=== PATIENT | female | born 1960 | race Caucasian/White ===

== ENCOUNTER → 2018-03-29 | Outpatient (CLI) | payer OTHER ==
[2018-03-29 11:06] LABS: Blood Urea Nitrogen 15 mg/dL (7-17)
--- NOTE | 2018-03-29 12:38 | MR ---
EXAMINATION TYPE: MR brain/cspine wo/w DATE OF EXAM: 03/29/2018 COMPARISON: Outside brain MRI February 08, 2017. HISTORY: MS TECHNIQUE: Multiplanar, multisequence images of the cervical spine, brain, and brainstem are all performed witho ut and with IV contrast, utilizing 5 mL intravenous Gadavist gadolinium contrast is administered intr avenously. Demyelinating disease protocol with additional Sagittal Flair sequence performed of the b rain and brainstem and PD sagittal sequence of cervical spine all acquired.. FINDINGS: BRAIN: T2 Lesions Present : Yes Approximate Number of Lesions: Approximately 20-25 Locations Identified : Scattered deep and periventricular supratentorial lesions Size of Reference Lesion(s): 1. Confluent left parietal periventricular lesion measuring 20 x 16 x 17 mm axial image 22 and sagitt al image 13 fairly stable Enhancing Lesion(s) Present: No T1 Hypointense Lesion(s) Present: Yes Change from Prior: Better visualization or suspected new small lesions on current exam Diffusion weighted images demonstrate no evidence of a recent infarct or other diffusion abnormality. There is no worrisome extra-axial fluid collection. The ventricular system and cisternal spaces ar e normal in size and appearance. The brain volume is age appropriate. Midline structures redemonstrated low lying cerebellar tonsils. Post contrast images demonstrate no a bnormal enhancement. The dural venous sinuses appear patent. The visualized sinuses are clear and th e globes are intact. IMPRESSION: 1. Fairly moderate nonspecific white matter changes most likely on basis of patient's known demyelina ting disease. I do favor better visualization accounting for improved technique on current study vers us outside study, cannot exclude some small new lesions. No enhancing lesions are noted. 2. Stable low-lying cerebellar tonsils, borderline Chiari type I malformation. C-SPINE: FINDINGS: Sagittal images of the cervical spine show stable slightly low lying cerebellar tonsils. T he cervical and upper thoracic spinal cord is normal in course, caliber, and signal. Vertebral align ment is anatomic. The vertebral body and intravertebral disk heights are normal. Small posterior dis c herniation C6-C7 level is seen effacing anterior thecal sac on sagittal images. The bone marrow sig nal intensity is within normal limits. No suspicious postcontrast enhancement is noted. Axial images show the C2-C3, C3-C4, C4-C5, and C5-C6 levels all to appear within normal limits. Axial images at C6-C7 level shows central disc protrusion effacing anterior thecal sac on axial image 14, bilateral neural foramina are patent. Axial images at C7-T1 level are felt within normal limits.. IMPRESSION: No evidence of demyelinating disease involvement in the cervical spinal cord. Focal disc herniation C6-C7 level is noted.
[2018-03-29 13:21] LABS: Basophils # (A) 0.1 k/uL (0-0.2); Basophils % (A) 1 %; Eosinophils # (A) 0.1 k/uL (0-0.7); Eosinophils % (A) 2 %; HGB 12.6 gm/dL (11.4-16.0); Lymphocytes # (A) 2.6 k/uL (1.0-4.8); Lymphocytes % (A) 41 %; MCH 31.9 pg (25.0-35.0); MCHC 33.2 g/dL (31.0-37.0); MCV 96.2 fL (80.0-100.0); Mean Platelet Volume 9.4; Monocytes # (A) 0.3 k/uL (0-1.0); Monocytes % (A) 5 %; Neutrophils # (A) 3.2 k/uL (1.3-7.7); Neutrophils % (A) 50 %; Platelet Count 253 k/uL (150-450); RBC 3.95 m/uL (3.80-5.40); RDW 14.2 % (11.5-15.5); WBC 6.4 k/uL (3.8-10.6)
[2018-03-29 13:26] LABS: ALT 36 U/L (9-52); AST 43 U/L (14-36); Albumin 4.3 g/dL (3.5-5.0); Alkaline Phosphatase 101 U/L (38-126); Anion Gap 10 mmol/L; Calcium 9.5 mg/dL (8.4-10.2); Carbon Dioxide 25 mmol/L (22-30); Chloride 105 mmol/L (98-107); Glucose 85 mg/dL (74-99); Potassium 4.4 mmol/L (3.5-5.1); Sodium 140 mmol/L (137-145); Total Bilirubin 0.3 mg/dL (0.2-1.3); Total Protein 7.5 g/dL (6.3-8.2)
[2018-03-29 19:06] LABS: Vitamin D 25 Hydroxy 65.4 ng/mL (30.0-100.0)
== END | disposition home or self-care (01) ==
LOC: RADMRIMAIN 10:33
PROVIDERS: ATTEND Nurse Practitioner Acute Care
DX: M50.223 Other cervical disc displacement at C6-C7 level (principal); G93.5 Compression of brain; E55.9 Vitamin D deficiency, unspecified; R53.83 Other fatigue; G35 Multiple sclerosis; Z88.0 Allergy status to penicillin
CPT/HCPCS: 84207; 80053; 82607; 85025; 82306; 70553; 72156; 36415; A9581

== ENCOUNTER 2023-05-10 12:18 | Emergency (ER) | payer OTHER ==
[2023-05-10 12:56] LABS: Basophils % (A) 0 %; Eosinophils # (A) 0.2 k/uL (0-0.7); Eosinophils % (A) 2 %; HCT 33.2 % (34.0-46.0); HGB 11.3 gm/dL (11.4-16.0); Lymphocytes # (A) 1.2 k/uL (1.0-4.8); Lymphocytes % (A) 13 %; MCH 31.5 pg (25.0-35.0); MCV 92.6 fL (80.0-100.0); Mean Platelet Volume 7.8; Monocytes # (A) 0.6 k/uL (0-1.0); Monocytes % (A) 7 %; Neutrophils # (A) 6.5 k/uL (1.3-7.7); Neutrophils % (A) 76 %; Platelet Count 405 k/uL (150-450); RBC 3.58 m/uL (3.80-5.40); RDW 13.5 % (11.5-15.5); WBC 8.6 k/uL (3.8-10.6)
[2023-05-10 13:08] LABS: ALT 22 U/L (4-34); AST 23 U/L (14-36); African American GFR (CKD) >90 (>60 ml/min/1.73 sqM); Albumin 4.2 g/dL (3.5-5.0); Alkaline Phosphatase 156 U/L (38-126); Anion Gap 14 mmol/L; Blood Urea Nitrogen 12 mg/dL (7-17); Carbon Dioxide 21 mmol/L (22-30); Chloride 104 mmol/L (98-107); Glucose 99 mg/dL (74-99); Magnesium 1.9 mg/dL (1.6-2.3); Non-African American GFR(CKD) >90 (>60 ml/min/1.73 sqM); Potassium 3.4 mmol/L (3.5-5.1); Sodium 139 mmol/L (137-145); Total Bilirubin 0.4 mg/dL (0.2-1.3)
--- NOTE | 2023-05-10 13:26 | XR ---
EXAMINATION TYPE: XR chest 2V DATE OF EXAM: 05/10/2023 1:18 PM CLINICAL INDICATION:Female, 62 years old with history of Chest Pain; [facility] COMPARISON: Chest radiographs from TECHNIQUE: XR chest 2V Frontal and lateral views of the chest. FINDINGS: Lungs/Pleura: Nodular-like opacity in the left lung apex measuring 23 mm. There is no evidence of rig ht pleural effusion, focal consolidation, or pneumothorax. Pulmonary vascularity: Unremarkable. Heart/mediastinum: Cardiomediastinal silhouette is unremarkable. Musculoskeletal: No acute osseous pathology. Midline sternotomy wires are noted. IMPRESSION: 1. Left apical nodule further evaluation with CT chest recommended. 2. Left pleural effusion with associated atelectasis.
--- NOTE | 2023-05-10 13:43 | ED ---
General Adult HPI - General Source: patient, RN notes reviewed, old records reviewed Mode of arrival: wheelchair Limitations: no limitations <Rick Skaggs - Last Filed: 05/10/23 14:44> <Zhao San - Last Filed: 05/10/23 16:31> - General Chief complaint: Chest Pain Stated complaint: Chest Pain, SOB, Cough Time Seen by Provider: 05/10/23 12:42 - History of Present Illness Initial comments: 62-year-old female presenting for evaluation of cough, chest pain. Patient has had symptoms for the past several months. She does have a history of coronary artery disease status post bypass. She was scheduled to receive a outpatient CT on the of this month, sounds as if this is 46 cancer screening. She re quests that this CAT scan be done in the emergency department. She denies fever. Reports mild dyspnea. (Rick Skaggs) - Related Data Previous Rx's Medication Instructions Recorded Ketorolac [Toradol] 10 mg PO Q6HR PRN #15 tab 05/10/23 Allergies Allergy/AdvReac Type Severity Reaction Status Date / Time Penicillins Allergy Rash/Hives Verified 05/10/23 12:26 Review of Systems ROS Other: All systems not noted in ROS Statement are negative. <Rick Skaggs - Last Filed: 05/10/23 14:44> ROS Other: All systems not noted in ROS Statement are negative. <Zhao San - Last Filed: 05/10/23 16:31> ROS Statement: Those systems with pertinent positive or pertinent negative responses have been documented in the HPI. Past Medical History Past Medical History: Coronary Artery Disease (CAD), Chest Pain / Angina, Hypertension, Myocardial Infarction ([place]) Additional Past Medical History / Comment(s): MS Past Surgical History: Coronary Bypass/CABG Past Psychological History: Depression <Rick Skaggs - Last Filed: 05/10/23 14:44> General Exam Limitations: no limitations General appearance: alert, in no apparent distress Head exam: Present: atraumatic, normocephalic Eye exam: Present: normal appearance, PERRL ENT exam: Present: normal exam Neck exam: Present: normal inspection. Absent: tenderness, meningismus Respiratory exam: Present: normal lung sounds bilaterally. Absent: respiratory distress, wheezes Cardiovascular Exam: Present: regular rate, normal rhythm GI/Abdominal exam: Present: soft. Absent: distended, tenderness, guarding Extremities exam: Present: normal inspection, normal capillary refill. Absent: pedal edema, calf tenderness Neurological exam: Present: alert, oriented X3, CN II-XII intact. Absent: motor sensory deficit Psychiatric exam: Present: normal affect, normal mood Skin exam: Present: warm, dry, intact. Absent: cyanosis, diaphoretic <Rick Skaggs - Last Filed: 05/10/23 14:44> Course Vital Signs 05/10/23 05/10/23 05/10/23 12:22 14:12 15:20 Temperature 98.4 F 98.7 F Pulse Rate 83 84 86 Respiratory 16 20 18 Rate Blood Pressure 170/97 181/99 173/97 O2 Sat by Pulse 98 96 96 Oximetry Medical Decision Making - Lab Data Result diagrams: 05/10/23 12:43 05/10/23 12:43 <Rick Skaggs - Last Filed: 05/10/23 14:44> - Lab Data Result diagrams: 05/10/23 12:43 05/10/23 12:43 <Zhao San - Last Filed: 05/10/23 16:31> - Medical Decision Making Was pt. sent in by a medical professional or institution ([facility], RAIL ASSEMBLER, urgent care, hospital, or longterm...) When possible be specific @ -No Did you speak to anyone other than the patient for history (EMS, parent, family, police, friend...)? What history was obtained from this source @ -No Did you review nursing and triage notes (agree or disagree)? Why? @ -I reviewed and agree with nursing and triage notes Were old charts reviewed (outside hosp., previous admission, EMS record, old EKG, old radiological studies, urgent care reports/EKG's, longterm records)? Report findings @ -No old charts were reviewed Differential Diagnosis (chest pain, altered mental status, abdominal pain women, abdominal pain men, vaginal bleeding, weakness, fever, dyspnea, syncope, headache, dizziness, GI bleed, back pain, seizure, CVA, palpatations, mental health, musculoskeletal)? @ -not applicable EKG interpreted by me (3pts min.). @ -Sinus rhythm rate of 76, KS interval 139, QRS duration 80, QTC [address] segment elevation. X-rays interpreted by me (1pt min.). @Chest x-ray showing left pleural effusion with left upper lobe pulmonary nodule. CT interpreted by me (1pt min.). @CT angiogram pending ordered secondary to d-dimer U/S interpreted by me (1pt. min.). @ -None done What testing was considered but not performed or refused? (CT, X-rays, U/S, labs)? Why? @ -None What meds were considered but not given or refused? Why? @ -None Did you discuss the management of the patient with other professionals (professionals i.e. Dr., PA, RAIL ASSEMBLER, lab, RT, psych nurse, social and political studies professor, bariatric surgeon, teacher, ambulance officer, transplant case manager)? Give summary @ -No Was smoking cessation discussed for >3mins.? @ -No Was critical care preformed (if so, how long)? @ -No Were there social determinants of health that impacted care today? How? (Homele ssness, low income, unemployed, alcoholism, drug addiction, transportation, low edu. Level, literacy, decrease access to med. care, senior living, rehab)? @ -No Was there de-escalation of care discussed even if they declined (Discuss DNR or withdrawal of care, Hospice)? DNR status @ -No What co-morbidities impacted this encounter? (DM, HTN, Smoking, COPD, CAD, Cancer, CVA, ARF, Chemo, Hep., AIDS, mental health diagnosis, sleep apnea, morbid obesity)? @ -[Coronary artery disease Was patient admitted / discharged? Hospital course, mention meds given and route, prescriptions, significant lab abnormalities, going to OR and other pertinent info. @ -Patient's care is signed out to Dr. Sna at shift change awaiting CT imaging and reevaluation. (Rick Skaggs) Chest x-ray shows left upper lobe nodule and left lower lobe effusion, interpret ed by myself Computed tomography scan of the chest interpreted by myself does have concern for left. Tracheal mass with concern for bony metastasis. Nodule. Left effusions Case was discussed in detail with Dr. Cassidy including presentation and CT results. He is comfortable patient discharge and will follow-up with the patient in the office next week. Patient reevaluated by myself, Dr. San. Patient resting comfortably in bed, near symptom-free. Patient is comfortable with discharge home and advised of results and need for close follow-up. Patient does demonstrate understanding. Diagnosis: Left lung mass Acute There is potential for damage to lung and life with lung mass. (Zhao San) - Lab Data Lab Results 05/10/23 05/10/23 05/10/23 Range/Units 12:43 12:43 12:43 WBC 8.6 (3.8-10.6) k/uL RBC 3.58 L (3.80-5.40) m/uL Hgb 11.3 L (11.4-16.0) gm/dL Hct 33.2 L (34.0-46.0) % MCV 92.6 (80.0-100.0) fL MCH 31.5 (25.0-35.0) pg MCHC 34.0 (31.0-37.0) g/dL RDW 13.5 (11.5-15.5) % Plt Count 405 (150-450) k/uL MPV 7.8 Neutrophils % 76 % Lymphocytes % 13 % Monocytes % 7 % Eosinophils % 2 % Basophils % 0 % Neutrophils # 6.5 (1.3-7.7) k/uL Lymphocytes # 1.2 (1.0-4.8) k/uL Monocytes # 0.6 (0-1.0) k/uL Eosinophils # 0.2 (0-0.7) k/uL Basophils # 0.0 (0-0.2) k/uL PT 10.4 (10.0-12.5) sec INR 0.9 (<1.2) APTT 25.4 (22.0-30.0) sec D-Dimer 0.87 H (<0.60) mg/L FEU Sodium 139 (137-145) mmol/L Potassium 3.4 L (3.5-5.1) mmol/L Chloride 104 (98-107) mmol/L Carbon Dioxide 21 L (22-30) mmol/L Anion Gap 14 mmol/L BUN 12 (7-17) mg/dL Creatinine 0.52 (0.52-1.04) mg/dL Est GFR (CKD-EPI)AfAm >90 (>60 ml/min/1.73 sqM) Est GFR (CKD-EPI)NonAf >90 (>60 ml/min/1.73 sqM) Glucose 99 (74-99) mg/dL Calcium 10.0 (8.4-10.2) mg/dL Magnesium 1.9 (1.6-2.3) mg/dL Total Bilirubin 0.4 (0.2-1.3) mg/dL AST 23 (14-36) U/L ALT 22 (4-34) U/L Alkaline Phosphatase 156 H (38-126) U/L Troponin I (0.000-0.034) ng/mL Total Protein 7.0 (6.3-8.2) g/dL Albumin 4.2 (3.5-5.0) g/dL 05/10/23 Range/Units 12:43 WBC (3.8-10.6) k/uL RBC (3.80-5.40) m/uL Hgb (11.4-16.0) gm/dL Hct (34.0-46.0) % MCV (80.0-100.0) fL MCH (25.0-35.0) pg MCHC (31.0-37.0) g/dL RDW (11.5-15.5) % Plt Count (150-450) k/uL MPV Neutrophils % % Lymphocytes % % Monocytes % % Eosinophils % % Basophils % % Neutrophils # (1.3-7.7) k/uL Lymphocytes # (1.0-4.8) k/uL Monocytes # (0-1.0) k/uL Eosinophils # (0-0.7) k/uL Basophils # (0-0.2) k/uL PT (10.0-12.5) sec INR (<1.2) APTT (22.0-30.0) sec D-Dimer (<0.60) mg/L FEU Sodium (137-145) mmol/L Potassium (3.5-5.1) mmol/L Chloride (98-107) mmol/L Carbon Dioxide (22-30) mmol/L Anion Gap mmol/L BUN (7-17) mg/dL Creatinine (0.52-1.04) mg/dL Est GFR (CKD-EPI)AfAm (>60 ml/min/1.73 sqM) Est GFR (CKD-EPI)NonAf (>60 ml/min/1.73 sqM) Glucose (74-99) mg/dL Calcium (8.4-10.2) mg/dL Magnesium (1.6-2.3) mg/dL Total Bilirubin (0.2-1.3) mg/dL AST (14-36) U/L ALT (4-34) U/L Alkaline Phosphatase (38-126) U/L Troponin I <0.012 (0.000-0.034) ng/mL Total Protein (6.3-8.2) g/dL Albumin (3.5-5.0) g/dL Disposition <Rick Skaggs - Last Filed: 05/10/23 14:44> Is patient prescribed a controlled substance at d/c from ED?: No Time of Disposition: 16:29 <Zhao San - Last Filed: 05/10/23 16:31> Clinical Impression: Mass of left lung Disposition: HOME SELF-CARE Condition: Stable Instructions (If sedation given, give patient instructions): Pulmonary Nodules (ED), Chest Pain (ED) Additional Instructions: Please do follow-up to primary care physician in the next one to 2 days for recheck. Please do follow-up with Dr. Navarro in the beginning of the week, number provided. Return for fever, difficulty breathing, increased pain, worsening or changing symptoms or any other concerns. Prescription has been sent to pharmacy. Prescriptions: Ketorolac [Toradol] 10 mg PO Q6HR PRN #15 tab PRN Reason: Pain Referrals: Ni German MD [Primary Care Provider] - 1-2 days Rick Navarro DO [Doctor of Osteopathic Medicine] - 1-2 days
[2023-05-10 14:18] LABS: INR 0.9 (<1.2); Partial Thromboplastin Time 25.4 sec (22.0-30.0); Prothrombin Time 10.4 sec (10.0-12.5)
[2023-05-10] MEDS ORDERED: KETOROLAC 15 MG/ML 1 ML VIAL IVP STA (15:21)
--- NOTE | 2023-05-10 15:38 | CT ---
EXAMINATION TYPE: CT angio chest DATE OF EXAM: 05/10/2023 COMPARISON: Radiograph same day HISTORY: 62-year-old female chest pain, sob and elevated d-dimer. TECHNIQUE: Contiguous axial scanning of the chest performed with IV Contrast, patient injected with 6 1ml mL of Isovue 370. Coronal/sagittal MIP reconstructions performed. CT DLP: 224.1 mGycm Automated exposure control for dose reduction was used. FINDINGS: Median sternotomy wires are present. Post-CABG clips. Heart upper limits of normal in size without pericardial effusion. Aorta normal caliber with conventional arch vessel branching anatomy. There is left AP window claudia mass contiguous with lower left paratracheal adenopathy measuring up to 4.2 x 3.9 cm. There is partial encasement of left hilar structures. Nodular thickening superior aspect of the left major fissure measuring up to 1.1 cm. Additional suspi cious 1.9 cm nodule posterior left upper lobe. There is a small left pleural effusion. However, suspicious pleural based soft tissue posterolateral left base measuring 1.9 cm and a smaller area just adjacent posteriorly eroding into the posterior le ft eighth rib. Lytic soft tissue lesion involving the left lateral sixth rib. Background minimal emphysematous change. Satisfactory opacification of the pulmonary arterial system. No pulmonary embolus is seen. Prominent opacification throughout the basilar left lower lobe with volume loss suggesting extensive atelectasis rather than consolidation. Visualized her abdomen shows no gross abnormality. Bones: There are lytic lesions involving the fifth, sixth, seventh, 10th, and 12th vertebral body. IMPRESSION: 1. NO EVIDENCE FOR PULMONARY EMBOLUS. 2. LEFT AP WINDOW CLAUDIA MASS CONTIGUOUS WITH THE LOWER LEFT PARATRACHEAL REGION MEASURING UP TO 4.2 X 3.9 CM. THIS PARTIALLY ENCASES LEFT HILAR STRUCTURES. 3. SCATTERED PLEURAL THICKENING AND PLEURAL DEPOSITS LEFT MID AND LOWER LUNG. THESE DEPOSITS MEASURE UP TO 1.9 CM. ONE OF THESE NODES INTO THE POSTERIOR LEFT EIGHTH RIB. SMALL LEFT PLEURAL EFFUSION. 4. SUSPICIOUS POSTERIOR LEFT UPPER LOBE NODULE MEASURING 1.9 CM. 5. ADDITIONAL LYTIC OSSEOUS METASTATIC DISEASE INVOLVING A NUMBER OF THE THORACIC VERTEBRA WELL THE LEFT LATERAL SIXTH RIB. 6. PROMINENT OPACIFICATION AT THE BASILAR LEFT LOWER LOBE. GIVEN THE VOLUME LOSS HERE, ATELECTASIS IS FAVORED OVER PNEUMONIA. CORRELATE WITH SYMPTOMS.
[2023-05-10] MEDS ORDERED: ACET/COD 300 MG/30 MG STARTER PACK 6 TAB BTL PO STA (16:30)
[2023-05-10 16:45] VITALS: BP 173/90; PULSE 85; RESP 19; TEMP 98.9
== END 2023-05-10 17:00 | disposition home or self-care (01) ==
LOC: EC 12:18
DX: R91.8 Other nonspecific abnormal finding of lung field (principal); I25.10 Atherosclerotic heart disease of native coronary artery without angina pectoris; I10 Essential (primary) hypertension; Z88.0 Allergy status to penicillin; Z86.59 Personal history of other mental and behavioral disorders
CPT/HCPCS: 36415; 93005; 85379; 80053; 83735; 84484; 85025; 85610; 85730; 71046; 71275; 99285; 96374; J1885; Q9967

== ENCOUNTER 2023-05-24 03:10 | Inpatient (IN) | payer OTHER ==
--- NOTE | 2023-05-24 03:22 | ED ---
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 Patient is brought to the ER today via EMS in acute respiratory distress. Family reports that the patient has been in her usual state of health she saw her chief media officer to establish care and has a plan for a PET scan on June 09. Daughter states that most evenings the patient does seem to have what she thinks is an anxiety attack where she starts hyperventilating having a bit of trouble breathing but this is usually relieved with breathing exercises. Patient was in her usual state of health throughout the day today this evening she suddenly could not breathe she was vides diaphoretic and appeared quite unwell which prompted them to call EMS. EMS attempted to place BiPAP but the patient wasn't tolerating as she was pulling on it and fighting so she was treated with oxygen mask. - Related Data Previous Rx's Medication Instructions Recorded Ketorolac [Toradol] 10 mg PO Q6HR PRN #15 tab 05/10/23 Allergies Allergy/AdvReac Type Severity Reaction Status Date / Time Penicillins Allergy Rash/Hives Verified 05/11/23 18:49 Review of Systems ROS Statement: Those systems with pertinent positive or pertinent negative responses have been documented in the HPI. ROS Other: All systems not noted in ROS Statement are negative. Past Medical History Past Medical History: Coronary Artery Disease (CAD), Chest Pain / Angina, Hypertension, Myocardial Infarction (CT) Additional Past Medical History / Comment(s): MS History of Any Multi-Drug Resistant Organisms: None Reported Past Surgical History: Coronary Bypass/CABG Past Psychological History: Depression Smoking Status: Former smoker Past Alcohol Use History: None Reported Past Drug Use History: None Reported General Exam Limitations: no limitations General appearance: anxious Eye exam: Present: other (Pupils are dilated left pupil is consistently 2 mm larger than the right) ENT exam: Present: mucous membranes moist Respiratory exam: Present: respiratory distress, wheezes, rhonchi, accessory muscle use Cardiovascular Exam: Present: tachycardia GI/Abdominal exam: Present: soft. Absent: distended, tenderness, guarding, rebound, rigid External exam: Present: normal external exam Neurological exam: Present: alert, altered Skin exam: Present: diaphoretic Course Vital Signs 05/24/23 05/24/23 05/24/23 03:11 03:19 03:35 Temperature 94.6 F L 97.6 F Pulse Rate 102 H Respiratory 32 H 40 H Rate Blood Pressure 163/119 O2 Sat by Pulse 97 Oximetry Fraction of Inspired Oxygen (FIO2) 05/24/23 05/24/23 05/24/23 03:39 03:40 03:45 Temperature Pulse Rate 98 98 98 Respiratory 37 H 40 H Rate Blood Pressure 157/105 150/106 O2 Sat by Pulse 95 93 L Oximetry Fraction of Inspired Oxygen (FIO2) 05/24/23 05/24/23 05/24/23 04:00 04:02 04:13 Temperature Pulse Rate 84 Respiratory 22 Rate Blood Pressure 116/79 O2 Sat by Pulse 99 Oximetry Fraction of 100 100 Inspired Oxygen (FIO2) 05/24/23 05/24/23 05/24/23 04:15 04:31 05:20 Temperature Pulse Rate 79 Respiratory 22 Rate Blood Pressure 131/102 O2 Sat by Pulse 99 Oximetry Fraction of 70 60 Inspired Oxygen (FIO2) 05/24/23 05/24/23 05/24/23 05:27 05:36 05:42 Temperature 96.6 F L 96.6 F L Pulse Rate 74 72 72 Respiratory 16 17 14 Rate Blood Pressure 121/65 100/71 100/71 O2 Sat by Pulse 100 99 100 Oximetry Fraction of Inspired Oxygen (FIO2) 05/24/23 06:59 Temperature 96.6 F L Pulse Rate 70 Respiratory 17 Rate Blood Pressure 113/64 O2 Sat by Pulse 100 Oximetry Fraction of Inspired Oxygen (FIO2) Medical Decision Making - Medical Decision Making Was pt. sent in by a medical professional or institution (, PA, [employer], urgent care, hospital, or custodial...) When possible be specific @ -No Did you speak to anyone other than the patient for history (EMS, parent, family, police, friend...)? What history was obtained from this source @ -EMS, family Did you review nursing and triage notes (agree or disagree)? Why? @ -I reviewed and agree with nursing and triage notes Were old charts reviewed (outside hosp., previous admission, EMS record, old EKG, old radiological studies, urgent care reports/EKG's, custodial records)? Report findings @ -Previous charts were reviewed, previous radiology reports reviewed Differential Diagnosis (chest pain, altered mental status, abdominal pain women, abdominal pain men, vaginal bleeding, weakness, fever, dyspnea, syncope, headache, dizziness, GI bleed, back pain, seizure, CVA, palpatations, mental health, musculoskeletal)? @ -Differential Dyspnea: Coronary syndrome, arrhythmia, tamponade, asthma, COPD, pulmonary embolism, pneumonia, pneumothorax, pulmonary effusion, anaphylaxis, diabetic ketoacidosis, flailed chest, pulmonary contusion, diaphragmatic rupture, anemia, neuromuscular, this is not meant to be an all-inclusive list. EKG interpreted by me (3pts min.). @ -As above X-rays interpreted by me (1pt min.). @ -Chest x-ray was evaluated at bedside, ET tube is deep and there appears to be CHF CT interpreted by me (1pt min.). @ -CT of the brain was reviewed by me there is no acute intracranial pathology CT of the chest abdomen pelvis were reviewed there is bony metastases throughout the body U/S interpreted by me (1pt. min.). @ -None done What testing was considered but not performed or refused? (CT, X-rays, U/S, labs)? Why? @ -None What meds were considered but not given or refused? Why? @ -None Did you discuss the management of the patient with other professionals (professionals i.e. , PA, [employer], lab, RT, psych nurse, social services, supervisor roving department, teacher, patrol officer, high risk case manager)? Give summary @ -Discussed with admitting physician Dr. Bronson, Chris nurse practitioner for the ICU and Dr. Napier surgeon regarding her gallbladder Was smoking cessation discussed for >3mins.? @ -No Was critical care preformed (if so, how long)? @ -Yes, 60 minutes Were there social determinants of health that impacted care today? How? (Homelessness, low income, unemployed, alcoholism, drug addiction, transportation, low edu. Level, literacy, decrease access to med. care, halfway, rehab)? @ -No Was there de-escalation of care discussed even if they declined (Discuss DNR or withdrawal of care, Hospice)? DNR status @ -DNR What co-morbidities impacted this encounter? (DM, HTN, Smoking, COPD, CAD, Cancer, CVA, ARF, Chemo, Hep., AIDS, mental health diagnosis, sleep apnea, morbid obesity)? @ -Cancer Was patient admitted / discharged? Hospital course, mention meds given and route, prescriptions, significant lab abnormalities, going to OR and other pertinent info. @ -Admit Undiagnosed new problem with uncertain prognosis? @ -( Drug Therapy requiring intensive monitoring for toxicity (Heparin, Nitro, Insulin, Cardizem)? @ -Yes, sedation Were any procedures done? @ -No Diagnosis/symptom? @ -Respiratory failure Acute, or Chronic, or Acute on Chronic? @ -Acute Uncomplicated (without systemic symptoms) or Complicated (systemic symptoms)? @ -Complicated Side effects of treatment? @ -No Exacerbation, Progression, or Severe Exacerbation? @ -No Poses a threat to life or bodily function? How? (Chest pain, USA, CT, pneumonia, PE, COPD, DKA, ARF, appy, cholecystitis, CVA, Diverticulitis, Homicidal, Suicidal, threat to staff... and all critical care pts) @ -Yes Diagnosis/symptom? @ -Acute heart failure Acute, or Chronic, or Acute on Chronic? @ -Acute Uncomplicated (without systemic symptoms) or Complicated (systemic symptoms)? @ -Complicated Side effects of treatment? @ -none Exacerbation, Progression, or Severe Exacerbation] @ -no Poses a threat to life or bodily function? @ -Yes Diagnosis/symptom? @ -High anion gap metabolic acidosis Acute, or Chronic, or Acute on Chronic? @ -Acute Uncomplicated (without systemic symptoms) or Complicated (systemic symptoms)? @ -Complicated Side effects of treatment? @ -none Exacerbation, Progression, or Severe Exacerbation] @ -no Poses a threat to life or bodily function? @ -Yes - Lab Data Result diagrams: 05/24/23 03:25 05/24/23 03:25 Lab Results 05/24/23 05/24/23 05/24/23 Range/Units 03:24 03:25 03:25 WBC 12.8 H (3.8-10.6) k/uL RBC 3.69 L (3.80-5.40) m/uL Hgb 11.4 (11.4-16.0) gm/dL Hct 36.4 (34.0-46.0) % MCV 98.7 D (80.0-100.0) fL MCH 30.8 (25.0-35.0) pg MCHC 31.2 (31.0-37.0) g/dL RDW 13.5 (11.5-15.5) % Plt Count 780 H (150-450) k/uL MPV 7.8 Neutrophils % 69 % Lymphocytes % 20 % Monocytes % 5 % Eosinophils % 2 % Basophils % 1 % Neutrophils # 8.9 H (1.3-7.7) k/uL Lymphocytes # 2.6 (1.0-4.8) k/uL Monocytes # 0.7 (0-1.0) k/uL Eosinophils # 0.2 (0-0.7) k/uL Basophils # 0.1 (0-0.2) k/uL Hypochromasia Marked PT 11.4 (10.0-12.5) sec INR 1.0 (<1.2) APTT 24.5 (22.0-30.0) sec Sample Site R radial ABG pH 7.16 L* (7.35-7.45) ABG pCO2 44 (35-45) mmHg ABG pO2 94 (83-108) mmHg ABG HCO3 15 L (21-25) mmol/L ABG Total CO2 17 L (19-24) mmol/L ABG O2 Saturation 93.4 L (94-97) % ABG Base Excess -13.4 mmol/L Cortez Test Yes FiO2 100 % Sodium (137-145) mmol/L Potassium (3.5-5.1) mmol/L Chloride (98-107) mmol/L Carbon Dioxide (22-30) mmol/L Anion Gap mmol/L BUN (7-17) mg/dL Creatinine (0.52-1.04) mg/dL Est GFR (CKD-EPI)AfAm (>60 ml/min/1.73 sqM) Est GFR (CKD-EPI)NonAf (>60 ml/min/1.73 sqM) Glucose (74-99) mg/dL POC Glucose (mg/dL) (70-110) mg/dL POC Glu Bilingual Administrative Assistant ID Lactic Ac Sepsis Rflx Plasma Lactic Acid Faisal (0.7-2.0) mmol/L Calcium (8.4-10.2) mg/dL Total Bilirubin (0.2-1.3) mg/dL AST (14-36) U/L ALT (4-34) U/L Alkaline Phosphatase (38-126) U/L Troponin I (0.000-0.034) ng/mL Total Protein (6.3-8.2) g/dL Albumin (3.5-5.0) g/dL Salicylates mg/dL Urine Opiates Screen (NotDetected) Ur Oxycodone Screen (NotDetected) Urine Methadone Screen (NotDetected) Ur Propoxyphene Screen (NotDetected) Acetaminophen ug/mL Ur Barbiturates Screen (NotDetected) U Tricyclic Antidepress (NotDetected) Ur Phencyclidine Scrn (NotDetected) Ur Amphetamines Screen (NotDetected) U Methamphetamines Scrn (NotDetected) U Benzodiazepines Scrn (NotDetected) Urine Cocaine Screen (NotDetected) U Marijuana (THC) Screen (NotDetected) Serum Alcohol mg/dL Influenza Type A (PCR) (Not Detectd) Influenza Type B (PCR) (Not Detectd) RSV (PCR) (Not Detectd) SARS-CoV-2 (PCR) (Not Detectd) 05/24/23 05/24/23 05/24/23 Range/Units 03:25 03:25 03:25 WBC (3.8-10.6) k/uL RBC (3.80-5.40) m/uL Hgb (11.4-16.0) gm/dL Hct (34.0-46.0) % MCV (80.0-100.0) fL MCH (25.0-35.0) pg MCHC (31.0-37.0) g/dL RDW (11.5-15.5) % Plt Count (150-450) k/uL MPV Neutrophils % % Lymphocytes % % Monocytes % % Eosinophils % % Basophils % % Neutrophils # (1.3-7.7) k/uL Lymphocytes # (1.0-4.8) k/uL Monocytes # (0-1.0) k/uL Eosinophils # (0-0.7) k/uL Basophils # (0-0.2) k/uL Hypochromasia PT (10.0-12.5) sec INR (<1.2) APTT (22.0-30.0) sec Sample Site ABG pH (7.35-7.45) ABG pCO2 (35-45) mmHg ABG pO2 (83-108) mmHg ABG HCO3 (21-25) mmol/L ABG Total CO2 (19-24) mmol/L ABG O2 Saturation (94-97) % ABG Base Excess mmol/L Cortez Test FiO2 % Sodium 139 (137-145) mmol/L Potassium 5.4 H (3.5-5.1) mmol/L Chloride 100 (98-107) mmol/L Carbon Dioxide 15 L (22-30) mmol/L Anion Gap 24 mmol/L BUN 11 (7-17) mg/dL Creatinine 0.78 (0.52-1.04) mg/dL Est GFR (CKD-EPI)AfAm >90 (>60 ml/min/1.73 sqM) Est GFR (CKD-EPI)NonAf 83 (>60 ml/min/1.73 sqM) Glucose 196 H (74-99) mg/dL POC Glucose (mg/dL) (70-110) mg/dL POC Glu Bilingual Administrative Assistant ID Lactic Ac Sepsis Rflx Plasma Lactic Acid Faisal 11.1 H* (0.7-2.0) mmol/L Calcium 10.5 H (8.4-10.2) mg/dL Total Bilirubin 0.3 (0.2-1.3) mg/dL AST 43 H (14-36) U/L ALT 33 (4-34) U/L Alkaline Phosphatase 192 H (38-126) U/L Troponin I 0.056 H* (0.000-0.034) ng/mL Total Protein 6.8 (6.3-8.2) g/dL Albumin 3.9 (3.5-5.0) g/dL Salicylates <1.0 mg/dL Urine Opiates Screen (NotDetected) Ur Oxycodone Screen (NotDetected) Urine Methadone Screen (NotDetected) Ur Propoxyphene Screen (NotDetected) Acetaminophen <10.0 ug/mL Ur Barbiturates Screen (NotDetected) U Tricyclic Antidepress (NotDetected) Ur Phencyclidine Scrn (NotDetected) Ur Amphetamines Screen (NotDetected) U Methamphetamines Scrn (NotDetected) U Benzodiazepines Scrn (NotDetected) Urine Cocaine Screen (NotDetected) U Marijuana (THC) Screen (NotDetected) Serum Alcohol <10 mg/dL Influenza Type A (PCR) (Not Detectd) Influenza Type B (PCR) (Not Detectd) RSV (PCR) (Not Detectd) SARS-CoV-2 (PCR) (Not Detectd) 05/24/23 05/24/23 05/24/23 Range/Units 03:25 03:48 03:50 WBC (3.8-10.6) k/uL RBC (3.80-5.40) m/uL Hgb (11.4-16.0) gm/dL Hct (34.0-46.0) % MCV (80.0-100.0) fL MCH (25.0-35.0) pg MCHC (31.0-37.0) g/dL RDW (11.5-15.5) % Plt Count (150-450) k/uL MPV Neutrophils % % Lymphocytes % % Monocytes % % Eosinophils % % Basophils % % Neutrophils # (1.3-7.7) k/uL Lymphocytes # (1.0-4.8) k/uL Monocytes # (0-1.0) k/uL Eosinophils # (0-0.7) k/uL Basophils # (0-0.2) k/uL Hypochromasia PT (10.0-12.5) sec INR (<1.2) APTT (22.0-30.0) sec Sample Site ABG pH (7.35-7.45) ABG pCO2 (35-45) mmHg ABG pO2 (83-108) mmHg ABG HCO3 (21-25) mmol/L ABG Total CO2 (19-24) mmol/L ABG O2 Saturation (94-97) % ABG Base Excess mmol/L Cortez Test FiO2 % Sodium (137-145) mmol/L Potassium (3.5-5.1) mmol/L Chloride (98-107) mmol/L Carbon Dioxide (22-30) mmol/L Anion Gap mmol/L BUN (7-17) mg/dL Creatinine (0.52-1.04) mg/dL Est GFR (CKD-EPI)AfAm (>60 ml/min/1.73 sqM) Est GFR (CKD-EPI)NonAf (>60 ml/min/1.73 sqM) Glucose (74-99) mg/dL POC Glucose (mg/dL) 174 H (70-110) mg/dL POC Glu Bilingual Administrative Assistant ID Ewelina Fisher Lactic Ac Sepsis Rflx Y Plasma Lactic Acid Faisal (0.7-2.0) mmol/L Calcium (8.4-10.2) mg/dL Total Bilirubin (0.2-1.3) mg/dL AST (14-36) U/L ALT (4-34) U/L Alkaline Phosphatase (38-126) U/L Troponin I (0.000-0.034) ng/mL Total Protein (6.3-8.2) g/dL Albumin (3.5-5.0) g/dL Salicylates mg/dL Urine Opiates Screen (NotDetected) Ur Oxycodone Screen (NotDetected) Urine Methadone Screen (NotDetected) Ur Propoxyphene Screen (NotDetected) Acetaminophen ug/mL Ur Barbiturates Screen (NotDetected) U Tricyclic Antidepress (NotDetected) Ur Phencyclidine Scrn (NotDetected) Ur Amphetamines Screen (NotDetected) U Methamphetamines Scrn (NotDetected) U Benzodiazepines Scrn (NotDetected) Urine Cocaine Screen (NotDetected) U Marijuana (THC) Screen (NotDetected) Serum Alcohol mg/dL Influenza Type A (PCR) Not Detected (Not Detectd) Influenza Type B (PCR) Not Detected (Not Detectd) RSV (PCR) Not Detected (Not Detectd) SARS-CoV-2 (PCR) Not Detected (Not Detectd) 05/24/23 05/24/23 05/24/23 Range/Units 04:23 04:52 05:00 WBC (3.8-10.6) k/uL RBC (3.80-5.40) m/uL Hgb (11.4-16.0) gm/dL Hct (34.0-46.0) % MCV (80.0-100.0) fL MCH (25.0-35.0) pg MCHC (31.0-37.0) g/dL RDW (11.5-15.5) % Plt Count (150-450) k/uL MPV Neutrophils % % Lymphocytes % % Monocytes % % Eosinophils % % Basophils % % Neutrophils # (1.3-7.7) k/uL Lymphocytes # (1.0-4.8) k/uL Monocytes # (0-1.0) k/uL Eosinophils # (0-0.7) k/uL Basophils # (0-0.2) k/uL Hypochromasia PT (10.0-12.5) sec INR (<1.2) APTT (22.0-30.0) sec Sample Site L radial ABG pH 7.34 L (7.35-7.45) ABG pCO2 35 (35-45) mmHg ABG pO2 175 H (83-108) mmHg ABG HCO3 19 L (21-25) mmol/L ABG Total CO2 20 (19-24) mmol/L ABG O2 Saturation 99.1 H (94-97) % ABG Base Excess -7.0 mmol/L Cortez Test Yes FiO2 100 % Sodium (137-145) mmol/L Potassium (3.5-5.1) mmol/L Chloride (98-107) mmol/L Carbon Dioxide (22-30) mmol/L Anion Gap mmol/L BUN (7-17) mg/dL Creatinine (0.52-1.04) mg/dL Est GFR (CKD-EPI)AfAm (>60 ml/min/1.73 sqM) Est GFR (CKD-EPI)NonAf (>60 ml/min/1.73 sqM) Glucose (74-99) mg/dL POC Glucose (mg/dL) (70-110) mg/dL POC Glu Bilingual Administrative Assistant ID Lactic Ac Sepsis Rflx Plasma Lactic Acid Faisal 7.1 H* (0.7-2.0) mmol/L Calcium (8.4-10.2) mg/dL Total Bilirubin (0.2-1.3) mg/dL AST (14-36) U/L ALT (4-34) U/L Alkaline Phosphatase (38-126) U/L Troponin I (0.000-0.034) ng/mL Total Protein (6.3-8.2) g/dL Albumin (3.5-5.0) g/dL Salicylates mg/dL Urine Opiates Screen Not Detected (NotDetected) Ur Oxycodone Screen Detected H (NotDetected) Urine Methadone Screen Not Detected (NotDetected) Ur Propoxyphene Screen Not Detected (NotDetected) Acetaminophen ug/mL Ur Barbiturates Screen Detected H (NotDetected) U Tricyclic Antidepress Not Detected (NotDetected) Ur Phencyclidine Scrn Not Detected (NotDetected) Ur Amphetamines Screen Not Detected (NotDetected) U Methamphetamines Scrn Not Detected (NotDetected) U Benzodiazepines Scrn Not Detected (NotDetected) Urine Cocaine Screen Not Detected (NotDetected) U Marijuana (THC) Screen Detected H (NotDetected) Serum Alcohol mg/dL Influenza Type A (PCR) (Not Detectd) Influenza Type B (PCR) (Not Detectd) RSV (PCR) (Not Detectd) SARS-CoV-2 (PCR) (Not Detectd) 05/24/23 Range/Units 05:11 WBC (3.8-10.6) k/uL RBC (3.80-5.40) m/uL Hgb (11.4-16.0) gm/dL Hct (34.0-46.0) % MCV (80.0-100.0) fL MCH (25.0-35.0) pg MCHC (31.0-37.0) g/dL RDW (11.5-15.5) % Plt Count (150-450) k/uL MPV Neutrophils % % Lymphocytes % % Monocytes % % Eosinophils % % Basophils % % Neutrophils # (1.3-7.7) k/uL Lymphocytes # (1.0-4.8) k/uL Monocytes # (0-1.0) k/uL Eosinophils # (0-0.7) k/uL Basophils # (0-0.2) k/uL Hypochromasia PT (10.0-12.5) sec INR (<1.2) APTT (22.0-30.0) sec Sample Site ABG pH (7.35-7.45) ABG pCO2 (35-45) mmHg ABG pO2 (83-108) mmHg ABG HCO3 (21-25) mmol/L ABG Total CO2 (19-24) mmol/L ABG O2 Saturation (94-97) % ABG Base Excess mmol/L Cortez Test FiO2 % Sodium (137-145) mmol/L Potassium (3.5-5.1) mmol/L Chloride (98-107) mmol/L Carbon Dioxide (22-30) mmol/L Anion Gap mmol/L BUN (7-17) mg/dL Creatinine (0.52-1.04) mg/dL Est GFR (CKD-EPI)AfAm (>60 ml/min/1.73 sqM) Est GFR (CKD-EPI)NonAf (>60 ml/min/1.73 sqM) Glucose (74-99) mg/dL POC Glucose (mg/dL) (70-110) mg/dL POC Glu Bilingual Administrative Assistant ID Lactic Ac Sepsis Rflx Y Plasma Lactic Acid Faisal (0.7-2.0) mmol/L Calcium (8.4-10.2) mg/dL Total Bilirubin (0.2-1.3) mg/dL AST (14-36) U/L ALT (4-34) U/L Alkaline Phosphatase (38-126) U/L Troponin I (0.000-0.034) ng/mL Total Protein (6.3-8.2) g/dL Albumin (3.5-5.0) g/dL Salicylates mg/dL Urine Opiates Screen (NotDetected) Ur Oxycodone Screen (NotDetected) Urine Methadone Screen (NotDetected) Ur Propoxyphene Screen (NotDetected) Acetaminophen ug/mL Ur Barbiturates Screen (NotDetected) U Tricyclic Antidepress (NotDetected) Ur Phencyclidine Scrn (NotDetected) Ur Amphetamines Screen (NotDetected) U Methamphetamines Scrn (NotDetected) U Benzodiazepines Scrn (NotDetected) Urine Cocaine Screen (NotDetected) U Marijuana (THC) Screen (NotDetected) Serum Alcohol mg/dL Influenza Type A (PCR) (Not Detectd) Influenza Type B (PCR) (Not Detectd) RSV (PCR) (Not Detectd) SARS-CoV-2 (PCR) (Not Detectd) - EKG Data -: EKG Interpreted by Me EKG Comments: EKG obtained due to respiratory distress, EKG obtained at 3:10 AM, rate is 100 rhythm is narrow complex appears to be regular with no obvious ST elevations or depressions no obvious evidence of acute ischemia or infarction. Interpretation is limited by respiratory artifact. PE EKG interpreted by me, repeat EKG obtained due to respiratory distress of unknown origin, repeat EKG obtained at 4 AM Rate is 84 rhythm is sinus normal axis, normal intervals [place] 138 QRS 79 QTc [address] elevations or depressions no evidence of acute ischemia or infarction Critical Care Time Critical Care Time: Yes Total Critical Care Time: 60 Disposition Clinical Impression: Mass of left lung, Metabolic acidosis, Respiratory failure, Metastatic disease, Lactic acidosis Disposition: ADMITTED IP TO THIS HOSP Condition: Critical
[2023-05-24 03:25] LABS: ABG Base Excess -13.4 mmol/L; ABG HCO3 15 mmol/L (21-25); ABG Oxygen Saturation 93.4 % (94-97); ABG PCO2 44 mmHg (35-45); ABG PO2 94 mmHg (83-108); ABG TCO2 17 mmol/L (19-24); Allen Test Performed? Yes
[2023-05-24 03:28] LABS: ABG PH 7.16 (7.35-7.45)
[2023-05-24] MEDS ORDERED: LORazepam 2 MG/ML INJ IV STA (03:34)
[2023-05-24] MEDS ORDERED: IPRATROPIUM-ALBUTEROL 3 ML NEB INHALATION STA (03:35)
[2023-05-24 03:38] LABS: Basophils # (A) 0.1 k/uL (0-0.2); Basophils % (A) 1 %; Eosinophils # (A) 0.2 k/uL (0-0.7); Eosinophils % (A) 2 %; HCT 36.4 % (34.0-46.0); HGB 11.4 gm/dL (11.4-16.0); Hypochromasia Marked; Lymphocytes # (A) 2.6 k/uL (1.0-4.8); Lymphocytes % (A) 20 %; MCH 30.8 pg (25.0-35.0); MCHC 31.2 g/dL (31.0-37.0); Mean Platelet Volume 7.8; Monocytes # (A) 0.7 k/uL (0-1.0); Monocytes % (A) 5 %; Neutrophils # (A) 8.9 k/uL (1.3-7.7); Neutrophils % (A) 69 %; Platelet Count 780 k/uL (150-450); RBC 3.69 m/uL (3.80-5.40); RDW 13.5 % (11.5-15.5); WBC 12.8 k/uL (3.8-10.6)
[2023-05-24 03:48] LABS: ALT 33 U/L (4-34); AST 43 U/L (14-36); African American GFR (CKD) >90 (>60 ml/min/1.73 sqM); Albumin 3.9 g/dL (3.5-5.0); Alcohol <10 mg/dL; Alkaline Phosphatase 192 U/L (38-126); Anion Gap 24 mmol/L; Blood Urea Nitrogen 11 mg/dL (7-17); Calcium 10.5 mg/dL (8.4-10.2); Carbon Dioxide 15 mmol/L (22-30); Chloride 100 mmol/L (98-107); Glucose 196 mg/dL (74-99); Non-African American GFR(CKD) 83 (>60 ml/min/1.73 sqM); Potassium 5.4 mmol/L (3.5-5.1); Salicylate <1.0 mg/dL; Sodium 139 mmol/L (137-145); Total Bilirubin 0.3 mg/dL (0.2-1.3); Total Protein 6.8 g/dL (6.3-8.2)
[2023-05-24] MEDS ORDERED: SODIUM BICARB 8.4% 50 ML SYR (1 MEQ/ML) IV STA (03:48)
[2023-05-24 03:50] LABS: Glucose,Whole Blood 174 mg/dL (70-110)
[2023-05-24 03:50] LABS: Partial Thromboplastin Time 24.5 sec (22.0-30.0); Prothrombin Time 11.4 sec (10.0-12.5)
[2023-05-24] MEDS ORDERED: ETOMIDATE 2 MG/ML 10 ML VIAL IVP STA (03:50)
[2023-05-24] MEDS ORDERED: ROCURONIUM 10 MG/ML (5 ML VIAL) IV STA (03:51)
[2023-05-24 03:53] LABS: MCV 98.7 fL (80.0-100.0)
[2023-05-24 03:59] LABS: Acetaminophen <10.0 ug/mL
[2023-05-24] MEDS ORDERED: SODIUM CHLORIDE 0.9% 1,000 ML IV STA ×2 (04:08→04:10)
[2023-05-24 04:26] LABS: ABG HCO3 19 mmol/L (21-25); ABG Oxygen Saturation 99.1 % (94-97); ABG PCO2 35 mmHg (35-45); ABG PH 7.34 (7.35-7.45); ABG PO2 175 mmHg (83-108); ABG TCO2 20 mmol/L (19-24); Allen Test Performed? Yes
--- NOTE | 2023-05-24 05:18 | XR ---
EXAM: XR Chest, 1 View CLINICAL HISTORY: hypoxia TECHNIQUE: Frontal view of the chest. COMPARISON: No relevant prior studies available. FINDINGS: Lungs: Diffuse bilateral pulmonary infiltrates which may represent CHF/fluid overload. Pleural space: Unremarkable. No pneumothorax or pleural fluid. Heart: Cardiomegaly. Mediastinum: Unremarkable. Normal mediastinal contour. Bones/joints: No acute findings. Tubes, lines and devices: The endotracheal tube is 3 cm into the right main bronchus. A gastric tube is seen in the stomach. IMPRESSION: 1. Diffuse bilateral pulmonary infiltrates which may represent CHF/fluid overload. 2. The endotracheal tube is 3 cm into the right main bronchus. <MYCVCSECTION> Communications: 05/24/23 05:27 Call Doctor Regarding Above results, called Dr. Eldridge on 05/24 05:26 (-05:00)
[2023-05-24 05:25] LABS: Amphetamine Screen,Urine Not Detected (NotDetected); Barbiturate Screen,Urine Detected (NotDetected); Benzodiazepines Screen,Urine Not Detected (NotDetected); Cocaine Screen,Urine Not Detected (NotDetected); Methadone Screen, Urine Not Detected (NotDetected); Opiate Screen,Urine Not Detected (NotDetected); Oxycodone Screen, Urine Detected (NotDetected); Phencyclidine Screen,Urine Not Detected (NotDetected); Tricyclic Antidepressant,Urine Not Detected (NotDetected); Urn Cannabinoid Scrn Detected (NotDetected)
[2023-05-24] MEDS: SODIUM CHLORIDE 0.9% 1,000 ML IV SCH ×2 (05:37→18:02)
--- NOTE | 2023-05-24 06:11 | CT ---
EXAM: CT Head Without Intravenous Contrast CLINICAL HISTORY: altered, acidosis, metastatic disease TECHNIQUE: Axial computed tomography images of the head/brain without intravenous contrast. CTDI is 45.2 mGy and DLP is 1098 mGy-cm. This CT exam was performed using one or more of the following dose reduction techniques: automated exposure control, adjustment of the mA and/or kV according to patient size, and/or use of iterative reconstruction technique. COMPARISON: No relevant prior studies available. FINDINGS: Brain: Unremarkable. No acute intracranial hemorrhage, edema or abnormal mass-effect. Ventricles: Unremarkable. No ventriculomegaly. Bones/joints: Multiple destructive areas in the skull involving the right frontal, left frontal, right parietal and posterior right temporal bones. No acute fracture. Soft tissues: Unremarkable. Sinuses: Unremarkable as visualized. No acute sinusitis. Mastoid air cells: Unremarkable as visualized. No mastoid effusion. Dental: Large periodontal erosion around the root of the left maxillary molar. IMPRESSION: Multiple destructive skull lesions consistent with metastases. No acute intracranial findings. EXAM: CT Cervical Spine Without Intravenous Contrast CLINICAL HISTORY: altered, acidosis, metastatic disease TECHNIQUE: Axial computed tomography images of the cervical spine without intravenous contrast. CTDI is 11.8 mGy and DLP is 382.9 mGy-cm. This CT exam was performed using one or more of the following dose reduction techniques: automated exposure control, adjustment of the mA and/or kV according to patient size, and/or use of iterative reconstruction technique. COMPARISON: No relevant prior studies available. FINDINGS: Vertebrae: Destructive lesions affecting the intra-articular body on the left at C5 as well as the left aspect of C1. No fracture. No misalignment. Discs/spinal canal/neural foramina: No acute findings. No spinal canal stenosis. Soft tissues: Unremarkable. IMPRESSION: Destructive lesions in the left aspects of C1 and C5. No fracture.
--- NOTE | 2023-05-24 06:22 | CT ---
EXAM: CT Chest With Intravenous Contrast CLINICAL HISTORY: lactic acidosis, metastatic disease TECHNIQUE: Axial computed tomography images of the chest with intravenous contrast. CTDI is 8.5 mGy and DLP is 500.65 mGy-cm. This CT exam was performed using one or more of the following dose reduction techniques: automated exposure control, adjustment of the mA and/or kV according to patient size, and/or use of iterative reconstruction technique. COMPARISON: No relevant prior studies available. FINDINGS: Lungs: Mild diffuse edema-like infiltrates, worse on the right. Atelectasis of the majority of the left lower lobe. More mild atelectasis in the right lower lobe. No mass. Pleural space: Moderately large left pleural effusion with very small right pleural effusion. No pneumothorax. Heart: Unremarkable. No cardiomegaly. No significant pericardial effusion. No significant coronary artery calcifications. Mediastinum: Mild diffuse mediastinal and left hilar adenopathy. Bones/joints: Multiple destructive lesions within the vertebral bodies including T12, T10, T7 and T5. No acute fracture. No dislocation. Soft tissues: Unremarkable. Vasculature: Unremarkable. No thoracic aortic aneurysm. Lymph nodes: See above. Tubes, lines and devices: The tip of the endotracheal tube measures 1 cm above the paulette. IMPRESSION: Mild diffuse edema-like infiltrates, worse on the right. Atelectasis of the majority of the left lower lobe. Associated pleural effusions. Some of this may represent CHF. Multiple thoracic spinal destructive lesions consistent with metastases. EXAM: CT Abdomen and Pelvis With Intravenous Contrast CLINICAL HISTORY: lactic acidosis, metastatic disease TECHNIQUE: Axial computed tomography images of the abdomen and pelvis with intravenous contrast. CTDI is 8.4 mGy and DLP is 500.65 mGy-cm. This CT exam was performed using one or more of the following dose reduction techniques: automated exposure control, adjustment of the mA and/or kV according to patient size, and/or use of iterative reconstruction technique. COMPARISON: No relevant prior studies available. FINDINGS: Lung bases: Unremarkable. No mass. No consolidation. ABDOMEN: Liver: Unremarkable. No mass. Gallbladder and bile ducts: Marked gallbladder wall thickening. No calcified stones. No ductal dilation. Pancreas: Unremarkable. No mass. No ductal dilation. Spleen: Unremarkable. No splenomegaly. Adrenals: Unremarkable. No mass. Kidneys and ureters: Unremarkable. No solid mass. No hydronephrosis. Stomach and bowel: Unremarkable. No obstruction. No mucosal thickening. PELVIS: Appendix: No findings to suggest acute appendicitis. Bladder: Unremarkable. No mass. Reproductive: Unremarkable as visualized. ABDOMEN and PELVIS: Intraperitoneal space: Unremarkable. No free air. Small amount of free fluid. Bones/joints: Multiple destructive lesions in the iliac bones bilaterally. Lytic lesion in the posterior aspect of the L3 vertebral body. No acute fracture. No dislocation. Soft tissues: Unremarkable. Vasculature: Unremarkable. No abdominal aortic aneurysm. Lymph nodes: Unremarkable. No enlarged lymph nodes. IMPRESSION: Marked gallbladder wall edema. Correlate for possible cholecystitis. Multiple destructive lesions in the iliac bones and the lumbar spine. These are consistent with metastases.
[2023-05-24] MEDS ORDERED: NALOXONE 0.4 MG/ML 1 ML VIAL IV PRN (06:41)
[2023-05-24 07:26] LABS: C Reactive Protein 6.9 mg/dL (<1.0)
[2023-05-24] MEDS ORDERED: MIDAZOLAM 1 MG/ML 5 ML VIAL IV STA (07:31)
[2023-05-24] MEDS ORDERED: FUROSEMIDE 10 MG/ML 4 ML VIAL IV STA (07:41)
[2023-05-24 07:45] LABS: Amylase 75 U/L (30-110); Lipase 70 U/L (23-300)
[2023-05-24 07:58] LABS: Glucose,Whole Blood 139 mg/dL (70-110)
--- NOTE | 2023-05-24 08:12 | P.CNPUL ---
History of Present Illness Consult date: 05/24/23 Requesting physician: Georgie Parker Reason for consult: other (ICU management) Chief complaint: shortness of breath, altered mental status History of present illness: I am seeing this patient in consultation today 05/24/2023 in the emergency room after the patient developed acute respiratory failure and was intubated. Patient is an 62-year-old female with past medical history significant for hypertension, hyperlipidemia, coronary artery disease with previous CABG, multiple sclerosis, depression. Patient also was recently found to have a lung mass and possible metastatic disease to the mediastinum and bone. This was being worked up on an outpatient basis. Chest CTA from 2 weeks ago showed a 4.2 x 3.9 cm left AP window ralph mass contiguous with the left leg lower left paratracheal region partially encasing the left hilum. There were multiple other scattered pleural thickening and pleural deposits left mid and left lower lung measuring up to 1.9 cm, and an associated left pleural effusion. There is also suspicious posterior left upper lobe nodule measuring 1.9 cm. One of these nodules showed invasion into the posterior left eighth rib. There is additional lytic osseous m etastases disease involving a number of the thoracic vertebra as well as the left lateral sixth rib. She recently was seen in the pulmonary office, by Dr. Navarro, four days ago. She did have an FEV1 of 38% of predicted and FVC 38% predicted with FEV1/FVC ratio of 77%. suggestive of a severe COPD component. She was started on Ventolin when necessary and Trelegy inhalers. Apparently, earlier this morning the patient was found to be in some respiratory distress and sweaty. This alerted family to call EMS. The patient was hypoxic, and trialled on BiPAP. She did become unresponsive, and was intubated for airway protection by the ER physician. Initial chest x-ray showed diffuse bilateral pulmonary infiltrates which may represent CHF/fluid overload. The endotracheal tube was in the right mainstem bronchus, and was withdrawn 2-3 cm.ABG showed a component of severe metabolic acidosis with a pCO2 of 94, pCO2 44, pH of 7.16. Patient was given one amp of sodium bicarb. Repeat ABGs show improvement with pO2 of 175, pCO2 35, pH of 7.34. Currently ventilator settings are assist control, respiratory 22, tidal volume 400, FiO2 is now down to 60%, and PEEP of 5. She is currently sedated on propofol, she does awaken and follow commands. She is fairly synchronous with the ventilator. Patient is currently hypothermic, and has a warming blanket on. Blood pressure is normotensive. Not requiring any vasopressors. Patient did have a CAT scan of the chest, abdomen, pelvis which redemonstrated mild interstitial infiltrates worse on the right. There is bilateral pleural effusions greater on the left. It also showed marked gallbladder wall edema concerning for possible cholecystitis. Multiple destructive lesions in the iliac bone and lumbar spine concerning for metastasis. CT of the brain did not show any acute intracranial abnormalities. Additional destructive lesions in the left aspect of C1 and C5. No fracture.CBC on arrival, 0.4, hematocrit 36.4, platelets 98. BP shows sodium 139, potassium 5.4, chloride 100, serum bicarbonate 15, BUN 11, creatinine 0.8, glucose 196. Lactic acid level on arrival was 11.1 and is down to 7.1. LFTs mildly elevated. Troponin 0.056. EKG on arrival showed sinus tachycardia without any acute ischemic changes. Negative for influenza, RSV, COVID-19. Urine drug screen positive for oxycodone, barbiturates, and marijuana. Patient will be admitted to the intensive care unit once bed available. Review of Systems ROS unobtainable: due to endotracheal tube Past Medical History Past Medical History: Coronary Artery Disease (CAD), Chest Pain / Angina, Hypertension, Myocardial Infarction (DE) Additional Past Medical History / Comment(s): MS History of Any Multi-Drug Resistant Organisms: None Reported Past Surgical History: Coronary Bypass/CABG Past Psychological History: Depression Smoking Status: Former smoker Past Alcohol Use History: None Reported Past Drug Use History: None Reported Medications and Allergies Home Medications Medication Instructions Recorded Confirmed Type Ketorolac [Toradol] 10 mg PO Q6HR PRN #15 tab 05/10/23 Rx Allergies Allergy/AdvReac Type Severity Reaction Status Date / Time Penicillins Allergy Rash/Hives Verified 05/11/23 18:49 Physical Exam Vitals: Vital Signs Temp Pulse Resp BP Pulse Ox FiO2 05/24/23 06:59 96.6 F L 70 17 113/64 100 05/24/23 05:42 96.6 F L 72 14 100/71 100 05/24/23 05:36 72 17 100/71 99 05/24/23 05:27 96.6 F L 74 16 121/65 100 05/24/23 05:20 60 05/24/23 04:31 70 05/24/23 04:15 79 22 131/102 99 05/24/23 04:13 100 05/24/23 04:02 100 05/24/23 04:00 84 22 116/79 99 05/24/23 03:45 98 40 H 150/106 93 L 05/24/23 03:40 98 37 H 157/105 95 05/24/23 03:39 98 05/24/23 03:35 97.6 F 05/24/23 03:19 40 H 05/24/23 03:11 94.6 F L 102 H 32 H 163/119 97 Intake and Output 05/23/23 05/24/23 05/24/23 22:59 06:59 14:59 Intake Total 34.931 Balance 34.931 Intake: Intake, IV Titration 34.931 Amount propofoL 1,000 mg In 34.931 Empty Bag 1 bag @ 15 MCG/ KG/MIN 6.94 mls/hr IV . [id number] [facility] Rx#:[id number] Other: Weight 77.111 kg GENERAL EXAM: 62-year-old white female, sedated and synchronous with mechanical ventilator. HEAD: Normocephalic and atraumatic EYES: Normal reaction of pupils, equal size. NOSE: Clear with pink turbinates. THROAT: No erythema or exudates. NECK: No masses, no JVD. CHEST: No chest wall deformity. LUNGS: Equal air entry with diffuse rhonchi heard throughout. No wheezes or focal dullness. Intubated mechanical ventilator. ABDOMEN: No hepatosplenomegaly, active bowel sounds. there is facial grimacing with abdominal palpation. No periumbilical or flank bruising. SPINE: No scoliosis or deformity SKIN: No rashes CENTRAL NERVOUS SYSTEM: currently sedated on propofol. No focal deficits, tone is normal in all 4 extremities. EXTREMITIES: There is no peripheral edema, clubbing, or cyanosis. Peripheral pulses are intact. Results - Laboratory Findings CBC and BMP: 05/24/23 03:25 05/24/23 03:25 ABG ABG pH 7.34 (7.35-7.45) L 05/24/23 04:23 ABG pCO2 35 mmHg (35-45) 05/24/23 04:23 ABG pO2 175 mmHg (83-108) H 05/24/23 04:23 ABG O2 Saturation 99.1 % (94-97) H 05/24/23 04:23 PT/INR, D-dimer PT 11.4 sec (10.0-12.5) 05/24/23 03:25 INR 1.0 (<1.2) 05/24/23 03:25 Abnormal lab findings: Abnormal Labs 05/24/23 05/24/23 05/24/23 03:24 03:25 03:25 WBC 12.8 H RBC 3.69 L Plt Count 780 H Neutrophils # 8.9 H ABG pH 7.16 L* ABG pO2 ABG HCO3 15 L ABG Total CO2 17 L ABG O2 Saturation 93.4 L Potassium 5.4 H Carbon Dioxide 15 L Glucose 196 H POC Glucose (mg/dL) Plasma Lactic Acid Faisal Calcium 10.5 H AST 43 H Alkaline Phosphatase 192 H Troponin I Ur Oxycodone Screen Ur Barbiturates Screen U Marijuana (THC) Screen 05/24/23 05/24/23 05/24/23 03:25 03:25 03:48 WBC RBC Plt Count Neutrophils # ABG pH ABG pO2 ABG HCO3 ABG Total CO2 ABG O2 Saturation Potassium Carbon Dioxide Glucose POC Glucose (mg/dL) 174 H Plasma Lactic Acid Faisal 11.1 H* Calcium AST Alkaline Phosphatase Troponin I 0.056 H* Ur Oxycodone Screen Ur Barbiturates Screen U Marijuana (THC) Screen 05/24/23 05/24/23 05/24/23 04:23 04:52 05:00 WBC RBC Plt Count Neutrophils # ABG pH 7.34 L ABG pO2 175 H ABG HCO3 19 L ABG Total CO2 ABG O2 Saturation 99.1 H Potassium Carbon Dioxide Glucose POC Glucose (mg/dL) Plasma Lactic Acid Faisal 7.1 H* Calcium AST Alkaline Phosphatase Troponin I Ur Oxycodone Screen Detected H Ur Barbiturates Screen Detected H U Marijuana (THC) Screen Detected H - Diagnostic Findings Chest x-ray: image reviewed CT scan - chest: image reviewed Assessment and Plan Assessment: Acute hypoxemic respiratory failure, currently intubated on the mechanical ventilator, possibly secondary to a component of CHF exacerbation/fluid overload and abdominal sepsis. Chest CT demonstrated mild diffuse edema-like i nfiltrates, worse on the right. There were bilateral pleural effusions greater on the left. Suspected acute cholecystitis and abdominal sepsis. Leukocytosis, secondary to above Severe metabolic anion gap acidosis, secondary to lactic acidosis, improving Lung mass, recently measuring 4.2 x 3.9 cm with multiple lesions suspicious for mediastinal and diffuse osseous metastasis. This was been worked up outpatient. Chronic obstructive pulmonary disease, with FEV1 38% predicted, recently placed on PRN albuterol and Trelegy inhalers. Elevated troponin, likely related to supply/demand mismatch Hypertension Hyperlipidemia Coronary artery disease, with previous CABG History of multiple sclerosis History of anxiety/depression plan: On arrival, patient was reportedly in some respiratory distress, and was intubated by the ER physician. She will continue on current ventilator settings, and be admitted to the intensive care unit once bed available. ET was withdrawn 2 cm in the ER, and the tip of the ET tube is now above the paulette. Could be withdrawn an additional 1-2 cm. When FIO2 as tolerated. General surgery has been consulted for CT findings. Started on empiric antibiotics. She has been fluid resuscitated with a total of 2 L normal saline bolus and started on normal s sarah at 130 ML's per hour. Not requiring vasopressors. Urine output is adequate. Lactic acidosis improving. On chest CT, there was interstitial edema and bilateral pleural effusions concerning for possible CHF exacerbation. NT proBNP elevated at 14,300. IV maintenance fluids decreased. Patient was given one dose of Lasix 40 mg. Patient's overall prognosis is poor. Patient is a DO NOT RESUSCITATE. We will continue to follow, and patient will be monitored in the intensive care unit. Further recommendations are forthcoming. I have personally seen and examined the patient, performed the documentation and the assessment and plan as written. Number of minutes spent on the visit:20 Time with Patient: Greater than 30
[2023-05-24] MEDS ORDERED: SODIUM CHLORIDE 0.9% 1,000 ML IV ONE (08:43)
--- NOTE | 2023-05-24 09:42 | US ---
EXAMINATION TYPE: US abdomen complete DATE OF EXAM: 05/24/2023 Exam done portable in ICU COMPARISON: US 2022, CT same day. CLINICAL INDICATION: Female, 62 years old with history of suspect acute cholecystitis; TECHNIQUE: Multiple sonographic images of the abdomen are obtained. FINDINGS: EXAM MEASUREMENTS: Liver Length: 19.4 cm Gallbladder Wall: 0.6 cm CBD: 0.5 cm Spleen: 8.9 cm Right Kidney: 11.7 x 4.4 x 4.4 cm Left Kidney: 9.5 x 4.0 x 4.4 cm Pancreas: visualized portions wnl, limited by overlying midline bowel gas Liver: enlarged, 2 hyperechoic area measuring 1.4cm 1.6cm Gallbladder: hydropic, thickened irregular wall, pericholecystic fluid seen Evidence for sonographic Joshua's sign: n/a CBD: dilated Spleen: wnl Right Kidney: wnl Left Kidney: wnl Upper IVC: wnl Abd Aorta: wnl Bilateral pleural effusions seen IMPRESSION: 1. The gallbladder is distended with thickened gross. Findings could be due to systemic process vers us acute and/or chronic cholecystitis. Sonographic Joshua's sign was unable to be obtained. Consider nuclear medicine HIDA scan. 2. Bilateral pleural effusions. 3. 2 areas within the liver which could represent focal fatty infiltration. No correlate on CT same day. Consider MRI liver mass protocol if there remains concern. These favor benign etiology.
[2023-05-24 10:16] LABS: ABG Base Excess -4.9 mmol/L; ABG HCO3 20 mmol/L (21-25); ABG Oxygen Saturation 99.4 % (94-97); ABG PCO2 32 mmHg (35-45); ABG PO2 164 mmHg (83-108); ABG TCO2 21 mmol/L (19-24)
[2023-05-24] MEDS: IPRATROPIUM-ALBUTEROL 3 ML NEB INHALATION SCH ×3 (11:01→20:31)
--- NOTE | 2023-05-24 11:05 | P.HPIM ---
History of Present Illness H&P Date: 05/24/23 Patient is a 62-year-old female with history of recently diagnosed lung cancer with metastatic disease, CAD status post CABG, multiple sclerosis, COPD, hypertension, his lipidemia, essential tremor presenting with acute/subacute dyspnea. Patient is currently intubated and sedated. Family at bedside. While the daughter claims that her mother has been having left-sided back pain and chest pain for the last 3 months. She has had multiple x-rays without any disease process identified. More recently she's been having shortness of breath as well. She was sent to the ER couple of weeks ago to get a computed tomography scan showed left hilar mass, left upper nodule, lytic lesions involving thoracic vertebral as well as left lateral sixth rib. She was subsequently referred to oncologist, plan was to get a biopsy. However, over the last day or so she's been having worsening shortness of breath, and it worsened to the point where she was altered. EMS was called. Per family, patient is a former smoker, does not drink alcohol. In the ED, temperature was 94.6, pulse 102, respiratory rate 32, blood pressure 163/119, was saturating at 97% on nonrebreather at 15 L. Due to increased work of breathing, BiPAP was suggested. However her mental status was poor, and she was subsequently intubated. Patient then transferred to medical ICU. WBC was 12.8, platelet 780, potassium 5.4, bicarb 15, creatinine 0.78, lactate 11.1, pH 7.16, pCO2 44, troponin 0.056, total bilirubin 0.3, AST 43, ALT 33, ALP 192, proBNP 14,000, CRP 6.9, lipase 70, respiratory viral panel negative, urine positive for oxycodone, barbiturates, and marijuana. CT abdomen and pelvis, CT chest showed mild diffuse edema and infiltrates worse on the right, atelectasis the majority of left lower lobe, multiple thoracic spine with obstructive lesions consistent with metastatic disease, marked gallbladder wall edema, obstructive lesions in the iliac bone and lumbar spine. Head CT shows multiple distractive skull lesions. EKG independently interpreted, shows sinus tachycardia. Chest x-ray, interpreted shows Left basilar opacity. Patient admitted to the ICU for acute hypoxic respiratory failure. Pertinent positives and negatives as discussed in HPI, a complete review of systems was performed and all other systems are negative. Patient seen and examined at bedside. Vital signs reviewed General: intubated and sedated Derm: warm, dry Head: atraumatic, normocephalic, symmetric Eyes: anicteric sclera, pupils equal round reactive to light ENT: Nose and ears atraumatic Neck: No thyromegaly, supple Mouth: no lip lesion, mucus membranes moist Cardiovascular: S1S2 reg, no murmur, no edema Lungs: Bilateral rhonchi, intubated Abdominal: soft, nontender to palpation, no guarding, no appreciable organomegaly Ext: no gross muscle atrophy, muscle strength muscle strength 5 out of 5 in all 4 extremities, no contractures Neuro: Sedated Psych: Unable to assess Assessment/Plan: Patient is critically ill, prognosis guarded. Active: Acute hypoxic respiratory failure Possible CHF exacerbation Lactic acidosis High anion gap metabolic acidosis Hyperkalemia Lung mass with metastatic disease Severe sepsis Suspected cholecystitis Transaminitis Hypercalcemia NSTEMI, likely type II History of CAD status post CABG -Patient is currently intubated and sedated -ICU note reviewed, overall prognosis is poor, patient currently on propofol for sedation, normal saline at 50 mL an hour, was given a dose of IV Lasix 40 mg. -Lactic acid slowly improving, down trended to 7.1, pH now at 7.4 -Surgery has been consulted, cultures are pending -She was started on ceftriaxone 2 g IV every 24 hours, IV Flagyl 500 every 8 hours also added -Abdominal ultrasound shows gallbladder distended with thickened gross recommending HIDA scan -Continue to trend troponin -Continue aspirin and statin -Echo ordered Chronic: Hypertension Dyslipidemia COPD Depression -Holding majority of home medications The patient is admitted with an anticipated greater than 2 midnight stay as inpatient status for evaluation of hypoxic respiratory failure. Surrogate decision-maker: Daughter CODE STATUS: DO NOT RESUSCITATE DVT prophylaxis: Subcu heparin Anticipated discharge date: Pending clinical course Anticipated discharge place: Pending clinical course A total of 66 minutes was spent on the care of this complex patient more than 50% of the time was spent in counseling and care coordination. Past Medical History Past Medical History: Coronary Artery Disease (CAD), Chest Pain / Angina, Hypertension, Myocardial Infarction ([place]) Additional Past Medical History / Comment(s): MS History of Any Multi-Drug Resistant Organisms: None Reported Past Surgical History: Coronary Bypass/CABG Past Psychological History: Depression Smoking Status: Former smoker Past Alcohol Use History: None Reported Past Drug Use History: None Reported Medications and Allergies Home Medications Medication Instructions Recorded Confirmed Type Albuterol Sulfate [Ventolin HFA] 1 - 2 puff INHALATION RT-Q6H PRN 05/24/23 1 07/24/22 History Aspirin EC [Ecotrin Low Dose] 81 mg PO DAILY 05/24/23 05/24/23 History Ergocalciferol [Vitamin D2 (1250 1,250 mcg PO Q7D 05/24/23 05/24/23 History Mcg = 03542 Iu)] FLUoxetine HCL [PROzac] 40 mg PO DAILY 05/24/23 05/24/23 History Fluticasone/Umeclidin/Vilanter 1 puff INHALATION RT-DAILY 05/24/23 05/24/23 History [Trelegy Ellipta 200-62.5-25] Mirtazapine [Remeron] 15 mg PO HS 05/24/23 05/24/23 History Multivitamins, Thera [Multivitamin 1 tab PO DAILY 05/24/23 05/24/23 History (formulary)] Primidone [Mysoline] 100 mg PO TID 05/24/23 05/24/23 History Propranolol [Inderal] 40 mg PO BID 05/24/23 05/24/23 History Simvastatin [Zocor] 40 mg PO HS 05/24/23 05/24/23 History lisinopriL [Zestril] 2.5 mg PO DAILY 05/24/23 05/24/23 History oxyCODONE HCL [OxyIR] 5 mg PO Q6H PRN 05/24/23 05/24/23 History tiZANidine [Zanaflex] 4 mg PO TID PRN 05/24/23 05/24/23 History Allergies Allergy/AdvReac Type Severity Reaction Status Date / Time Penicillins Allergy Rash/Hives Verified 05/24/23 09:27 Physical Exam Vitals: Vital Signs Temp Pulse Resp BP Pulse Ox FiO2 05/24/23 11:01 74 05/24/23 10:57 40 05/24/23 10:20 40 05/24/23 07:27 60 05/24/23 06:59 96.6 F L 70 17 113/64 100 05/24/23 05:42 96.6 F L 72 14 100/71 100 05/24/23 05:36 72 17 100/71 99 05/24/23 05:27 96.6 F L 74 16 121/65 100 05/24/23 05:20 60 05/24/23 04:31 70 05/24/23 04:15 79 22 131/102 99 05/24/23 04:13 100 05/24/23 04:02 100 05/24/23 04:00 84 22 116/79 99 05/24/23 03:45 98 40 H 150/106 93 L 05/24/23 03:40 98 37 H 157/105 95 05/24/23 03:39 98 05/24/23 03:35 97.6 F 05/24/23 03:19 40 H 05/24/23 03:11 94.6 F L 102 H 32 H 163/119 97 Intake and Output 05/23/23 05/24/23 05/24/23 22:59 06:59 14:59 Intake Total 34.931 15.808 Balance 34.931 15.808 Intake: Intake, IV Titration 34.931 15.808 Amount propofoL 1,000 mg In 34.931 15.808 Empty Bag 1 bag @ 15 MCG/ KG/MIN 6.94 mls/hr IV . [id number] STA Rx#:[id number] Other: Weight 77.111 kg Results CBC & Chem 7: 05/24/23 03:25 05/24/23 03:25 Labs: Abnormal Lab Results - Last 24 Hours (Table) 05/24/23 05/24/23 05/24/23 Range/Units 03:24 03:25 03:25 WBC 12.8 H (3.8-10.6) k/uL RBC 3.69 L (3.80-5.40) m/uL Plt Count 780 H (150-450) k/uL Neutrophils # 8.9 H (1.3-7.7) k/uL ABG pH 7.16 L* (7.35-7.45) ABG pCO2 (35-45) mmHg ABG pO2 (83-108) mmHg ABG HCO3 15 L (21-25) mmol/L ABG Total CO2 17 L (19-24) mmol/L ABG O2 Saturation 93.4 L (94-97) % Potassium 5.4 H (3.5-5.1) mmol/L Carbon Dioxide 15 L (22-30) mmol/L Glucose 196 H (74-99) mg/dL POC Glucose (mg/dL) (70-110) mg/dL Plasma Lactic Acid Faisal (0.7-2.0) mmol/L Calcium 10.5 H (8.4-10.2) mg/dL AST 43 H (14-36) U/L Alkaline Phosphatase 192 H (38-126) U/L Troponin I (0.000-0.034) ng/mL C-Reactive Protein (<1.0) mg/dL Ur Oxycodone Screen (NotDetected) Ur Barbiturates Screen (NotDetected) U Marijuana (THC) Screen (NotDetected) 05/24/23 05/24/23 05/24/23 Range/Units 03:25 03:25 03:48 WBC (3.8-10.6) k/uL RBC (3.80-5.40) m/uL Plt Count (150-450) k/uL Neutrophils # (1.3-7.7) k/uL ABG pH (7.35-7.45) ABG pCO2 (35-45) mmHg ABG pO2 (83-108) mmHg ABG HCO3 (21-25) mmol/L ABG Total CO2 (19-24) mmol/L ABG O2 Saturation (94-97) % Potassium (3.5-5.1) mmol/L Carbon Dioxide (22-30) mmol/L Glucose (74-99) mg/dL POC Glucose (mg/dL) 174 H (70-110) mg/dL Plasma Lactic Acid Faisal 11.1 H* (0.7-2.0) mmol/L Calcium (8.4-10.2) mg/dL AST (14-36) U/L Alkaline Phosphatase (38-126) U/L Troponin I 0.056 H* (0.000-0.034) ng/mL C-Reactive Protein (<1.0) mg/dL Ur Oxycodone Screen (NotDetected) Ur Barbiturates Screen (NotDetected) U Marijuana (THC) Screen (NotDetected) 05/24/23 05/24/23 05/24/23 Range/Units 04:23 04:52 05:00 WBC (3.8-10.6) k/uL RBC (3.80-5.40) m/uL Plt Count (150-450) k/uL Neutrophils # (1.3-7.7) k/uL ABG pH 7.34 L (7.35-7.45) ABG pCO2 (35-45) mmHg ABG pO2 175 H (83-108) mmHg ABG HCO3 19 L (21-25) mmol/L ABG Total CO2 (19-24) mmol/L ABG O2 Saturation 99.1 H (94-97) % Potassium (3.5-5.1) mmol/L Carbon Dioxide (22-30) mmol/L Glucose (74-99) mg/dL POC Glucose (mg/dL) (70-110) mg/dL Plasma Lactic Acid Faisal 7.1 H* (0.7-2.0) mmol/L Calcium (8.4-10.2) mg/dL AST (14-36) U/L Alkaline Phosphatase (38-126) U/L Troponin I (0.000-0.034) ng/mL C-Reactive Protein (<1.0) mg/dL Ur Oxycodone Screen Detected H (NotDetected) Ur Barbiturates Screen Detected H (NotDetected) U Marijuana (THC) Screen Detected H (NotDetected) 05/24/23 05/24/23 05/24/23 Range/Units 06:45 06:46 07:55 WBC (3.8-10.6) k/uL RBC (3.80-5.40) m/uL Plt Count (150-450) k/uL Neutrophils # (1.3-7.7) k/uL ABG pH (7.35-7.45) ABG pCO2 (35-45) mmHg ABG pO2 (83-108) mmHg ABG HCO3 (21-25) mmol/L ABG Total CO2 (19-24) mmol/L ABG O2 Saturation (94-97) % Potassium (3.5-5.1) mmol/L Carbon Dioxide (22-30) mmol/L Glucose (74-99) mg/dL POC Glucose (mg/dL) 139 H (70-110) mg/dL Plasma Lactic Acid Faisal (0.7-2.0) mmol/L Calcium (8.4-10.2) mg/dL AST (14-36) U/L Alkaline Phosphatase (38-126) U/L Troponin I 0.394 H* (0.000-0.034) ng/mL C-Reactive Protein 6.9 H (<1.0) mg/dL Ur Oxycodone Screen (NotDetected) Ur Barbiturates Screen (NotDetected) U Marijuana (THC) Screen (NotDetected) 05/24/23 Range/Units 10:11 WBC (3.8-10.6) k/uL RBC (3.80-5.40) m/uL Plt Count (150-450) k/uL Neutrophils # (1.3-7.7) k/uL ABG pH (7.35-7.45) ABG pCO2 32 L (35-45) mmHg ABG pO2 164 H (83-108) mmHg ABG HCO3 20 L (21-25) mmol/L ABG Total CO2 (19-24) mmol/L ABG O2 Saturation 99.4 H (94-97) % Potassium (3.5-5.1) mmol/L Carbon Dioxide (22-30) mmol/L Glucose (74-99) mg/dL POC Glucose (mg/dL) (70-110) mg/dL Plasma Lactic Acid Faisal (0.7-2.0) mmol/L Calcium (8.4-10.2) mg/dL AST (14-36) U/L Alkaline Phosphatase (38-126) U/L Troponin I (0.000-0.034) ng/mL C-Reactive Protein (<1.0) mg/dL Ur Oxycodone Screen (NotDetected) Ur Barbiturates Screen (NotDetected) U Marijuana (THC) Screen (NotDetected)
--- NOTE | 2023-05-24 11:10 | XR ---
EXAMINATION TYPE: XR chest 1V DATE OF EXAM: 05/24/2023 10:24 AM CLINICAL INDICATION:Female, 62 years old with history of Pneumonia; COMPARISON: Chest radiographs from 05/24/2023 TECHNIQUE: XR chest 1V Frontal view of the chest. FINDINGS: Lungs/Pleura: There is no evidence of pleural effusion, focal consolidation, or pneumothorax. Pulmonary vascularity: Unremarkable. Heart/mediastinum: Cardiomediastinal silhouette is unremarkable. Musculoskeletal: No acute osseous pathology. Midline sternotomy wires are noted. Other findings: None Lines/Tubes: Endotracheal tube with distal tip 2.7 cm above the paulette. Nasogastric tube with its distal tip and side-port projecting under the diaphragm. IMPRESSION: 1. Left basilar atelectasis with small pleural effusion. 2. Support tubes in appropriate position.
[2023-05-24 11:19] LABS: Glucose,Whole Blood 78 mg/dL (70-110)
[2023-05-24] MEDS: CHLORHEXIDINE GLUCONATE 15 ML CUP MUCOUS MEM SCH ×2 (11:30→21:26)
[2023-05-24] MEDS: PANTOPRAZOLE 40 MG/10 ML VIAL IVP SCH (11:30)
[2023-05-24] MEDS: HEPARIN SODIUM,PORCINE 5,000 UNIT/ML 1 ML VIAL SQ SCH ×2 (11:31→21:25)
[2023-05-24 11:34] LABS: Appearance,Urine Clear (Clear); Bilirubin,Urine Negative (Negative); Blood,Urine Trace (Negative); Color,Urine Colorless; Glucose,Urine (UA) Negative (Negative); Ketones,Urine 2+ (Negative); Leukocyte Esterase,Urine Negative (Negative); Mucus,Urine Rare /hpf; Nitrite,Urine Negative (Negative); Protein,Urine Negative (Negative); RBC,Urine 1 /hpf (0-5); Specific Gravity,Urine 1.028 (1.001-1.035); Urobilinogen,Urine <2.0 mg/dL (<2.0); WBC,Urine 1 /hpf (0-5)
--- NOTE | 2023-05-24 13:40 | P.GSCN ---
History of Present Illness Consult date: 05/24/23 History of present illness: CHIEF COMPLAINT: Shortness of breath Reason for consult acute cholecystitis on computed tomography scan HISTORY OF PRESENT ILLNESS: This is a 62-year-old female with recent diagnosis of lung mass with metastatic disease to the spine and ribs about 2 weeks ago. Patient presented to the ER with worsening shortness of breath. Apparently she had been having chest pains and back pain with shortness of breath. She required to be admitted to the ICU. She is currently intubated and on mechanical ventilation. Patient is partially sedated. Patient had no complaints of abdominal pain. No nausea or vomiting reported. Computed tomography scan had shown an edematous and thickened gallbladder wall. Patient is been afebrile. Patient's history was obtained from nursing staff and chart. PAST MEDICAL HISTORY: Coronary Artery Disease (CAD), Chest Pain / Angina, Hypertension, Myocardial Infarction ([place]), MS PAST SURGICAL HISTORY: Coronary Bypass/CABG MEDICATIONS: See below ALLERGIES: See below SOCIAL HISTORY: No illicit drug use. REVIEW OF SYSTEMS: CONSTITUTIONAL: Denies fever or chills. HEENT: Denies blurred vision, vision changes, or eye pain. Denies hemoptysis CARDIOVASCULAR: Denies chest pain or pressure. RESPIRATORY: No shortness of breath. GASTROINTESTINAL: See HPI for pertinent findings HEMATOLOGIC: Denies bleeding disorders. GENITOURINARY: Denies any blood in urine or increased urinary frequency. SKIN: Denies pruitis. Denies rash. PHYSICAL EXAM: VITAL SIGNS: Reviewed GENERAL: no acute distress. Patient is intubated and partially sedated ABDOMEN: Soft. Nondistended. Tenderness with palpation to the right upper quadrant and epigastric area. Patient grimacing during abdominal exam when right upper quadrant and epigastric area palpated NEUROLOGIC: Alert and oriented. Cranial nerves II through XII grossly intact. LABORATORY DATA: WBC 12.8 Hgb 11.4 platelets 780 Sodium 139 potassium 5.4 creatinine 0.78 Lactic acid 11.1 down to 0.8 Total bilirubin 0.3 AST 43 ALT 33 alk phos 192 Troponin 0.394 BNP 14,300 Lipase 70 Drug screen positive for oxycodone, barbiturates and marijuana Alcohol level less than 10 Influenza, RSV and COVID-19 not detected IMAGING: Computed tomography scan chest abdomen pelvis mild diffuse edema-like infiltrates worse on the right. Atelectasis associated pleural effusions. Multiple thoracic spinal destructive lesions consistent with metastasis. Marked gallbladder wall edema. Correlate for possible cholecystitis. Multiple destructive lesions in the iliac bone and lumbar spine. These are consistent with metastasis. Computed tomography scan of the brain multiple destructive skull lesions consistent with metastasis. No acute intracranial findings. Gallbladder ultrasound reports gallbladder is distended with thickened wall. Findings could be due to systemic process versus acute on chronic cholecystitis. Consider nuclear medicine HIDA scan. Bilateral pleural effusions. 2 areas within the liver which could represent focal fatty infiltration. ASSESSMENT: 1. Acute on chronic cholecystitis 2. Gallbladder distended with thickened gross noted on ultrasound 3. Lung mass with metastasis PLAN: -Recommend medical treatment of acute cholecystitis -Continue antibiotic -Continue ICU management -Continue supportive care Physician [employer] note has been reviewed by physician. Signing provider agrees with the documented findings, assessment, and plan of care. Past Medical History Past Medical History: Coronary Artery Disease (CAD), Chest Pain / Angina, Hypertension, Myocardial Infarction ([place]) Additional Past Medical History / Comment(s): MS History of Any Multi-Drug Resistant Organisms: None Reported Past Surgical History: Coronary Bypass/CABG Past Psychological History: Depression Smoking Status: Former smoker Past Alcohol Use History: None Reported Past Drug Use History: None Reported Medications and Allergies Home Medications Medication Instructions Recorded Confirmed Type Albuterol Sulfate [Ventolin HFA] 1 - 2 puff INHALATION RT-Q6H PRN 05/24/23 05/24/23 History Aspirin EC [Ecotrin Low Dose] 81 mg PO DAILY 05/24/23 05/24/23 History Ergocalciferol [Vitamin D2 (1250 1,250 mcg PO Q7D 05/24/23 05/24/23 History Mcg = 83001 Iu)] FLUoxetine HCL [PROzac] 40 mg PO DAILY 05/24/23 05/24/23 History Fluticasone/Umeclidin/Vilanter 1 puff INHALATION RT-DAILY 05/24/23 05/24/23 History [Trelegy Ellipta 200-62.5-25] Mirtazapine [Remeron] 15 mg PO HS 05/24/23 05/24/23 History Multivitamins, Thera [Multivitamin 1 tab PO DAILY 05/24/23 05/24/23 History (formulary)] Primidone [Mysoline] 100 mg PO TID 05/24/23 05/24/23 History Propranolol [Inderal] 40 mg PO BID 05/24/23 05/24/23 History Simvastatin [Zocor] 40 mg PO HS 05/24/23 05/24/23 History lisinopriL [Zestril] 2.5 mg PO DAILY 05/24/23 05/24/23 History oxyCODONE HCL [OxyIR] 5 mg PO Q6H PRN 05/24/23 05/24/23 History tiZANidine [Zanaflex] 4 mg PO TID PRN 05/24/23 05/24/23 History Allergies Allergy/AdvReac Type Severity Reaction Status Date / Time Penicillins Allergy Rash/Hives Verified 05/24/23 09:27 Surgical - Exam Vital Signs Temp Pulse Resp BP Pulse Ox 94.6 F L 102 H 32 H 163/119 97 05/24/23 03:11 05/24/23 03:11 05/24/23 03:11 05/24/23 03:11 05/24/23 03:11 Results - Labs 05/24/23 03:25 05/24/23 03:25 Abnormal Lab Results - Last 24 Hours (Table) 05/24/23 05/24/23 05/24/23 Range/Units 03:24 03:25 03:25 WBC 12.8 H (3.8-10.6) k/uL RBC 3.69 L (3.80-5.40) m/uL Plt Count 780 H (150-450) k/uL Neutrophils # 8.9 H (1.3-7.7) k/uL ABG pH 7.16 L* (7.35-7.45) ABG pCO2 (35-45) mmHg ABG pO2 (83-108) mmHg ABG HCO3 15 L (21-25) mmol/L ABG Total CO2 17 L (19-24) mmol/L ABG O2 Saturation 93.4 L (94-97) % Potassium 5.4 H (3.5-5.1) mmol/L Carbon Dioxide 15 L (22-30) mmol/L Glucose 196 H (74-99) mg/dL POC Glucose (mg/dL) (70-110) mg/dL Plasma Lactic Acid Faisal (0.7-2.0) mmol/L Calcium 10.5 H (8.4-10.2) mg/dL AST 43 H (14-36) U/L Alkaline Phosphatase 192 H (38-126) U/L Troponin I (0.000-0.034) ng/mL C-Reactive Protein (<1.0) mg/dL Ur Oxycodone Screen (NotDetected) Ur Barbiturates Screen (NotDetected) U Marijuana (THC) Screen (NotDetected) 05/24/23 05/24/23 05/24/23 Range/Units 03:25 03:25 03:48 WBC (3.8-10.6) k/uL RBC (3.80-5.40) m/uL Plt Count (150-450) k/uL Neutrophils # (1.3-7.7) k/uL ABG pH (7.35-7.45) ABG pCO2 (35-45) mmHg ABG pO2 (83-108) mmHg ABG HCO3 (21-25) mmol/L ABG Total CO2 (19-24) mmol/L ABG O2 Saturation (94-97) % Potassium (3.5-5.1) mmol/L Carbon Dioxide (22-30) mmol/L Glucose (74-99) mg/dL POC Glucose (mg/dL) 174 H (70-110) mg/dL Plasma Lactic Acid Faisal 11.1 H* (0.7-2.0) mmol/L Calcium (8.4-10.2) mg/dL AST (14-36) U/L Alkaline Phosphatase (38-126) U/L Troponin I 0.056 H* (0.000-0.034) ng/mL C-Reactive Protein (<1.0) mg/dL Ur Oxycodone Screen (NotDetected) Ur Barbiturates Screen (NotDetected) U Marijuana (THC) Screen (NotDetected) 05/24/23 05/24/23 05/24/23 Range/Units 04:23 04:52 05:00 WBC (3.8-10.6) k/uL RBC (3.80-5.40) m/uL Plt Count (150-450) k/uL Neutrophils # (1.3-7.7) k/uL ABG pH 7.34 L (7.35-7.45) ABG pCO2 (35-45) mmHg ABG pO2 175 H (83-108) mmHg ABG HCO3 19 L (21-25) mmol/L ABG Total CO2 (19-24) mmol/L ABG O2 Saturation 99.1 H (94-97) % Potassium (3.5-5.1) mmol/L Carbon Dioxide (22-30) mmol/L Glucose (74-99) mg/dL POC Glucose (mg/dL) (70-110) mg/dL Plasma Lactic Acid Faisal 7.1 H* (0.7-2.0) mmol/L Calcium (8.4-10.2) mg/dL AST (14-36) U/L Alkaline Phosphatase (38-126) U/L Troponin I (0.000-0.034) ng/mL C-Reactive Protein (<1.0) mg/dL Ur Oxycodone Screen Detected H (NotDetected) Ur Barbiturates Screen Detected H (NotDetected) U Marijuana (THC) Screen Detected H (NotDetected) 05/24/23 05/24/23 05/24/23 Range/Units 06:45 06:46 07:55 WBC (3.8-10.6) k/uL RBC (3.80-5.40) m/uL Plt Count (150-450) k/uL Neutrophils # (1.3-7.7) k/uL ABG pH (7.35-7.45) ABG pCO2 (35-45) mmHg ABG pO2 (83-108) mmHg ABG HCO3 (21-25) mmol/L ABG Total CO2 (19-24) mmol/L ABG O2 Saturation (94-97) % Potassium (3.5-5.1) mmol/L Carbon Dioxide (22-30) mmol/L Glucose (74-99) mg/dL POC Glucose (mg/dL) 139 H (70-110) mg/dL Plasma Lactic Acid Faisal (0.7-2.0) mmol/L Calcium (8.4-10.2) mg/dL AST (14-36) U/L Alkaline Phosphatase (38-126) U/L Troponin I 0.394 H* (0.000-0.034) ng/mL C-Reactive Protein 6.9 H (<1.0) mg/dL Ur Oxycodone Screen (NotDetected) Ur Barbiturates Screen (NotDetected) U Marijuana (THC) Screen (NotDetected) 05/24/23 Range/Units 10:11 WBC (3.8-10.6) k/uL RBC (3.80-5.40) m/uL Plt Count (150-450) k/uL Neutrophils # (1.3-7.7) k/uL ABG pH (7.35-7.45) ABG pCO2 32 L (35-45) mmHg ABG pO2 164 H (83-108) mmHg ABG HCO3 20 L (21-25) mmol/L ABG Total CO2 (19-24) mmol/L ABG O2 Saturation 99.4 H (94-97) % Potassium (3.5-5.1) mmol/L Carbon Dioxide (22-30) mmol/L Glucose (74-99) mg/dL POC Glucose (mg/dL) (70-110) mg/dL Plasma Lactic Acid Faisal (0.7-2.0) mmol/L Calcium (8.4-10.2) mg/dL AST (14-36) U/L Alkaline Phosphatase (38-126) U/L Troponin I (0.000-0.034) ng/mL C-Reactive Protein (<1.0) mg/dL Ur Oxycodone Screen (NotDetected) Ur Barbiturates Screen (NotDetected) U Marijuana (THC) Screen (NotDetected) Diabetes panel 05/24/23 Range/Units 03:25 Sodium 139 (137-145) mmol/L Potassium 5.4 H (3.5-5.1) mmol/L Chloride 100 (98-107) mmol/L Carbon Dioxide 15 L (22-30) mmol/L BUN 11 (7-17) mg/dL Creatinine 0.78 (0.52-1.04) mg/dL Glucose 196 H (74-99) mg/dL Calcium 10.5 H (8.4-10.2) mg/dL AST 43 H (14-36) U/L ALT 33 (4-34) U/L Alkaline Phosphatase 192 H (38-126) U/L Total Protein 6.8 (6.3-8.2) g/dL Albumin 3.9 (3.5-5.0) g/dL Calcium panel 05/24/23 Range/Units 03:25 Calcium 10.5 H (8.4-10.2) mg/dL Albumin 3.9 (3.5-5.0) g/dL Pituitary panel 05/24/23 Range/Units 03:25 Sodium 139 (137-145) mmol/L Potassium 5.4 H (3.5-5.1) mmol/L Chloride 100 (98-107) mmol/L Carbon Dioxide 15 L (22-30) mmol/L BUN 11 (7-17) mg/dL Creatinine 0.78 (0.52-1.04) mg/dL Glucose 196 H (74-99) mg/dL Calcium 10.5 H (8.4-10.2) mg/dL Adrenal panel 05/24/23 Range/Units 03:25 Sodium 139 (137-145) mmol/L Potassium 5.4 H (3.5-5.1) mmol/L Chloride 100 (98-107) mmol/L Carbon Dioxide 15 L (22-30) mmol/L BUN 11 (7-17) mg/dL Creatinine 0.78 (0.52-1.04) mg/dL Glucose 196 H (74-99) mg/dL Calcium 10.5 H (8.4-10.2) mg/dL Total Bilirubin 0.3 (0.2-1.3) mg/dL AST 43 H (14-36) U/L ALT 33 (4-34) U/L Alkaline Phosphatase 192 H (38-126) U/L Total Protein 6.8 (6.3-8.2) g/dL Albumin 3.9 (3.5-5.0) g/dL
--- NOTE | 2023-05-24 15:19 | OP ---
OPERATIVE REPORT DATE OF SERVICE : PROCEDURE PERFORMED: Placement of a right femoral triple-lumen catheter. PREOPERATIVE DIAGNOSES: 1. Acute hypoxic respiratory failure. 2. Sepsis. 3. Possible cholecystitis. POSTOPERATIVE DIAGNOSES: 1. Acute hypoxic respiratory failure. 2. Sepsis. 3. Possible cholecystitis. ANESTHESIA USED: 2 mL of 1% lidocaine. DESCRIPTION OF PROCEDURE: The patient was placed in the supine position. The right groin was prepared in a sterile fashion, and drapes were applied. The area of the right groin was locally anesthetized with lidocaine. Then, the right femoral vein was easily cannulated, and a guidewire was placed. The area around the guidewire was dilated. Then, a triple-lumen catheter was inserted over the guidewire, and the guidewire was removed. Good blood flow was noted in the 3 different ports of the triple-lumen catheter. Line was secured using 3-0 silk sutures. No complications. MMODL / IJN: [id number] /
[2023-05-24] MEDS: metroNIDAZOLE-NS PMX 500 MG in SALINE 1 100ML.BAG IVPB SCH ×2 (15:21)
--- NOTE | 2023-05-24 15:49 | OP ---
OPERATIVE REPORT DATE OF SERVICE : PROCEDURE PERFORMED: Placement of a right radial arterial line. PREOPERATIVE DIAGNOSES: Acute sepsis and hypoxic respiratory failure. POSTOPERATIVE DIAGNOSES: Acute sepsis and hypoxic respiratory failure. ANESTHESIA USED: None deployed. DESCRIPTION OF PROCEDURE: The right wrist was prepared in a sterile fashion, and drapes were applied. The area of the right radial artery was palpated, easily cannulated, and a guidewire was placed. A Cook catheter was inserted over the guidewire, and the guidewire was removed. Good blood flow, good waveform, no complications line was secured using 3-0 silk sutures. MMODL / IJN: [id number] /
[2023-05-24] MEDS: SODIUM CHLORIDE 0.9% 80 ML with fentaNYL (PF) 1,000 MCG IV SCH ×2 (15:54)
[2023-05-24 16:31] LABS: Glucose,Whole Blood 71 mg/dL (70-110)
--- NOTE | 2023-05-24 17:24 | CA ---
Transthoracic Echo Report Name: Elise Lehman Age: 62 Gender: F : 1960 Exam Date: 05/24/2023 11:43 Exam Location: [facility] Ht (in): 65 Wt (lb): 170 Ordering Physician: Simon Kingston MD Attending/Referring Phys: Marketing Production Manager Kimberly Garcia RDCS Procedure CPT: Indications: nstemi Cardiac Hx: Technical Quality: Good Contrast 1: Total Dose (mL): Contrast 2: Total Dose (mL): MEASUREMENTS (Male / Female) Normal Values 2D ECHO LV Diastolic Diameter PLAX 4.2 cm 4.2 - 5.9 / 3.9 - 5.3 cm LV Systolic Diameter PLAX 3.1 cm IVS Diastolic Thickness 1.1 cm 0.6 - 1.0 / 0.6 - 0.9 cm LVPW Diastolic Thickness 1.0 cm 0.6 - 1.0 / 0.6 - 0.9 cm LV Relative Wall Thickness 0.5 RV Internal Dim ED PLAX 3.1 cm LA Systolic Diameter LX 3.3 cm 3.0 - 4.0 / 2.7 - 3.8 cm LV Diastolic Volume MOD 4C 92.4 cm??? LV Systolic Volume MOD 4C 55.1 cm??? LV Ejection Fraction MOD 4C 40.4 % LV Cardiac Index MOD 4C 1569.2 cm???/min???m??? LV Diastolic Length 4C 8.1 cm LV Systolic Length 4C 6.8 cm LV Diastolic Volume MOD 2C 98.3 cm??? LV Systolic Volume MOD 2C 51.4 cm??? LV Ejection Fraction MOD 2C 47.7 % LV Cardiac Index MOD 2C 1974.6 cm???/min???m??? LV Diastolic Length 2C 7.2 cm LV Systolic Length 2C 6.3 cm LA Volume 38.6 cm??? 18 - 58 / 22 - 52 cm??? LA Volume Index 20.3 cm???/m??? 16 - 28 cm???/m??? M-MODE Aortic Root Diameter MM 3.2 cm MV E Point Septal Separation 0.3 cm AV Cusp Separation MM 2.3 cm DOPPLER AV Peak Velocity 112.7 cm/s AV Peak Gradient 5.1 mmHg MV Area PHT 3.8 cm??? Mitral E Point Velocity 124.6 cm/s Mitral A Point Velocity 58.3 cm/s Mitral E to A Ratio 2.1 MV Deceleration Time 197.7 ms MV E' Velocity 8.4 cm/s Mitral E to MV E' Ratio 14.8 TR Peak Velocity 294.2 cm/s TR Peak Gradient 34.6 mmHg Right Ventricular Systolic Press 49.6 mmHg FINDINGS Left Ventricle Left ventricular ejection fraction is estimated at 45-50 %. Left ventricular cavity size normal. Mildly increased septal wall thickness. Mildly increased posterior wall thickness. Basel and mid septum hypokinesis Right Ventricle Normal right ventricular size. Moderate pulmonary hypertension.right ventricular systolic pressure estimated at 50 mm hg. Right Atrium Normal right atrial size. Left Atrium Normal left atrial size. Mitral Valve Mitral valve thickened. Mild mitral regurgitation. Aortic Valve Aortic valve sclerosis. Trileaflet aortic valve. Tricuspid Valve Structurally normal tricuspid valve. Mild tricuspid regurgitation. Pulmonic Valve Structurally normal pulmonic valve. Mild pulmonic regurgitation. Pericardium No pericardial effusion. Aorta Normal size aortic root and proximal ascending aorta. CONCLUSIONS Mild LV systolic dysfunction secondary to prior inferior wall myocardial infarction Moderate pulmonary hypertension Mild mitral and tricuspid regurgitation Previewed by: Dr. Dale Ness MD (Electronically Signed) Final Date: 24 May 2023 17:24
[2023-05-24 17:54] LABS: Glucose,Whole Blood 68 mg/dL (70-110)
[2023-05-24] MEDS ORDERED: DEXTROSE 50% SYRINGE 50 ML IVP ONE (17:56)
[2023-05-24 18:21] LABS: Glucose,Whole Blood 144 mg/dL (70-110)
[2023-05-24] MEDS ORDERED: PROPRANOLOL 40 MG TAB PO SCH (21:00)
[2023-05-24] MEDS: ATORVASTATIN 20 MG TAB PO SCH (21:26)
[2023-05-25] MEDS: IPRATROPIUM-ALBUTEROL 3 ML NEB INHALATION SCH ×7 (00:12→19:45)
[2023-05-25 00:51] LABS: Glucose,Whole Blood 105 mg/dL (70-110)
[2023-05-25] MEDS: metroNIDAZOLE-NS PMX 500 MG in SALINE 1 100ML.BAG IVPB SCH ×3 (00:57→15:28)
[2023-05-25] MEDS: SODIUM CHLORIDE 0.9% 80 ML with fentaNYL (PF) 1,000 MCG IV SCH ×2 (02:00)
[2023-05-25 05:19] LABS: Glucose,Whole Blood 94 mg/dL (70-110)
[2023-05-25 05:51] LABS: ABG HCO3 23 mmol/L (21-25); ABG Oxygen Saturation 98.6 % (94-97); ABG PCO2 32 mmHg (35-45); ABG PH 7.46 (7.35-7.45); ABG PO2 119 mmHg (83-108); ABG TCO2 24 mmol/L (19-24); Allen Test Performed? Yes
[2023-05-25 06:09] LABS: African American GFR (CKD) >90 (>60 ml/min/1.73 sqM); Anion Gap 10 mmol/L; Blood Urea Nitrogen 5 mg/dL (7-17); Calcium 8.7 mg/dL (8.4-10.2); Carbon Dioxide 22 mmol/L (22-30); Chloride 106 mmol/L (98-107); Glucose 84 mg/dL (74-99); Non-African American GFR(CKD) >90 (>60 ml/min/1.73 sqM); Potassium 3.1 mmol/L (3.5-5.1); Sodium 138 mmol/L (137-145)
[2023-05-25 06:19] LABS: Basophils % (A) 0 %; Eosinophils # (A) 0.1 k/uL (0-0.7); Eosinophils % (A) 1 %; HCT 27.2 % (34.0-46.0); Hypochromasia Slight; Lymphocytes % (A) 13 %; MCH 30.8 pg (25.0-35.0); MCHC 32.7 g/dL (31.0-37.0); Mean Platelet Volume 7.9; Monocytes # (A) 0.6 k/uL (0-1.0); Monocytes % (A) 8 %; Neutrophils # (A) 5.7 k/uL (1.3-7.7); Neutrophils % (A) 75 %; Platelet Count 468 k/uL (150-450); RBC 2.89 m/uL (3.80-5.40); RDW 14.6 % (11.5-15.5); WBC 7.6 k/uL (3.8-10.6)
[2023-05-25 06:24] LABS: Glucose,Whole Blood 100 mg/dL (70-110)
[2023-05-25 06:25] LABS: HGB 8.9 gm/dL (11.4-16.0)
[2023-05-25] MEDS: CHLORHEXIDINE GLUCONATE 15 ML CUP MUCOUS MEM SCH ×2 (07:59→21:49)
[2023-05-25] MEDS: HEPARIN SODIUM,PORCINE 5,000 UNIT/ML 1 ML VIAL SQ SCH ×2 (07:59→21:47)
[2023-05-25] MEDS: ASPIRIN 81 MG PO SCH (07:59)
[2023-05-25] MEDS: PANTOPRAZOLE 40 MG/10 ML VIAL IVP SCH (07:59)
[2023-05-25] MEDS: FLUoxetine HCL 20 MG CAP PO SCH (07:59)
[2023-05-25] MEDS: POTASSIUM CHLORIDE 20 MEQ in WATER FOR INJECTION 1 100ML.BAG IVPB SCH ×2 (07:59→09:59)
--- NOTE | 2023-05-25 08:00 | XR ---
"EXAMINATION TYPE: XR chest 1V portable DATE OF EXAM: 05/25/2023 Comparison: 05/24/2023 Clinical History: 62-year-old female Tube placement Findings: ET tube tip 5 mm similar paulette. Pull back 2.5 cm in recess of follow-up. Patient is rotated toward t he left. Median sternotomy wires and post-CABG clips. NG tube satisfactory. Interstitial densities pe rsist. Bibasilar opacities persist, improving on the right. Impression: 1. ET tube tip 5 mm from the paulette. Pull back 2.5 cm and reassess on follow-up. 2. Rotated exam. Ongoing pulmonary vascular congestion. 3. Prominent retrocardiac and left basilar airspace disease similar to slightly improved. Also, impro ving aeration at the right lower lung. A [place] level critical message alert has been initiated for Edwina Bronson MD via the [employer] i n regards to the ET tube. | Critical Results System on 05/25/2023 7:57 AM. This message alert has be en sent to Edwina Bronson MD via the preferences provided by the clinician for the receipt of Radiology Critical Findings. Message ID [id number]."
[2023-05-25] MEDS ORDERED: CISATRACURIUM 2 MG/ML 5 ML VIAL IV ONE (09:04)
[2023-05-25] MEDS ORDERED: fentaNYL (PF) 50 MCG/ML 2 ML AMP IVP STA (09:13)
--- NOTE | 2023-05-25 11:59 | P.PN ---
Subjective Progress Note Date: 05/25/23 CHIEF COMPLAINT: Shortness of breath HISTORY OF PRESENT ILLNESS: Patient currently the ICU intubated and on mechanical ventilation. She had bronchoscopy this morning. And she is scheduled to be extubated possibly later this morning. Patient's sedation has been weaned off. Currently no abdominal pain. She has had low-grade temps. T- max 100.6. WBC is down from 12.8-7.6 Hgb 11.4-8.9 platelets 468 sodium is 1:30 potassium is 3.1 creatinine 0.38 PHYSICAL EXAM: VITAL SIGNS: Reviewed. GENERAL: Well-developed in no acute distress. Currently intubated and off sedation ABDOMEN: Soft. Nondistended. Nontender. NEUROLOGIC: Awake and alert ASSESSMENT: 1. Acute on chronic cholecystitis 2. Gallbladder distended with thickened gross noted on ultrasound 3. Lung mass with metastasis PLAN: -Continue medical management of acute on chronic cholecystitis -Continue antibiotics -Continue supportive care -Continue ICU management Physician Seals Engraver note has been reviewed by physician. Signing provider agrees with the documented findings, assessment, and plan of care. Objective - Vital Signs Vital signs: Vital Signs Temp 100.4 F H 05/25/23 08:00 Pulse 96 05/25/23 09:00 Resp 22 05/25/23 09:00 BP 137/73 05/25/23 08:00 Pulse Ox 97 05/25/23 09:00 FiO2 40 05/25/23 08:00 Intake & Output 05/24/23 05/25/23 05/25/23 18:59 06:59 18:59 Intake Total 1804.199 953.094 539.126 Output Total 985 595 315 Balance 819.199 358.094 224.126 Weight 77.111 kg Intake: IV 1515.4 707.7 290 Sodium Chloride 0.9% 1, 500 600 100 000 ml @ 50 mls/hr IV . Q20H [facility] Rx#:[id number] Sodium Chloride 0.9% 1, 1000 000 ml @ 999 mls/hr IV . Q1H1M ONE Rx#:[id number] Sodium Chloride 0.9% 80 15.4 7.7 90 ml @ 1 MCG/KG/HR 7.711 mls/hr IV .[id number] [facility] with fentaNYL (PF) 1,000 mcg Rx#:[id number] metroNIDAZOLE-NS PMX 500 100 100 mg In Saline 1 100ml.bag @ 100 mls/hr IVPB Q8HR [facility] Rx#:[id number] Intake, IV Titration 248.799 235.394 249.126 Amount Potassium Chloride 20 meq 100 In Water For Injection 1 100ml.bag @ 50 mls/hr IVPB Q2H [facility] Rx#: [id number] cefTRIAXone 2 gm In 50 Sodium Chloride 0.9% 50 ml @ 100 mls/hr IVPB Q24HR [facility] Rx#:[id number] propofoL 1,000 mg In 15.808 Empty Bag 1 bag @ 15 MCG/ KG/MIN 6.94 mls/hr IV . [id number] [facility] Rx#:[id number] propofoL 1,000 mg In 232.991 235.394 99.126 Empty Bag 1 bag @ 50 MCG/ KG/MIN 23.133 mls/hr IV . Q4H20M [facility] Rx#:[id number] Tube Feeding 40 10 Output: Urine 985 595 315 Other: Voiding Method Indwelling Catheter Indwelling Catheter Indwelling Catheter ABP, PAP, CO, CI - Last Documented Arterial Blood Pressure 149/66 - Labs CBC & Chem 7: 05/25/23 05:20 05/25/23 05:20 Labs: Abnormal Lab Results - Last 24 Hours (Table) 05/24/23 05/24/23 05/24/23 Range/Units 06:46 10:11 11:28 RBC (3.80-5.40) m/uL Hgb (11.4-16.0) gm/dL Hct (34.0-46.0) % Plt Count (150-450) k/uL ABG pH (7.35-7.45) ABG pCO2 32 L (35-45) mmHg ABG pO2 164 H (83-108) mmHg ABG HCO3 20 L (21-25) mmol/L ABG O2 Saturation 99.4 H (94-97) % Potassium (3.5-5.1) mmol/L BUN (7-17) mg/dL Creatinine (0.52-1.04) mg/dL POC Glucose (mg/dL) (70-110) mg/dL Procalcitonin 0.23 H (0.02-0.09) ng/mL Urine Ketones 2+ H (Negative) Urine Blood Trace H (Negative) Urine Mucus Rare H (None) /hpf 05/24/23 05/24/23 05/25/23 Range/Units 17:52 18:20 05:20 RBC 2.89 L (3.80-5.40) m/uL Hgb 8.9 L D (11.4-16.0) gm/dL Hct 27.2 L (34.0-46.0) % Plt Count 468 H (150-450) k/uL ABG pH (7.35-7.45) ABG pCO2 (35-45) mmHg ABG pO2 (83-108) mmHg ABG HCO3 (21-25) mmol/L ABG O2 Saturation (94-97) % Potassium (3.5-5.1) mmol/L BUN (7-17) mg/dL Creatinine (0.52-1.04) mg/dL POC Glucose (mg/dL) 68 L 144 H (70-110) mg/dL Procalcitonin (0.02-0.09) ng/mL Urine Ketones (Negative) Urine Blood (Negative) Urine Mucus (None) /hpf 05/25/23 05/25/23 Range/Units 05:20 05:35 RBC (3.80-5.40) m/uL Hgb (11.4-16.0) gm/dL Hct (34.0-46.0) % Plt Count (150-450) k/uL ABG pH 7.46 H (7.35-7.45) ABG pCO2 32 L (35-45) mmHg ABG pO2 119 H (83-108) mmHg ABG HCO3 (21-25) mmol/L ABG O2 Saturation 98.6 H (94-97) % Potassium 3.1 L (3.5-5.1) mmol/L BUN 5 L (7-17) mg/dL Creatinine 0.38 L (0.52-1.04) mg/dL POC Glucose (mg/dL) (70-110) mg/dL Procalcitonin (0.02-0.09) ng/mL Urine Ketones (Negative) Urine Blood (Negative) Urine Mucus (None) /hpf Microbiology - Last 24 Hours (Table) 05/24/23 11:14 Gram Stain - Preliminary Sputum
--- NOTE | 2023-05-25 12:41 | P.PN ---
Subjective Progress Note Date: 05/25/23 Principal diagnosis: Acute hypoxic respiratory failure, possible sepsis/abdominal sepsis, and possible left lower lobe pneumonia Patient was seen and examined on consultation today 05/24/2023, I saw the patient in the ICU, patient presented with acute hypoxic respiratory failure requiring intubation and mechanical ventilation while in the ER. Patient has a classic presentation of sepsis, the exact source of her sepsis is not clear at this point, most likely related to her gallbladder. She is now intubated and mechanically ventilated with assist control rate of 22 tidal volume 400 FiO2 60% and PEEP of 5 and ABG showed a pO2 of 175 pCO2 35 pH of 7.34. FiO2 was cut down to 40%. Patient is empirically on ceftriaxone. She received multiple fluid boluses, at this point in time she is not requiring norepinephrine, seems to be responding to fluid boluses. Apparently the patient was recently evaluated for potential lung cancer and metastasis, however no specific tissue diagnosis was made, she was supposed to have a PET scan and workup was still pending. Patient used to be a heavy smoker, she quit about 2 years ago, and I had a chance to discuss her condition with her daughter at bedside, recommended arterial line placement and central line placement, I also discussed the CODE STATUS, patient is DO NOT RESUSCITATE CODE STATUS, apparently the daughter is very well aware of the potential poor prognosis considering her underlying clinical condition. In the meantime the patient will remain in the ICU, will treat empirically with antibiotics, we'll consult general surgery for her abnormal findings on the gallbladder questionable cholecystitis, patient also has severe COPD, may consider bronchoscopic the patient while on mechanical ventilation to evaluate f or possible endobronchial pathology since the left hilar abnormality seems to be compressing on the left mainstem bronchus. This will be addressed once the patient stabilizes more while in the ICU. Prognosis is extremely poor and guarded. Critical care time is over 55 minutes not including the time spent on procedures Patient was reevaluated today on 05/25/23, remains in the ICU intubated and mechanically ventilated. Chest x-ray is showing improvement in her overall chest x-ray appearance but she seems to have significant left lower lobe consolidation. She is on assist control rate of 22 tidal volume 400 FiO2 14 PEEP of 8 ABG showed a pO2 of 119 pCO2 32 pH of 7.46. Patient is on propofol at 25 mcg/kg/m fentanyl 20 mcg/kg/h she is also receiving enteral feeding via orogastric tube. Considering the abnormality in the left lower lobe, and considering the patient had a previous CT of the chest showing left hilar and mediastinal adenopathy, bronchoscopy was done today, and lavage of the left lower lobe was done, but there was no evidence of endobronchial tumor. Patient was seen by surgery, and recommended mostly medical management for her presumptive acute cholecystitis. Patient remains on Rocephin and Flagyl. Patient is arousable, awake in spite of being on fairly good dose of fentanyl and propofol, WBC count is 7.6 hemoglobin 8.9, basic metabolic profile is normal, hence I plan to give the patient today a trial of weaning at least a pressure support and CPAP trial, and if tolerated may even extubate the patient today this afternoon. In the meantime the patient remains empirically on antibiotics sputum Gram stain is showing moderate gram-positive cocci. Objective - Vital Signs Vital signs: Vital Signs Temp 100.4 F H 05/25/23 08:00 Pulse 114 H 05/25/23 11:30 Resp 25 H 05/25/23 11:30 BP 150/86 05/25/23 11:30 Pulse Ox 96 05/25/23 11:30 FiO2 40 05/25/23 11:37 Intake & Output 05/24/23 05/25/23 05/25/23 18:59 06:59 18:59 Intake Total 1804.199 953.094 772.495 Output Total 985 595 665 Balance 819.199 358.094 107.495 Weight 77.111 kg Intake: IV 1515.4 707.7 440 Sodium Chloride 0.9% 1, 500 600 250 000 ml @ 50 mls/hr IV . Q20H [facility] Rx#:[id number] Sodium Chloride 0.9% 1, 1000 000 ml @ 999 mls/hr IV . Q1H1M [facility] Rx#:[id number] Sodium Chloride 0.9% 80 15.4 7.7 90 ml @ 1 MCG/KG/HR 7.711 mls/hr IV .[id number] [facility] with fentaNYL (PF) 1,000 mcg Rx#:[id number] metroNIDAZOLE-NS PMX 500 100 100 mg In Saline 1 100ml.bag @ 100 mls/hr IVPB Q8HR [facility] Rx#:[id number] Intake, IV Titration 248.799 235.394 332.495 Amount Potassium Chloride 20 meq 100 In Water For Injection 1 100ml.bag @ 50 mls/hr IVPB Q2H [facility] Rx#: [id number] Sodium Chloride 0.9% 80 71.841 ml @ 1 MCG/KG/HR 7.711 mls/hr IV .[id number] [facility] with fentaNYL (PF) 1,000 mcg Rx#:[id number] cefTRIAXone 2 gm In 50 Sodium Chloride 0.9% 50 ml @ 100 mls/hr IVPB Q24HR [facility] Rx#:[id number] propofoL 1,000 mg In 15.808 Empty Bag 1 bag @ 15 MCG/ KG/MIN 6.94 mls/hr IV . [id number] [facility] Rx#:[id number] propofoL 1,000 mg In 232.991 235.394 110.654 Empty Bag 1 bag @ 50 MCG/ KG/MIN 23.133 mls/hr IV . Q4H20M [facility] Rx#:[id number] Tube Feeding 40 10 Output: Urine 985 595 665 Other: Voiding Method Indwelling Catheter Indwelling Catheter Indwelling Catheter ABP, PAP, CO, CI - Last Documented Arterial Blood Pressure 166/74 - Exam Physical Exam: Revealed 62-year-old female in no distress, intubated and mechanically ventilated Head: Atraumatic normocephalic endotracheal tube and orogastric tube are intact. HEENT:[Neck is supple.] [No neck masses.] [No thyromegaly.] [No JVD.] Chest: [Minimal rhonchi at the left base, no wheezing., Symmetrical chest expansion. Cardiac Exam: [Normal S1 and S2, no S3 gallop, no murmur.] Abdomen: [Soft, nontender, no megaly, no rebound, no guarding, normal bowel sounds.] Extremities: [No clubbing, no edema, no cyanosis.] Neurological Exam: [No focal neurologic deficit.] Patient is arousable, follows simple instructions. Psychiatric: Normal mood affect and normal mental status examination. Skin: No rashes. - Labs CBC & Chem 7: 05/25/23 05:20 05/25/23 05:20 Labs: Abnormal Lab Results - Last 24 Hours (Table) 05/24/23 05/24/23 05/24/23 Range/Units 06:46 11:28 17:52 RBC (3.80-5.40) m/uL Hgb (11.4-16.0) gm/dL Hct (34.0-46.0) % Plt Count (150-450) k/uL ABG pH (7.35-7.45) ABG pCO2 (35-45) mmHg ABG pO2 (83-108) mmHg ABG O2 Saturation (94-97) % Potassium (3.5-5.1) mmol/L BUN (7-17) mg/dL Creatinine (0.52-1.04) mg/dL POC Glucose (mg/dL) 68 L (70-110) mg/dL Procalcitonin 0.23 H (0.02-0.09) ng/mL Urine Ketones 2+ H (Negative) Urine Blood Trace H (Negative) Urine Mucus Rare H (None) /hpf 05/24/23 05/25/23 05/25/23 Range/Units 18:20 05:20 05:20 RBC 2.89 L (3.80-5.40) m/uL Hgb 8.9 L D (11.4-16.0) gm/dL Hct 27.2 L (34.0-46.0) % Plt Count 468 H (150-450) k/uL ABG pH (7.35-7.45) ABG pCO2 (35-45) mmHg ABG pO2 (83-108) mmHg ABG O2 Saturation (94-97) % Potassium 3.1 L (3.5-5.1) mmol/L BUN 5 L (7-17) mg/dL Creatinine 0.38 L (0.52-1.04) mg/dL POC Glucose (mg/dL) 144 H (70-110) mg/dL Procalcitonin (0.02-0.09) ng/mL Urine Ketones (Negative) Urine Blood (Negative) Urine Mucus (None) /hpf 05/25/23 Range/Units 05:35 RBC (3.80-5.40) m/uL Hgb (11.4-16.0) gm/dL Hct (34.0-46.0) % Plt Count (150-450) k/uL ABG pH 7.46 H (7.35-7.45) ABG pCO2 32 L (35-45) mmHg ABG pO2 119 H (83-108) mmHg ABG O2 Saturation 98.6 H (94-97) % Potassium (3.5-5.1) mmol/L BUN (7-17) mg/dL Creatinine (0.52-1.04) mg/dL POC Glucose (mg/dL) (70-110) mg/dL Procalcitonin (0.02-0.09) ng/mL Urine Ketones (Negative) Urine Blood (Negative) Urine Mucus (None) /hpf Microbiology - Last 24 Hours (Table) 05/24/23 11:14 Gram Stain - Preliminary Sputum Assessment and Plan Assessment: Impression: Acute hypoxemic respiratory failure, secondary to sepsis and possible left lower lobe pneumonia, community-acquired. Or could even be aspiration pneumonia Suspected acute cholecystitis and abdominal sepsis. Leukocytosis, secondary to above Severe metabolic anion gap acidosis, resolved Lung mass, recently measuring 4.2 x 3.9 cm with multiple lesions suspicious for mediastinal and diffuse osseous metastasis. This was been worked up outpatient. Chronic obstructive pulmonary disease, with FEV1 38% predicted, recently placed on PRN albuterol and Trelegy inhalers. Elevated troponin, likely related to supply/demand mismatch Hypertension Hyperlipidemia Coronary artery disease, with previous CABG History of multiple sclerosis History of anxiety/depression Recommendation: Patient underwent bronchoscopy and BAL of the left lower lobe and lingula no evidence of endobronchial tumors noted. Patient will remain on antibiotics empirically cultures are pending. Including sputum cultures and blood cultures. Patient will be given a trial of weaning hopefully this afternoon on a pressure support of 10 and CPAP, and if tolerated may even extubating the patient today. Continue nutritional support. Continue DVT and GI prophylaxis Continue antibiotics Hemodynamic support if necessary at this point the patient is not requiring any pressors Patient remains critically ill. Critical care time is over 30 minutes not including the time for procedures Time with Patient: Greater than 30
[2023-05-25 13:14] LABS: ABG Base Excess -1.7 mmol/L; ABG HCO3 22 mmol/L (21-25); ABG Oxygen Saturation 98.5 % (94-97); ABG PCO2 32 mmHg (35-45); ABG PH 7.45 (7.35-7.45); ABG PO2 119 mmHg (83-108); ABG TCO2 23 mmol/L (19-24)
[2023-05-25 13:23] LABS: Allen Test Performed? no
[2023-05-25] MEDS ORDERED: HYDROmorphone 1 MG/ML 1 ML SYRINGE IVP STA (13:53)
--- NOTE | 2023-05-25 15:13 | P.PN ---
Subjective Progress Note Date: 05/25/23 Hospital Course: 62-year-old female with history of recently diagnosed lung cancer with metastatic disease, CAD status post CABG, multiple sclerosis, COPD, hypertension, his lipidemia, essential tremor presenting with acute/subacute dyspnea. In the ED, temperature was 94.6, pulse 102, respiratory rate 32, blood pressure 163/119, was saturating at 97% on nonrebreather at 15 L. Due to increased work of breathing, BiPAP was suggested. However her mental status was poor, and she was subsequently intubated. Patient then transferred to medical ICU. WBC was 12.8, platelet 780, potassium 5.4, bicarb 15, creatinine 0.78, lactate 11.1, pH 7.16, pCO2 44, troponin 0.056, total bilirubin 0.3, AST 43, ALT 33, ALP 192, proBNP 14,000, CRP 6.9, lipase 70, respiratory viral panel negative, urine positive for oxycodone, barbiturates, and marijuana. CT abdomen and pelvis, CT chest showed mild diffuse edema and infiltrates worse on the right, atelectasis the majority of left lower lobe, multiple thoracic spine with obstructive lesions consistent with metastatic disease, marked gallbladder wall edema, obstructive lesions in the iliac bone and lumbar spine. Head CT shows multiple distractive skull lesions. EKG independently interpreted, shows sinus tachycardia. Chest x-ray, interpreted shows Left basilar opacity. Patient admitted to the ICU for acute hypoxic respiratory failure. Had a bronch today. Surgery following for acute on chronic cholecystitis. Oncology also consulted. Subjective: Patient seen and examined at bedside. No acute events overnight. Pertinent positives and negatives as discussed above, a complete review of systems was performed and all other systems are negative. Vitals Signs Reviewed. General: intubated and sedated Derm: warm, dry Head: atraumatic, normocephalic, symmetric Eyes: anicteric sclera, pupils equal round reactive to light ENT: Nose and ears atraumatic Neck: No thyromegaly, supple Mouth: no lip lesion, mucus membranes moist Cardiovascular: S1S2 reg, no murmur, no edema Lungs: Bilateral rhonchi, intubated Abdominal: soft, nontender to palpation, no guarding, no appreciable organomegaly Ext: no gross muscle atrophy, muscle strength muscle strength 5 out of 5 in all 4 extremities, no contractures Neuro: Sedated Psych: Unable to assess Data Reviewed Today: Pertinent Labs: WBC 7.6, hemoglobin 8.9, platelets 468, pH 7.45, pCO2 32, potassium 3.1, bicarbonate 22, creatinine 0.38, glucose 84-144 Imaging: Chest x-ray shows persistent left-sided opacity, slightly improved Assessment and Plan: Active: Acute hypoxic respiratory failure Possible CHF exacerbation Lactic acidosis, resolved High anion gap metabolic acidosis, resolved Hyperkalemia, resolved Hypokalemia Lung mass with metastatic disease Severe sepsis Acute on chronic cholecystitis Transaminitis Hypercalcemia, resolved NSTEMI, likely type II History of CAD status post CABG -Patient is currently intubated and sedated -ICU note reviewed, underwent bronchoscopy today likely extubate later today -Surgery note reviewed, continue medical management - on ceftriaxone 2 g IV every 24 hours, IV Flagyl 500 every 8 hours -Echocardiogram shows mild LV systolic dysfunction secondary to prior inferior wall OH, moderate pulmonary hypertension -Continue aspirin and statin Chronic: Hypertension Dyslipidemia COPD Depression DVT ppx: Subcu heparin Code status: DO NOT RESUSCITATE Anticipated discharge place: Pending clinical course Anticipated discharge time: Pending clinical course Objective - Vital Signs Vital signs: Vital Signs Temp 101.1 F H 05/25/23 12:00 Pulse 141 H 05/25/23 15:00 Resp 19 05/25/23 15:00 BP 155/105 05/25/23 15:00 Pulse Ox 95 05/25/23 15:00 FiO2 40 05/25/23 12:42 Intake & Output 05/24/23 05/25/23 05/25/23 18:59 06:59 18:59 Intake Total 1804.199 953.094 872.495 Output Total 205 647 1940 Balance 819.199 358.094 -167.505 Weight 77.111 kg Intake: IV 1515.4 707.7 540 Sodium Chloride 0.9% 1, 500 600 350 000 ml @ 50 mls/hr IV . Q20H [facility] Rx#:[id number] Sodium Chloride 0.9% 1, 1000 000 ml @ 999 mls/hr IV . Q1H1M [facility] Rx#:[id number] Sodium Chloride 0.9% 80 15.4 7.7 90 ml @ 1 MCG/KG/HR 7.711 mls/hr IV .[id number] [facility] with fentaNYL (PF) 1,000 mcg Rx#:[id number] metroNIDAZOLE-NS PMX 500 100 100 mg In Saline 1 100ml.bag @ 100 mls/hr IVPB Q8HR [facility] Rx#:[id number] Intake, IV Titration 248.799 235.394 332.495 Amount Potassium Chloride 20 meq 100 In Water For Injection 1 100ml.bag @ 50 mls/hr IVPB Q2H [facility] Rx#: [id number] Sodium Chloride 0.9% 80 71.841 ml @ 1 MCG/KG/HR 7.711 mls/hr IV .[id number] [facility] with fentaNYL (PF) 1,000 mcg Rx#:[id number] cefTRIAXone 2 gm In 50 Sodium Chloride 0.9% 50 ml @ 100 mls/hr IVPB Q24HR [facility] Rx#:[id number] propofoL 1,000 mg In 15.808 Empty Bag 1 bag @ 15 MCG/ KG/MIN 6.94 mls/hr IV . [id number] [facility] Rx#:[id number] propofoL 1,000 mg In 232.991 235.394 110.654 Empty Bag 1 bag @ 50 MCG/ KG/MIN 23.133 mls/hr IV . Q4H20M [facility] Rx#:[id number] Tube Feeding 40 10 Output: Urine 395 314 7781 Other: Voiding Method Indwelling Catheter Indwelling Catheter Indwelling Catheter ABP, PAP, CO, CI - Last Documented Arterial Blood Pressure 156/85 - Labs CBC & Chem 7: 05/25/23 05:20 05/25/23 05:20 Labs: Abnormal Lab Results - Last 24 Hours (Table) 05/24/23 05/24/23 05/24/23 Range/Units 06:46 17:52 18:20 RBC (3.80-5.40) m/uL Hgb (11.4-16.0) gm/dL Hct (34.0-46.0) % Plt Count (150-450) k/uL ABG pH (7.35-7.45) ABG pCO2 (35-45) mmHg ABG pO2 (83-108) mmHg ABG O2 Saturation (94-97) % Potassium (3.5-5.1) mmol/L BUN (7-17) mg/dL Creatinine (0.52-1.04) mg/dL POC Glucose (mg/dL) 68 L 144 H (70-110) mg/dL Procalcitonin 0.23 H (0.02-0.09) ng/mL 05/25/23 05/25/23 05/25/23 Range/Units 05:20 05:20 05:35 RBC 2.89 L (3.80-5.40) m/uL Hgb 8.9 L D (11.4-16.0) gm/dL Hct 27.2 L (34.0-46.0) % Plt Count 468 H (150-450) k/uL ABG pH 7.46 H (7.35-7.45) ABG pCO2 32 L (35-45) mmHg ABG pO2 119 H (83-108) mmHg ABG O2 Saturation 98.6 H (94-97) % Potassium 3.1 L (3.5-5.1) mmol/L BUN 5 L (7-17) mg/dL Creatinine 0.38 L (0.52-1.04) mg/dL POC Glucose (mg/dL) (70-110) mg/dL Procalcitonin (0.02-0.09) ng/mL 05/25/23 Range/Units 13:12 RBC (3.80-5.40) m/uL Hgb (11.4-16.0) gm/dL Hct (34.0-46.0) % Plt Count (150-450) k/uL ABG pH (7.35-7.45) ABG pCO2 32 L (35-45) mmHg ABG pO2 119 H (83-108) mmHg ABG O2 Saturation 98.5 H (94-97) % Potassium (3.5-5.1) mmol/L BUN (7-17) mg/dL Creatinine (0.52-1.04) mg/dL POC Glucose (mg/dL) (70-110) mg/dL Procalcitonin (0.02-0.09) ng/mL Microbiology - Last 24 Hours (Table) 05/24/23 03:30 Blood Culture - Preliminary Blood 05/24/23 03:15 Blood Culture - Preliminary Blood 05/24/23 11:14 Gram Stain - Preliminary Sputum
[2023-05-25] MEDS: ONDANSETRON 4 MG/2 ML VIAL IVP PRN (15:28)
[2023-05-25] MEDS: SODIUM CHLORIDE 0.9% 1,000 ML IV SCH (15:28)
--- NOTE | 2023-05-25 15:54 | P.CONS ---
History of Present Illness - Reason for Consult Consult date: 05/25/23 Left lung mass, metastatic lesions - History of Present Illness The patient is a 8-year-old white female, with multiple medical problems. She was seen in the ER on 05/14/23, presenting with shortness of breath over the p ast few days, as well as left-sided back and chest wall pain that had been present over the past 3 months with gradual progression. She had a CT angiogram done, showing a left-sided Lower paratracheal mass, 4.2 cm, evidence of prostatic-appearing lesions in the thoracic spine and left rib cage, left upper lobe nodule, as well as also radiation versus atelectasis in the left lower lobe. The patient was discharged from the ER with a plan for outpatient workup including biopsy. However she came back with progressive shortness of breath. She was initially on BiPAP, and was then intubated because of decline in consciousness, to protect her airway. CT chest abdomen and pelvis showed additional findings of metastatic lesions in the lumbar spine and iliac bones. She was also noted to have increased opacification on the left with a left-sided pleural effusion. There were infiltrative changes noted on the right. Consult was therefore placed for further evaluation and recommendations. At the time of evaluation, the patient was still on the ventilator but awake, with a plan for starting weaning. She had improved with aggressive supportive care, antibiotics, steroids and bronchodilators. History could not be obtained from the patient as he was intubated. This was obtained from the EMR, and nursing. The patient had a bronchoscopy this admission that did not show any endobronchial lesions or obstruction. Echocardiogram done this admission showed LVEF at 45%, with some inferior hypokinesis suggestive of prior ischemic event The patient is a former smoker, but further details are not available at this time. No history of any excessive alcohol use. Review of Systems Constitutional: Reports chronic pain, Reports poor appetite, Reports weakness, Reports weight loss Eyes: denies blurred vision, denies pain Ears, nose, mouth and throat: Denies headache, Denies sore throat Cardiovascular: Reports shortness of breath Respiratory: Reports dyspnea Gastrointestinal: Denies abdominal pain, Denies diarrhea, Denies nausea, Denies vomiting Genitourinary: Denies dysuria, Denies hematuria Menstruation: Reports postmenopausal Musculoskeletal: Reports muscle weakness Integumentary: Denies pruritus, Denies rash Neurological: Reports as per HPI (History of multiple sclerosis), Reports t remors, Reports weakness Psychiatric: Denies anxiety, Denies depression Endocrine: Reports fatigue, Reports weight change Hematologic/Lymphatic: Reports as per HPI Past Medical History Past Medical History: Coronary Artery Disease (CAD), Chest Pain / Angina, Hypertension, Myocardial Infarction ([place]) Additional Past Medical History / Comment(s): MS, Chiari malformation, lung mass with mets, anxiety, Depression Last Myocardial Infarction Date:: 2010 History of Any Multi-Drug Resistant Organisms: None Reported Past Surgical History: Coronary Bypass/CABG Past Anesthesia/Blood Transfusion Reactions: No Reported Reaction Past Psychological History: Anxiety, Depression Smoking Status: Former smoker Past Alcohol Use History: None Reported Past Drug Use History: None Reported Medications and Allergies Home Medications Medication Instructions Recorded Confirmed Type Albuterol Sulfate [Ventolin HFA] 1 - 2 puff INHALATION RT-Q6H PRN 05/24/23 05/24/23 History Aspirin EC [Ecotrin Low Dose] 81 mg PO DAILY 05/24/23 05/24/23 History Ergocalciferol [Vitamin D2 (1250 1,250 mcg PO Q7D 05/24/23 05/24/23 History Mcg = 25295 Iu)] FLUoxetine HCL [PROzac] 40 mg PO DAILY 05/24/23 05/24/23 History Fluticasone/Umeclidin/Vilanter 1 puff INHALATION RT-DAILY 05/24/23 05/24/23 History [Trelegy Ellipta 200-62.5-25] Mirtazapine [Remeron] 15 mg PO HS 05/24/23 05/24/23 History Multivitamins, Thera [Multivitamin 1 tab PO DAILY 05/24/23 05/24/23 History (formulary)] Primidone [Mysoline] 100 mg PO TID 05/24/23 05/24/23 History Propranolol [Inderal] 40 mg PO BID 05/24/23 05/24/23 History Simvastatin [Zocor] 40 mg PO HS 05/24/23 05/24/23 History lisinopriL [Zestril] 2.5 mg PO DAILY 05/24/23 05/24/23 History oxyCODONE HCL [OxyIR] 5 mg PO Q6H PRN 11/21/23 11/21/23 History tiZANidine [Zanaflex] 4 mg PO TID PRN 05/24/23 05/24/23 History Allergies Allergy/AdvReac Type Severity Reaction Status Date / Time Penicillins Allergy Rash/Hives Verified 05/24/23 09:27 Physical Exam Vitals: Vital Signs Temp Pulse Resp BP Pulse Ox FiO2 05/25/23 15:00 141 H 19 155/105 95 05/25/23 14:00 149 H 25 H 165/94 94 L 05/25/23 13:00 103 H 24 165/87 97 05/25/23 12:42 40 05/25/23 12:30 99 25 H 96 05/25/23 12:00 101.1 F H 104 H 22 150/86 96 40 05/25/23 11:37 40 05/25/23 11:30 114 H 25 H 150/86 96 05/25/23 11:00 100 22 97 05/25/23 10:38 40 05/25/23 10:30 99 29 H 135/76 97 05/25/23 10:00 97 24 96 05/25/23 09:30 101 H 22 135/70 95 05/25/23 09:00 96 22 97 05/25/23 08:30 85 22 98 05/25/23 08:01 90 05/25/23 08:00 100.4 F H 97 22 137/73 97 40 05/25/23 07:44 89 05/25/23 07:30 85 22 137/73 98 05/25/23 07:24 40 05/25/23 07:00 80 22 142/85 98 05/25/23 06:30 85 22 142/85 97 05/25/23 06:00 84 23 98 05/25/23 05:30 81 27 H 135/66 98 05/25/23 05:00 82 22 132/75 98 05/25/23 04:30 101 H 36 H 132/75 98 05/25/23 04:19 84 05/25/23 04:01 40 05/25/23 04:00 100.0 F H 86 22 128/74 98 05/25/23 03:59 81 05/25/23 03:47 40 05/25/23 03:45 40 05/25/23 03:30 84 29 H 128/74 98 05/25/23 03:00 85 22 110/59 98 05/25/23 02:30 85 24 110/59 98 05/25/23 02:00 75 22 101/53 98 05/25/23 01:30 72 22 101/53 98 05/25/23 01:00 76 22 106/58 98 05/25/23 00:30 76 15 106/58 98 05/25/23 00:25 73 05/25/23 00:23 72 24 106/58 98 05/25/23 00:12 73 40 05/25/23 00:00 99.5 F 71 17 92/56 98 40 05/24/23 23:30 74 21 92/56 98 05/24/23 23:00 73 15 98/52 98 05/24/23 22:30 75 22 98/52 98 05/24/23 22:00 74 22 98 05/24/23 21:30 79 22 114/68 98 05/24/23 21:00 87 25 H 96/57 98 05/24/23 20:44 98 05/24/23 20:31 72 05/24/23 20:30 72 22 96/57 98 05/24/23 20:25 40 05/24/23 20:00 99.9 F H 73 22 90/54 98 40 05/24/23 19:30 72 22 90/54 98 05/24/23 19:00 73 22 100/72 98 05/24/23 18:30 75 22 98 05/24/23 18:00 79 22 115/65 97 05/24/23 17:30 74 22 98 05/24/23 17:00 77 22 147/86 98 05/24/23 16:30 80 22 98 05/24/23 16:00 100.6 F H 86 23 98 40 Intake and Output 05/25/23 05/25/23 05/25/23 06:59 14:59 22:59 Intake Total 700 872.495 50 Output Total 385 1040 350 Balance 315 -167.505 -300 Intake: IV 500 540 50 Sodium Chloride 0.9% 1, 400 350 50 000 ml @ 50 mls/hr IV . Q20H [facility] Rx#:[id number] Sodium Chloride 0.9% 80 90 ml @ 1 MCG/KG/HR 7.711 mls/hr IV .[id number] [facility] with fentaNYL (PF) 1,000 mcg Rx#:[id number] metroNIDAZOLE-NS PMX 500 100 100 mg In Saline 1 100ml.bag @ 100 mls/hr IVPB Q8HR [facility] Rx#:[id number] Intake, IV Titration 200 332.495 Amount Potassium Chloride 20 meq 100 In Water For Injection 1 100ml.bag @ 50 mls/hr IVPB Q2H [facility] Rx#: [id number] Sodium Chloride 0.9% 80 71.841 ml @ 1 MCG/KG/HR 7.711 mls/hr IV .[id number] [facility] with fentaNYL (PF) 1,000 mcg Rx#:[id number] cefTRIAXone 2 gm In 50 Sodium Chloride 0.9% 50 ml @ 100 mls/hr IVPB Q24HR [facility] Rx#:[id number] propofoL 1,000 mg In 200 110.654 Empty Bag 1 bag @ 50 MCG/ KG/MIN 23.133 mls/hr IV . Q4H20M [facility] Rx#:[id number] Output: Urine 385 1040 350 Other: Voiding Method Indwelling Catheter Indwelling Catheter ABP, PAP, CO, CI - Last 8 Hours Arterial Blood Pressure 156/85 Arterial Blood Pressure 175/84 Arterial Blood Pressure 158/72 Arterial Blood Pressure 164/77 Arterial Blood Pressure 166/74 Arterial Blood Pressure 167/68 Arterial Blood Pressure 136/63 Arterial Blood Pressure 155/55 Arterial Blood Pressure 97/39 Arterial Blood Pressure 149/66 Arterial Blood Pressure 148/65 Arterial Blood Pressure 158/71 - Constitutional Awake, on the ventilator, no major distress - EENT Eyes: EOMI, PERRLA ENT: hearing grossly normal - Neck Thyroid: bilateral: normal size - Respiratory Respiratory: left: diminished - Cardiovascular Rhythm: regular Heart sounds: normal: S1, S2 - Gastrointestinal General gastrointestinal: normal bowel sounds, soft - Integumentary Integumentary: normal - Neurologic Neurologic: CNII-XII intact - Musculoskeletal Musculoskeletal: generalized weakness, strength equal bilaterally - Psychiatric Patient nonmobile, on vent. However awake, able to respond with nodes and head shaking appropriately Results CBC & Chem 7: 05/25/23 05:20 05/25/23 05:20 Labs: Abnormal Lab Results - Last 24 Hours (Table) 05/24/23 05/24/23 05/25/23 Range/Units 17:52 18:20 05:20 RBC 2.89 L (3.80-5.40) m/uL Hgb 8.9 L D (11.4-16.0) gm/dL Hct 27.2 L (34.0-46.0) % Plt Count 468 H (150-450) k/uL ABG pH (7.35-7.45) ABG pCO2 (35-45) mmHg ABG pO2 (83-108) mmHg ABG O2 Saturation (94-97) % Potassium (3.5-5.1) mmol/L BUN (7-17) mg/dL Creatinine (0.52-1.04) mg/dL POC Glucose (mg/dL) 68 L 144 H (70-110) mg/dL 05/25/23 05/25/23 05/25/23 Range/Units 05:20 05:35 13:12 RBC (3.80-5.40) m/uL Hgb (11.4-16.0) gm/dL Hct (34.0-46.0) % Plt Count (150-450) k/uL ABG pH 7.46 H (7.35-7.45) ABG pCO2 32 L 32 L (35-45) mmHg ABG pO2 119 H 119 H (83-108) mmHg ABG O2 Saturation 98.6 H 98.5 H (94-97) % Potassium 3.1 L (3.5-5.1) mmol/L BUN 5 L (7-17) mg/dL Creatinine 0.38 L (0.52-1.04) mg/dL POC Glucose (mg/dL) (70-110) mg/dL Microbiology - Last 24 Hours (Table) 05/24/23 03:30 Blood Culture - Preliminary Blood 05/24/23 03:15 Blood Culture - Preliminary Blood 05/24/23 11:14 Gram Stain - Preliminary Sputum Comments: Echocardiogram report reviewed Chest x-ray: report reviewed CT scan - abdomen: report reviewed CT scan - chest: report reviewed CT scan - pelvis: report reviewed Assessment and Plan (1) Mass of left lung Narrative/Plan: The patient has a recent diagnosis of mass of the left lung, with multiple Metastatic-appearing lesions in the osseous structures. The clinical picture is most consistent with a lung primary with bony metastasis. - The patient will need a tissue diagnosis. Bronchoscopy was negative. Upon initial target could be the left-sided pleural effusion, if there is sufficient fluid to drain. Otherwise we'll discuss with bony metastases in the possibility of CT-guided biopsy of the lung masses. - The patient will need additional staging been more stable, including bone scan and imaging of the brain. - The patient had presented with acute respiratory failure, and mental status changes, requiring intubation. She is currently improving. Given that her current presentation does not appear to be directly related to the malignancy, and she has improved with aggressive supportive care within a fairly short period of time, it would be reasonable to continue aggressive medical management to try to optimize her where she can proceed with additional workup and treatment for the underlying malignancy. This was discussed with nursing. Current Visit: Yes Status: Acute Code(s): R91.8 - OTHER NONSPECIFIC ABNORMAL FINDING OF LUNG FIELD SNOMED Code(s): 396349029 (2) Sepsis Narrative/Plan: Sepsis, likely due to pneumonia appears to be the major differential for her acute presentation since admission. As noted the patient is improving with aggressive medical care. There is no evidence of endobronchial obstruction. C ontinue management per pulmonary medicine and the admitting service Current Visit: Yes Status: Acute Code(s): A41.9 - SEPSIS, UNSPECIFIED ORGANISM SNOMED Code(s): 54088346
[2023-05-25] MEDS: PRIMIDONE 50 MG TAB PO SCH ×2 (17:08→21:48)
[2023-05-25] MEDS: IBUPROFEN 600 MG TAB PO PRN (17:08)
[2023-05-25 17:49] LABS: Glucose,Whole Blood 105 mg/dL (70-110)
[2023-05-25 18:03] LABS: Appearance,BF Slightly Cloudy (Clear)
--- NOTE | 2023-05-25 18:28 | OP ---
OPERATIVE REPORT DATE OF SERVICE : PROCEDURES PERFORMED: Bronchoscopy and bronchoalveolar lavage of the left lower lobe. PREOPERATIVE DIAGNOSES: Left lower lobe pneumonia/consolidation and abnormal CT of the chest showing left hilar mass. POSTOPERATIVE DIAGNOSIS: Left lower lobe pneumonia. ANESTHESIA USED: The patient was given fentanyl 100 mcg IV push and 10 mg of Nimbex. She was already intubated and mechanically ventilated. DESCRIPTION OF PROCEDURE: The patient was placed in a supine position. She was already on mechanical ventilation. An adapter was applied to the endotracheal tube. Then, after adequate sedation and paralysis, the bronchoscope was inserted through the adapter down to the distal end of the endotracheal tube. There was a good location of the tip of the endotracheal tube just about 2.5 cm above the paulette. Then, examination was done of the paulette, right upper lobe, right middle lobe, right lower lobe, left upper lobe, lingula, and left lower lobe. There was no evidence of any endobronchial tumors or any masses impinging or compressing the airways. There were minimal secretions noted in the left lower lobe and lingula. A bronchoalveolar lavage of the left lower lobe and lingula was performed. Again, no endobronchial tumors noted. Procedure was well tolerated. No complications. Fluid was sent for different diagnostic studies including cytology. MMODL / IJN: [id number] /
[2023-05-25] MEDS: ATORVASTATIN 20 MG TAB PO SCH (21:48)
[2023-05-25] MEDS: MIRTAZAPINE 15 MG TAB PO SCH (21:49)
[2023-05-25 23:53] LABS: Glucose,Whole Blood 107 mg/dL (70-110)
[2023-05-26] MEDS: metroNIDAZOLE-NS PMX 500 MG in SALINE 1 100ML.BAG IVPB SCH ×3 (00:50→14:40)
[2023-05-26] MEDS: IPRATROPIUM-ALBUTEROL 3 ML NEB INHALATION PRN (02:30)
[2023-05-26 04:28] LABS: Basophils % (A) 0 %; Eosinophils # (A) 0.1 k/uL (0-0.7); Eosinophils % (A) 1 %; HCT 28.9 % (34.0-46.0); HGB 9.4 gm/dL (11.4-16.0); Hypochromasia Slight; Lymphocytes # (A) 0.7 k/uL (1.0-4.8); Lymphocytes % (A) 8 %; MCH 30.3 pg (25.0-35.0); MCHC 32.5 g/dL (31.0-37.0); MCV 93.2 fL (80.0-100.0); Mean Platelet Volume 7.4; Monocytes # (A) 0.5 k/uL (0-1.0); Monocytes % (A) 6 %; Neutrophils % (A) 81 %; Platelet Count 469 k/uL (150-450); RDW 14.2 % (11.5-15.5); WBC 8.6 k/uL (3.8-10.6)
[2023-05-26 04:43] LABS: African American GFR (CKD) >90 (>60 ml/min/1.73 sqM); Anion Gap 12 mmol/L; Blood Urea Nitrogen <2 mg/dL (7-17); Calcium 9.3 mg/dL (8.4-10.2); Carbon Dioxide 25 mmol/L (22-30); Chloride 100 mmol/L (98-107); Glucose 90 mg/dL (74-99); Non-African American GFR(CKD) >90 (>60 ml/min/1.73 sqM); Potassium 3.3 mmol/L (3.5-5.1); Sodium 137 mmol/L (137-145)
[2023-05-26] MEDS ORDERED: Potassium Replacement Protocol 1 EACH MISC MISCELLANE PRN (05:20)
[2023-05-26 06:03] LABS: Glucose,Whole Blood 105 mg/dL (70-110)
[2023-05-26] MEDS: POTASSIUM CHLORIDE ER 20 MEQ TAB.ER PO SCH ×2 (06:09→07:09)
--- NOTE | 2023-05-26 07:32 | XR ---
EXAMINATION TYPE: XR chest 1V portable DATE OF EXAM: 05/26/2023 HISTORY: Shortness of breath. COMPARISON: 05/25/2023 TECHNIQUE: Single view of the chest is submitted. FINDINGS: Indwelling tubes and catheters have been removed. There is increasing left basilar effusion probable underlying atelectasis or infiltrate. Pulmonary venous congestion with interstitial edema noted. Smal l right-sided pleural effusion seen. No evidence for pneumothorax. The heart is stable. Hilar and mediastinal structures are within normal limits. Degenerative changes are seen of the dorsal spine. IMPRESSION: 1. Indwelling tubes and catheters have been removed. There is increasing left basilar effusion proba ble underlying atelectasis or infiltrate. Pulmonary venous congestion with interstitial edema noted. Small right-sided pleural effusion seen.
[2023-05-26] MEDS: HEPARIN SODIUM,PORCINE 5,000 UNIT/ML 1 ML VIAL SQ SCH ×2 (07:58→21:46)
[2023-05-26] MEDS: PANTOPRAZOLE 40 MG/10 ML VIAL IVP SCH (07:58)
[2023-05-26] MEDS: FLUoxetine HCL 20 MG CAP PO SCH (07:58)
[2023-05-26] MEDS: ASPIRIN 81 MG PO SCH (07:59)
[2023-05-26] MEDS: SODIUM CHLORIDE 0.9% 1,000 ML IV SCH (07:59)
[2023-05-26] MEDS: SYMBICORT 160-4.5 MCG INHALER INHALATION SCH ×2 (07:59→20:38)
[2023-05-26] MEDS: IPRATROPIUM-ALBUTEROL 3 ML NEB INHALATION SCH ×4 (07:59→20:38)
[2023-05-26] MEDS: CHLORHEXIDINE GLUCONATE 15 ML CUP MUCOUS MEM SCH (07:59)
[2023-05-26] MEDS: PRIMIDONE 50 MG TAB PO SCH ×3 (08:05→21:47)
--- NOTE | 2023-05-26 09:43 | P.PN ---
Progress Note - Text Progress Note Date: 05/26/23 The patient has been extubated. Her chest x-ray shows a large left pleural effusion with consolidation. On exam his abdomen is soft. There is some mild right upper quadrant tenderness on deep palpation. Patient has presumed cholecystitis. She'll be medically managed at this point. She'll continue receive supportive care.
--- NOTE | 2023-05-26 11:07 | P.PN ---
Subjective Progress Note Date: 05/26/23 Principal diagnosis: Acute hypoxic respiratory failure, possible sepsis/abdominal sepsis, and possible left lower lobe pneumonia Patient was seen and examined on consultation today 05/24/2023, I saw the patient in the ICU, patient presented with acute hypoxic respiratory failure requiring intubation and mechanical ventilation while in the ER. Patient has a classic presentation of sepsis, the exact source of her sepsis is not clear at this point, most likely related to her gallbladder. She is now intubated and mechanically ventilated with assist control rate of 22 tidal volume 400 FiO2 60% and PEEP of 5 and ABG showed a pO2 of 175 pCO2 35 pH of 7.34. FiO2 was cut down to 40%. Patient is empirically on ceftriaxone. She received multiple fluid boluses, at this point in time she is not requiring norepinephrine, seems to be responding to fluid boluses. Apparently the patient was recently evaluated for potential lung cancer and metastasis, however no specific tissue diagnosis was made, she was supposed to have a PET scan and workup was still pending. Patient used to be a heavy smoker, she quit about 2 years ago, and I had a chance to discuss her condition with her daughter at bedside, recommended arterial line placement and central line placement, I also discussed the CODE STATUS, patient is DO NOT RESUSCITATE CODE STATUS, apparently the daughter is very well aware of the potential poor prognosis considering her underlying clinical condition. In the meantime the patient will remain in the ICU, will treat empirically with antibiotics, we'll consult general surgery for her abnormal findings on the gallbladder questionable cholecystitis, patient also has severe COPD, may consider bronchoscopic the patient while on mechanical ventilation to evaluate f or possible endobronchial pathology since the left hilar abnormality seems to be compressing on the left mainstem bronchus. This will be addressed once the patient stabilizes more while in the ICU. Prognosis is extremely poor and guarded. Critical care time is over 55 minutes not including the time spent on procedures Patient was reevaluated today on 05/25/23, remains in the ICU intubated and mechanically ventilated. Chest x-ray is showing improvement in her overall chest x-ray appearance but she seems to have significant left lower lobe consolidation. She is on assist control rate of 22 tidal volume 400 FiO2 14 PEEP of 8 ABG showed a pO2 of 119 pCO2 32 pH of 7.46. Patient is on propofol at 25 mcg/kg/m fentanyl 20 mcg/kg/h she is also receiving enteral feeding via orogastric tube. Considering the abnormality in the left lower lobe, and considering the patient had a previous CT of the chest showing left hilar and mediastinal adenopathy, bronchoscopy was done today, and lavage of the left lower lobe was done, but there was no evidence of endobronchial tumor. Patient was seen by surgery, and recommended mostly medical management for her presumptive acute cholecystitis. Patient remains on Rocephin and Flagyl. Patient is arousable, awake in spite of being on fairly good dose of fentanyl and propofol, WBC count is 7.6 hemoglobin 8.9, basic metabolic profile is normal, hence I plan to give the patient today a trial of weaning at least a pressure support and CPAP trial, and if tolerated may even extubate the patient today this afternoon. In the meantime the patient remains empirically on antibiotics sputum Gram stain is showing moderate gram-positive cocci. Patient was reevaluated today on 05/26/23, patient was extubated yesterday on 05/25 few hours after her bronchoscopy. She seems to have tolerated the extubation well, she is now on 4 L nasal cannula, remains on antibiotics in the form of Flagyl and ceftriaxone. Her bronchoscopy showed no evidence of endobr onchial tumor however lavage of the left lung was performed, and cultures are pending. WBC count is 8.6 hemoglobin is 9.4. Platelets are 469, basic metabolic profile is normal renal profile is normal bicarb is normal Objective - Vital Signs Vital signs: Vital Signs Temp 37.5 F L 05/26/23 08:00 Pulse 97 05/26/23 08:13 Resp 24 05/26/23 08:00 BP 130/83 05/26/23 02:00 Pulse Ox 95 05/26/23 08:00 FiO2 40 05/25/23 12:42 Intake & Output 05/25/23 05/26/23 05/26/23 18:59 06:59 18:59 Intake Total 1172.495 700 350 Output Total 1740 1670 530 Balance -567.505 -970 -180 Weight 61.9 kg Intake: IV 840 700 250 Sodium Chloride 0.9% 1, 550 600 150 000 ml @ 50 mls/hr IV . Q20H [facility] Rx#:[id number] Sodium Chloride 0.9% 80 90 ml @ 1 MCG/KG/HR 7.711 mls/hr IV .[id number] [facility] with fentaNYL (PF) 1,000 mcg Rx#:[id number] metroNIDAZOLE-NS PMX 500 200 100 100 mg In Saline 1 100ml.bag @ 100 mls/hr IVPB Q8HR [facility] Rx#:[id number] Intake, IV Titration 332.495 100 Amount Potassium Chloride 20 meq 100 In Water For Injection 1 100ml.bag @ 50 mls/hr IVPB Q2H [facility] Rx#: [id number] Sodium Chloride 0.9% 80 71.841 ml @ 1 MCG/KG/HR 7.711 mls/hr IV .[id number] [facility] with fentaNYL (PF) 1,000 mcg Rx#:[id number] cefTRIAXone 2 gm In 50 Sodium Chloride 0.9% 50 ml @ 100 mls/hr IVPB Q24HR [facility] Rx#:[id number] metroNIDAZOLE-NS PMX 500 100 mg In Saline 1 100ml.bag @ 100 mls/hr IVPB Q8HR [facility] [place] Rx#:[id number] propofoL 1,000 mg In 110.654 Empty Bag 1 bag @ 50 MCG/ KG/MIN 23.133 mls/hr IV . Q4H20M [facility] [place] Rx#:[id number] Output: Urine 1740 1670 530 Other: Voiding Method Indwelling Catheter Indwelling Catheter Indwelling Catheter ABP, PAP, CO, CI - Last Documented Arterial Blood Pressure 152/72 - Exam Physical Exam: Revealed 62-year-old female in no distress, on 4 L nasal cannula Head: Atraumatic normocephalic HEENT:[Neck is supple.] [No neck masses.] [No thyromegaly.] [No JVD.] Chest: Crackles and rhonchi noted at the left base., Right side is relatively clear Cardiac Exam: [Normal S1 and S2, no S3 gallop, no murmur.] Abdomen: [Soft, nontender, no megaly, no rebound, no guarding, normal bowel sounds.] Extremities: [No clubbing, no edema, no cyanosis.] Neurological Exam: Alert and oriented 3, no Focal deficit Psychiatric: Normal mood affect and normal mental status examination. Skin: No rashes. - Labs CBC & Chem 7: 05/26/23 03:46 05/26/23 03:46 Labs: Abnormal Lab Results - Last 24 Hours (Table) 05/25/23 05/25/23 05/26/23 Range/Units 09:20 13:12 03:46 RBC 3.10 L (3.80-5.40) m/uL Hgb 9.4 L (11.4-16.0) gm/dL Hct 28.9 L (34.0-46.0) % Plt Count 469 H (150-450) k/uL Lymphocytes # 0.7 L (1.0-4.8) k/uL ABG pCO2 32 L (35-45) mmHg ABG pO2 119 H (83-108) mmHg ABG O2 Saturation 98.5 H (94-97) % Potassium (3.5-5.1) mmol/L BUN (7-17) mg/dL Creatinine (0.52-1.04) mg/dL Fluid Appearance Slightly Cloudy A (Clear) 05/26/23 Range/Units 03:46 RBC (3.80-5.40) m/uL Hgb (11.4-16.0) gm/dL Hct (34.0-46.0) % Plt Count (150-450) k/uL Lymphocytes # (1.0-4.8) k/uL ABG pCO2 (35-45) mmHg ABG pO2 (83-108) mmHg ABG O2 Saturation (94-97) % Potassium 3.3 L (3.5-5.1) mmol/L BUN <2 L (7-17) mg/dL Creatinine 0.29 L (0.52-1.04) mg/dL Fluid Appearance (Clear) Microbiology - Last 24 Hours (Table) 05/24/23 11:14 Gram Stain - Final Sputum Sputum Culture - Final 05/25/23 09:20 Gram Stain - Preliminary Bronchoalviolar Lavage - Left 05/24/23 03:30 Blood Culture - Preliminary Blood 05/24/23 03:15 Blood Culture - Preliminary Blood Assessment and Plan Assessment: Impression: Acute hypoxemic respiratory failure, secondary to sepsis and possible left lower lobe pneumonia, community-acquired. Or could even be aspiration pneumonia Suspected acute cholecystitis and abdominal sepsis. Seen by surgery and the recommendation was to continue antibiotics Leukocytosis, secondary to above Severe metabolic anion gap acidosis, resolved Lung mass, recently measuring 4.2 x 3.9 cm with multiple lesions suspicious for mediastinal and diffuse osseous metastasis. This was been worked up outpatient. Bronchoscopy on this admission showed no evidence of endobronchial tumor nonetheless the patient needs further workup and possibly tissue biopsy to confirm the diagnosis of pulmonary malignancy. Chronic obstructive pulmonary disease, with FEV1 38% predicted, recently placed on PRN albuterol and Trelegy inhalers. Elevated troponin, likely related to supply/demand mismatch Hypertension Hyperlipidemia Coronary artery disease, with previous CABG History of multiple sclerosis History of anxiety/depression Recommendation: Continue present supportive care measures, patient was extubated yesterday Check the final cultures from the BAL Continue DVT and GI prophylaxis Continue antibiotics Continue to monitor in the ICU for the next 24 hours, and if she continues to improve possibly transferred to regular medical floor within the next 24 hours. We will continue to follow Time with Patient: Less than 30
[2023-05-26 11:15] LABS: Glucose,Whole Blood 100 mg/dL (70-110)
[2023-05-26] MEDS ORDERED: POTASSIUM CHLORIDE 20 MEQ in WATER FOR INJECTION 1 100ML.BAG IVPB STA (12:03)
[2023-05-26] MEDS: HYDROmorphone 1 MG/ML 1 ML SYRINGE IVP PRN (12:45)
--- NOTE | 2023-05-26 13:20 | P.PN ---
Subjective Progress Note Date: 05/26/23 Hospital Course: 62-year-old female with history of recently diagnosed lung cancer with metasta tic disease, CAD status post CABG, multiple sclerosis, COPD, hypertension, his lipidemia, essential tremor presenting with acute/subacute dyspnea. In the ED, temperature was 94.6, pulse 102, respiratory rate 32, blood pressure 163/119, was saturating at 97% on nonrebreather at 15 L. Due to increased work of breathing, BiPAP was suggested. However her mental status was poor, and she was subsequently intubated. Patient then transferred to medical ICU. WBC was 12.8, platelet 780, potassium 5.4, bicarb 15, creatinine 0.78, lactate 11.1, pH 7.16, pCO2 44, troponin 0.056, total bilirubin 0.3, AST 43, ALT 33, ALP 192, proBNP 14,000, CRP 6.9, lipase 70, respiratory viral panel negative, urine positive for oxycodone, barbiturates, and marijuana. CT abdomen and pelvis, CT chest showed mild diffuse edema and infiltrates worse on the right, atelectasis the majority of left lower lobe, multiple thoracic spine with obstructive lesions consistent with metastatic disease, marked gallbladder wall edema, obstructive lesions in the iliac bone and lumbar spine. Head CT shows multiple distractive skull lesions. EKG independently interpreted, shows sinus tachycardia. Chest x-ray, interpreted shows Left basilar opacity. Patient admitted to the ICU for acute hypoxic respiratory failure. Had a bronch with BAL. Surgery following for acute on chronic cholecystitis. Oncology also following. Now status post extubation Subjective: Patient seen and examined at bedside. No acute events overnight. Doing well postextubation. Complaining of significant right-sided back pain. Pertinent positives and negatives as discussed above, a complete review of systems was performed and all other systems are negative. Vitals Signs Reviewed. General: Not in acute distress, chronically ill-appearing Derm: warm, dry Head: atraumatic, normocephalic, symmetric Eyes: EOMI, anicteric sclera, pupils equal round reactive to light ENT: Nose and ears atraumatic Neck: No thyromegaly, supple Mouth: no lip lesion, mucus membranes moist Cardiovascular: S1S2 reg, no murmur, no edema Lungs: Bilateral rhonchi, supplemental oxygen Abdominal: soft, nontender to palpation, no guarding, no appreciable or ganomegaly Ext: no gross muscle atrophy, muscle strength muscle strength 5 out of 5 in all 4 extremities, no contractures Neuro: CN II-12 grossly normal Psych: Alert and cooperative Data Reviewed Today: Pertinent Labs: CBC 8.6, hemoglobin 9.4, platelets 469, potassium 3.8, creatinine 0.29, glucose 90-105 Imaging: Chest x-ray shows persistent left-sided opacity, still persistent and increasing Assessment and Plan: Patient is critically ill, prognosis guarded Active: Acute hypoxic respiratory failure Possible CHF exacerbation Lactic acidosis, resolved High anion gap metabolic acidosis, resolved Hyperkalemia, resolved Hypokalemia, resolved Lung mass with metastatic disease Severe sepsis, resolved Acute on chronic cholecystitis Transaminitis Hypercalcemia, resolved NSTEMI, likely type II History of CAD status post CABG -ICU note reviewed, continue supportive care, likely transfer to the ICU tomorrow -Surgery note reviewed, continue medical management for cholecystitis - on ceftriaxone 2 g IV every 24 hours, IV Flagyl 500 every 8 hours -Continue aspirin and statin -Oncology following, likely need tissue biopsy -For pain, patient started on scheduled oxycodone 5 mg every 6 hours as well as on IV Dilaudid 1 mg every 4 hours as needed for severe breakthrough pain. Chronic: Hypertension Dyslipidemia COPD Depression DVT ppx: Subcu heparin Code status: DO NOT RESUSCITATE Anticipated discharge place: Pending clinical course Anticipated discharge time: Pending clinical course Objective - Vital Signs Vital signs: Vital Signs Temp 99.3 F 05/26/23 12:00 Pulse 100 05/26/23 12:00 Resp 23 05/26/23 12:00 BP 143/82 05/26/23 12:00 Pulse Ox 96 05/26/23 12:00 FiO2 40 05/25/23 12:42 Intake & Output 05/25/23 05/26/23 05/26/23 18:59 06:59 18:59 Intake Total 1172.495 700 500 Output Total 1740 5050 605 Balance -567.505 -970 -105 Weight 61.9 kg Intake: IV 840 700 400 Sodium Chloride 0.9% 1, 550 600 300 000 ml @ 50 mls/hr IV . Q20H [facility] Rx#:[id number] Sodium Chloride 0.9% 80 90 ml @ 1 MCG/KG/HR 7.711 mls/hr IV .[id number] [facility] with fentaNYL (PF) 1,000 mcg Rx#:[id number] metroNIDAZOLE-NS PMX 500 200 100 100 mg In Saline 1 100ml.bag @ 100 mls/hr IVPB Q8HR [facility] Rx#:[id number] Intake, IV Titration 332.495 100 Amount Potassium Chloride 20 meq 100 In Water For Injection 1 100ml.bag @ 50 mls/hr IVPB Q2H [facility] Rx#: [id number] Sodium Chloride 0.9% 80 71.841 ml @ 1 MCG/KG/HR 7.711 mls/hr IV .[id number] [facility] with fentaNYL (PF) 1,000 mcg Rx#:[id number] cefTRIAXone 2 gm In 50 Sodium Chloride 0.9% 50 ml @ 100 mls/hr IVPB Q24HR [facility] Rx#:[id number] metroNIDAZOLE-NS PMX 500 100 mg In Saline 1 100ml.bag @ 100 mls/hr IVPB Q8HR [facility] Rx#:[id number] propofoL 1,000 mg In 110.654 Empty Bag 1 bag @ 50 MCG/ KG/MIN 23.133 mls/hr IV . Q4H20M [facility] Rx#:[id number] Output: Urine 1740 1670 605 Other: Voiding Method Indwelling Catheter Indwelling Catheter Indwelling Catheter ABP, PAP, CO, CI - Last Documented Arterial Blood Pressure 152/72 - Labs CBC & Chem 7: 05/26/23 03:46 05/26/23 11:10 Labs: Abnormal Lab Results - Last 24 Hours (Table) 05/25/23 05/25/23 05/26/23 Range/Units 09:20 13:12 03:46 RBC 3.10 L (3.80-5.40) m/uL Hgb 9.4 L (11.4-16.0) gm/dL Hct 28.9 L (34.0-46.0) % Plt Count 469 H (150-450) k/uL Lymphocytes # 0.7 L (1.0-4.8) k/uL ABG pCO2 32 L (35-45) mmHg ABG pO2 119 H (83-108) mmHg ABG O2 Saturation 98.5 H (94-97) % Potassium (3.5-5.1) mmol/L BUN (7-17) mg/dL Creatinine (0.52-1.04) mg/dL Fluid Appearance Slightly Cloudy A (Clear) 05/26/23 Range/Units 03:46 RBC (3.80-5.40) m/uL Hgb (11.4-16.0) gm/dL Hct (34.0-46.0) % Plt Count (150-450) k/uL Lymphocytes # (1.0-4.8) k/uL ABG pCO2 (35-45) mmHg ABG pO2 (83-108) mmHg ABG O2 Saturation (94-97) % Potassium 3.3 L (3.5-5.1) mmol/L BUN <2 L (7-17) mg/dL Creatinine 0.29 L (0.52-1.04) mg/dL Fluid Appearance (Clear) Microbiology - Last 24 Hours (Table) 05/24/23 03:30 Blood Culture - Preliminary Blood 05/24/23 03:15 Blood Culture - Preliminary Blood 05/24/23 11:14 Gram Stain - Final Sputum Sputum Culture - Final 05/25/23 09:20 Gram Stain - Preliminary Bronchoalviolar Lavage - Left
[2023-05-26] MEDS: IBUPROFEN 600 MG TAB PO PRN (16:33)
[2023-05-26] MEDS: MELATONIN 3 MG TABLET PO SCH (21:46)
[2023-05-26] MEDS: MIRTAZAPINE 15 MG TAB PO SCH (21:47)
[2023-05-26] MEDS: ATORVASTATIN 20 MG TAB PO SCH (21:47)
[2023-05-27] MEDS: metroNIDAZOLE-NS PMX 500 MG in SALINE 1 100ML.BAG IVPB SCH ×4 (00:42→23:34)
[2023-05-27] MEDS: SODIUM CHLORIDE 0.9% 1,000 ML IV SCH (06:12)
[2023-05-27 06:28] LABS: Basophils % (A) 0 %; Eosinophils # (A) 0.2 k/uL (0-0.7); Eosinophils % (A) 2 %; HCT 30.6 % (34.0-46.0); HGB 9.9 gm/dL (11.4-16.0); Lymphocytes # (A) 0.8 k/uL (1.0-4.8); Lymphocytes % (A) 10 %; MCH 29.8 pg (25.0-35.0); MCHC 32.3 g/dL (31.0-37.0); MCV 92.3 fL (80.0-100.0); Mean Platelet Volume 7.6; Monocytes # (A) 0.5 k/uL (0-1.0); Monocytes % (A) 6 %; Neutrophils # (A) 6.5 k/uL (1.3-7.7); Neutrophils % (A) 80 %; Platelet Count 504 k/uL (150-450); RBC 3.32 m/uL (3.80-5.40); RDW 14.4 % (11.5-15.5); WBC 8.1 k/uL (3.8-10.6)
[2023-05-27 06:37] LABS: African American GFR (CKD) >90 (>60 ml/min/1.73 sqM); Anion Gap 13 mmol/L; Blood Urea Nitrogen 3 mg/dL (7-17); Calcium 9.3 mg/dL (8.4-10.2); Carbon Dioxide 25 mmol/L (22-30); Chloride 96 mmol/L (98-107); Glucose 88 mg/dL (74-99); Non-African American GFR(CKD) >90 (>60 ml/min/1.73 sqM); Potassium 3.9 mmol/L (3.5-5.1); Sodium 134 mmol/L (137-145)
[2023-05-27] MEDS ORDERED: POTASSIUM CHLORIDE ER 20 MEQ TAB.ER PO SCH (08:00)
[2023-05-27] MEDS: HYDROmorphone 1 MG/ML 1 ML SYRINGE IVP PRN ×4 (08:19→20:04)
[2023-05-27] MEDS: PANTOPRAZOLE 40 MG/10 ML VIAL IVP SCH (08:20)
[2023-05-27] MEDS: FLUoxetine HCL 20 MG CAP PO SCH (08:20)
[2023-05-27] MEDS: HEPARIN SODIUM,PORCINE 5,000 UNIT/ML 1 ML VIAL SQ SCH ×2 (08:20→21:32)
[2023-05-27] MEDS: ASPIRIN 81 MG PO SCH (08:21)
[2023-05-27] MEDS: SYMBICORT 160-4.5 MCG INHALER INHALATION SCH ×2 (08:22→21:12)
[2023-05-27] MEDS: IPRATROPIUM-ALBUTEROL 3 ML NEB INHALATION SCH ×4 (08:22→21:12)
[2023-05-27] MEDS: PRIMIDONE 50 MG TAB PO SCH ×3 (08:56→21:33)
--- NOTE | 2023-05-27 09:43 | P.PN ---
Progress Note - Text Progress Note Date: 05/27/23 Patient is up in the chair. She is eating breakfast. She has no significant complaints of abdominal pain. On exam vital signs are stable. Abdomen is soft. Acute and chronic cholecystitis treated conservatively. Patient to receive supportive care. No surgical intervention is planned at this point.
[2023-05-27] MEDS: ONDANSETRON 4 MG/2 ML VIAL IVP PRN (10:00)
--- NOTE | 2023-05-27 11:02 | P.PN ---
Subjective Progress Note Date: 05/27/23 Hospital Course: 62-year-old female with history of recently diagnosed lung cancer with metasta tic disease, CAD status post CABG, multiple sclerosis, COPD, hypertension, his lipidemia, essential tremor presenting with acute/subacute dyspnea. In the ED, temperature was 94.6, pulse 102, respiratory rate 32, blood pressure 163/119, was saturating at 97% on nonrebreather at 15 L. Due to increased work of breathing, BiPAP was suggested. However her mental status was poor, and she was subsequently intubated. Patient then transferred to medical ICU. WBC was 12.8, platelet 780, potassium 5.4, bicarb 15, creatinine 0.78, lactate 11.1, pH 7.16, pCO2 44, troponin 0.056, total bilirubin 0.3, AST 43, ALT 33, ALP 192, proBNP 14,000, CRP 6.9, lipase 70, respiratory viral panel negative, urine positive for oxycodone, barbiturates, and marijuana. CT abdomen and pelvis, CT chest showed mild diffuse edema and infiltrates worse on the right, atelectasis the majority of left lower lobe, multiple thoracic spine with obstructive lesions consistent with metastatic disease, marked gallbladder wall edema, obstructive lesions in the iliac bone and lumbar spine. Head CT shows multiple distractive skull lesions. EKG independently interpreted, shows sinus tachycardia. Chest x-ray, interpreted shows Left basilar opacity. Patient admitted to the ICU for acute hypoxic respiratory failure. Had a bronch with BAL. Surgery following for acute on chronic cholecystitis, treating conservatively with medical management. Oncology also following, will likely need tissue biopsy, possibly CT-guided bi opsy of lung mass. Patient will also likely need additional staging including bone scan and imaging of brain.. Patient is doing better postextubation. Echocardiogram showed mild LV systolic dysfunction secondary to prior inferior wall myocardial infarction, moderate pulmonary hypertension. Subjective: Patient seen and examined at bedside. No acute events overnight. He claims that back pain has improved with scheduled oxycodone. Pertinent positives and negatives as discussed above, a complete review of systems was performed and all other systems are negative. Vitals Signs Reviewed. General: Not in acute distress, chronically ill-appearing Derm: warm, dry Head: atraumatic, normocephalic, symmetric Eyes: EOMI, anicteric sclera, pupils equal round reactive to light ENT: Nose and ears atraumatic Neck: No thyromegaly, supple Mouth: no lip lesion, mucus membranes moist Cardiovascular: S1S2 reg, no murmur, no edema Lungs: Bilateral rhonchi, supplemental oxygen Abdominal: soft, nontender to palpation, no guarding, no appreciable organomegaly Ext: no gross muscle atrophy, muscle strength muscle strength 5 out of 5 in all 4 extremities, no contractures Neuro: CN II-12 grossly normal Psych: Alert and cooperative Data Reviewed Today: Pertinent Labs: WBC 8.1, hemoglobin 9.9, platelet 574, potassium 3.9, creatinine 0.7, blood sugars range between 88-105 Imaging: No new imaging Assessment and Plan: Patient is critically ill, prognosis guarded Patient is currently being monitored in medical ICU. Active: Acute hypoxic respiratory failure, resolving Lung mass with metastatic disease Severe sepsis, resolved Acute on chronic cholecystitis Transaminitis NSTEMI, likely type II History of CAD status post CABG -ICU following, continue supportive care -Wean oxygen -Sputum cultures showed normal respiratory alexey -BAL shows rare gram-positive cocci, AFB smear negative -Surgery note reviewed, continue medical management for cholecystitis - Remains on on ceftriaxone 2 g IV every 24 hours, IV Flagyl 500 every 8 hours -Continue aspirin and statin -Oncology following, likely need tissue biopsy -For pain, patient on scheduled oxycodone 5 mg every 6 hours as well as on IV Dilaudid 1 mg every 4 hours as needed for severe breakthrough pain. Resolved: Lactic acidosis High anion gap metabolic acidosis Hyperkalemia Hypokalemia Hypercalcemia Chronic: Hypertension Dyslipidemia COPD Depression DVT ppx: Subcu heparin Code status: DO NOT RESUSCITATE Anticipated discharge place: Pending clinical course Anticipated discharge time: Pending clinical course Objective - Vital Signs Vital signs: Vital Signs Temp 98.6 F 05/27/23 07:52 Pulse 125 H 05/27/23 10:00 Resp 23 05/27/23 10:00 BP 144/93 05/27/23 11:01 Pulse Ox 97 05/27/23 10:00 FiO2 40 05/25/23 12:42 Intake & Output 05/26/23 05/27/23 05/27/23 18:59 06:59 18:59 Intake Total 149 633 2049 Output Total 1165 1075 660 Balance -315 -425 360 Weight 64.2 kg 64.2 kg Intake: IV 750 650 420 Invasive Line 1 10 Invasive Line 3 10 Sodium Chloride 0.9% 1, 650 550 250 000 ml @ 50 mls/hr IV . Q20H [facility] Rx#:[id number] cefTRIAXone 2 gm In 50 Sodium Chloride 0.9% 50 ml @ 100 mls/hr IVPB Q24HR [facility] Rx#:[id number] metroNIDAZOLE-NS PMX 500 100 100 100 mg In Saline 1 100ml.bag @ 100 mls/hr IVPB Q8HR [facility] Rx#:[id number] Intake, IV Titration 100 Amount metroNIDAZOLE-NS PMX 500 100 mg In Saline 1 100ml.bag @ 100 mls/hr IVPB Q8HR [facility] Rx#:[id number] Oral 600 Output: Urine 1165 1075 660 Other: Voiding Method Indwelling Catheter Indwelling Catheter ABP, PAP, CO, CI - Last Documented Arterial Blood Pressure 152/72 - Labs CBC & Chem 7: 05/27/23 05:48 05/27/23 05:48 Labs: Abnormal Lab Results - Last 24 Hours (Table) 05/27/23 05/27/23 Range/Units 05:48 05:48 RBC 3.32 L (3.80-5.40) m/uL Hgb 9.9 L (11.4-16.0) gm/dL Hct 30.6 L (34.0-46.0) % Plt Count 504 H (150-450) k/uL Lymphocytes # 0.8 L (1.0-4.8) k/uL Sodium 134 L (137-145) mmol/L Chloride 96 L (98-107) mmol/L BUN 3 L (7-17) mg/dL Creatinine 0.27 L (0.52-1.04) mg/dL Microbiology - Last 24 Hours (Table) 05/25/23 09:20 Acid Fast Bacilli Smear - Preliminary Bronchoalviolar Lavage - Left 05/24/23 03:30 Blood Culture - Preliminary Blood 05/24/23 03:15 Blood Culture - Preliminary Blood 05/24/23 11:14 Gram Stain - Final Sputum Sputum Culture - Final 05/25/23 09:20 Gram Stain - Preliminary Bronchoalviolar Lavage - Left
[2023-05-27] MEDS: METOPROLOL TARTRATE 25 MG TAB PO SCH ×2 (11:39→21:31)
--- NOTE | 2023-05-27 13:37 | P.PN ---
Subjective Progress Note Date: 05/27/23 Principal diagnosis: Acute hypoxic respiratory failure, possible sepsis/abdominal sepsis, and possible left lower lobe pneumonia Patient was seen and examined on consultation today 05/24/2023, I saw the patient in the ICU, patient presented with acute hypoxic respiratory failure requiring intubation and mechanical ventilation while in the ER. Patient has a classic presentation of sepsis, the exact source of her sepsis is not clear at this point, most likely related to her gallbladder. She is now intubated and mechanically ventilated with assist control rate of 22 tidal volume 400 FiO2 60% and PEEP of 5 and ABG showed a pO2 of 175 pCO2 35 pH of 7.34. FiO2 was cut down to 40%. Patient is empirically on ceftriaxone. She received multiple fluid boluses, at this point in time she is not requiring norepinephrine, seems to be responding to fluid boluses. Apparently the patient was recently evaluated for potential lung cancer and metastasis, however no specific tissue diagnosis was made, she was supposed to have a PET scan and workup was still pending. Patient used to be a heavy smoker, she quit about 2 years ago, and I had a chance to discuss her condition with her daughter at bedside, recommended arterial line placement and central line placement, I also discussed the CODE STATUS, patient is DO NOT RESUSCITATE CODE STATUS, apparently the daughter is very well aware of the potential poor prognosis considering her underlying clinical condition. In the meantime the patient will remain in the ICU, will treat empirically with antibiotics, we'll consult general surgery for her abnormal findings on the gallbladder questionable cholecystitis, patient also has severe COPD, may consider bronchoscopic the patient while on mechanical ventilation to evaluate f or possible endobronchial pathology since the left hilar abnormality seems to be compressing on the left mainstem bronchus. This will be addressed once the patient stabilizes more while in the ICU. Prognosis is extremely poor and guarded. Critical care time is over 55 minutes not including the time spent on procedures Patient was reevaluated today on 05/25/23, remains in the ICU intubated and mechanically ventilated. Chest x-ray is showing improvement in her overall chest x-ray appearance but she seems to have significant left lower lobe consolidation. She is on assist control rate of 22 tidal volume 400 FiO2 14 PEEP of 8 ABG showed a pO2 of 119 pCO2 32 pH of 7.46. Patient is on propofol at 25 mcg/kg/m fentanyl 20 mcg/kg/h she is also receiving enteral feeding via orogastric tube. Considering the abnormality in the left lower lobe, and considering the patient had a previous CT of the chest showing left hilar and mediastinal adenopathy, bronchoscopy was done today, and lavage of the left lower lobe was done, but there was no evidence of endobronchial tumor. Patient was seen by surgery, and recommended mostly medical management for her presumptive acute cholecystitis. Patient remains on Rocephin and Flagyl. Patient is arousable, awake in spite of being on fairly good dose of fentanyl and propofol, WBC count is 7.6 hemoglobin 8.9, basic metabolic profile is normal, hence I plan to give the patient today a trial of weaning at least a pressure support and CPAP trial, and if tolerated may even extubate the patient today this afternoon. In the meantime the patient remains empirically on antibiotics sputum Gram stain is showing moderate gram-positive cocci. Patient was reevaluated today on 05/26/23, patient was extubated yesterday on 05/25 few hours after her bronchoscopy. She seems to have tolerated the extubation well, she is now on 4 L nasal cannula, remains on antibiotics in the form of Flagyl and ceftriaxone. Her bronchoscopy showed no evidence of endobr onchial tumor however lavage of the left lung was performed, and cultures are pending. WBC count is 8.6 hemoglobin is 9.4. Platelets are 469, basic metabolic profile is normal renal profile is normal bicarb is normal Patient was reevaluated today on 05/27/23 patient remains in the ICU, she remain s on 4 L nasal cannula sitting up in the chair, IV fluid is 0.9 normal saline at 50 mL/h, patient is not in any distress. Denies any shortness of breath, denies any pain, her cultures have remained negative all along. BAL cultures are nondiagnostic, had mostly normal Alejandra, blood cultures have been negative all along. Patient is hemodynamically stable, and I plan to transfer the patient out of the ICU to a medical surgical floor today. WBC count is 8.1 hemoglobin is 9.9 basic metabolic profile is normal and renal profile is normal Objective - Vital Signs Vital signs: Vital Signs Temp 98.6 F 05/27/23 07:52 Pulse 112 H 05/27/23 12:03 Resp 23 05/27/23 10:00 BP 144/93 05/27/23 11:01 Pulse Ox 97 05/27/23 10:00 FiO2 40 05/25/23 12:42 Intake & Output 05/26/23 05/27/23 05/27/23 18:59 06:59 18:59 Intake Total 403 058 6748 Output Total 1165 1075 660 Balance -315 -425 350 Weight 64.2 kg 64.2 kg Intake: IV 750 650 410 Invasive Line 3 10 Sodium Chloride 0.9% 1, 650 550 250 000 ml @ 50 mls/hr IV . Q20H [facility] Rx#:[id number] cefTRIAXone 2 gm In 50 Sodium Chloride 0.9% 50 ml @ 100 mls/hr IVPB Q24HR [facility] Rx#:[id number] metroNIDAZOLE-NS PMX 500 100 100 100 mg In Saline 1 100ml.bag @ 100 mls/hr IVPB Q8HR [facility] Rx#:[id number] Intake, IV Titration 100 Amount metroNIDAZOLE-NS PMX 500 100 mg In Saline 1 100ml.bag @ 100 mls/hr IVPB Q8HR [facility] Rx#:[id number] Oral 600 Output: Urine 1165 1075 660 Other: Voiding Method Indwelling Catheter Indwelling Catheter ABP, PAP, CO, CI - Last Documented Arterial Blood Pressure 152/72 - Exam Physical Exam: Revealed 62-year-old female in no distress, on 4 L nasal cannula, O2 saturation is 97% Head: Atraumatic normocephalic HEENT:[Neck is supple.] [No neck masses.] [No thyromegaly.] [No JVD.] Chest: Crackles and rhonchi noted at the left base., Right side is relatively clear Cardiac Exam: [Normal S1 and S2, no S3 gallop, no murmur.] Abdomen: [Soft, nontender, no megaly, no rebound, no guarding, normal bowel sounds.] Extremities: [No clubbing, no edema, no cyanosis.] Neurological Exam: Alert and oriented 3, no Focal deficit Psychiatric: Normal mood affect and normal mental status examination. Skin: No rashes. - Labs CBC & Chem 7: 05/27/23 05:48 05/27/23 05:48 Labs: Abnormal Lab Results - Last 24 Hours (Table) 05/27/23 05/27/23 Range/Units 05:48 05:48 RBC 3.32 L (3.80-5.40) m/uL Hgb 9.9 L (11.4-16.0) gm/dL Hct 30.6 L (34.0-46.0) % Plt Count 504 H (150-450) k/uL Lymphocytes # 0.8 L (1.0-4.8) k/uL Sodium 134 L (137-145) mmol/L Chloride 96 L (98-107) mmol/L BUN 3 L (7-17) mg/dL Creatinine 0.27 L (0.52-1.04) mg/dL Microbiology - Last 24 Hours (Table) 05/24/23 03:30 Blood Culture - Preliminary Blood 05/24/23 03:15 Blood Culture - Preliminary Blood 05/25/23 09:20 Gram Stain - Final Bronchoalviolar Lavage - Left Bronchial Washings Culture - Final 05/25/23 09:20 Acid Fast Bacilli Smear - Preliminary Bronchoalviolar Lavage - Left 05/24/23 11:14 Gram Stain - Final Sputum Sputum Culture - Final Assessment and Plan Assessment: Impression: Acute hypoxemic respiratory failure, secondary to sepsis and possible left lower lobe pneumonia, community-acquired. Or could even be aspiration pneumonia Suspected acute cholecystitis and abdominal sepsis. Seen by surgery and the recommendation was to continue antibiotics, recommended no surgery. Leukocytosis, secondary to above Severe metabolic anion gap acidosis, resolved Lung mass, recently measuring 4.2 x 3.9 cm with multiple lesions suspicious for mediastinal and diffuse osseous metastasis. This was been worked up outpatient. Bronchoscopy on this admission showed no evidence of endobronchial tumor nonetheless the patient needs further workup and possibly tissue biopsy to confirm the diagnosis of pulmonary malignancy. Chronic obstructive pulmonary disease, with FEV1 38% predicted, recently placed on PRN albuterol and Trelegy inhalers. Elevated troponin, likely related to supply/demand mismatch Hypertension Hyperlipidemia Coronary artery disease, with previous CABG History of multiple sclerosis History of anxiety/depression Recommendation: Continue present supportive care measures, patient was extubated over 48 hours ago. And continues to tolerate the extubation. Cultures from BAL were nondiagnostic, normal alejandra Continue DVT and GI prophylaxis Continue antibiotics Rodriguez out of the ICU to a regular medical floor. Patient will definitely need outpatient workup for her left hilar mass and possible skeletal metastasis. We will continue to follow Time with Patient: Less than 30
[2023-05-27] MEDS: ALPRAZolam 0.5 MG TAB PO PRN (16:10)
[2023-05-27] MEDS: ACETAMINOPHEN TAB 500 MG TAB PO SCH (17:24)
[2023-05-27] MEDS: KETOROLAC 15 MG/ML 1 ML VIAL IVP PRN (17:24)
[2023-05-27] MEDS ORDERED: polyethylene glycoL 3350 17 GM POWD.PACK PO SCH (17:30)
[2023-05-27] MEDS: polyethylene glycoL 3350 17 GM POWD.PACK PO SCH (21:30)
[2023-05-27] MEDS: MIRTAZAPINE 15 MG TAB PO SCH (21:31)
[2023-05-27] MEDS: ATORVASTATIN 20 MG TAB PO SCH (21:31)
[2023-05-27] MEDS: SENNOSIDES 8.6 MG TAB PO SCH (21:31)
[2023-05-27] MEDS: MELATONIN 3 MG TABLET PO SCH (21:31)
[2023-05-28] MEDS: HYDROmorphone 1 MG/ML 1 ML SYRINGE IVP PRN ×4 (00:10→21:47)
[2023-05-28] MEDS: KETOROLAC 15 MG/ML 1 ML VIAL IVP PRN ×3 (01:09→17:06)
[2023-05-28] MEDS: ACETAMINOPHEN TAB 500 MG TAB PO SCH ×3 (02:39→18:30)
[2023-05-28] MEDS: SODIUM CHLORIDE 0.9% 1,000 ML IV SCH ×2 (02:40→22:36)
[2023-05-28 06:16] LABS: Basophils % (A) 0 %; Eosinophils # (A) 0.3 k/uL (0-0.7); Eosinophils % (A) 3 %; HCT 30.7 % (34.0-46.0); Hypochromasia Slight; Lymphocytes # (A) 1.3 k/uL (1.0-4.8); Lymphocytes % (A) 16 %; MCH 30.5 pg (25.0-35.0); MCHC 32.5 g/dL (31.0-37.0); MCV 93.9 fL (80.0-100.0); Mean Platelet Volume 8.1; Monocytes # (A) 0.7 k/uL (0-1.0); Monocytes % (A) 8 %; Neutrophils # (A) 5.5 k/uL (1.3-7.7); Neutrophils % (A) 69 %; Platelet Count 500 k/uL (150-450); RBC 3.27 m/uL (3.80-5.40); RDW 14.6 % (11.5-15.5); WBC 8.1 k/uL (3.8-10.6)
[2023-05-28 06:30] LABS: African American GFR (CKD) >90 (>60 ml/min/1.73 sqM); Anion Gap 10 mmol/L; Blood Urea Nitrogen 11 mg/dL (7-17); Calcium 9.4 mg/dL (8.4-10.2); Carbon Dioxide 28 mmol/L (22-30); Chloride 96 mmol/L (98-107); Glucose 112 mg/dL (74-99); Non-African American GFR(CKD) >90 (>60 ml/min/1.73 sqM); Potassium 4.1 mmol/L (3.5-5.1); Sodium 134 mmol/L (137-145)
[2023-05-28] MEDS: SYMBICORT 160-4.5 MCG INHALER INHALATION SCH ×2 (07:34→20:53)
[2023-05-28] MEDS: IPRATROPIUM-ALBUTEROL 3 ML NEB INHALATION SCH ×4 (07:34→20:53)
--- NOTE | 2023-05-28 07:47 | P.PN ---
Progress Note - Text Progress Note Date: 05/28/23 Patient is clinically unchanged. She is resting In bed. She denies any significant abdominal pain. On exam vital signs are still. Abdomen soft. Acute/chronic cholecystitis. Patient is being treated medically. No surgical intervention is planned at this point.
[2023-05-28] MEDS: metroNIDAZOLE-NS PMX 500 MG in SALINE 1 100ML.BAG IVPB SCH ×2 (08:05→17:06)
[2023-05-28] MEDS: ASPIRIN 81 MG PO SCH (09:10)
[2023-05-28] MEDS: SENNOSIDES 8.6 MG TAB PO SCH ×2 (09:10→21:47)
[2023-05-28] MEDS: FLUoxetine HCL 20 MG CAP PO SCH (09:10)
[2023-05-28] MEDS: HEPARIN SODIUM,PORCINE 5,000 UNIT/ML 1 ML VIAL SQ SCH ×2 (09:11→21:47)
[2023-05-28] MEDS: PANTOPRAZOLE 40 MG/10 ML VIAL IVP SCH (09:11)
[2023-05-28] MEDS: PRIMIDONE 50 MG TAB PO SCH ×3 (09:11→21:46)
[2023-05-28] MEDS: METOPROLOL TARTRATE 25 MG TAB PO SCH ×2 (09:11→21:46)
--- NOTE | 2023-05-28 12:50 | P.PN ---
Subjective Progress Note Date: 05/28/23 Patient was seen and examined on consultation today 05/24/2023, I saw the patient in the ICU, patient presented with acute hypoxic respiratory failure requiring intubation and mechanical ventilation while in the ER. Patient has a classic presentation of sepsis, the exact source of her sepsis is not clear at this point, most likely related to her gallbladder. She is now intubated and mechanically ventilated with assist control rate of 22 tidal volume 400 FiO2 60% and PEEP of 5 and ABG showed a pO2 of 175 pCO2 35 pH of 7.34. FiO2 was cut down to 40%. Patient is empirically on ceftriaxone. She received multiple fluid boluses, at this point in time she is not requiring norepinephrine, seems to be responding to fluid boluses. Apparently the patient was recently evaluated for potential lung cancer and metastasis, however no specific tissue diagnosis was made, she was supposed to have a PET scan and workup was still pending. Patient used to be a heavy smoker, she quit about 2 years ago, and I had a chance to discuss her condition with her daughter at bedside, recommended arterial line placement and central line placement, I also discussed the CODE STATUS, patient is DO NOT RESUSCITATE CODE STATUS, apparently the daughter is very well aware of the potential poor prognosis considering her underlying clinical condition. In the meantime the patient will remain in the ICU, will treat empirically with antibiotics, we'll consult general surgery for her abnormal findings on the gallbladder questionable cholecystitis, patient also has severe COPD, may consider bronchoscopic the patient while on mechanical ventilation to evaluate for possible endobronchial pathology since the left hilar abnormality seems to be compressing on the left mainstem bronchus. This will be addressed once the patient stabilizes more while in the ICU. Prognosis is extremely poor and guarded. Critical care time is over 55 minutes not including the time spent on procedures Patient was reevaluated today on 05/25/23, remains in the ICU intubated and mechanically ventilated. Chest x-ray is showing improvement in her overall chest x-ray appearance but she seems to have significant left lower lobe consoli dation. She is on assist control rate of 22 tidal volume 400 FiO2 14 PEEP of 8 ABG showed a pO2 of 119 pCO2 32 pH of 7.46. Patient is on propofol at 25 mcg/kg/m fentanyl 20 mcg/kg/h she is also receiving enteral feeding via orogastric tube. Considering the abnormality in the left lower lobe, and considering the patient had a previous CT of the chest showing left hilar and mediastinal adenopathy, bronchoscopy was done today, and lavage of the left lower lobe was done, but there was no evidence of endobronchial tumor. Patient was seen by surgery, and recommended mostly medical management for her presumptive acute cholecystitis. Patient remains on Rocephin and Flagyl. Patient is arousable, awake in spite of being on fairly good dose of fentanyl and propofol, WBC count is 7.6 hemoglobin 8.9, basic metabolic profile is normal, hence I plan to give the patient today a trial of weaning at least a pressure support and CPAP trial, and if tolerated may even extubate the patient today this afternoon. In the meantime the patient remains empirically on antibiotics sputum Gram stain is showing moderate gram-positive cocci. Patient was reevaluated today on 05/26/23, patient was extubated yesterday on 05/25 few hours after her bronchoscopy. She seems to have tolerated the extubation well, she is now on 4 L nasal cannula, remains on antibiotics in the form of Flagyl and ceftriaxone. Her bronchoscopy showed no evidence of endobronchial tumor however lavage of the left lung was performed, and cultures are pending. WBC count is 8.6 hemoglobin is 9.4. Platelets are 469, basic metabolic profile is normal renal profile is normal bicarb is normal Patient was reevaluated today on 05/27/23 patient remains in the ICU, she remains on 4 L nasal cannula sitting up in the chair, IV fluid is 0.9 normal saline at 50 mL/h, patient is not in any distress. Denies any shortness of breath, denies any pain, her cultures have remained negative all along. BAL cultures are nondiagnostic, had mostly normal Alejandra, blood cultures have been negative all along. Patient is hemodynamically stable, and I plan to transfer the patient out of the ICU to a medical surgical floor today. WBC count is 8.1 hemoglobin is 9.9 basic metabolic profile is normal and renal profile is normal The patient is seen today 05/28/2023 in follow-up on the regular medical floor. She is currently sitting up in a chair at the bedside. Awake and alert in no acute distress. Maintaining O2 saturation in the 90s on 4 L/m per nasal cannula. Bronchial alveolar lavage revealed no growth. Blood cultures revealed no growth. White count 8.1. Hemoglobin 10.0. Platelets 500. Sodium 134. Potassium 4.1. Bicarb 20. BUN 11. Creatinine 0.38. Glucose 112. She is continued on DuoNeb inhalations, Symbicort, Flagyl and ceftriaxone. Heparin for DVT prophylaxis. Normal saline at 50 MLS per hour. Objective - Vital Signs Vital signs: Vital Signs Temp 97.8 F 05/28/23 07:35 Pulse 89 05/28/23 10:53 Resp 21 05/28/23 08:00 BP 148/87 05/28/23 07:35 Pulse Ox 96 05/28/23 07:45 FiO2 95 05/27/23 16:46 Intake & Output 05/27/23 05/28/23 05/28/23 18:59 06:59 18:59 Intake Total 1480 50 Output Total 760 175 Balance 720 -125 Weight 64.2 kg 61 kg Intake: IV 880 50 Invasive Line 3 30 Sodium Chloride 0.9% 1, 600 50 000 ml @ 50 mls/hr IV . Q20H [facility] Rx#:[id number] cefTRIAXone 2 gm In 50 Sodium Chloride 0.9% 50 ml @ 100 mls/hr IVPB Q24HR [facility] Rx#:[id number] metroNIDAZOLE-NS PMX 500 200 mg In Saline 1 100ml.bag @ 100 mls/hr IVPB Q8HR [facility] Rx#:[id number] Oral 600 Output: Urine 760 175 Other: Voiding Method Indwelling Catheter Bedside Commode Bedside Commode Diaper Diaper # Voids 1 # Bowel Movements 0 ABP, PAP, CO, CI - Last Documented Arterial Blood Pressure 152/72 - Exam GENERAL EXAM: Alert, pleasant 62-year-old female, up in a chair, on 4 L nasal cannula, fairly comfortable in no apparent distress. HEAD: Normocephalic. EYES: Normal reaction of pupils, equal size. NOSE: Clear with pink turbinates. THROAT: No erythema or exudates. NECK: No masses, no JVD. CHEST: No chest wall deformity. LUNGS: Equal air entry with few crackles in the left base. CVS: S1 and S2 normal with no audible murmur, regular rhythm. ABDOMEN: No hepatosplenomegaly, normal bowel sounds, no guarding or rigidity. SPINE: No scoliosis or deformity SKIN: No rashes CENTRAL NERVOUS SYSTEM: No focal deficits, tone is normal in all 4 extremities. EXTREMITIES: There is no peripheral edema. No clubbing, no cyanosis. Peripheral pulses are intact. - Labs CBC & Chem 7: 05/28/23 05:31 05/28/23 05:31 Labs: Abnormal Lab Results - Last 24 Hours (Table) 05/28/23 05/28/23 Range/Units 05:31 05:31 RBC 3.27 L (3.80-5.40) m/uL Hgb 10.0 L (11.4-16.0) gm/dL Hct 30.7 L (34.0-46.0) % Plt Count 500 H (150-450) k/uL Sodium 134 L (137-145) mmol/L Chloride 96 L (98-107) mmol/L Creatinine 0.38 L (0.52-1.04) mg/dL Glucose 112 H (74-99) mg/dL Microbiology - Last 24 Hours (Table) 05/24/23 03:30 Blood Culture - Preliminary Blood 05/24/23 03:15 Blood Culture - Preliminary Blood 05/25/23 09:20 Gram Stain - Final Bronchoalviolar Lavage - Left Bronchial Washings Culture - Final Assessment and Plan Assessment: Acute hypoxemic respiratory failure, secondary to sepsis and possible left lower lobe pneumonia, community-acquired. Or could even be aspiration pneumonia Suspected acute cholecystitis and abdominal sepsis. Seen by surgery and the recommendation was to continue antibiotics, recommended no surgery. Leukocytosis, secondary to above, resolved Severe metabolic anion gap acidosis, resolved Lung mass, recently measuring 4.2 x 3.9 cm with multiple lesions suspicious for mediastinal and diffuse osseous metastasis. This was been worked up outpatient. Bronchoscopy on this admission showed no evidence of endobronchial tumor nonetheless the patient needs further workup and possibly tissue biopsy to confirm the diagnosis of pulmonary malignancy. Chronic obstructive pulmonary disease, with FEV1 38% predicted, recently placed on PRN albuterol and Trelegy inhalers. Elevated troponin, likely related to supply/demand mismatch Hypertension Hyperlipidemia Coronary artery disease, with previous CABG History of multiple sclerosis History of anxiety/depression Plan: The patient was seen and evaluated Labs and medications reviewed Currently on 4 L nasal cannula Titrate down the FiO2 as tolerated Continue bronchodilators, antibiotics Increase her activity as tolerated We will continue to follow I have personally seen and examined the patient, performed the documentation and the assessment and plan as written. Number of minutes spent on the visit: 10.
--- NOTE | 2023-05-28 14:48 | P.PN ---
Subjective Progress Note Date: 05/28/23 Hospital Course: 62-year-old female with history of recently diagnosed lung cancer with metastatic disease, CAD status post CABG, multiple sclerosis, COPD, hypertension, his lipidemia, essential tremor presenting with acute/subacute dyspnea. In the ED, temperature was 94.6, pulse 102, respiratory rate 32, blood pressure 163/119, was saturating at 97% on nonrebreather at 15 L. Due to increased work of breathing, BiPAP was suggested. However her mental status was poor, and she was subsequently intubated. Patient then transferred to medical ICU. WBC was 12.8, platelet 780, potassium 5.4, bicarb 15, creatinine 0.78, lactate 11.1, pH 7.16, pCO2 44, troponin 0.056, total bilirubin 0.3, AST 43, ALT 33, ALP 192, proBNP 14,000, CRP 6.9, lipase 70, respiratory viral panel negative, urine positive for oxycodone, barbiturates, and marijuana. CT abdomen and pelvis, CT chest showed mild diffuse edema and infiltrates worse on the right, atelectasis the majority of left lower lobe, multiple thoracic spine with obstructive lesions consistent with metastatic disease, marked gallbladder wall edema, obstructive lesions in the iliac bone and lumbar spine. Head CT shows multiple distractive skull lesions. EKG independently interpreted, shows sinus tachycardia. Chest x-ray, interpreted shows Left basilar opacity. Patient admitted to the ICU for acute hypoxic respiratory failure. Had a bronch with BAL. Surgery following for acute on chronic cholecystitis, treating conservativ kavon with medical management. Oncology also following, will likely need tissue biopsy, possibly CT-guided biopsy of lung mass. Patient will also likely need additional staging including bone scan and imaging of brain.. Patient is doing better postextubation. Echocardiogram showed mild LV systolic dysfunction secondary to prior inferior wall myocardial infarction, moderate pulmonary hypertension. Now out of the ICU. Subjective: Patient seen and examined at bedside. No acute events overnight. She claims that she still has significant pain, more so on her left neck. Pertinent positives and negatives as discussed above, a complete review of systems was performed and all other systems are negative. Vitals Signs Reviewed. General: Not in acute distress, chronically ill-appearing Derm: warm, dry Head: atraumatic, normocephalic, symmetric Eyes: EOMI, anicteric sclera, pupils equal round reactive to light ENT: Nose and ears atraumatic Neck: No thyromegaly, supple Mouth: no lip lesion, mucus membranes moist Cardiovascular: S1S2 reg, no murmur, no edema Lungs: Bilateral rhonchi, supplemental oxygen Abdominal: soft, nontender to palpation, no guarding, no appreciable organomeg tom Ext: no gross muscle atrophy, muscle strength muscle strength 5 out of 5 in all 4 extremities, no contractures Neuro: CN II-12 grossly normal Psych: Alert and cooperative Data Reviewed Today: Pertinent Labs: WBC 8.1, hemoglobin 10, platelet 500, sodium 134, potassium 4.1, creatinine 0.38 Imaging: No new imaging Assessment and Plan: Patient is critically ill, prognosis guarded Active: Acute hypoxic respiratory failure, resolving Lung mass with metastatic disease Severe sepsis, resolved Acute on chronic cholecystitis Transaminitis NSTEMI, likely type II History of CAD status post CABG -ICU note reviewed, continue current regimen -Wean oxygen -Sputum cultures showed normal respiratory alexey -BAL shows rare gram-positive cocci, AFB smear negative -Surgery note reviewed, continue medical management for cholecystitis, no surgical intervention at the moment - Remains on on ceftriaxone 2 g IV every 24 hours, IV Flagyl 500 every 8 hours -Continue aspirin and statin -Oncology following, likely need tissue biopsy -For pain, patient on scheduled oxycodone increased to 7.5 mg every 6 hours as well as on IV Dilaudid 1 mg every 4 hours as needed for severe breakthrough pain., Also on scheduled Tylenol 1 g every 8 hours as well as Toradol IV every 6 hours as needed 50 mg. Monitor for respiratory depression Resolved: Lactic acidosis High anion gap metabolic acidosis Hyperkalemia Hypokalemia Hypercalcemia Chronic: Hypertension Dyslipidemia COPD Depression DVT ppx: Subcu heparin Code status: DO NOT RESUSCITATE Anticipated discharge place: PT/OT assessment Anticipated discharge time: Pending clinical course Objective - Vital Signs Vital signs: Vital Signs Temp 97.6 F 05/28/23 11:15 Pulse 94 05/28/23 14:46 Resp 18 05/28/23 11:15 BP 149/70 05/28/23 11:15 Pulse Ox 95 05/28/23 11:15 FiO2 95 05/27/23 16:46 Intake & Output 05/27/23 05/28/23 05/28/23 18:59 06:59 18:59 Intake Total 1480 50 Output Total 760 175 Balance 720 -125 Weight 64.2 kg 61 kg Intake: IV 880 50 Invasive Line 3 30 Sodium Chloride 0.9% 1, 600 50 000 ml @ 50 mls/hr IV . Q20H [facility] Rx#:[id number] cefTRIAXone 2 gm In 50 Sodium Chloride 0.9% 50 ml @ 100 mls/hr IVPB Q24HR [facility] Rx#:[id number] metroNIDAZOLE-NS PMX 500 200 mg In Saline 1 100ml.bag @ 100 mls/hr IVPB Q8HR [facility] Rx#:[id number] Oral 600 Output: Urine 760 175 Other: Voiding Method Indwelling Catheter Bedside Commode Bedside Commode Diaper Diaper # Voids 1 # Bowel Movements 0 ABP, PAP, CO, CI - Last Documented Arterial Blood Pressure 152/72 - Labs CBC & Chem 7: 05/28/23 05:31 05/28/23 05:31 Labs: Abnormal Lab Results - Last 24 Hours (Table) 05/28/23 05/28/23 Range/Units 05:31 05:31 RBC 3.27 L (3.80-5.40) m/uL Hgb 10.0 L (11.4-16.0) gm/dL Hct 30.7 L (34.0-46.0) % Plt Count 500 H (150-450) k/uL Sodium 134 L (137-145) mmol/L Chloride 96 L (98-107) mmol/L Creatinine 0.38 L (0.52-1.04) mg/dL Glucose 112 H (74-99) mg/dL Microbiology - Last 24 Hours (Table) 05/24/23 03:30 Blood Culture - Preliminary Blood 05/24/23 03:15 Blood Culture - Preliminary Blood 05/25/23 09:20 Gram Stain - Final Bronchoalviolar Lavage - Left Bronchial Washings Culture - Final
--- NOTE | 2023-05-28 15:01 | P.PN ---
Subjective Progress Note Date: 05/28/23 The patient has been transferred to the oncology floor, and continues to improve slowly. She is on 4 L of oxygen, and is able to get out of bed and sit in a chair as well as use a bedside commode. He still has significant generalized weakness and some orthopnea. Objective - Vital Signs Vital signs: Vital Signs Temp 97.6 F 05/28/23 11:15 Pulse 94 05/28/23 14:55 Resp 18 05/28/23 11:15 BP 149/70 05/28/23 11:15 Pulse Ox 95 05/28/23 11:15 FiO2 95 05/27/23 16:46 Intake & Output 05/27/23 05/28/23 05/28/23 18:59 06:59 18:59 Intake Total 1480 50 Output Total 760 175 Balance 720 -125 Weight 64.2 kg 61 kg Intake: IV 880 50 Invasive Line 3 30 Sodium Chloride 0.9% 1, 600 50 000 ml @ 50 mls/hr IV . Q20H MANUEL Rx#:[id number] cefTRIAXone 2 gm In 50 Sodium Chloride 0.9% 50 ml @ 100 mls/hr IVPB Q24HR [facility] Rx#:[id number] metroNIDAZOLE-NS PMX 500 200 mg In Saline 1 100ml.bag @ 100 mls/hr IVPB Q8HR MANUEL Rx#:[id number] Oral 600 Output: Urine 760 175 Other: Voiding Method Indwelling Catheter Bedside Commode Bedside Commode Diaper Diaper # Voids 1 # Bowel Movements 0 ABP, PAP, CO, CI - Last Documented Arterial Blood Pressure 152/72 - Constitutional General appearance: Present: no acute distress - EENT Eyes: Present: EOMI ENT: Present: hearing grossly normal, normal oropharynx - Respiratory Respiratory: left: diminished - Cardiovascular Rhythm: regular Heart sounds: normal: S1, S2 - Gastrointestinal General gastrointestinal: Present: normal bowel sounds, soft - Integumentary Integumentary: Present: normal - Neurologic Neurologic: Present: CNII-XII intact - Musculoskeletal Musculoskeletal: Present: generalized weakness, strength equal bilaterally - Psychiatric Psychiatric: Present: A&O x's 3, appropriate affect - Labs CBC & Chem 7: 05/28/23 05:31 05/28/23 05:31 Labs: Abnormal Lab Results - Last 24 Hours (Table) 05/28/23 05/28/23 Range/Units 05:31 05:31 RBC 3.27 L (3.80-5.40) m/uL Hgb 10.0 L (11.4-16.0) gm/dL Hct 30.7 L (34.0-46.0) % Plt Count 500 H (150-450) k/uL Sodium 134 L (137-145) mmol/L Chloride 96 L (98-107) mmol/L Creatinine 0.38 L (0.52-1.04) mg/dL Glucose 112 H (74-99) mg/dL Microbiology - Last 24 Hours (Table) 05/24/23 03:30 Blood Culture - Preliminary Blood 05/24/23 03:15 Blood Culture - Preliminary Blood 05/25/23 09:20 Gram Stain - Final Bronchoalviolar Lavage - Left Bronchial Washings Culture - Final Assessment and Plan (1) Mass of left lung Narrative/Plan: This is strongly suspected to be lung malignancy with metastasis. However we do not yet have a pathologic diagnosis. Bronchoscopy was negative for any endobronchial lesions that could be targeted. - Discuss with pulmonary if there is a possibility of thoracentesis on the left side, versus IR guided biopsy of the primary lung mass. It was discussed with the patient that any diagnostic procedure will be attempted only if she is felt to be stable enough for the same from the pulmonary standpoint. -We will also schedule additional staging studies, when the patient is felt to be stable enough to tolerate the same. Assuming continued improvement, this will hopefully be sometime next week Current Visit: Yes Status: Acute Code(s): R91.8 - OTHER NONSPECIFIC ABNORMAL FINDING OF LUNG FIELD SNOMED Code(s): 632919807 (2) Sepsis Narrative/Plan: The patient is continuing to improve. Defer to the admitting service and [facility] for continued management Current Visit: Yes Status: Acute Code(s): A41.9 - SEPSIS, UNSPECIFIED ORGANISM SNOMED Code(s): 17060625
[2023-05-28] MEDS: MIRTAZAPINE 15 MG TAB PO SCH (21:46)
[2023-05-28] MEDS: ATORVASTATIN 20 MG TAB PO SCH (21:46)
[2023-05-28] MEDS: polyethylene glycoL 3350 17 GM POWD.PACK PO SCH (21:47)
[2023-05-28] MEDS: MELATONIN 3 MG TABLET PO SCH (21:47)
[2023-05-29] MEDS: metroNIDAZOLE-NS PMX 500 MG in SALINE 1 100ML.BAG IVPB SCH ×4 (01:07→23:57)
[2023-05-29] MEDS: ACETAMINOPHEN TAB 500 MG TAB PO SCH ×3 (01:51→18:04)
[2023-05-29] MEDS: HYDROmorphone 1 MG/ML 1 ML SYRINGE IVP PRN ×2 (01:51→15:19)
[2023-05-29] MEDS: SODIUM CHLORIDE 0.9% 1,000 ML IV SCH (01:52)
[2023-05-29] MEDS: KETOROLAC 15 MG/ML 1 ML VIAL IVP PRN ×2 (06:37→20:30)
[2023-05-29 06:44] LABS: Basophils % (A) 0 %; Eosinophils # (A) 0.1 k/uL (0-0.7); Eosinophils % (A) 1 %; HCT 31.9 % (34.0-46.0); HGB 10.2 gm/dL (11.4-16.0); Hypochromasia Slight; Lymphocytes # (A) 0.9 k/uL (1.0-4.8); Lymphocytes % (A) 10 %; MCH 29.6 pg (25.0-35.0); MCHC 31.8 g/dL (31.0-37.0); Mean Platelet Volume 7.8; Monocytes # (A) 0.6 k/uL (0-1.0); Monocytes % (A) 7 %; Neutrophils # (A) 7.7 k/uL (1.3-7.7); Neutrophils % (A) 81 %; Platelet Count 504 k/uL (150-450); RBC 3.44 m/uL (3.80-5.40); RDW 14.6 % (11.5-15.5); WBC 9.5 k/uL (3.8-10.6)
[2023-05-29 06:58] LABS: African American GFR (CKD) >90 (>60 ml/min/1.73 sqM); Anion Gap 9 mmol/L; Blood Urea Nitrogen 5 mg/dL (7-17); Carbon Dioxide 29 mmol/L (22-30); Chloride 95 mmol/L (98-107); Glucose 95 mg/dL (74-99); Non-African American GFR(CKD) >90 (>60 ml/min/1.73 sqM); Potassium 3.8 mmol/L (3.5-5.1); Sodium 133 mmol/L (137-145)
[2023-05-29] MEDS: IPRATROPIUM-ALBUTEROL 3 ML NEB INHALATION SCH ×4 (07:38→18:14)
[2023-05-29] MEDS: SYMBICORT 160-4.5 MCG INHALER INHALATION SCH ×2 (07:38→18:14)
[2023-05-29] MEDS: PANTOPRAZOLE 40 MG/10 ML VIAL IVP SCH (08:41)
[2023-05-29] MEDS: METOPROLOL TARTRATE 25 MG TAB PO SCH ×2 (08:41→20:29)
[2023-05-29] MEDS: FLUoxetine HCL 20 MG CAP PO SCH (08:41)
[2023-05-29] MEDS: ASPIRIN 81 MG PO SCH (08:41)
[2023-05-29] MEDS: HEPARIN SODIUM,PORCINE 5,000 UNIT/ML 1 ML VIAL SQ SCH ×2 (08:41→20:31)
[2023-05-29] MEDS: SENNOSIDES 8.6 MG TAB PO SCH ×2 (08:42→20:29)
--- NOTE | 2023-05-29 08:55 | XR ---
EXAMINATION TYPE: XR chest 1V portable DATE OF EXAM: 05/29/2023 7:31 AM CLINICAL INDICATION:Female, 62 years old with history of Pneumonia; [facility] COMPARISON: Chest radiograph 05/26/2023. TECHNIQUE: XR chest 1V portable Frontal view of the chest. FINDINGS: Lungs/Pleura: Redemonstrated moderate left-sided pleural effusion, not significant change in interval . The right lung and trace subsegmental atelectasis in the lung base. Pulmonary vascularity: Mild pulmonary vascular congestion. Heart/mediastinum: Stable cardiac mediastinal silhouette. Musculoskeletal: No acute osseous pathology. Median sternotomy wires are identified. IMPRESSION: Stable moderate left-sided pleural effusion.
[2023-05-29] MEDS: PRIMIDONE 50 MG TAB PO SCH ×3 (09:02→20:30)
--- NOTE | 2023-05-29 10:12 | US ---
EXAMINATION TYPE: US chest DATE OF EXAM: 05/29/2023 COMPARISON: NONE CLINICAL INDICATION: Female, 62 years old with history of Markings for thoracentesis by pulmonary sta ff; known pleural effusion, SOB TECHNIQUE: Targeted ultrasound of the posterior lower Left EXAM MEASUREMENTS: Left Pleural Effusion pocket size: 9.8 cm Left skin surface to fluid distance: 3.0 cm Left side marked for possible thoracentesis outside the dept. Pulmonologists are able to review the images in the patient?s EMR. IMPRESSIONS: Imaging done for thoracentesis markings demonstrating pleural effusion as described, please see dedic ated notes in the patient's chart for additional discussion.
--- NOTE | 2023-05-29 13:26 | XR ---
EXAMINATION TYPE: XR chest 1V portable DATE OF EXAM: 05/29/2023 1:22 PM CLINICAL INDICATION:Female, 62 years old with history of Post left thoracentesis; [facility] COMPARISON: Chest radiograph same day, 05/26/2023. TECHNIQUE: XR chest 1V portable Frontal view of the chest. FINDINGS: Lungs/Pleura: There is mild improvement in aeration of the left lung. Left pleural effusion is somewh at smaller in appearance. Subsegmental atelectasis present in the right lung base. No evidence of pne umothorax. Pulmonary vascularity: Unremarkable. Heart/mediastinum: Cardiomediastinal silhouette is stable. Musculoskeletal: No acute osseous pathology. Median sternotomy wires are identified. IMPRESSION: Mild interval improvement in left lung aeration post thoracentesis. No identifiable pneumothorax.
--- NOTE | 2023-05-29 13:55 | P.PN ---
Subjective Progress Note Date: 05/29/23 Patient was seen and examined on consultation today 05/24/2023, I saw the patient in the ICU, patient presented with acute hypoxic respiratory failure requiring intubation and mechanical ventilation while in the ER. Patient has a classic presentation of sepsis, the exact source of her sepsis is not clear at this point, most likely related to her gallbladder. She is now intubated and mechanically ventilated with assist control rate of 22 tidal volume 400 FiO2 60% and PEEP of 5 and ABG showed a pO2 of 175 pCO2 35 pH of 7.34. FiO2 was cut down to 40%. Patient is empirically on ceftriaxone. She received multiple fluid boluses, at this point in time she is not requiring norepinephrine, seems to be responding to fluid boluses. Apparently the patient was recently evaluated for potential lung cancer and metastasis, however no specific tissue diagnosis was made, she was supposed to have a PET scan and workup was still pending. Patient used to be a heavy smoker, she quit about 2 years ago, and I had a chance to discuss her condition with her daughter at bedside, recommended arterial line placement and central line placement, I also discussed the CODE STATUS, patient is DO NOT RESUSCITATE CODE STATUS, apparently the daughter is very well aware of the potential poor prognosis considering her underlying clinical condition. In the meantime the patient will remain in the ICU, will treat empirically with antibiotics, we'll consult general surgery for her abnormal findings on the gallbladder questionable cholecystitis, patient also has severe COPD, may consider bronchoscopic the patient while on mechanical ventilation to evaluate for possible endobronchial pathology since the left hilar abnormality seems to be compressing on the left mainstem bronchus. This will be addressed once the patient stabilizes more while in the ICU. Prognosis is extremely poor and guarded. Critical care time is over 55 minutes not including the time spent on procedures Patient was reevaluated today on 05/25/23, remains in the ICU intubated and mechanically ventilated. Chest x-ray is showing improvement in her overall chest x-ray appearance but she seems to have significant left lower lobe consoli dation. She is on assist control rate of 22 tidal volume 400 FiO2 14 PEEP of 8 ABG showed a pO2 of 119 pCO2 32 pH of 7.46. Patient is on propofol at 25 mcg/kg/m fentanyl 20 mcg/kg/h she is also receiving enteral feeding via orogastric tube. Considering the abnormality in the left lower lobe, and considering the patient had a previous CT of the chest showing left hilar and mediastinal adenopathy, bronchoscopy was done today, and lavage of the left lower lobe was done, but there was no evidence of endobronchial tumor. Patient was seen by surgery, and recommended mostly medical management for her presumptive acute cholecystitis. Patient remains on Rocephin and Flagyl. Patient is arousable, awake in spite of being on fairly good dose of fentanyl and propofol, WBC count is 7.6 hemoglobin 8.9, basic metabolic profile is normal, hence I plan to give the patient today a trial of weaning at least a pressure support and CPAP trial, and if tolerated may even extubate the patient today this afternoon. In the meantime the patient remains empirically on antibiotics sputum Gram stain is showing moderate gram-positive cocci. Patient was reevaluated today on 05/26/23, patient was extubated yesterday on 05/25 few hours after her bronchoscopy. She seems to have tolerated the extubation well, she is now on 4 L nasal cannula, remains on antibiotics in the form of Flagyl and ceftriaxone. Her bronchoscopy showed no evidence of endobronchial tumor however lavage of the left lung was performed, and cultures are pending. WBC count is 8.6 hemoglobin is 9.4. Platelets are 469, basic metabolic profile is normal renal profile is normal bicarb is normal Patient was reevaluated today on 05/27/23 patient remains in the ICU, she remains on 4 L nasal cannula sitting up in the chair, IV fluid is 0.9 normal saline at 50 mL/h, patient is not in any distress. Denies any shortness of breath, denies any pain, her cultures have remained negative all along. BAL cultures are nondiagnostic, had mostly normal Alejandra, blood cultures have been negative all along. Patient is hemodynamically stable, and I plan to transfer the patient out of the ICU to a medical surgical floor today. WBC count is 8.1 hemoglobin is 9.9 basic metabolic profile is normal and renal profile is normal The patient is seen today 05/28/2023 in follow-up on the regular medical floor. She is currently sitting up in a chair at the bedside. Awake and alert in no acute distress. Maintaining O2 saturation in the 90s on 4 L/m per nasal cannula. Bronchial alveolar lavage revealed no growth. Blood cultures revealed no growth. White count 8.1. Hemoglobin 10.0. Platelets 500. Sodium 134. Potassium 4.1. Bicarb 20. BUN 11. Creatinine 0.38. Glucose 112. She is continued on DuoNeb inhalations, Symbicort, Flagyl and ceftriaxone. Heparin for DVT prophylaxis. Normal saline at 50 MLS per hour. The patient is seen today 05/29/2023 in follow-up on the regular medical floor. She is currently sitting up in a chair. Awake and alert in no acute distress. Maintaining O2 saturations in the 90s on 4 L/m per nasal cannula. Follow-up chest x-rays now revealing a stable moderate left-sided pleural effusion. U ltrasound of the chest reveals a 9.8 cm pocket on the left. She did undergo a left-sided thoracentesis today with 800 mL of straw-colored fluid removed. Sent for fluid analysis and cytology. Follow-up chest x-ray revealed interval improvement in the left lung aeration. No pneumothorax. Bronchial lavage cultures revealed no growth. Cytology pending. White count 9.5. Hemoglobin 10.2. Sodium 133. Potassium 3.8. Bicarb 29. BUN 5. Creatinine 0.30. Glucose 95. She is continued on ceftriaxone and Flagyl. Remains on bronchodilators. Heparin for DVT prophylaxis. Normal saline at 50 ML's per hour. Objective - Vital Signs Vital signs: Vital Signs Temp 98.1 F 05/29/23 12:18 Pulse 104 H 05/29/23 13:31 Resp 18 05/29/23 13:31 BP 145/96 05/29/23 13:31 Pulse Ox 96 05/29/23 13:31 FiO2 95 05/27/23 16:46 Intake & Output 05/28/23 05/29/23 05/29/23 18:59 06:59 18:59 Weight 60.9 kg Other: Voiding Method Bedside Commode Bedside Commode Bedside Commode Diaper Diaper Diaper # Voids 1 1 # Bowel Movements 1 ABP, PAP, CO, CI - Last Documented Arterial Blood Pressure 152/72 - Exam GENERAL EXAM: Alert, 62-year-old female, on 4 L nasal cannula, fairly comfortable in no apparent distress. HEAD: Normocephalic. EYES: Normal reaction of pupils, equal size. NOSE: Clear with pink turbinates. THROAT: No erythema or exudates. NECK: No masses, no JVD. CHEST: No chest wall deformity. LUNGS: Equal air entry with few crackles in the left base. CVS: S1 and S2 normal with no audible murmur, regular rhythm. ABDOMEN: No hepatosplenomegaly, normal bowel sounds, no guarding or rigidity. SPINE: No scoliosis or deformity SKIN: No rashes CENTRAL NERVOUS SYSTEM: No focal deficits, tone is normal in all 4 extremities. EXTREMITIES: There is no peripheral edema. No clubbing, no cyanosis. Peripheral pulses are intact. - Labs CBC & Chem 7: 05/29/23 06:05 05/29/23 06:05 Labs: Abnormal Lab Results - Last 24 Hours (Table) 05/29/23 05/29/23 Range/Units 06:05 06:05 RBC 3.44 L (3.80-5.40) m/uL Hgb 10.2 L (11.4-16.0) gm/dL Hct 31.9 L (34.0-46.0) % Plt Count 504 H (150-450) k/uL Lymphocytes # 0.9 L (1.0-4.8) k/uL Sodium 133 L (137-145) mmol/L Chloride 95 L (98-107) mmol/L BUN 5 L (7-17) mg/dL Creatinine 0.30 L (0.52-1.04) mg/dL Microbiology - Last 24 Hours (Table) 05/24/23 03:30 Blood Culture - Final Blood 05/24/23 03:15 Blood Culture - Final Blood Assessment and Plan Assessment: Acute hypoxemic respiratory failure, secondary to sepsis and possible left lower lobe pneumonia, community-acquired. Or could even be aspiration pneumonia. She developed a left-sided pleural effusion. Status post left-sided thoracentesis today 05/29/2023 with 800 mL of straw-colored fluid removed. Cytology and fluid analysis pending. Suspected acute cholecystitis and abdominal sepsis. Seen by surgery and the recommendation was to continue antibiotics, recommended no surgery. Leukocytosis, secondary to above, resolved Severe metabolic anion gap acidosis, resolved Lung mass, recently measuring 4.2 x 3.9 cm with multiple lesions suspicious for mediastinal and diffuse osseous metastasis. This was been worked up outpatient. Bronchoscopy on 05/25/2023 showed no evidence of endobronchial tumor nonetheless the patient needs further workup and possibly tissue biopsy to confirm the diagnosis of pulmonary malignancy. Chronic obstructive pulmonary disease, with FEV1 38% predicted, recently placed on PRN albuterol and Trelegy inhalers. Elevated troponin, likely related to supply/demand mismatch Hypertension Hyperlipidemia Coronary artery disease, with previous CABG History of multiple sclerosis History of anxiety/depression Plan: The patient was seen and evaluated X-ray, ultrasound of the left chest, labs and medications reviewed She did undergo a left-sided thoracentesis, 800 mL fluid removed Fluid analysis and cytology pending Currently on 4 L nasal cannula Titrate down the FiO2 as tolerated Continue bronchodilators, antibiotics Increase her activity as tolerated We will continue to follow I have personally seen and examined the patient, performed the documentation and the assessment and plan as written. Number of minutes spent on the visit: 10.
[2023-05-29 13:58] LABS: Total Protein 5.2 g/dL (6.3-8.2)
--- NOTE | 2023-05-29 14:02 | OP ---
OPERATIVE REPORT DATE OF SERVICE : PROCEDURE PERFORMED: Left-sided thoracentesis. PREOPERATIVE DIAGNOSIS: Large left pleural effusion. POSTOPERATIVE DIAGNOSIS: Large left pleural effusion. ANESTHESIA USED: 2 mL of 1% lidocaine. DESCRIPTION OF PROCEDURE: The patient was placed in a sitting upright position, the area of the fluid was earlier localized by ultrasound, and a marking was placed at the level of the 8th intercostal space and tip of the scapula. The area was prepared in a sterile fashion, drapes were applied, and the area was locally anesthetized with lidocaine. Then, a 26-gauge needle was inserted at the same site, advanced into the pleural space and the fluid was localized with the needle. Then, a small tiny incision was made, and a thoracentesis catheter and needle were used, advanced into the pleural space and as the fluid was obtained, the catheter was advanced over the needle and the needle was pulled out of the pleural space. There was a freely flowing fluid drained. Roughly 800 mL of straw- colored fluid was removed from the left pleural space. Fluid was sent for different diagnostic studies. Procedure was well tolerated, no immediate complications, chest x- ray was ordered postoperatively and it is pending. MMODL / IJN: [id number] /
--- NOTE | 2023-05-29 14:12 | P.PN ---
Subjective Progress Note Date: 05/29/23 Hospital Course: 62-year-old female with history of recently diagnosed lung cancer with metasta tic disease, CAD status post CABG, multiple sclerosis, COPD, hypertension, his lipidemia, essential tremor presenting with acute/subacute dyspnea. In the ED, temperature was 94.6, pulse 102, respiratory rate 32, blood pressure 163/119, was saturating at 97% on nonrebreather at 15 L. Due to increased work of breathing, BiPAP was suggested. However her mental status was poor, and she was subsequently intubated. Patient then transferred to medical ICU. WBC was 12.8, platelet 780, potassium 5.4, bicarb 15, creatinine 0.78, lactate 11.1, pH 7.16, pCO2 44, troponin 0.056, total bilirubin 0.3, AST 43, ALT 33, ALP 192, proBNP 14,000, CRP 6.9, lipase 70, respiratory viral panel negative, urine positive for oxycodone, barbiturates, and marijuana. CT abdomen and pelvis, CT chest showed mild diffuse edema and infiltrates worse on the right, atelectasis the majority of left lower lobe, multiple thoracic spine with obstructive lesions consistent with metastatic disease, marked gallbladder wall edema, obstructive lesions in the iliac bone and lumbar spine. Head CT shows multiple distractive skull lesions. EKG independently interpreted, shows sinus tachycardia. Chest x-ray, interpreted shows Left basilar opacity. Patient admitted to the ICU for acute hypoxic respiratory failure. Had a bronch with BAL. Surgery following for acute on chronic cholecystitis, treating conservatively with medical management. Oncology also following, will likely need tissue biopsy, possibly CT-guided bi opsy of lung mass. Patient will also likely need additional staging including bone scan and imaging of brain.. Patient is doing better postextubation. Echocardiogram showed mild LV systolic dysfunction secondary to prior inferior wall myocardial infarction, moderate pulmonary hypertension. Now out of the ICU. He underwent left-sided thoracentesis, 800 mL fluid removed. Subjective: Patient seen and examined at bedside. No acute events overnight. Respiratory function slightly better Pertinent positives and negatives as discussed above, a complete review of systems was performed and all other systems are negative. Vitals Signs Reviewed. General: Not in acute distress, chronically ill-appearing Derm: warm, dry Head: atraumatic, normocephalic, symmetric Eyes: EOMI, anicteric sclera, pupils equal round reactive to light ENT: Nose and ears atraumatic Neck: No thyromegaly, supple Mouth: no lip lesion, mucus membranes moist Cardiovascular: S1S2 reg, no murmur, no edema Lungs: Bilateral rhonchi, worse on the left side, supplemental oxygen Abdominal: soft, nontender to palpation, no guarding, no appreciable organomegaly Ext: no gross muscle atrophy, muscle strength muscle strength 5 out of 5 in all 4 extremities, no contractures Neuro: CN II-12 grossly normal Psych: Alert and cooperative Data Reviewed Today: Pertinent Labs: WBC 9.5, hemoglobin 10.2, platelet 504, sodium 133, creatinine 0.3 Imaging: Chest x-ray independently interpreted, shows left-sided pleural eff usion Assessment and Plan: Patient is critically ill, prognosis guarded Active: Acute hypoxic respiratory failure, resolving Lung mass with metastatic disease Severe sepsis, resolved Acute on chronic cholecystitis Transaminitis NSTEMI, likely type II History of CAD status post CABG -Pulmonology note reviewed, completed thoracentesis, cytology and fluid analysis pending -Wean oxygen -Surgery note reviewed, continue medical management for cholecystitis, no surgical intervention at the moment - Remains on on ceftriaxone 2 g IV every 24 hours, IV Flagyl 500 every 8 hours -Continue aspirin and statin -Oncology following, likely need tissue biopsy -For pain, patient on scheduled oxycodone increased to 7.5 mg every 6 hours as well as on IV Dilaudid 1 mg every 4 hours as needed for severe breakthrough pain., Also on scheduled Tylenol 1 g every 8 hours as well as Toradol IV every 6 hours as needed 50 mg. Monitor for respiratory depression Mild normocytic anemia, no active bleeding Thrombocytosis, likely reactive -Repeat CBC tomorrow Resolved: Lactic acidosis High anion gap metabolic acidosis Hyperkalemia Hypokalemia Hypercalcemia Chronic: Hypertension Dyslipidemia COPD Depression DVT ppx: Subcu heparin Code status: DO NOT RESUSCITATE Anticipated discharge place: PT/OT assessment Anticipated discharge time: Pending clinical course Objective - Vital Signs Vital signs: Vital Signs Temp 98.1 F 05/29/23 12:18 Pulse 104 H 05/29/23 13:31 Resp 18 05/29/23 13:31 BP 145/96 05/29/23 13:31 Pulse Ox 96 05/29/23 13:31 FiO2 95 05/27/23 16:46 Intake & Output 05/28/23 05/29/23 05/29/23 18:59 06:59 18:59 Weight 60.9 kg Other: Voiding Method Bedside Commode Bedside Commode Bedside Commode Diaper Diaper Diaper # Voids 1 1 # Bowel Movements 1 ABP, PAP, CO, CI - Last Documented Arterial Blood Pressure 152/72 - Labs CBC & Chem 7: 05/29/23 06:05 05/29/23 06:05 Labs: Abnormal Lab Results - Last 24 Hours (Table) 05/29/23 05/29/23 05/29/23 Range/Units 06:05 06:05 06:05 RBC 3.44 L (3.80-5.40) m/uL Hgb 10.2 L (11.4-16.0) gm/dL Hct 31.9 L (34.0-46.0) % Plt Count 504 H (150-450) k/uL Lymphocytes # 0.9 L (1.0-4.8) k/uL Sodium 133 L (137-145) mmol/L Chloride 95 L (98-107) mmol/L BUN 5 L (7-17) mg/dL Creatinine 0.30 L (0.52-1.04) mg/dL Lactate Dehydrogenase 711 H (120-246) U/L Total Protein 5.2 L (6.3-8.2) g/dL Microbiology - Last 24 Hours (Table) 05/24/23 03:30 Blood Culture - Final Blood 05/24/23 03:15 Blood Culture - Final Blood
[2023-05-29] MEDS: ATORVASTATIN 20 MG TAB PO SCH (20:29)
[2023-05-29] MEDS: polyethylene glycoL 3350 17 GM POWD.PACK PO SCH (20:29)
[2023-05-29] MEDS: ALPRAZolam 0.5 MG TAB PO PRN (20:29)
[2023-05-29] MEDS: MELATONIN 3 MG TABLET PO SCH (20:30)
[2023-05-29] MEDS: MIRTAZAPINE 15 MG TAB PO SCH (20:30)
[2023-05-29 23:08] LABS: Glucose, BF Source Thoracentesis F; Glucose, Body Fluid 98 mg/dL; LDH, Body Fluid Source Thoracentesis F; T. Protein, Body Fluid Source Thoracentesis F; Total Protein, Body Fluid 2850 mg/dL
[2023-05-30 01:19] LABS: Appearance,BF Cloudy (Clear)
[2023-05-30] MEDS: ACETAMINOPHEN TAB 500 MG TAB PO SCH ×3 (01:46→17:36)
[2023-05-30] MEDS: HYDROmorphone 1 MG/ML 1 ML SYRINGE IVP PRN ×3 (01:47→15:30)
[2023-05-30] MEDS: SYMBICORT 160-4.5 MCG INHALER INHALATION SCH ×2 (07:32→18:18)
[2023-05-30] MEDS: IPRATROPIUM-ALBUTEROL 3 ML NEB INHALATION SCH ×4 (07:32→18:18)
[2023-05-30] MEDS: HEPARIN SODIUM,PORCINE 5,000 UNIT/ML 1 ML VIAL SQ SCH ×2 (09:03→20:00)
[2023-05-30] MEDS: FLUoxetine HCL 20 MG CAP PO SCH (09:03)
[2023-05-30] MEDS: METOPROLOL TARTRATE 25 MG TAB PO SCH ×2 (09:03→20:01)
[2023-05-30] MEDS: SENNOSIDES 8.6 MG TAB PO SCH ×2 (09:03→20:00)
[2023-05-30] MEDS: PANTOPRAZOLE 40 MG/10 ML VIAL IVP SCH (09:03)
[2023-05-30] MEDS: PRIMIDONE 50 MG TAB PO SCH ×3 (09:04→20:01)
[2023-05-30] MEDS: ALPRAZolam 0.5 MG TAB PO PRN (09:08)
[2023-05-30] MEDS: metroNIDAZOLE-NS PMX 500 MG in SALINE 1 100ML.BAG IVPB SCH ×3 (10:08→23:51)
[2023-05-30 11:08] LABS: Basophils # (A) 0.03 X 10*3/uL (0.00-0.10); Basophils % (A) 0.3 %; Eosinophils # (A) 0.04 X 10*3/uL (0.04-0.35); Eosinophils % (A) 0.4 %; HCT 33.3 % (37.2-46.3); HGB 10.8 g/dL (12.0-15.0); Lymphocytes # (A) 1.21 X 10*3/uL (0.90-5.00); Lymphocytes % (A) 11.1 %; MCHC 32.4 g/dL (32.0-37.0); MCV 92.5 FL (80.0-97.0); Mean Platelet Volume 10.6 FL (9.5-12.2); Monocytes # (A) 1.07 X 10*3/uL (0.20-1.00); Monocytes % (A) 9.8 %; NRBC Per 100 WBC 0.03 X 10*3/uL (0.00-0.01); Neutrophils # (A) 8.45 X 10*3/uL (1.80-7.70); Neutrophils % (A) 77.3 %; Platelet Count 538 X 10*3/uL (140-440); RDW 14.9 % (11.5-14.5); WBC 10.92 X 10*3/uL (4.50-10.00)
[2023-05-30 12:14] LABS: BUN/Creat Ratio 13.25 Ratio (12.00-20.00); Blood Urea Nitrogen 5.3 mg/dL (9.0-27.0); Calcium 8.9 mg/dL (8.7-10.3); Carbon Dioxide 25.9 mmol/L (21.6-31.8); Chloride 94 mmol/L (96-109); Glucose 92 mg/dL (70-110); Potassium 3.6 mmol/L (3.5-5.5); Sodium 137 mmol/L (135-145)
--- NOTE | 2023-05-30 12:42 | P.PN ---
Subjective Progress Note Date: 05/30/23 CHIEF COMPLAINT: Shortness of breath HISTORY OF PRESENT ILLNESS: Patient is currently on a regular medical floor. She is sitting up at bedside chair. She does complain of right upper quadrant abdominal pain. But also reports chronic pain throughout her body. Appetite is decreased. Denies any nausea or vomiting. Last BM yesterday. Patient status post left thoracentesis with 800 mL removed per pulmonary service. Afebrile. WBC 10.2 Hgb 10.8 PHYSICAL EXAM: VITAL SIGNS: Reviewed. GENERAL: Well-developed in no acute distress ABDOMEN: Soft. Nondistended. Right upper quadrant tenderness NEUROLOGIC: Awake and alert ASSESSMENT: 1. Acute on chronic cholecystitis 2. Gallbladder distended with thickened gross noted on ultrasound 3. Lung mass with metastasis PLAN: -Continue to treat medically. No surgical intervention planned at this time. -Continue antibiotics Physician Human Service Worker note has been reviewed by physician. Signing provider agrees with the documented findings, assessment, and plan of care. Objective - Vital Signs Vital signs: Vital Signs Temp 97.3 F L 05/30/23 07:15 Pulse 112 H 05/30/23 07:47 Resp 18 05/30/23 07:15 BP 138/85 05/30/23 07:15 Pulse Ox 98 05/30/23 07:15 FiO2 95 05/27/23 16:46 Intake & Output 05/29/23 05/30/23 05/30/23 18:59 06:59 18:59 Weight 59 kg Other: Voiding Method Bedside Commode Diaper # Voids 3 4 # Bowel Movements 1 ABP, PAP, CO, CI - Last Documented Arterial Blood Pressure 152/72 - Labs CBC & Chem 7: 05/30/23 07:26 05/30/23 07:26 Labs: Abnormal Lab Results - Last 24 Hours (Table) 05/29/23 05/29/23 Range/Units 06:05 12:45 Lactate Dehydrogenase 711 H (120-246) U/L Total Protein 5.2 L (6.3-8.2) g/dL Fluid Appearance Cloudy A (Clear) Microbiology - Last 24 Hours (Table) 05/24/23 03:30 Blood Culture - Final Blood 05/24/23 03:15 Blood Culture - Final Blood
--- NOTE | 2023-05-30 12:47 | P.PN ---
Subjective Progress Note Date: 05/30/23 Patient was seen and examined on consultation today 05/24/2023, I saw the patient in the ICU, patient presented with acute hypoxic respiratory failure requiring intubation and mechanical ventilation while in the ER. Patient has a classic presentation of sepsis, the exact source of her sepsis is not clear at this point, most likely related to her gallbladder. She is now intubated and mechanically ventilated with assist control rate of 22 tidal volume 400 FiO2 60% and PEEP of 5 and ABG showed a pO2 of 175 pCO2 35 pH of 7.34. FiO2 was cut down to 40%. Patient is empirically on ceftriaxone. She received multiple fluid boluses, at this point in time she is not requiring norepinephrine, seems to be responding to fluid boluses. Apparently the patient was recently evaluated for potential lung cancer and metastasis, however no specific tissue diagnosis was made, she was supposed to have a PET scan and workup was still pending. Patient used to be a heavy smoker, she quit about 2 years ago, and I had a chance to discuss her condition with her daughter at bedside, recommended arterial line placement and central line placement, I also discussed the CODE STATUS, patient is DO NOT RESUSCITATE CODE STATUS, apparently the daughter is very well aware of the potential poor prognosis considering her underlying clinical condition. In the meantime the patient will remain in the ICU, will treat empirically with antibiotics, we'll consult general surgery for her abnormal findings on the gallbladder questionable cholecystitis, patient also has severe COPD, may consider bronchoscopic the patient while on mechanical ventilation to evaluate for possible endobronchial pathology since the left hilar abnormality seems to be compressing on the left mainstem bronchus. This will be addressed once the patient stabilizes more while in the ICU. Prognosis is extremely poor and guarded. Critical care time is over 55 minutes not including the time spent on procedures Patient was reevaluated today on 05/25/23, remains in the ICU intubated and mechanically ventilated. Chest x-ray is showing improvement in her overall chest x-ray appearance but she seems to have significant left lower lobe consoli dation. She is on assist control rate of 22 tidal volume 400 FiO2 14 PEEP of 8 ABG showed a pO2 of 119 pCO2 32 pH of 7.46. Patient is on propofol at 25 mcg/kg/m fentanyl 20 mcg/kg/h she is also receiving enteral feeding via orogastric tube. Considering the abnormality in the left lower lobe, and considering the patient had a previous CT of the chest showing left hilar and mediastinal adenopathy, bronchoscopy was done today, and lavage of the left lower lobe was done, but there was no evidence of endobronchial tumor. Patient was seen by surgery, and recommended mostly medical management for her presumptive acute cholecystitis. Patient remains on Rocephin and Flagyl. Patient is arousable, awake in spite of being on fairly good dose of fentanyl and propofol, WBC count is 7.6 hemoglobin 8.9, basic metabolic profile is normal, hence I plan to give the patient today a trial of weaning at least a pressure support and CPAP trial, and if tolerated may even extubate the patient today this afternoon. In the meantime the patient remains empirically on antibiotics sputum Gram stain is showing moderate gram-positive cocci. Patient was reevaluated today on 05/26/23, patient was extubated yesterday on 05/25 few hours after her bronchoscopy. She seems to have tolerated the extubation well, she is now on 4 L nasal cannula, remains on antibiotics in the form of Flagyl and ceftriaxone. Her bronchoscopy showed no evidence of endobronchial tumor however lavage of the left lung was performed, and cultures are pending. WBC count is 8.6 hemoglobin is 9.4. Platelets are 469, basic metabolic profile is normal renal profile is normal bicarb is normal Patient was reevaluated today on 05/27/23 patient remains in the ICU, she remains on 4 L nasal cannula sitting up in the chair, IV fluid is 0.9 normal saline at 50 mL/h, patient is not in any distress. Denies any shortness of breath, denies any pain, her cultures have remained negative all along. BAL cultures are nondiagnostic, had mostly normal Alejandra, blood cultures have been negative all along. Patient is hemodynamically stable, and I plan to transfer the patient out of the ICU to a medical surgical floor today. WBC count is 8.1 hemoglobin is 9.9 basic metabolic profile is normal and renal profile is normal The patient is seen today 05/28/2023 in follow-up on the regular medical floor. She is currently sitting up in a chair at the bedside. Awake and alert in no acute distress. Maintaining O2 saturation in the 90s on 4 L/m per nasal cannula. Bronchial alveolar lavage revealed no growth. Blood cultures revealed no growth. White count 8.1. Hemoglobin 10.0. Platelets 500. Sodium 134. Potassium 4.1. Bicarb 20. BUN 11. Creatinine 0.38. Glucose 112. She is continued on DuoNeb inhalations, Symbicort, Flagyl and ceftriaxone. Heparin for DVT prophylaxis. Normal saline at 50 MLS per hour. The patient is seen today 05/29/2023 in follow-up on the regular medical floor. She is currently sitting up in a chair. Awake and alert in no acute distress. Maintaining O2 saturations in the 90s on 4 L/m per nasal cannula. Follow-up chest x-rays now revealing a stable moderate left-sided pleural effusion. U ltrasound of the chest reveals a 9.8 cm pocket on the left. She did undergo a left-sided thoracentesis today with 800 mL of straw-colored fluid removed. Sent for fluid analysis and cytology. Follow-up chest x-ray revealed interval improvement in the left lung aeration. No pneumothorax. Bronchial lavage cultures revealed no growth. Cytology pending. White count 9.5. Hemoglobin 10.2. Sodium 133. Potassium 3.8. Bicarb 29. BUN 5. Creatinine 0.30. Glucose 95. She is continued on ceftriaxone and Flagyl. Remains on bronchodilators. Heparin for DVT prophylaxis. Normal saline at 50 ML's per hour. The patient is seen today 05/30/2023 in follow-up on the regular medical floor. She is awake and alert in no acute distress. Sitting up in a chair at the bedside. Denies any worsening shortness of breath, cough or congestion. Bronchial alveolar lavage is revealing no growth, blood cultures revealed no growth. White count 10.9. Hemoglobin 10.8. Platelets 538. Sodium 137. Pota ssium 3.6. Bicarb 26. BUN 5.3. Creatinine 0.4. Lipid analysis from yesterday's thoracentesis shows exudate with a protein of 2.8 and LDH of 516. Cytology pending. She is continued on DuoNeb inhalations, Symbicort, antibiotics in the form of ceftriaxone. Heparin for DVT prophylaxis. Normal sa line at 50 MLS per hour. Objective - Vital Signs Vital signs: Vital Signs Temp 97.3 F L 05/30/23 07:15 Pulse 112 H 05/30/23 11:54 Resp 18 05/30/23 07:15 BP 138/85 05/30/23 07:15 Pulse Ox 98 05/30/23 07:15 FiO2 95 05/27/23 16:46 Intake & Output 05/29/23 05/30/23 05/30/23 18:59 06:59 18:59 Weight 59 kg Other: Voiding Method Bedside Commode Bedside Commode Diaper Diaper # Voids 3 4 # Bowel Movements 1 ABP, PAP, CO, CI - Last Documented Arterial Blood Pressure 152/72 - Exam GENERAL EXAM: Alert, pleasant 62-year-old female, up in a chair at the bedside, on 4 L nasal cannula, comfortable in no apparent distress. HEAD: Normocephalic. EYES: Normal reaction of pupils, equal size. NOSE: Clear with pink turbinates. THROAT: No erythema or exudates. NECK: No masses, no JVD. CHEST: No chest wall deformity. LUNGS: Equal air entry with few crackles in the left base. CVS: S1 and S2 normal with no audible murmur, regular rhythm. ABDOMEN: No hepatosplenomegaly, normal bowel sounds, no guarding or rigidity. SPINE: No scoliosis or deformity SKIN: No rashes CENTRAL NERVOUS SYSTEM: No focal deficits, tone is normal in all 4 extremities. EXTREMITIES: There is no peripheral edema. No clubbing, no cyanosis. Peripheral pulses are intact. - Labs CBC & Chem 7: 05/30/23 07:26 05/30/23 07:26 Labs: Abnormal Lab Results - Last 24 Hours (Table) 05/29/23 05/29/23 05/30/23 Range/Units 06:05 12:45 07:26 WBC 10.92 H (4.50-10.00) X 10*3/uL RBC 3.60 L (4.10-5.20) X 10*6/uL Hgb 10.8 L (12.0-15.0) g/dL Hct 33.3 L (37.2-46.3) % RDW 14.9 H (11.5-14.5) % Plt Count 538 H (140-440) X 10*3/uL Neutrophils # 8.45 H (1.80-7.70) X 10*3/uL Monocytes # 1.07 H (0.20-1.00) X 10*3/uL NRBC/100 WBC Diff 0.03 H (0.00-0.01) X 10*3/uL Chloride (96-109) mmol/L Anion Gap (4.00-12.00) mmol/L BUN (9.0-27.0) mg/dL Creatinine (0.6-1.5) mg/dL Lactate Dehydrogenase 711 H (120-246) U/L Total Protein 5.2 L (6.3-8.2) g/dL Fluid Appearance Cloudy A (Clear) 05/30/23 Range/Units 07:26 WBC (4.50-10.00) X 10*3/uL RBC (4.10-5.20) X 10*6/uL Hgb (12.0-15.0) g/dL Hct (37.2-46.3) % RDW (11.5-14.5) % Plt Count (140-440) X 10*3/uL Neutrophils # (1.80-7.70) X 10*3/uL Monocytes # (0.20-1.00) X 10*3/uL NRBC/100 WBC Diff (0.00-0.01) X 10*3/uL Chloride 94 L (96-109) mmol/L Anion Gap 17.10 H (4.00-12.00) mmol/L BUN 5.3 L (9.0-27.0) mg/dL Creatinine 0.4 L (0.6-1.5) mg/dL Lactate Dehydrogenase (120-246) U/L Total Protein (6.3-8.2) g/dL Fluid Appearance (Clear) Microbiology - Last 24 Hours (Table) 05/24/23 03:30 Blood Culture - Final Blood 05/24/23 03:15 Blood Culture - Final Blood Assessment and Plan Assessment: Acute hypoxemic respiratory failure, secondary to sepsis and possible left lower lobe pneumonia, community-acquired. Or could even be aspiration pneumonia. She developed a left-sided pleural effusion. Status post left-sided thoracentesis 05/29/2023 with 800 mL of straw-colored fluid removed. Cytology pending. Fluid analysis shows exudate with a protein of 2.8 and LDH of 516. Suspected acute cholecystitis and abdominal sepsis. Seen by surgery and the recommendation was to continue antibiotics, recommended no surgery. Leukocytosis, secondary to above, resolved Severe metabolic anion gap acidosis, resolved Lung mass, recently measuring 4.2 x 3.9 cm with multiple lesions suspicious for mediastinal and diffuse osseous metastasis. This was been worked up outpatient. Bronchoscopy on 05/25/2023 showed no evidence of endobronchial tumor nonetheless the patient needs further workup and possibly tissue biopsy to confirm the diagnosis of pulmonary malignancy. Chronic obstructive pulmonary disease, with FEV1 38% predicted, recently placed on PRN albuterol and Trelegy inhalers. Elevated troponin, likely related to supply/demand mismatch Hypertension Hyperlipidemia Coronary artery disease, with previous CABG History of multiple sclerosis History of anxiety/depression Plan: The patient was seen and evaluated Fluid analysis, labs and medications reviewed We will plan for bronchoscopy with biopsies tomorrow The patient is agreeable to the plan Continue bronchodilators, antibiotics Increase her activity as tolerated Titrate the FiO2 as tolerated We will continue to follow This patient was seen independently by the nurse practitioner I have personally seen and examined the patient, performed the documentation and the assessment and plan as written. Number of minutes spent on the visit: 24.
--- NOTE | 2023-05-30 14:28 | P.PN ---
Subjective Progress Note Date: 05/30/23 Hospital Course: 62-year-old female with history of recently diagnosed lung cancer with metasta tic disease, CAD status post CABG, multiple sclerosis, COPD, hypertension, his lipidemia, essential tremor presenting with acute/subacute dyspnea. In the ED, temperature was 94.6, pulse 102, respiratory rate 32, blood pressure 163/119, was saturating at 97% on nonrebreather at 15 L. Due to increased work of breathing, BiPAP was suggested. However her mental status was poor, and she was subsequently intubated. Patient then transferred to medical ICU. WBC was 12.8, platelet 780, potassium 5.4, bicarb 15, creatinine 0.78, lactate 11.1, pH 7.16, pCO2 44, troponin 0.056, total bilirubin 0.3, AST 43, ALT 33, ALP 192, proBNP 14,000, CRP 6.9, lipase 70, respiratory viral panel negative, urine positive for oxycodone, barbiturates, and marijuana. CT abdomen and pelvis, CT chest showed mild diffuse edema and infiltrates worse on the right, atelectasis the majority of left lower lobe, multiple thoracic spine with obstructive lesions consistent with metastatic disease, marked gallbladder wall edema, obstructive lesions in the iliac bone and lumbar spine. Head CT shows multiple distractive skull lesions. EKG independently interpreted, shows sinus tachycardia. Chest x-ray, interpreted shows Left basilar opacity. Patient admitted to the ICU for acute hypoxic respiratory failure. Had a bronch with BAL. Surgery following for acute on chronic cholecystitis, treating conservatively with medical management. Oncology also following, will likely need tissue biopsy, possibly CT-guided bi opsy of lung mass. Patient will also likely need additional staging including bone scan and imaging of brain.. Patient is doing better postextubation. Echocardiogram showed mild LV systolic dysfunction secondary to prior inferior wall myocardial infarction, moderate pulmonary hypertension. Now out of the ICU. He underwent left-sided thoracentesis, 800 mL fluid removed. May need repeat bronchoscopy Subjective: Patient seen and examined at bedside. No acute events overnight. Respiratory function still about the same Pertinent positives and negatives as discussed above, a complete review of systems was performed and all other systems are negative. Vitals Signs Reviewed. General: Not in acute distress, chronically ill-appearing Derm: warm, dry Head: atraumatic, normocephalic, symmetric Eyes: EOMI, anicteric sclera, pupils equal round reactive to light ENT: Nose and ears atraumatic Neck: No thyromegaly, supple Mouth: no lip lesion, mucus membranes moist Cardiovascular: S1S2 reg, tachycardic, no murmur, no edema Lungs: Bilateral rhonchi, worse on the left side, supplemental oxygen Abdominal: soft, nontender to palpation, no guarding, no appreciable organomegaly Ext: no gross muscle atrophy, muscle strength muscle strength 5 out of 5 in all 4 extremities, no contractures Neuro: CN II-12 grossly normal Psych: Alert and cooperative Data Reviewed Today: Pertinent Labs: WBC 10.92, hemoglobin 10.8, platelets 538, sodium 137, potassium 3.6, creatinine 0.4 Imaging: No new imaging Assessment and Plan: Patient is critically ill, prognosis guarded Active: Acute hypoxic respiratory failure Lung mass with metastatic disease Left-sided pleural effusion Severe sepsis, resolved Acute on chronic cholecystitis Transaminitis NSTEMI, likely type II History of CAD status post CABG -Pulmonology note reviewed, exudative pleural effusion, cytology still pending, may need repeat bronchoscopy with biopsy -Wean oxygen -Surgery note reviewed, continue medical management for cholecystitis, no surgical intervention at the moment - Remains on on ceftriaxone 2 g IV every 24 hours, IV Flagyl 500 every 8 hours -Continue aspirin and statin -Oncology following, likely need tissue biopsy -For pain, patient on scheduled oxycodone increased to 7.5 mg every 6 hours as well as on IV Dilaudid 1 mg every 4 hours as needed for severe breakthrough pain., Also on scheduled Tylenol 1 g every 8 hours as well as Toradol IV every 6 hours as needed 50 mg. Monitor for respiratory depression Leukocytosis, likely reactive Mild normocytic anemia, no active bleeding Thrombocytosis, likely reactive -Repeat CBC tomorrow Resolved: Lactic acidosis High anion gap metabolic acidosis Hyperkalemia Hypokalemia Hypercalcemia Chronic: Hypertension Dyslipidemia COPD Depression DVT ppx: Subcu heparin Code status: DO NOT RESUSCITATE Anticipated discharge place: PT/OT assessment Anticipated discharge time: Pending clinical course Objective - Vital Signs Vital signs: Vital Signs Temp 97.9 F 05/30/23 12:25 Pulse 105 H 05/30/23 12:25 Resp 18 05/30/23 12:25 BP 103/69 05/30/23 12:25 Pulse Ox 99 05/30/23 12:25 FiO2 95 05/27/23 16:46 Intake & Output 05/29/23 05/30/23 05/30/23 18:59 06:59 18:59 Weight 59 kg Other: Voiding Method Bedside Commode Bedside Commode Diaper Diaper # Voids 3 4 1 # Bowel Movements 1 1 ABP, PAP, CO, CI - Last Documented Arterial Blood Pressure 152/72 - Labs CBC & Chem 7: 05/30/23 07:26 05/30/23 07:26 Labs: Abnormal Lab Results - Last 24 Hours (Table) 05/29/23 05/30/23 05/30/23 Range/Units 12:45 07:26 07:26 WBC 10.92 H (4.50-10.00) X 10*3/uL RBC 3.60 L (4.10-5.20) X 10*6/uL Hgb 10.8 L (12.0-15.0) g/dL Hct 33.3 L (37.2-46.3) % RDW 14.9 H (11.5-14.5) % Plt Count 538 H (140-440) X 10*3/uL Neutrophils # 8.45 H (1.80-7.70) X 10*3/uL Monocytes # 1.07 H (0.20-1.00) X 10*3/uL NRBC/100 WBC Diff 0.03 H (0.00-0.01) X 10*3/uL Chloride 94 L (96-109) mmol/L Anion Gap 17.10 H (4.00-12.00) mmol/L BUN 5.3 L (9.0-27.0) mg/dL Creatinine 0.4 L (0.6-1.5) mg/dL Fluid Appearance Cloudy A (Clear) Microbiology - Last 24 Hours (Table) 05/24/23 03:30 Blood Culture - Final Blood 05/24/23 03:15 Blood Culture - Final Blood
--- NOTE | 2023-05-30 15:19 | P.PN ---
Subjective Progress Note Date: 05/30/23 At today's visit patient is sitting in bedside chair. Is reporting improvement in symptoms. Persisting generalized weakness and orthopnea Objective - Vital Signs Vital signs: Vital Signs Temp 97.9 F 05/30/23 12:25 Pulse 105 H 05/30/23 12:25 Resp 18 05/30/23 12:25 BP 103/69 05/30/23 12:25 Pulse Ox 99 05/30/23 12:25 FiO2 95 05/27/23 16:46 Intake & Output 05/29/23 05/30/23 05/30/23 18:59 06:59 18:59 Weight 59 kg Other: Voiding Method Bedside Commode Bedside Commode Diaper Diaper # Voids 3 4 1 # Bowel Movements 1 1 ABP, PAP, CO, CI - Last Documented Arterial Blood Pressure 152/72 - Constitutional General appearance: Present: average body habitus, no acute distress - EENT Eyes: Present: anicteric sclerae, EOMI ENT: Present: hearing grossly normal - Respiratory Details: breathing even and unlabored - Cardiovascular Details: skin warm and dry - Integumentary Integumentary: Absent: cyanotic - Musculoskeletal Musculoskeletal: Present: generalized weakness - Psychiatric Psychiatric: Present: A&O x's 3 - Labs CBC & Chem 7: 05/30/23 07:26 05/30/23 07:26 Labs: Abnormal Lab Results - Last 24 Hours (Table) 05/29/23 05/30/23 05/30/23 Range/Units 12:45 07:26 07:26 WBC 10.92 H (4.50-10.00) X 10*3/uL RBC 3.60 L (4.10-5.20) X 10*6/uL Hgb 10.8 L (12.0-15.0) g/dL Hct 33.3 L (37.2-46.3) % RDW 14.9 H (11.5-14.5) % Plt Count 538 H (140-440) X 10*3/uL Neutrophils # 8.45 H (1.80-7.70) X 10*3/uL Monocytes # 1.07 H (0.20-1.00) X 10*3/uL NRBC/100 WBC Diff 0.03 H (0.00-0.01) X 10*3/uL Chloride 94 L (96-109) mmol/L Anion Gap 17.10 H (4.00-12.00) mmol/L BUN 5.3 L (9.0-27.0) mg/dL Creatinine 0.4 L (0.6-1.5) mg/dL Fluid Appearance Cloudy A (Clear) Microbiology - Last 24 Hours (Table) 05/24/23 03:30 Blood Culture - Final Blood 05/24/23 03:15 Blood Culture - Final Blood Assessment and Plan (1) Mass of left lung Current Visit: Yes Status: Acute Priority: High Code(s): R91.8 - OTHER NONSPECIFIC ABNORMAL FINDING OF LUNG FIELD SNOMED Code(s): 606502534 (2) Sepsis Current Visit: Yes Status: Acute Priority: High Code(s): A41.9 - SEPSIS, UNSPECIFIED ORGANISM SNOMED Code(s): 83894362 Plan: Left lung mass: This is strongly suspected to be lung malignancy with metastasis. However we do not yet have a pathologic diagnosis. Bronchoscopy was negative for any endobronchial lesions that could be targeted. Bronchial washing cytology negative for malignancy -S/p left sided thoracentesis, with 700cc removed, cytology pending. If negative patient will need IR guided biopsy of the primary lung mass. -Bone scan and brain mri ordered to complete staging studies Sepsis: The patient is continuing to improve. Afebrile, continues on IV abx. -Defer to the admitting service and [facility] for continued management
[2023-05-30] MEDS: SODIUM CHLORIDE 0.9% 1,000 ML IV SCH (15:31)
--- NOTE | 2023-05-30 18:05 | NM ---
EXAMINATION TYPE: NM bone scan whole body DATE OF EXAM: 05/30/2023 5:26 PM CLINICAL INDICATION:Female, 62 years old with history of lung mass, staging; COMPARISON: CT 05/24/2023 TECHNIQUE: Intravenous administration 20.8 mCi Tc 99m MDP followed by multiple scintigraphic images o f the appendicular and axial skeleton. Images acquired 3 hours post injection. FINDINGS: Abnormal uptake within the skull, left posterior lateral ribs, anterior right ribs as well as the fem ur. Scattered areas throughout the spine also correlating with areas on prior CT. There is increased uptake within the bilateral shoulder, sternoclavicular, and sacroiliac joints con sistent with degenerative changes. No other photopenic areas or areas of increased activity are ident ified. Physiologic radiotracer activity is demonstrated in the kidneys and bladder. IMPRESSION: 1. Abnormal uptake within the skull, right anterior rib and medial aspect of the right femur and sca ttered throughout the spine concerning for metastatic disease. 2. Left posterior rib fracture as seen on prior CT.
[2023-05-30] MEDS: KETOROLAC 15 MG/ML 1 ML VIAL IVP PRN (20:00)
[2023-05-30] MEDS: MELATONIN 3 MG TABLET PO SCH (20:01)
[2023-05-30] MEDS: polyethylene glycoL 3350 17 GM POWD.PACK PO SCH (20:01)
[2023-05-30] MEDS: MIRTAZAPINE 15 MG TAB PO SCH (20:01)
[2023-05-30] MEDS: ATORVASTATIN 20 MG TAB PO SCH (20:01)
[2023-05-31] MEDS: ACETAMINOPHEN TAB 500 MG TAB PO SCH ×3 (02:46→17:27)
[2023-05-31] MEDS: ONDANSETRON 4 MG/2 ML VIAL IVP PRN (04:48)
[2023-05-31] MEDS: HYDROmorphone 1 MG/ML 1 ML SYRINGE IVP PRN ×4 (04:48→20:51)
[2023-05-31 06:33] LABS: Basophils % (A) 0 %; Eosinophils # (A) 0.1 k/uL (0-0.7); Eosinophils % (A) 1 %; HCT 31.7 % (34.0-46.0); HGB 10.1 gm/dL (11.4-16.0); Hypochromasia Slight; Lymphocytes # (A) 0.9 k/uL (1.0-4.8); Lymphocytes % (A) 11 %; MCH 30.1 pg (25.0-35.0); MCHC 31.9 g/dL (31.0-37.0); MCV 94.3 fL (80.0-100.0); Mean Platelet Volume 8.1; Monocytes # (A) 0.6 k/uL (0-1.0); Monocytes % (A) 7 %; Neutrophils # (A) 6.8 k/uL (1.3-7.7); Neutrophils % (A) 78 %; Platelet Count 477 k/uL (150-450); RBC 3.36 m/uL (3.80-5.40); RDW 14.8 % (11.5-15.5); WBC 8.7 k/uL (3.8-10.6)
[2023-05-31 06:45] LABS: African American GFR (CKD) >90 (>60 ml/min/1.73 sqM); Anion Gap 7 mmol/L; Blood Urea Nitrogen 9 mg/dL (7-17); Calcium 8.9 mg/dL (8.4-10.2); Carbon Dioxide 34 mmol/L (22-30); Chloride 94 mmol/L (98-107); Glucose 94 mg/dL (74-99); Magnesium 1.9 mg/dL (1.6-2.3); Non-African American GFR(CKD) >90 (>60 ml/min/1.73 sqM); Potassium 3.2 mmol/L (3.5-5.1); Sodium 135 mmol/L (137-145)
[2023-05-31] MEDS: metroNIDAZOLE-NS PMX 500 MG in SALINE 1 100ML.BAG IVPB SCH ×2 (07:34→15:53)
[2023-05-31] MEDS: KETOROLAC 15 MG/ML 1 ML VIAL IVP PRN ×2 (07:38→16:00)
[2023-05-31] MEDS: HEPARIN SODIUM,PORCINE 5,000 UNIT/ML 1 ML VIAL SQ SCH ×2 (07:57→20:51)
[2023-05-31] MEDS ORDERED: POTASSIUM CHLORIDE ER 20 MEQ TAB.ER PO STA (08:23)
[2023-05-31] MEDS: SENNOSIDES 8.6 MG TAB PO SCH ×2 (08:34→20:52)
[2023-05-31] MEDS: PANTOPRAZOLE 40 MG/10 ML VIAL IVP SCH (08:34)
[2023-05-31] MEDS: METOPROLOL TARTRATE 25 MG TAB PO SCH ×2 (08:34→20:52)
[2023-05-31] MEDS: FLUoxetine HCL 20 MG CAP PO SCH (08:34)
[2023-05-31] MEDS: PRIMIDONE 50 MG TAB PO SCH ×3 (08:34→20:52)
[2023-05-31] MEDS: IPRATROPIUM-ALBUTEROL 3 ML NEB INHALATION SCH ×4 (08:37→18:34)
[2023-05-31] MEDS: SYMBICORT 160-4.5 MCG INHALER INHALATION SCH ×2 (08:37→18:34)
--- NOTE | 2023-05-31 11:12 | P.PN ---
Subjective Progress Note Date: 05/31/23 CHIEF COMPLAINT: Shortness of breath HISTORY OF PRESENT ILLNESS: Patient is sitting up at bedside chair. She complains of upper right-sided pain. She reports a decreased appetite. Denies any nausea vomiting. She had a bone scan completed that did show abnormal uptake within the skull, right anterior rib and medial aspect of the right femur and scattered throughout the spine concerning for metastatic disease. Left posterior rib fracture as seen on prior CT. Patient reports that her pain is controlled. Denies any vomiting. Afebrile. Tachycardic. WBC is down from 10.92-8.7 Hgb 10.1 platelets 477 sodium 135 potassium 3.2 creatinine 0.37 magnesium 1.9. Patient scheduled for bronchoscopy today with pulmonary service. PHYSICAL EXAM: VITAL SIGNS: Reviewed. GENERAL: Well-developed in no acute distress ABDOMEN: Soft. Nondistended. Right upper side/right ribs tenderness with palpation NEUROLOGIC: Awake and alert ASSESSMENT: 1. Acute on chronic cholecystitis 2. Gallbladder distended with thickened gross noted on ultrasound 3. Lung mass with metastasis PLAN: -Continue to treat medically. No surgical intervention planned at this time. -Continue antibiotics -Potassium is being replaced Physician Environmental Engineering Assistant note has been reviewed by physician. Signing provider agrees with the documented findings, assessment, and plan of care. Objective - Vital Signs Vital signs: Vital Signs Temp 97.8 F 05/31/23 07:12 Pulse 115 H 05/31/23 07:12 Resp 16 05/31/23 02:00 BP 128/75 05/31/23 07:12 Pulse Ox 96 05/31/23 07:12 FiO2 95 05/27/23 16:46 Intake & Output 05/30/23 05/31/23 05/31/23 18:59 06:59 18:59 Intake Total 120 Balance 120 Weight 59 kg 59.6 kg Intake: Oral 120 Other: Voiding Method Bedside Commode Bedside Commode Bedside Commode Diaper Diaper Diaper # Voids 1 2 # Bowel Movements 1 ABP, PAP, CO, CI - Last Documented Arterial Blood Pressure 152/72 - Labs CBC & Chem 7: 05/31/23 06:00 05/31/23 06:00 Labs: Abnormal Lab Results - Last 24 Hours (Table) 05/30/23 05/30/23 05/31/23 Range/Units 07:26 07:26 06:00 WBC 10.92 H (4.50-10.00) X 10*3/uL RBC 3.60 L 3.36 L (4.10-5.20) X 10*6/uL Hgb 10.8 L 10.1 L (12.0-15.0) g/dL Hct 33.3 L 31.7 L (37.2-46.3) % RDW 14.9 H (11.5-14.5) % Plt Count 538 H 477 H (140-440) X 10*3/uL Neutrophils # 8.45 H (1.80-7.70) X 10*3/uL Lymphocytes # 0.9 L (1.0-4.8) k/uL Monocytes # 1.07 H (0.20-1.00) X 10*3/uL NRBC/100 WBC Diff 0.03 H (0.00-0.01) X 10*3/uL Sodium (137-145) mmol/L Potassium (3.5-5.1) mmol/L Chloride 94 L (96-109) mmol/L Carbon Dioxide (22-30) mmol/L Anion Gap 17.10 H (4.00-12.00) mmol/L BUN 5.3 L (9.0-27.0) mg/dL Creatinine 0.4 L (0.6-1.5) mg/dL 05/31/23 Range/Units 06:00 WBC (4.50-10.00) X 10*3/uL RBC (4.10-5.20) X 10*6/uL Hgb (12.0-15.0) g/dL Hct (37.2-46.3) % RDW (11.5-14.5) % Plt Count (140-440) X 10*3/uL Neutrophils # (1.80-7.70) X 10*3/uL Lymphocytes # (1.0-4.8) k/uL Monocytes # (0.20-1.00) X 10*3/uL NRBC/100 WBC Diff (0.00-0.01) X 10*3/uL Sodium 135 L (137-145) mmol/L Potassium 3.2 L (3.5-5.1) mmol/L Chloride 94 L (96-109) mmol/L Carbon Dioxide 34 H (22-30) mmol/L Anion Gap (4.00-12.00) mmol/L BUN (9.0-27.0) mg/dL Creatinine 0.37 L (0.6-1.5) mg/dL Microbiology - Last 24 Hours (Table) 05/29/23 12:45 Gram Stain - Preliminary Pleural Fluid Body Fluid Culture - Preliminary 05/29/23 12:45 Acid Fast Bacilli Smear - Preliminary Pleural Fluid
[2023-05-31] MEDS: SODIUM CHLORIDE 0.9% 1,000 ML IV SCH ×2 (11:28→16:00)
--- NOTE | 2023-05-31 12:08 | P.PN ---
Subjective Progress Note Date: 05/31/23 Patient was seen and examined on consultation today 05/24/2023, I saw the patient in the ICU, patient presented with acute hypoxic respiratory failure requiring intubation and mechanical ventilation while in the ER. Patient has a classic presentation of sepsis, the exact source of her sepsis is not clear at this point, most likely related to her gallbladder. She is now intubated and mechanically ventilated with assist control rate of 22 tidal volume 400 FiO2 60% and PEEP of 5 and ABG showed a pO2 of 175 pCO2 35 pH of 7.34. FiO2 was cut down to 40%. Patient is empirically on ceftriaxone. She received multiple fluid boluses, at this point in time she is not requiring norepinephrine, seems to be responding to fluid boluses. Apparently the patient was recently evaluated for potential lung cancer and metastasis, however no specific tissue diagnosis was made, she was supposed to have a PET scan and workup was still pending. Patient used to be a heavy smoker, she quit about 2 years ago, and I had a chance to discuss her condition with her daughter at bedside, recommended arterial line placement and central line placement, I also discussed the CODE STATUS, patient is DO NOT RESUSCITATE CODE STATUS, apparently the daughter is very well aware of the potential poor prognosis considering her underlying clinical condition. In the meantime the patient will remain in the ICU, will treat empirically with antibiotics, we'll consult general surgery for her abnormal findings on the gallbladder questionable cholecystitis, patient also has severe COPD, may consider bronchoscopic the patient while on mechanical ventilation to evaluate for possible endobronchial pathology since the left hilar abnormality seems to be compressing on the left mainstem bronchus. This will be addressed once the patient stabilizes more while in the ICU. Prognosis is extremely poor and guarded. Critical care time is over 55 minutes not including the time spent on procedures Patient was reevaluated today on 05/25/23, remains in the ICU intubated and mechanically ventilated. Chest x-ray is showing improvement in her overall chest x-ray appearance but she seems to have significant left lower lobe consoli dation. She is on assist control rate of 22 tidal volume 400 FiO2 14 PEEP of 8 ABG showed a pO2 of 119 pCO2 32 pH of 7.46. Patient is on propofol at 25 mcg/kg/m fentanyl 20 mcg/kg/h she is also receiving enteral feeding via orogastric tube. Considering the abnormality in the left lower lobe, and considering the patient had a previous CT of the chest showing left hilar and mediastinal adenopathy, bronchoscopy was done today, and lavage of the left lower lobe was done, but there was no evidence of endobronchial tumor. Patient was seen by surgery, and recommended mostly medical management for her presumptive acute cholecystitis. Patient remains on Rocephin and Flagyl. Patient is arousable, awake in spite of being on fairly good dose of fentanyl and propofol, WBC count is 7.6 hemoglobin 8.9, basic metabolic profile is normal, hence I plan to give the patient today a trial of weaning at least a pressure support and CPAP trial, and if tolerated may even extubate the patient today this afternoon. In the meantime the patient remains empirically on antibiotics sputum Gram stain is showing moderate gram-positive cocci. Patient was reevaluated today on 05/26/23, patient was extubated yesterday on 05/25 few hours after her bronchoscopy. She seems to have tolerated the extubation well, she is now on 4 L nasal cannula, remains on antibiotics in the form of Flagyl and ceftriaxone. Her bronchoscopy showed no evidence of endobronchial tumor however lavage of the left lung was performed, and cultures are pending. WBC count is 8.6 hemoglobin is 9.4. Platelets are 469, basic metabolic profile is normal renal profile is normal bicarb is normal Patient was reevaluated today on 05/27/23 patient remains in the ICU, she remains on 4 L nasal cannula sitting up in the chair, IV fluid is 0.9 normal saline at 50 mL/h, patient is not in any distress. Denies any shortness of breath, denies any pain, her cultures have remained negative all along. BAL cultures are nondiagnostic, had mostly normal Alejandra, blood cultures have been negative all along. Patient is hemodynamically stable, and I plan to transfer the patient out of the ICU to a medical surgical floor today. WBC count is 8.1 hemoglobin is 9.9 basic metabolic profile is normal and renal profile is normal The patient is seen today 05/28/2023 in follow-up on the regular medical floor. She is currently sitting up in a chair at the bedside. Awake and alert in no acute distress. Maintaining O2 saturation in the 90s on 4 L/m per nasal cannula. Bronchial alveolar lavage revealed no growth. Blood cultures revealed no growth. White count 8.1. Hemoglobin 10.0. Platelets 500. Sodium 134. Potassium 4.1. Bicarb 20. BUN 11. Creatinine 0.38. Glucose 112. She is continued on DuoNeb inhalations, Symbicort, Flagyl and ceftriaxone. Heparin for DVT prophylaxis. Normal saline at 50 MLS per hour. The patient is seen today 05/29/2023 in follow-up on the regular medical floor. She is currently sitting up in a chair. Awake and alert in no acute distress. Maintaining O2 saturations in the 90s on 4 L/m per nasal cannula. Follow-up chest x-rays now revealing a stable moderate left-sided pleural effusion. U ltrasound of the chest reveals a 9.8 cm pocket on the left. She did undergo a left-sided thoracentesis today with 800 mL of straw-colored fluid removed. Sent for fluid analysis and cytology. Follow-up chest x-ray revealed interval improvement in the left lung aeration. No pneumothorax. Bronchial lavage cultures revealed no growth. Cytology pending. White count 9.5. Hemoglobin 10.2. Sodium 133. Potassium 3.8. Bicarb 29. BUN 5. Creatinine 0.30. Glucose 95. She is continued on ceftriaxone and Flagyl. Remains on bronchodilators. Heparin for DVT prophylaxis. Normal saline at 50 ML's per hour. The patient is seen today 05/30/2023 in follow-up on the regular medical floor. She is awake and alert in no acute distress. Sitting up in a chair at the bedside. Denies any worsening shortness of breath, cough or congestion. Bronchial alveolar lavage is revealing no growth, blood cultures revealed no growth. White count 10.9. Hemoglobin 10.8. Platelets 538. Sodium 137. Pota ssium 3.6. Bicarb 26. BUN 5.3. Creatinine 0.4. Lipid analysis from yesterday's thoracentesis shows exudate with a protein of 2.8 and LDH of 516. Cytology pending. She is continued on DuoNeb inhalations, Symbicort, antibiotics in the form of ceftriaxone. Heparin for DVT prophylaxis. Normal sa line at 50 MLS per hour. The patient is seen today 05/31/2023 in follow-up on the regular medical floor. She is sitting up in a chair. Awake and alert in no acute distress. Denies any worsening shortness of breath, cough or congestion. No hemoptysis. Bone scan did reveal abnormal uptake within the skull, right anterior rib and medial aspect of the right femur and scattered throughout the spine concerning for metastatic disease. Left posterior rib fracture as seen on prior CT. Bronchial wash cultures revealed no malignancy. Pleural fluid cytology pending. The plan is for bronchoscopy with biopsies today. White count 8.7. Hemoglobin 10.1. Platelets 477. Sodium 135. Potassium 3.2. Bicarb 34. BUN 9. Creatinine 0.37. Glucose 94. Objective - Vital Signs Vital signs: Vital Signs Temp 97.8 F 05/31/23 07:12 Pulse 115 H 05/31/23 07:12 Resp 16 05/31/23 02:00 BP 128/75 05/31/23 07:12 Pulse Ox 96 05/31/23 07:12 FiO2 95 05/27/23 16:46 Intake & Output 05/30/23 05/31/23 05/31/23 18:59 06:59 18:59 Intake Total 120 Balance 120 Weight 59 kg 59.6 kg Intake: Oral 120 Other: Voiding Method Bedside Commode Bedside Commode Bedside Commode Diaper Diaper Diaper # Voids 1 2 # Bowel Movements 1 ABP, PAP, CO, CI - Last Documented Arterial Blood Pressure 152/72 - Exam GENERAL EXAM: Alert, pleasant 62-year-old female, on 4 L nasal cannula, in no apparent distress. HEAD: Normocephalic. EYES: Normal reaction of pupils, equal size. NOSE: Clear with pink turbinates. THROAT: No erythema or exudates. NECK: No masses, no JVD. CHEST: No chest wall deformity. LUNGS: Equal air entry with few crackles in the left base. CVS: S1 and S2 normal with no audible murmur, regular rhythm. ABDOMEN: No hepatosplenomegaly, normal bowel sounds, no guarding or rigidity. SPINE: No scoliosis or deformity SKIN: No rashes CENTRAL NERVOUS SYSTEM: No focal deficits, tone is normal in all 4 extremities. EXTREMITIES: There is no peripheral edema. No clubbing, no cyanosis. Peripheral pulses are intact. - Labs CBC & Chem 7: 05/31/23 06:00 05/31/23 06:00 Labs: Abnormal Lab Results - Last 24 Hours (Table) 05/30/23 05/31/23 05/31/23 Range/Units 07:26 06:00 06:00 RBC 3.36 L (3.80-5.40) m/uL Hgb 10.1 L (11.4-16.0) gm/dL Hct 31.7 L (34.0-46.0) % Plt Count 477 H (150-450) k/uL Lymphocytes # 0.9 L (1.0-4.8) k/uL Sodium 135 L (137-145) mmol/L Potassium 3.2 L (3.5-5.1) mmol/L Chloride 94 L 94 L (96-109) mmol/L Carbon Dioxide 34 H (22-30) mmol/L Anion Gap 17.10 H (4.00-12.00) mmol/L BUN 5.3 L (9.0-27.0) mg/dL Creatinine 0.4 L 0.37 L (0.6-1.5) mg/dL Microbiology - Last 24 Hours (Table) 05/29/23 12:45 Gram Stain - Preliminary Pleural Fluid Body Fluid Culture - Preliminary 05/29/23 12:45 Acid Fast Bacilli Smear - Preliminary Pleural Fluid Assessment and Plan Assessment: Acute hypoxemic respiratory failure, secondary to sepsis and possible left lower lobe pneumonia, community-acquired. Or could even be aspiration pneumonia. She developed a left-sided pleural effusion. Status post left-sided thoracentesis 05/29/2023 with 800 mL of straw-colored fluid removed. Cytology pending. Fluid analysis shows exudate with a protein of 2.8 and LDH of 516. Suspected acute cholecystitis and abdominal sepsis. Seen by surgery and the recommendation was to continue antibiotics, recommended no surgery. Leukocytosis, secondary to above, resolved Severe metabolic anion gap acidosis, resolved Left lung mass, recently measuring 4.2 x 3.9 cm with multiple lesions suspicious for mediastinal and diffuse osseous metastasis. This was been worked up outpatient. Bronchoscopy on 05/25/2023 showed no evidence of endobronchial tumor nonetheless the patient needs further workup and possibly tissue biopsy to confirm the diagnosis of pulmonary malignancy. Bone scan is showing multiple areas of metastasis. Chronic obstructive pulmonary disease, with FEV1 38% predicted, recently placed on PRN albuterol and Trelegy inhalers. Elevated troponin, likely related to supply/demand mismatch Hypertension Hyperlipidemia Coronary artery disease, with previous CABG History of multiple sclerosis History of anxiety/depression Plan: The patient was seen and evaluated Bone scan, labs and medications reviewed We will plan for bronchoscopy with biopsies today The patient is agreeable to the plan We will reverse CODE STATUS for the procedure Continue bronchodilators Discontinue antibiotics Increase her activity as tolerated Titrate the FiO2 as tolerated We will continue to follow This patient was seen independently by the nurse practitioner I have personally seen and examined the patient, performed the documentation and the assessment and plan as written. Number of minutes spent on the visit: 23.
[2023-05-31] MEDS ORDERED: IV FLUID CONTINUATION 1,000 ML IV ONE (13:38)
[2023-05-31] MEDS ORDERED: MIDAZOLAM 2 MG/2 ML VIAL ONE (14:08)
[2023-05-31] MEDS ORDERED: SUCCINYLCHOLINE CHLORIDE 200 MG/10 ML VIAL IV ONE (14:08)
[2023-05-31] MEDS ORDERED: fentaNYL (PF) 50 MCG/ML 2 ML AMP ONE (14:08)
[2023-05-31] MEDS ORDERED: PROPOFOL 10 MG/ML 20 ML VIAL IV ONE (14:08)
[2023-05-31] MEDS ORDERED: LIDOCAINE 1% INJ 10MG/ML (20 ML MDV) ONE (14:08)
[2023-05-31] MEDS ORDERED: PHENYLEPHRINE-0.9% NACL SYG 1,000 MCG/10 ML SYRINGE ONE (14:08)
--- NOTE | 2023-05-31 15:52 | P.PN ---
Subjective Progress Note Date: 05/31/23 Hospital Course: 62-year-old female with history of recently diagnosed lung cancer with metastatic disease, CAD status post CABG, multiple sclerosis, COPD, hypertension, his lipidemia, essential tremor presenting with acute/subacute dyspnea. In the ED, temperature was 94.6, pulse 102, respiratory rate 32, blood pressure 163/119, was saturating at 97% on nonrebreather at 15 L. Due to increased work of breathing, BiPAP was suggested. However her mental status was poor, and she was subsequently intubated. Patient then transferred to medical ICU. WBC was 12.8, platelet 780, potassium 5.4, bicarb 15, creatinine 0.78, lactate 11.1, pH 7.16, pCO2 44, troponin 0.056, total bilirubin 0.3, AST 43, ALT 33, ALP 192, proBNP 14,000, CRP 6.9, lipase 70, respiratory viral panel negative, urine positive for oxycodone, barbiturates, and marijuana. CT abdomen and pelvis, CT chest showed mild diffuse edema and infiltrates worse on the right, atelectasis the majority of left lower lobe, multiple thoracic spine with obstructive lesions consistent with metastatic disease, marked gallbladder wall edema, obstructive lesions in the iliac bone and lumbar spine. Head CT shows multiple distractive skull lesions. EKG independently interpreted, shows sinus tachycardia. Chest x-ray, interpreted shows Left basilar opacity. Patient admitted to the ICU for acute hypoxic respiratory failure. Had a bronch with BAL. Surgery following for acute on chronic cholecystitis, treating conservativ kavon with medical management. Oncology also following, will likely need tissue biopsy, possibly CT-guided biopsy of lung mass. Patient will also likely need additional staging including bone scan and imaging of brain.. Patient is doing better postextubation. Echocardiogram showed mild LV systolic dysfunction secondary to prior inferior wall myocardial infarction, moderate pulmonary hypertension. Now out of the ICU. He underwent left-sided thoracentesis, 800 mL fluid removed. Repeat bronchoscopy today. Bone nuclear scan shows abnormal uptake within the skull, right anterior rib, medial aspect of right femur and scattered throughout the spine concerning for metastatic disease, left posterior rib fracture is seen on CT. Subjective: Patient seen and examined at bedside. No acute events overnight. Respiratory function improved. Still having some neck pain. Mostly on the left side. Pertinent positives and negatives as discussed above, a complete review of systems was performed and all other systems are negative. Vitals Signs Reviewed. General: Not in acute distress, chronically ill-appearing Derm: warm, dry Head: atraumatic, normocephalic, symmetric Eyes: EOMI, anicteric sclera, pupils equal round reactive to light ENT: Nose and ears atraumatic Neck: No thyromegaly, supple Mouth: no lip lesion, mucus membranes moist Cardiovascular: S1S2 reg, no murmur, no edema Lungs: Bilateral rhonchi, worse on the left side, supplemental oxygen Abdominal: soft, nontender to palpation, no guarding, no appreciable organomegaly Ext: no gross muscle atrophy, muscle strength muscle strength 5 out of 5 in all 4 extremities, no contractures Neuro: CN II-12 grossly normal Psych: Alert and cooperative Data Reviewed Today: Pertinent Labs: WBC 8.7, hemoglobin 10.1, platelets 477, sodium 135, potassium 3.2, creatinine 0.77, magnesium 1.9 Imaging: Bone nuclear scan shows abnormal uptake within the skull, right anterior rib, medial aspect of right femur and scattered throughout the spine concerning for metastatic disease, left posterior rib fracture is seen on CT Assessment and Plan: Patient is critically ill, prognosis guarded Active: Acute hypoxic respiratory failure Lung mass with metastatic disease Left-sided pleural effusion Severe sepsis, resolved Acute on chronic cholecystitis, status post antibiotics Transaminitis NSTEMI, likely type II History of CAD status post CABG -Pulmonology note reviewed, exudative pleural effusion, cytology still pending, bronchoscopy today, antibiotics discontinued -Wean oxygen -Surgery note reviewed, continue medical management for cholecystitis, no surgical intervention at the moment -Continue aspirin and statin -Oncology following, likely need tissue biopsy -For pain, patient on scheduled oxycodone increased to 7.5 mg every 6 hours as well as on IV Dilaudid 1 mg every 4 hours as needed for severe breakthrough pain., Also on scheduled Tylenol 1 g every 8 hours as well as Toradol IV every 6 hours as needed 50 mg. Monitor for respiratory depression Leukocytosis, likely reactive, resolved Mild normocytic anemia, no active bleeding Thrombocytosis, likely reactive -Repeat CBC tomorrow Hypokalemia -Potassium repleted -Repeat BMP and magnesium tomorrow Resolved: Lactic acidosis High anion gap metabolic acidosis Hyperkalemia Hypercalcemia Chronic: Hypertension Dyslipidemia COPD Depression DVT ppx: Subcu heparin Code status: DO NOT RESUSCITATE Anticipated discharge place: PT/OT assessment Anticipated discharge time: Pending clinical course Objective - Vital Signs Vital signs: Vital Signs Temp 98 F 05/31/23 14:48 Pulse 90 05/31/23 15:32 Resp 16 05/31/23 15:32 BP 96/57 05/31/23 15:32 Pulse Ox 96 05/31/23 15:32 FiO2 95 05/27/23 16:46 Intake & Output 05/30/23 05/31/23 05/31/23 18:59 06:59 18:59 Intake Total 120 525 Balance 120 525 Weight 59 kg 59.6 kg 59.6 kg Intake: IV 525 Oral 120 Other: Voiding Method Bedside Commode Bedside Commode Bedside Commode Diaper Diaper Diaper # Voids 1 2 1 # Bowel Movements 1 ABP, PAP, CO, CI - Last Documented Arterial Blood Pressure 152/72 - Labs CBC & Chem 7: 05/31/23 06:00 05/31/23 06:00 Labs: Abnormal Lab Results - Last 24 Hours (Table) 05/31/23 05/31/23 Range/Units 06:00 06:00 RBC 3.36 L (3.80-5.40) m/uL Hgb 10.1 L (11.4-16.0) gm/dL Hct 31.7 L (34.0-46.0) % Plt Count 477 H (150-450) k/uL Lymphocytes # 0.9 L (1.0-4.8) k/uL Sodium 135 L (137-145) mmol/L Potassium 3.2 L (3.5-5.1) mmol/L Chloride 94 L (98-107) mmol/L Carbon Dioxide 34 H (22-30) mmol/L Creatinine 0.37 L (0.52-1.04) mg/dL Microbiology - Last 24 Hours (Table) 05/29/23 12:45 Gram Stain - Preliminary Pleural Fluid Body Fluid Culture - Preliminary 05/29/23 12:45 Acid Fast Bacilli Smear - Preliminary Pleural Fluid
[2023-05-31] MEDS: METHYL SALICYLATE-MENTHOL OINT (3 OZ TUBE) TOPICAL PRN (17:27)
--- NOTE | 2023-05-31 19:24 | P.PN ---
Subjective Progress Note Date: 05/31/23 At today's visit patient is sitting in bedside chair. Patient is reporting some improvement in breathing but is c/o persisting left side neck pain. Denies dyspahgia. Objective - Vital Signs Vital signs: Vital Signs Temp 98 F 05/31/23 14:48 Pulse 96 05/31/23 18:47 Resp 16 05/31/23 15:32 BP 96/57 05/31/23 15:32 Pulse Ox 96 05/31/23 15:32 FiO2 95 05/27/23 16:46 Intake & Output 05/31/23 05/31/23 06/01/23 06:59 18:59 06:59 Intake Total 120 1125 Balance 120 1125 Weight 59.6 kg 59.6 kg Intake: IV 1125 Sodium Chloride 0.9% 1, 600 000 ml @ 50 mls/hr IV . Q20H [facility] Rx#:[id number] Oral 120 Other: Voiding Method Bedside Commode Bedside Commode Diaper Diaper # Voids 2 1 ABP, PAP, CO, CI - Last Documented Arterial Blood Pressure 152/72 - Constitutional General appearance: Present: no acute distress - EENT Eyes: Present: anicteric sclerae ENT: Present: hearing grossly normal - Neck Details: left sided posterior cervical tenderness, no c-spine tenderness noted Neck: Absent: lymphadenopathy - Respiratory Details: breathing is even and unlabored - Cardiovascular Details: skin warm and dry - Integumentary Integumentary: Absent: cyanotic - Neurologic Neurologic Comment(s): grossly intact - Musculoskeletal Musculoskeletal: Present: strength equal bilaterally - Psychiatric Psychiatric: Present: A&O x's 3 - Labs CBC & Chem 7: 05/31/23 06:00 05/31/23 06:00 Labs: Abnormal Lab Results - Last 24 Hours (Table) 05/31/23 05/31/23 Range/Units 06:00 06:00 RBC 3.36 L (3.80-5.40) m/uL Hgb 10.1 L (11.4-16.0) gm/dL Hct 31.7 L (34.0-46.0) % Plt Count 477 H (150-450) k/uL Lymphocytes # 0.9 L (1.0-4.8) k/uL Sodium 135 L (137-145) mmol/L Potassium 3.2 L (3.5-5.1) mmol/L Chloride 94 L (98-107) mmol/L Carbon Dioxide 34 H (22-30) mmol/L Creatinine 0.37 L (0.52-1.04) mg/dL Microbiology - Last 24 Hours (Table) 05/29/23 12:45 Gram Stain - Preliminary Pleural Fluid Body Fluid Culture - Preliminary 05/29/23 12:45 Acid Fast Bacilli Smear - Preliminary Pleural Fluid - Imaging and Cardiology CT brain/c spine and bone scan reviewed Assessment and Plan (1) Mass of left lung Current Visit: Yes Status: Acute Priority: High Code(s): R91.8 - OTHER NONSPECIFIC ABNORMAL FINDING OF LUNG FIELD SNOMED Code(s): 800286325 (2) Sepsis Current Visit: Yes Status: Acute Priority: High Code(s): A41.9 - SEPSIS, UNSPECIFIED ORGANISM SNOMED Code(s): 75677478 Plan: Left lung mass: This is strongly suspected to be lung malignancy with metastasis. However we do not yet have a pathologic diagnosis. Bronchoscopy was negative for any endobronchial lesions that could be targeted. Bronchial washing cytology negative for malignancy -S/p left sided thoracentesis, with 700cc removed, cytology pending. Plan is for repeat bronchoscopy today with biopsy. -Bone scan and brain mri ordered to complete staging. Bone scan revealed abnormal uptake within the skull, right anterior rib and medial aspect of the right femur and scattered throughout the spine. Scan results discussed with oscar palumbo and family today. Brain MRI pending Sepsis: The patient is continuing to improve. Afebrile, completed IV abx. -Defer to the admitting service and CCM for continued management
[2023-05-31] MEDS: polyethylene glycoL 3350 17 GM POWD.PACK PO SCH (20:52)
[2023-05-31] MEDS: MIRTAZAPINE 15 MG TAB PO SCH (20:52)
[2023-05-31] MEDS: ATORVASTATIN 20 MG TAB PO SCH (20:52)
[2023-05-31] MEDS: MELATONIN 3 MG TABLET PO SCH (20:52)
--- NOTE | 2023-05-31 20:55 | PCN ---
PROCEDURE NOTE This is a Pulmonary/Critical Care Procedure Note. PROCEDURES PERFORMED: Bronchoscopy, airway examination, therapeutic lavage, bronchoalveolar lavage of left upper lobe, brushes of left upper lobe, transbronchial and endobronchial biopsies of left upper lobe. PREOPERATIVE DIAGNOSIS: Lung mass, rule out lung cancer. POSTOPERATIVE DIAGNOSIS: Lung mass, rule out lung cancer. There were informed consent and universal time-out. FIRST REHAB THERAPIST: Dr. Cari Adams. The patient's procedure took place in room #1 [facility]. DESCRIPTION OF PROCEDURE: The patient did undergo general anesthesia provided by the Anesthesia Services. After the patient was under the effects of general anesthesia and being fully monitored, the bronchoscope was inserted through the bronchoscope adapter connected to the endotracheal tube. The bronchoscope was pushed through the endotracheal tube into the tracheal paulette. We did a quick evaluation of the right lung. The right upper lobe and its 3 segments, right middle lobe and its 2 segments, and the right lower lobe and its 5 segments were all found to be normal. On the left side, the left lower lobe and its 4 segments were found to be normal. The lingula itself also appeared to be normal. In the left upper lobe proper, there were some mucosal irregularity and heaping of the mucosa, potentially consistent with tumor, and that area was sampled. Initially, we did brushes under direct visualization. Next, we did multiple endobronchial and transbronchial biopsies to that area. Finally, we did washes to the left upper lobe. All the sampling came from the left upper lobe. The patient tolerated the procedure well. There was minimal bleeding. We ensured hemostasis before the bronchoscope was withdrawn. The bronchoscope was withdrawn, and the patient will be recovered. No immediate complication. Again, the patient tolerated the procedure well and will be taken back to her room. I will speak to the family after the procedure. MMODL / IJN: [id number] /
[2023-06-01] MEDS: ACETAMINOPHEN TAB 500 MG TAB PO SCH ×3 (02:04→17:52)
[2023-06-01] MEDS: SYMBICORT 160-4.5 MCG INHALER INHALATION SCH ×2 (08:08→21:05)
[2023-06-01] MEDS: IPRATROPIUM-ALBUTEROL 3 ML NEB INHALATION SCH ×4 (08:08→21:05)
[2023-06-01 08:36] LABS: Magnesium 1.9 mg/dL (1.5-2.4)
[2023-06-01 08:44] LABS: Blood Urea Nitrogen 9.6 mg/dL (9.0-27.0); Calcium 9.3 mg/dL (8.7-10.3); Carbon Dioxide 25.5 mmol/L (21.6-31.8); Chloride 98 mmol/L (96-109); Glucose 88 mg/dL (70-110); Potassium 3.5 mmol/L (3.5-5.5); Sodium 139 mmol/L (135-145)
[2023-06-01] MEDS: PRIMIDONE 50 MG TAB PO SCH ×3 (08:47→22:22)
[2023-06-01] MEDS: SENNOSIDES 8.6 MG TAB PO SCH ×2 (08:47→22:22)
[2023-06-01] MEDS: METOPROLOL TARTRATE 25 MG TAB PO SCH ×2 (08:47→22:21)
[2023-06-01] MEDS: FLUoxetine HCL 20 MG CAP PO SCH (08:47)
[2023-06-01] MEDS: HYDROmorphone 1 MG/ML 1 ML SYRINGE IVP PRN ×3 (08:56→22:23)
[2023-06-01] MEDS: PANTOPRAZOLE 40 MG/10 ML VIAL IVP SCH (08:56)
[2023-06-01] MEDS: HEPARIN SODIUM,PORCINE 5,000 UNIT/ML 1 ML VIAL SQ SCH ×2 (08:57→22:22)
--- NOTE | 2023-06-01 09:13 | MR ---
EXAMINATION TYPE: MR brain wo/w con DATE OF EXAM: 06/01/2023 8:42 AM CLINICAL INDICATION:Female, 62 years old with history of lung mass, staging; COMPARISON: 03/29/2018. TECHNIQUE: Multi planar, multi sequence imaging was performed through the brain including: T1, T2, In version recovery, susceptibility weighted imaging and gradient echo imaging and Diffusion weighted im aging. The patient was then given intravenous contrast and multi planar, T1 fat-saturation images wer e obtained. IV Contrast: None FINDINGS: The vides-white junctions, ventricular system, basal cisterns appear unremarkable. Diffusion-weighted imaging shows no evidence of restricted diffusion to suggest acute/subacute infarct. Intracranial ar terial flow voids are maintained. Midline structures show no abnormality. Scattered foci of high T2 s ignal intensity are seen within the periventricular white matter. The susceptibility weighted images do not reveal any evidence for micro-hemorrhage. Abnormal enhancement scattered throughout the calvarium. There is widening of the calvarium with some of these lesions. Including the right posterior lesion. The largest in the right posterior lateral a spect measures up to 3.3 x 1.1 cm. No intra-axial abnormal postcontrast enhancement visualized. Paranasal sinuses and mastoid air cells: No significant paranasal sinus disease. Visualized orbits: Orbital contents are intact. IMPRESSION: 1. Scattered osseous metastatic disease (at least 5 lesions). No intra-axial enhancing mass at this time. No evidence of acute/subacute infarct. Findings are new from 2018. 2. Nonspecific white matter changes, likely related to small vessel ischemic disease.
[2023-06-01 13:00] LABS: Appearance,BF Bloody (Clear); RBC, Body Fluid 237500 /UL (0-2000)
--- NOTE | 2023-06-01 13:25 | P.PN ---
Subjective Progress Note Date: 06/01/23 CHIEF COMPLAINT: Shortness of breath HISTORY OF PRESENT ILLNESS: Patient is sitting up at bedside chair. She reports her pain is controlled. She does report a decreased appetite but denies any nausea or vomiting. She status post bronchoscopy with biopsy yesterday. MRI of the brain reports scattered osseous metastatic disease. WBC normal at 8.7. K up from 3.2 to 3.5 Antibiotics discontinued by Critical care service yesterday PHYSICAL EXAM: VITAL SIGNS: Reviewed. GENERAL: Well-developed in no acute distress ABDOMEN: Soft. Nondistended. nontender. right lower rib tenderness with palpation NEUROLOGIC: Awake and alert ASSESSMENT: 1. Acute on chronic cholecystitis 2. Gallbladder distended with thickened gross noted on ultrasound 3. Lung mass with metastasis PLAN: -No surgical intervention planned at this time for the gallbladder. Recommending medical management -Currently off of antibiotics Physician [employer] note has been reviewed by physician. Signing provider agrees with the documented findings, assessment, and plan of care. Objective - Vital Signs Vital signs: Vital Signs Temp 98.1 F 06/01/23 06:45 Pulse 113 H 06/01/23 06:45 Resp 14 06/01/23 06:45 BP 138/88 06/01/23 06:45 Pulse Ox 99 06/01/23 06:45 FiO2 95 05/27/23 16:46 Intake & Output 05/31/23 06/01/23 06/01/23 18:59 06:59 18:59 Intake Total 1125 Balance 1125 Weight 59.6 kg 60.7 kg Intake: IV 1125 Sodium Chloride 0.9% 1, 600 000 ml @ 50 mls/hr IV . Q20H [facility] Rx#:[id number] Other: Voiding Method Bedside Commode Bedside Commode Diaper Diaper # Voids 1 2 ABP, PAP, CO, CI - Last Documented Arterial Blood Pressure 152/72 - Labs CBC & Chem 7: 05/31/23 06:00 06/01/23 06:05 Labs: Abnormal Lab Results - Last 24 Hours (Table) 06/01/23 Range/Units 06:05 Anion Gap 15.50 H (4.00-12.00) mmol/L Creatinine 0.4 L (0.6-1.5) mg/dL BUN/Creatinine Ratio 24.00 H (12.00-20.00) Ratio Microbiology - Last 24 Hours (Table) 05/29/23 12:45 Gram Stain - Preliminary Pleural Fluid Body Fluid Culture - Preliminary
--- NOTE | 2023-06-01 13:55 | P.PN ---
Subjective Progress Note Date: 06/01/23 Hospital Course: 62-year-old female with history of recently diagnosed lung cancer with metasta tic disease, CAD status post CABG, multiple sclerosis, COPD, hypertension, his lipidemia, essential tremor presenting with acute/subacute dyspnea. In the ED, temperature was 94.6, pulse 102, respiratory rate 32, blood pressure 163/119, was saturating at 97% on nonrebreather at 15 L. Due to increased work of breathing, BiPAP was suggested. However her mental status was poor, and she was subsequently intubated. Patient then transferred to medical ICU. WBC was 12.8, platelet 780, potassium 5.4, bicarb 15, creatinine 0.78, lactate 11.1, pH 7.16, pCO2 44, troponin 0.056, total bilirubin 0.3, AST 43, ALT 33, ALP 192, proBNP 14,000, CRP 6.9, lipase 70, respiratory viral panel negative, urine positive for oxycodone, barbiturates, and marijuana. CT abdomen and pelvis, CT chest showed mild diffuse edema and infiltrates worse on the right, atelectasis the majority of left lower lobe, multiple thoracic spine with obstructive lesions consistent with metastatic disease, marked gallbladder wall edema, obstructive lesions in the iliac bone and lumbar spine. Head CT shows multiple distractive skull lesions. EKG independently interpreted, shows sinus tachycardia. Chest x-ray, interpreted shows Left basilar opacity. Patient admitted to the ICU for acute hypoxic respiratory failure. Had a bronch with BAL. Surgery following for acute on chronic cholecystitis, treating conservatively with medical management. Oncology also following, will likely need tissue biopsy. Patient will also lik kavon need additional staging including bone scan and imaging of brain.. Patient is doing better postextubation. Echocardiogram showed mild LV systolic dysfunction secondary to prior inferior wall myocardial infarction, moderate pulmonary hypertension. Now out of the ICU. He underwent left-sided t horacentesis, 800 mL fluid removed. Repeat bronchoscopy today. Bone nuclear scan shows abnormal uptake within the skull, right anterior rib, medial aspect of right femur and scattered throughout the spine concerning for metastatic disease, left posterior rib fracture is seen on CT. repeat bronchoscopy yesterday with biopsies pending. Brain MRI shows scattered osseous metastatic disease, no intracranial metastasis. Subjective: Patient seen and examined at bedside. No acute events overnight. Respiratory function improved. Still having some neck pain. Mostly on the left side. Pertinent positives and negatives as discussed above, a complete review of systems was performed and all other systems are negative. Vitals Signs Reviewed. General: Not in acute distress, chronically ill-appearing Derm: warm, dry Head: atraumatic, normocephalic, symmetric Eyes: EOMI, anicteric sclera, pupils equal round reactive to light ENT: Nose and ears atraumatic Neck: No thyromegaly, supple Mouth: no lip lesion, mucus membranes moist Cardiovascular: S1S2 reg, no murmur, no edema Lungs: Bilateral rhonchi, worse on the left side, supplemental oxygen Abdominal: soft, nontender to palpation, no guarding, no appreciable organomegaly Ext: no gross muscle atrophy, muscle strength muscle strength 5 out of 5 in all 4 extremities, no contractures Neuro: CN II-12 grossly normal Psych: Alert and cooperative Data Reviewed Today: Pertinent Labs: Sodium 139, potassium 3.5, creatinine 0.4, magnesium 1.9 Imaging: Brain MRI shows scattered osseous metastatic disease, no intracranial metastasis. Assessment and Plan: Patient is critically ill, prognosis guarded Active: Acute hypoxic respiratory failure Lung mass with metastatic disease Left-sided pleural effusion Severe sepsis, resolved Acute on chronic cholecystitis, status post antibiotics Transaminitis NSTEMI, likely type II History of CAD status post CABG -Pulmonology following, exudative pleural effusion, cytology still pending, br onchoscopy completed, pathology pending -Wean oxygen -Surgery note reviewed, continue medical management for cholecystitis, no surgical intervention at the moment -Continue aspirin and statin -Oncology following -For pain, patient on scheduled oxycodone increased to 7.5 mg every 6 hours as well as on IV Dilaudid 1 mg every 4 hours as needed for severe breakthrough pain., Also on scheduled Tylenol 1 g every 8 hours as well as Toradol IV every 6 hours as needed 50 mg. Monitor for respiratory depression Mild normocytic anemia Thrombocytosis, likely reactive -No active bleeding Resolved: Lactic acidosis High anion gap metabolic acidosis Hyperkalemia Hypercalcemia Hypokalemia Leukocytosis Chronic: Hypertension Dyslipidemia COPD Depression DVT ppx: Subcu heparin Code status: DO NOT RESUSCITATE Anticipated discharge place: Subacute rehab Anticipated discharge time: Pending clinical course Objective - Vital Signs Vital signs: Vital Signs Temp 97.4 F L 06/01/23 11:33 Pulse 94 06/01/23 11:43 Resp 14 11/29/23 11:33 BP 122/74 06/01/23 11:33 Pulse Ox 92 L 06/01/23 11:35 FiO2 95 05/27/23 16:46 Intake & Output 05/31/23 06/01/23 06/01/23 18:59 06:59 18:59 Intake Total 1125 Balance 1125 Weight 59.6 kg 60.7 kg Intake: IV 1125 Sodium Chloride 0.9% 1, 600 000 ml @ 50 mls/hr IV . Q20H [facility] Rx#:[id number] Other: Voiding Method Bedside Commode Bedside Commode Bedside Commode Diaper Diaper Diaper # Voids 1 2 1 ABP, PAP, CO, CI - Last Documented Arterial Blood Pressure 152/72 - Labs CBC & Chem 7: 05/31/23 06:00 06/01/23 06:05 Labs: Abnormal Lab Results - Last 24 Hours (Table) 05/31/23 06/01/23 Range/Units 14:00 06:05 Anion Gap 15.50 H (4.00-12.00) mmol/L Creatinine 0.4 L (0.6-1.5) mg/dL BUN/Creatinine Ratio 24.00 H (12.00-20.00) Ratio Fluid Appearance Bloody A (Clear) Microbiology - Last 24 Hours (Table) 05/31/23 14:00 Gram Stain - Preliminary Bronchoalviolar Lavage - Left 05/29/23 12:45 Gram Stain - Preliminary Pleural Fluid Body Fluid Culture - Preliminary
--- NOTE | 2023-06-01 14:19 | P.PN ---
Subjective Progress Note Date: 06/01/23 Patient was seen and examined on consultation today 05/24/2023, I saw the patient in the ICU, patient presented with acute hypoxic respiratory failure requiring intubation and mechanical ventilation while in the ER. Patient has a classic presentation of sepsis, the exact source of her sepsis is not clear at this point, most likely related to her gallbladder. She is now intubated and mechanically ventilated with assist control rate of 22 tidal volume 400 FiO2 60% and PEEP of 5 and ABG showed a pO2 of 175 pCO2 35 pH of 7.34. FiO2 was cut down to 40%. Patient is empirically on ceftriaxone. She received multiple fluid boluses, at this point in time she is not requiring norepinephrine, seems to be responding to fluid boluses. Apparently the patient was recently evaluated for potential lung cancer and metastasis, however no specific tissue diagnosis was made, she was supposed to have a PET scan and workup was still pending. Patient used to be a heavy smoker, she quit about 2 years ago, and I had a chance to discuss her condition with her daughter at bedside, recommended arterial line placement and central line placement, I also discussed the CODE STATUS, patient is DO NOT RESUSCITATE CODE STATUS, apparently the daughter is very well aware of the potential poor prognosis considering her underlying clinical condition. In the meantime the patient will remain in the ICU, will treat empirically with antibiotics, we'll consult general surgery for her abnormal findings on the gallbladder questionable cholecystitis, patient also has severe COPD, may consider bronchoscopic the patient while on mechanical ventilation to evaluate for possible endobronchial pathology since the left hilar abnormality seems to be compressing on the left mainstem bronchus. This will be addressed once the patient stabilizes more while in the ICU. Prognosis is extremely poor and guarded. Critical care time is over 55 minutes not including the time spent on procedures Patient was reevaluated today on 05/25/23, remains in the ICU intubated and mechanically ventilated. Chest x-ray is showing improvement in her overall chest x-ray appearance but she seems to have significant left lower lobe consoli dation. She is on assist control rate of 22 tidal volume 400 FiO2 14 PEEP of 8 ABG showed a pO2 of 119 pCO2 32 pH of 7.46. Patient is on propofol at 25 mcg/kg/m fentanyl 20 mcg/kg/h she is also receiving enteral feeding via orogastric tube. Considering the abnormality in the left lower lobe, and considering the patient had a previous CT of the chest showing left hilar and mediastinal adenopathy, bronchoscopy was done today, and lavage of the left lower lobe was done, but there was no evidence of endobronchial tumor. Patient was seen by surgery, and recommended mostly medical management for her presumptive acute cholecystitis. Patient remains on Rocephin and Flagyl. Patient is arousable, awake in spite of being on fairly good dose of fentanyl and propofol, WBC count is 7.6 hemoglobin 8.9, basic metabolic profile is normal, hence I plan to give the patient today a trial of weaning at least a pressure support and CPAP trial, and if tolerated may even extubate the patient today this afternoon. In the meantime the patient remains empirically on antibiotics sputum Gram stain is showing moderate gram-positive cocci. Patient was reevaluated today on 05/26/23, patient was extubated yesterday on 05/25 few hours after her bronchoscopy. She seems to have tolerated the extubation well, she is now on 4 L nasal cannula, remains on antibiotics in the form of Flagyl and ceftriaxone. Her bronchoscopy showed no evidence of endobronchial tumor however lavage of the left lung was performed, and cultures are pending. WBC count is 8.6 hemoglobin is 9.4. Platelets are 469, basic metabolic profile is normal renal profile is normal bicarb is normal Patient was reevaluated today on 05/27/23 patient remains in the ICU, she remains on 4 L nasal cannula sitting up in the chair, IV fluid is 0.9 normal saline at 50 mL/h, patient is not in any distress. Denies any shortness of breath, denies any pain, her cultures have remained negative all along. BAL cultures are nondiagnostic, had mostly normal Alejandra, blood cultures have been negative all along. Patient is hemodynamically stable, and I plan to transfer the patient out of the ICU to a medical surgical floor today. WBC count is 8.1 hemoglobin is 9.9 basic metabolic profile is normal and renal profile is normal The patient is seen today 05/28/2023 in follow-up on the regular medical floor. She is currently sitting up in a chair at the bedside. Awake and alert in no acute distress. Maintaining O2 saturation in the 90s on 4 L/m per nasal cannula. Bronchial alveolar lavage revealed no growth. Blood cultures revealed no growth. White count 8.1. Hemoglobin 10.0. Platelets 500. Sodium 134. Potassium 4.1. Bicarb 20. BUN 11. Creatinine 0.38. Glucose 112. She is continued on DuoNeb inhalations, Symbicort, Flagyl and ceftriaxone. Heparin for DVT prophylaxis. Normal saline at 50 MLS per hour. The patient is seen today 05/29/2023 in follow-up on the regular medical floor. She is currently sitting up in a chair. Awake and alert in no acute distress. Maintaining O2 saturations in the 90s on 4 L/m per nasal cannula. Follow-up chest x-rays now revealing a stable moderate left-sided pleural effusion. U ltrasound of the chest reveals a 9.8 cm pocket on the left. She did undergo a left-sided thoracentesis today with 800 mL of straw-colored fluid removed. Sent for fluid analysis and cytology. Follow-up chest x-ray revealed interval improvement in the left lung aeration. No pneumothorax. Bronchial lavage cultures revealed no growth. Cytology pending. White count 9.5. Hemoglobin 10.2. Sodium 133. Potassium 3.8. Bicarb 29. BUN 5. Creatinine 0.30. Glucose 95. She is continued on ceftriaxone and Flagyl. Remains on bronchodilators. Heparin for DVT prophylaxis. Normal saline at 50 ML's per hour. The patient is seen today 05/30/2023 in follow-up on the regular medical floor. She is awake and alert in no acute distress. Sitting up in a chair at the bedside. Denies any worsening shortness of breath, cough or congestion. Bronchial alveolar lavage is revealing no growth, blood cultures revealed no growth. White count 10.9. Hemoglobin 10.8. Platelets 538. Sodium 137. Pota ssium 3.6. Bicarb 26. BUN 5.3. Creatinine 0.4. Lipid analysis from yesterday's thoracentesis shows exudate with a protein of 2.8 and LDH of 516. Cytology pending. She is continued on DuoNeb inhalations, Symbicort, antibiotics in the form of ceftriaxone. Heparin for DVT prophylaxis. Normal sa line at 50 MLS per hour. The patient is seen today 05/31/2023 in follow-up on the regular medical floor. She is sitting up in a chair. Awake and alert in no acute distress. Denies any worsening shortness of breath, cough or congestion. No hemoptysis. Bone scan did reveal abnormal uptake within the skull, right anterior rib and medial aspect of the right femur and scattered throughout the spine concerning for metastatic disease. Left posterior rib fracture as seen on prior CT. Bronchial wash cultures revealed no malignancy. Pleural fluid cytology pending. The plan is for bronchoscopy with biopsies today. White count 8.7. Hemoglobin 10.1. Platelets 477. Sodium 135. Potassium 3.2. Bicarb 34. BUN 9. Creatinine 0.37. Glucose 94. The patient is seen today 06/01/2023 in follow-up on the regular medical floor. She is awake and alert in no acute distress. Sitting up in a chair. Denies any worsening shortness of breath, cough or congestion. She is maintaining O2 saturations in the 90s on 4 L/m per nasal cannula. She's been afebrile. Hemodynamically stable. Bronchial wash cultures from 05/25/2023 revealed no evidence of malignancy. Pleural fluid cultures from 05/29/2023 are pending. Bronchial biopsies from bronchoscopy on 05/31/2023 still pending. MRI of the br ain revealed scattered osseous metastatic disease. No intra-axial enhancing mass or lesions at this time. No evidence of acute/subacute infarct. Sodium 139. Potassium 3.5. BUN 10. Creatinine 0.4. Glucose 88. If she is continued on DuoNeb inhalations, Pulmicort. Heparin for DVT prophylaxis. Normal saline at 50 ML's per hour. Objective - Vital Signs Vital signs: Vital Signs Temp 97.4 F L 06/01/23 11:33 Pulse 94 06/01/23 11:43 Resp 14 06/01/23 11:33 BP 122/74 06/01/23 11:33 Pulse Ox 92 L 06/01/23 11:35 FiO2 95 05/27/23 16:46 Intake & Output 05/31/23 06/01/23 06/01/23 18:59 06:59 18:59 Intake Total 1125 Balance 1125 Weight 59.6 kg 60.7 kg Intake: IV 1125 Sodium Chloride 0.9% 1, 600 000 ml @ 50 mls/hr IV . Q20H [facility] Rx#:[id number] Other: Voiding Method Bedside Commode Bedside Commode Bedside Commode Diaper Diaper Diaper # Voids 1 2 1 ABP, PAP, CO, CI - Last Documented Arterial Blood Pressure 152/72 - Exam GENERAL EXAM: Alert, weak 62-year-old female, up in a chair, on 4 L nasal cannula, in no apparent distress. HEAD: Normocephalic. EYES: Normal reaction of pupils, equal size. NOSE: Clear with pink turbinates. THROAT: No erythema or exudates. NECK: No masses, no JVD. CHEST: No chest wall deformity. LUNGS: Equal air entry with few crackles in the left base. CVS: S1 and S2 normal with no audible murmur, regular rhythm. ABDOMEN: No hepatosplenomegaly, normal bowel sounds, no guarding or rigidity. SPINE: No scoliosis or deformity SKIN: No rashes CENTRAL NERVOUS SYSTEM: No focal deficits, tone is normal in all 4 extremities. EXTREMITIES: There is no peripheral edema. No clubbing, no cyanosis. Peripheral pulses are intact. - Labs CBC & Chem 7: 05/31/23 06:00 06/01/23 06:05 Labs: Abnormal Lab Results - Last 24 Hours (Table) 05/31/23 06/01/23 Range/Units 14:00 06:05 Anion Gap 15.50 H (4.00-12.00) mmol/L Creatinine 0.4 L (0.6-1.5) mg/dL BUN/Creatinine Ratio 24.00 H (12.00-20.00) Ratio Fluid Appearance Bloody A (Clear) Microbiology - Last 24 Hours (Table) 05/31/23 14:00 Gram Stain - Preliminary Bronchoalviolar Lavage - Left 05/29/23 12:45 Gram Stain - Preliminary Pleural Fluid Body Fluid Culture - Preliminary Assessment and Plan Assessment: Acute hypoxemic respiratory failure, secondary to sepsis and possible left lower lobe pneumonia, community-acquired. Or could even be aspiration pneumonia. She developed a left-sided pleural effusion. Status post left-sided thoracentesis 05/29/2023 with 800 mL of straw-colored fluid removed. Cytology pending. Fluid analysis shows exudate with a protein of 2.8 and LDH of 516. Suspected acute cholecystitis and abdominal sepsis. Seen by surgery and the recommendation was to continue antibiotics, recommended no surgery. Leukocytosis, secondary to above, resolved Severe metabolic anion gap acidosis, resolved Left lung mass, recently measuring 4.2 x 3.9 cm with multiple lesions suspicious for mediastinal and diffuse osseous metastasis. This was been worked up outpatient. Bronchoscopy on 05/25/2023 showed no evidence of endobronchial tumor. Bronchiolar lavage revealed no evidence of malignancy. Bronchoscopy with biopsies performed on 05/31/2023. Pathology pending. Bone scan is showing multiple areas of metastasis. MRI of the brain reveals metastatic osseous lesions but no intracranial mass or lesions. Chronic obstructive pulmonary disease, with FEV1 38% predicted, recently placed on PRN albuterol and Trelegy inhalers. Elevated troponin, likely related to supply/demand mismatch Hypertension Hyperlipidemia Coronary artery disease, with previous CABG History of multiple sclerosis History of anxiety/depression Plan: The patient was seen and evaluated MRI of the brain, labs and medications reviewed Bronchoscopy with biopsies as today, pathology pending Continue bronchodilators Increase her activity as tolerated Titrate the FiO2 as tolerated We will continue to follow This patient was seen independently by the nurse practitioner I have personally seen and examined the patient, performed the documentation and the assessment and plan as written. Number of minutes spent on the visit: 22.
--- NOTE | 2023-06-01 19:06 | P.PN ---
Subjective Progress Note Date: 06/01/23 At today's visit patient is sitting in bedside chair. Patient is reporting mid- low back pain s/p MRI this morning. Some improvement in left sided neck pain. Objective - Vital Signs Vital signs: Vital Signs Temp 97.4 F L 06/01/23 11:33 Pulse 94 06/01/23 15:51 Resp 14 06/01/23 11:33 BP 122/74 06/01/23 11:33 Pulse Ox 92 L 06/01/23 11:35 FiO2 95 05/27/23 16:46 Intake & Output 05/31/23 06/01/23 06/01/23 18:59 06:59 18:59 Intake Total 1125 Balance 1125 Weight 59.6 kg 60.7 kg Intake: IV 1125 Sodium Chloride 0.9% 1, 600 000 ml @ 50 mls/hr IV . Q20H [facility] Rx#:[id number] Other: Voiding Method Bedside Commode Bedside Commode Bedside Commode Diaper Diaper Diaper # Voids 1 2 1 ABP, PAP, CO, CI - Last Documented Arterial Blood Pressure 152/72 - Constitutional General appearance: Present: average body habitus, no acute distress - EENT Eyes: Present: anicteric sclerae ENT: Present: hearing grossly normal - Respiratory Details: breathing is even and unlabored - Cardiovascular Details: skin is warm and dry - Integumentary Integumentary: Absent: cyanotic - Neurologic Neurologic Comment(s): grossly intact - Musculoskeletal Musculoskeletal: Present: strength equal bilaterally - Psychiatric Psychiatric: Present: A&O x's 3 - Labs CBC & Chem 7: 05/31/23 06:00 06/01/23 06:05 Labs: Abnormal Lab Results - Last 24 Hours (Table) 05/31/23 06/01/23 Range/Units 14:00 06:05 Anion Gap 15.50 H (4.00-12.00) mmol/L Creatinine 0.4 L (0.6-1.5) mg/dL BUN/Creatinine Ratio 24.00 H (12.00-20.00) Ratio Fluid Appearance Bloody A (Clear) Microbiology - Last 24 Hours (Table) 05/29/23 12:45 Gram Stain - Preliminary Pleural Fluid Body Fluid Culture - Preliminary 05/31/23 14:00 Gram Stain - Preliminary Bronchoalviolar Lavage - Left - Imaging and Cardiology MRI - head: report reviewed Assessment and Plan (1) Mass of left lung Current Visit: Yes Status: Acute Priority: High Code(s): R91.8 - OTHER NONSPECIFIC ABNORMAL FINDING OF LUNG FIELD SNOMED Code(s): 616971579 (2) Sepsis Current Visit: Yes Status: Acute Priority: High Code(s): A41.9 - SEPSIS, UNSPECIFIED ORGANISM SNOMED Code(s): 56770143 Plan: Left lung mass: This is strongly suspected to be lung malignancy with metastasis. However we do not yet have a pathologic diagnosis. Bronchoscopy was negative for any e ndobronchial lesions that could be targeted. Bronchial washing cytology negative for malignancy -S/p left sided thoracentesis, with 700cc removed. Pathology from left sided thoracentesis was not available at today's visit however did result after revealing rare metastatic non-small carcinoma cells. S/p repeat bronchoscopy, path pending -Bone scan and brain mri ordered to complete staging. Bone scan revealed abnormal uptake within the skull, right anterior rib and medial aspect of the right femur and scattered throughout the spine. Brain MRI revealed scattered osseous metastatic disease with at least 5 lesions noted. No intra-axial enhancing mass at this time. No evidence of acute/subacute infarct. Nonspecific white matter changes. Sepsis: The patient is continuing to improve. Afebrile, completed IV abx. -Defer to the admitting service and CCM for continued management
[2023-06-01] MEDS: ATORVASTATIN 20 MG TAB PO SCH (22:22)
[2023-06-01] MEDS: MIRTAZAPINE 15 MG TAB PO SCH (22:22)
[2023-06-01] MEDS: polyethylene glycoL 3350 17 GM POWD.PACK PO SCH (22:22)
[2023-06-01] MEDS: MELATONIN 3 MG TABLET PO SCH (22:22)
[2023-06-02] MEDS: ACETAMINOPHEN TAB 500 MG TAB PO SCH ×3 (01:15→18:13)
[2023-06-02] MEDS: SODIUM CHLORIDE 0.9% 1,000 ML IV SCH ×2 (01:15→19:44)
[2023-06-02] MEDS ORDERED: KETOROLAC 15 MG/ML 1 ML VIAL IVP STA (04:34)
[2023-06-02] MEDS: IPRATROPIUM-ALBUTEROL 3 ML NEB INHALATION SCH ×4 (07:57→20:12)
[2023-06-02] MEDS: SYMBICORT 160-4.5 MCG INHALER INHALATION SCH ×2 (07:57→20:12)
[2023-06-02] MEDS: PRIMIDONE 50 MG TAB PO SCH ×3 (09:10→20:59)
[2023-06-02] MEDS: ALPRAZolam 0.5 MG TAB PO PRN ×2 (09:10→20:57)
[2023-06-02] MEDS: SENNOSIDES 8.6 MG TAB PO SCH ×3 (09:11→20:56)
[2023-06-02] MEDS: PANTOPRAZOLE 40 MG/10 ML VIAL IVP SCH (09:11)
[2023-06-02] MEDS: METOPROLOL TARTRATE 25 MG TAB PO SCH ×2 (09:11→20:58)
[2023-06-02] MEDS: HEPARIN SODIUM,PORCINE 5,000 UNIT/ML 1 ML VIAL SQ SCH ×2 (09:11→20:56)
[2023-06-02] MEDS: FLUoxetine HCL 20 MG CAP PO SCH (09:12)
[2023-06-02] MEDS: HYDROmorphone 1 MG/ML 1 ML SYRINGE IVP PRN (09:24)
--- NOTE | 2023-06-02 11:53 | P.PN ---
Subjective Progress Note Date: 06/02/23 Patient was seen and examined on consultation today 05/24/2023, I saw the patient in the ICU, patient presented with acute hypoxic respiratory failure requiring intubation and mechanical ventilation while in the ER. Patient has a classic presentation of sepsis, the exact source of her sepsis is not clear at this point, most likely related to her gallbladder. She is now intubated and mechanically ventilated with assist control rate of 22 tidal volume 400 FiO2 60% and PEEP of 5 and ABG showed a pO2 of 175 pCO2 35 pH of 7.34. FiO2 was cut down to 40%. Patient is empirically on ceftriaxone. She received multiple fluid boluses, at this point in time she is not requiring norepinephrine, seems to be responding to fluid boluses. Apparently the patient was recently evaluated for potential lung cancer and metastasis, however no specific tissue diagnosis was made, she was supposed to have a PET scan and workup was still pending. Patient used to be a heavy smoker, she quit about 2 years ago, and I had a chance to discuss her condition with her daughter at bedside, recommended arterial line placement and central line placement, I also discussed the CODE STATUS, patient is DO NOT RESUSCITATE CODE STATUS, apparently the daughter is very well aware of the potential poor prognosis considering her underlying clinical condition. In the meantime the patient will remain in the ICU, will treat empirically with antibiotics, we'll consult general surgery for her abnormal findings on the gallbladder questionable cholecystitis, patient also has severe COPD, may consider bronchoscopic the patient while on mechanical ventilation to evaluate for possible endobronchial pathology since the left hilar abnormality seems to be compressing on the left mainstem bronchus. This will be addressed once the patient stabilizes more while in the ICU. Prognosis is extremely poor and guarded. Critical care time is over 55 minutes not including the time spent on procedures Patient was reevaluated today on 05/25/23, remains in the ICU intubated and mechanically ventilated. Chest x-ray is showing improvement in her overall chest x-ray appearance but she seems to have significant left lower lobe consoli dation. She is on assist control rate of 22 tidal volume 400 FiO2 14 PEEP of 8 ABG showed a pO2 of 119 pCO2 32 pH of 7.46. Patient is on propofol at 25 mcg/kg/m fentanyl 20 mcg/kg/h she is also receiving enteral feeding via orogastric tube. Considering the abnormality in the left lower lobe, and considering the patient had a previous CT of the chest showing left hilar and mediastinal adenopathy, bronchoscopy was done today, and lavage of the left lower lobe was done, but there was no evidence of endobronchial tumor. Patient was seen by surgery, and recommended mostly medical management for her presumptive acute cholecystitis. Patient remains on Rocephin and Flagyl. Patient is arousable, awake in spite of being on fairly good dose of fentanyl and propofol, WBC count is 7.6 hemoglobin 8.9, basic metabolic profile is normal, hence I plan to give the patient today a trial of weaning at least a pressure support and CPAP trial, and if tolerated may even extubate the patient today this afternoon. In the meantime the patient remains empirically on antibiotics sputum Gram stain is showing moderate gram-positive cocci. Patient was reevaluated today on 05/26/23, patient was extubated yesterday on 05/25 few hours after her bronchoscopy. She seems to have tolerated the extubation well, she is now on 4 L nasal cannula, remains on antibiotics in the form of Flagyl and ceftriaxone. Her bronchoscopy showed no evidence of endobronchial tumor however lavage of the left lung was performed, and cultures are pending. WBC count is 8.6 hemoglobin is 9.4. Platelets are 469, basic metabolic profile is normal renal profile is normal bicarb is normal Patient was reevaluated today on 05/27/23 patient remains in the ICU, she remains on 4 L nasal cannula sitting up in the chair, IV fluid is 0.9 normal saline at 50 mL/h, patient is not in any distress. Denies any shortness of breath, denies any pain, her cultures have remained negative all along. BAL cultures are nondiagnostic, had mostly normal Alejandra, blood cultures have been negative all along. Patient is hemodynamically stable, and I plan to transfer the patient out of the ICU to a medical surgical floor today. WBC count is 8.1 hemoglobin is 9.9 basic metabolic profile is normal and renal profile is normal The patient is seen today 05/28/2023 in follow-up on the regular medical floor. She is currently sitting up in a chair at the bedside. Awake and alert in no acute distress. Maintaining O2 saturation in the 90s on 4 L/m per nasal cannula. Bronchial alveolar lavage revealed no growth. Blood cultures revealed no growth. White count 8.1. Hemoglobin 10.0. Platelets 500. Sodium 134. Potassium 4.1. Bicarb 20. BUN 11. Creatinine 0.38. Glucose 112. She is continued on DuoNeb inhalations, Symbicort, Flagyl and ceftriaxone. Heparin for DVT prophylaxis. Normal saline at 50 MLS per hour. The patient is seen today 05/29/2023 in follow-up on the regular medical floor. She is currently sitting up in a chair. Awake and alert in no acute distress. Maintaining O2 saturations in the 90s on 4 L/m per nasal cannula. Follow-up chest x-rays now revealing a stable moderate left-sided pleural effusion. U ltrasound of the chest reveals a 9.8 cm pocket on the left. She did undergo a left-sided thoracentesis today with 800 mL of straw-colored fluid removed. Sent for fluid analysis and cytology. Follow-up chest x-ray revealed interval improvement in the left lung aeration. No pneumothorax. Bronchial lavage cultures revealed no growth. Cytology pending. White count 9.5. Hemoglobin 10.2. Sodium 133. Potassium 3.8. Bicarb 29. BUN 5. Creatinine 0.30. Glucose 95. She is continued on ceftriaxone and Flagyl. Remains on bronchodilators. Heparin for DVT prophylaxis. Normal saline at 50 ML's per hour. The patient is seen today 05/30/2023 in follow-up on the regular medical floor. She is awake and alert in no acute distress. Sitting up in a chair at the bedside. Denies any worsening shortness of breath, cough or congestion. Bronchial alveolar lavage is revealing no growth, blood cultures revealed no growth. White count 10.9. Hemoglobin 10.8. Platelets 538. Sodium 137. Pota ssium 3.6. Bicarb 26. BUN 5.3. Creatinine 0.4. Lipid analysis from yesterday's thoracentesis shows exudate with a protein of 2.8 and LDH of 516. Cytology pending. She is continued on DuoNeb inhalations, Symbicort, antibiotics in the form of ceftriaxone. Heparin for DVT prophylaxis. Normal sa line at 50 MLS per hour. The patient is seen today 05/31/2023 in follow-up on the regular medical floor. She is sitting up in a chair. Awake and alert in no acute distress. Denies any worsening shortness of breath, cough or congestion. No hemoptysis. Bone scan did reveal abnormal uptake within the skull, right anterior rib and medial aspect of the right femur and scattered throughout the spine concerning for metastatic disease. Left posterior rib fracture as seen on prior CT. Bronchial wash cultures revealed no malignancy. Pleural fluid cytology pending. The plan is for bronchoscopy with biopsies today. White count 8.7. Hemoglobin 10.1. Platelets 477. Sodium 135. Potassium 3.2. Bicarb 34. BUN 9. Creatinine 0.37. Glucose 94. The patient is seen today 06/01/2023 in follow-up on the regular medical floor. She is awake and alert in no acute distress. Sitting up in a chair. Denies any worsening shortness of breath, cough or congestion. She is maintaining O2 saturations in the 90s on 4 L/m per nasal cannula. She's been afebrile. Hemodynamically stable. Bronchial wash cultures from 05/25/2023 revealed no evidence of malignancy. Pleural fluid cultures from 05/29/2023 are pending. Bronchial biopsies from bronchoscopy on 05/31/2023 still pending. MRI of the br ain revealed scattered osseous metastatic disease. No intra-axial enhancing mass or lesions at this time. No evidence of acute/subacute infarct. Sodium 139. Potassium 3.5. BUN 10. Creatinine 0.4. Glucose 88. If she is continued on DuoNeb inhalations, Pulmicort. Heparin for DVT prophylaxis. Normal saline at 50 ML's per hour. The patient is seen today 06/02/2023 in follow-up on the regular medical floor. She is currently sitting up in a chair. Awake and alert in no acute distress. She remains quite weak. She is maintaining good O2 saturations in the 90s on 3 L/m per nasal cannula. She has normal saline at 50 ML's per hour. Her original pleural fluid cultures from 05/29/2023 are now showing positive for rare metastatic non-small cell carcinoma cells. Bronchoscopy biopsies from 05/31/2023 are pending. Ultrasound revealed no growth. She is continued on DuoNeb inhalations, Symbicort. Heparin for DVT prophylaxis. Objective - Vital Signs Vital signs: Vital Signs Temp 97.9 F 06/02/23 07:30 Pulse 97 06/02/23 08:07 Resp 15 06/02/23 07:30 BP 166/84 06/02/23 07:30 Pulse Ox 95 06/02/23 07:59 FiO2 95 05/27/23 16:46 Intake & Output 06/01/23 06/02/23 06/02/23 18:59 06:59 18:59 Weight 60.3 kg Other: Voiding Method Bedside Commode Bedside Commode Bedside Commode Diaper Diaper Diaper # Voids 1 1 1 ABP, PAP, CO, CI - Last Documented Arterial Blood Pressure 152/72 - Exam GENERAL EXAM: Alert, weak, pleasant 62-year-old female, up in a chair, on 3 L nasal cannula, in no apparent distress. HEAD: Normocephalic. EYES: Normal reaction of pupils, equal size. NOSE: Clear with pink turbinates. THROAT: No erythema or exudates. NECK: No masses, no JVD. CHEST: No chest wall deformity. LUNGS: Equal air entry with few crackles in the left base. CVS: S1 and S2 normal with no audible murmur, regular rhythm. ABDOMEN: No hepatosplenomegaly, normal bowel sounds, no guarding or rigidity. SPINE: No scoliosis or deformity SKIN: No rashes CENTRAL NERVOUS SYSTEM: No focal deficits, tone is normal in all 4 extremities. EXTREMITIES: There is no peripheral edema. No clubbing, no cyanosis. Peripheral pulses are intact. - Labs CBC & Chem 7: 05/31/23 06:00 06/01/23 06:05 Labs: Abnormal Lab Results - Last 24 Hours (Table) 05/31/23 Range/Units 14:00 Fluid Appearance Bloody A (Clear) Fluid RBC 470770 H (0-2000) /uL Microbiology - Last 24 Hours (Table) 05/31/23 14:00 Acid Fast Bacilli Smear - Preliminary Bronchoalviolar Lavage - Left 05/31/23 14:00 Gram Stain - Preliminary Bronchoalviolar Lavage - Left 05/29/23 12:45 Gram Stain - Preliminary Pleural Fluid Body Fluid Culture - Preliminary Assessment and Plan Assessment: Acute hypoxemic respiratory failure, secondary to sepsis and possible left lower lobe pneumonia, community-acquired. Or could even be aspiration pneumonia. She developed a left-sided pleural effusion. Status post left-sided thoracentesis 05/29/2023 with 800 mL of straw-colored fluid removed. 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 Suspected acute cholecystitis and abdominal sepsis. Seen by surgery and the recommendation was to continue antibiotics, recommended no surgery. Leukocytosis, secondary to above, resolved Severe metabolic anion gap acidosis, resolved Left lung mass, recently measuring 4.2 x 3.9 cm with multiple lesions suspicious for mediastinal and diffuse osseous metastasis. This was been worked up outpatient. Bronchoscopy on 05/25/2023 showed no evidence of endobronchial tumor. Bronchiolar lavage revealed no evidence of malignancy. Bronchoscopy with biopsies performed on 05/31/2023. Pathology pending. Bone scan is showing multiple areas of metastasis. MRI of the brain reveals metastatic osseous lesions but no intracranial mass or lesions. Chronic obstructive pulmonary disease, with FEV1 38% predicted, recently placed on PRN albuterol and Trelegy inhalers. Elevated troponin, likely related to supply/demand mismatch Hypertension Hyperlipidemia Coronary artery disease, with previous CABG History of multiple sclerosis History of anxiety/depression Plan: The patient was seen and evaluated Pathology, labs and medications reviewed Fluid pleural fluid from 05/29/2023 positive for non-small cell carcinoma Medical oncology is following Continue bronchodilators Increase her activity as tolerated Titrate the FiO2 as tolerated Plan will be for [facility] post discharge We will continue to follow This patient was seen independently by the nurse practitioner I have personally seen and examined the patient, performed the documentation and the assessment and plan as written. Number of minutes spent on the visit: 23.
[2023-06-02] MEDS ORDERED: KETOROLAC 15 MG/ML 1 ML VIAL IVP SCH (12:00)
[2023-06-02] MEDS ORDERED: KETOROLAC 15 MG/ML 1 ML VIAL IVP PRN (12:38)
--- NOTE | 2023-06-02 14:03 | P.DS ---
Providers Date of admission: 05/24/23 06:41 Expected date of discharge: 06/02/23 Attending physician: Edwina Bronson MD Consults: 05/24/23 06:43 Consult Physician Stat Consulting Provider: Hayder Bowman Consult Reason/Comments: acute caty on CT Do you want consulting provider notified?: Already Contacted Consult Physician Stat Consulting Provider: Kianna Cortez Consult Reason/Comments: ICU Do you want consulting provider notified?: Already Contacted 05/25/23 07:50 Consult Physician Urgent Consulting Provider: Kendrick Madrid Consult Reason/Comments: lung mass with mets Do you want consulting provider notified?: Yes Primary care physician: Ni German MD Hospital Course: 62-year-old female with history of recently diagnosed lung cancer with metastatic disease, CAD status post CABG, multiple sclerosis, COPD, hypertension, his lipidemia, essential tremor presenting with acute/subacute dyspnea. In the ED, temperature was 94.6, pulse 102, respiratory rate 32, blood pressure 163/119, was saturating at 97% on nonrebreather at 15 L. Due to increased work of breathing, BiPAP was suggested. However her mental status was poor, and she was subsequently intubated. Patient then transferred to medical ICU. WBC was 12.8, platelet 780, potassium 5.4, bicarb 15, creatinine 0.78, lactate 11.1, pH 7.16, pCO2 44, troponin 0.056, total bilirubin 0.3, AST 43, ALT 33, ALP 192, proBNP 14,000, CRP 6.9, lipase 70, respiratory viral panel negative, urine positive for oxycodone, barbiturates, and marijuana. CT abdomen and pelvis, CT chest showed mild diffuse edema and infiltrates worse on the right, atelectasis the majority of left lower lobe, multiple thoracic spine with obstructive lesions consistent with metastatic disease, marked gallbladder wall edema, obstructive lesions in the iliac bone and lumbar spine. Head CT shows multiple distractive skull lesions. EKG independently interpreted, shows sinus tachycardia. Chest x-ray, interpreted shows Left basilar opacity. Patient admitted to the ICU for acute hypoxic respiratory failure. Had a bronch with BAL. Surgery following for acute on chronic cholecystitis, treating conservatively with medical management. Oncology also following, will likely need tissue biopsy. Patient will also likely need additional staging including bone scan and imaging of brain.. Patient is doing better postextubation. Ech ocardiogram showed mild LV systolic dysfunction secondary to prior inferior wall myocardial infarction, moderate pulmonary hypertension. Now out of the ICU. He underwent left-sided thoracentesis, 800 mL fluid removed. Bone nuclear scan shows abnormal uptake within the skull, right anterior rib, medial aspect of right femur and scattered throughout the spine concerning for metastatic disease, left posterior rib fracture is seen on CT. Repeat bronchoscopy done 05/31 with biopsies pending. Brain MRI shows scattered osseous metastatic disease, no intracranial metastasis. Accepted to [facility] [place]. Patient seen and examined at bedside. No acute events overnight. Respiratory function improved. Still having some neck pain. Discussed with Cari GARZA, cleared by Pulmonology services for discharge. Plans to follow up with Pulmonology within 1 week of discharge. Plans to follow up with Dr. Madrid within 1 week of discharge for biopsy pathology results and further workup/management of her underlying malignancy. Pertinent studies: CXR, CT head, CT C-spine, CT chest/abdomen/pelvis, Abd US, Echo, bone scan, MRI brain Pertinent procedures: Bronchoscopy, intubation/extubation. General: Not in acute distress Derm: warm, dry Head: atraumatic, normocephalic, symmetric Eyes: EOMI, anicteric sclera ENT: Nose and ears atraumatic Neck: No thyromegaly, supple Cardiovascular: S1S2 reg, no murmur, no edema Lungs: Bilateral rhonchi, L>R, supplemental oxygen Abdominal: soft, nontender to palpation, no guarding, no appreciable organomegaly Ext: no gross muscle atrophy, muscle strength muscle strength 5 out of 5 in all 4 extremities, no contractures Psych: Alert and cooperative Discharge Diagnosis: Acute hypoxic respiratory failure Lung mass with metastatic disease Left-sided pleural effusion Severe sepsis, resolved Acute on chronic cholecystitis, status post antibiotics Transaminitis NSTEMI, likely type II History of CAD status post CABG Normocytic anemia Resolved: Lactic acidosis High anion gap metabolic acidosis Hyperkalemia Hypercalcemia Hypokalemia Leukocytosis Chronic: Hypertension Dyslipidemia COPD Depression This complex discharge took 35 minutes to complete. Patient Condition at Discharge: Stable Plan - Discharge Summary Discharge Rx Participant: Yes New Discharge Prescriptions: New oxyCODONE HCL [OxyIR] 15 mg PO Q6HR PRN #36 tab PRN Reason: Pain Sennosides [Senokot] 8.6 mg PO BID tab Ipratropium-Albuterol Nebulize [Duoneb 0.5 mg-3 mg/3 ml Soln] 3 ml INHALATION RT-Q2H PRN each PRN Reason: Shortness Of Breath Or Wheezing Metoprolol Tartrate [Lopressor] 25 mg PO BID tab Melatonin 3 mg PO HS tab polyethylene glycoL 3350 [Miralax] 17 gm PO HS PRN packet PRN Reason: Constipation ALPRAZolam [Xanax] 0.5 mg PO TID PRN #3 tab PRN Reason: Anxiety Continue Aspirin EC [Ecotrin Low Dose] 81 mg PO DAILY Ergocalciferol [Vitamin D2 (1250 Mcg = 17738 Iu)] 1,250 mcg PO Q7D FLUoxetine HCL [PROzac] 40 mg PO DAILY Fluticasone/Umeclidin/Vilanter [Trelegy Ellipta 200-62.5-25] 1 puff IN HALATION RT-DAILY lisinopriL [Zestril] 2.5 mg PO DAILY Multivitamins, Thera [Multivitamin (formulary)] 1 tab PO DAILY Mirtazapine [Remeron] 15 mg PO HS Primidone [Mysoline] 100 mg PO TID Simvastatin [Zocor] 40 mg PO HS Discontinued Albuterol Sulfate [Ventolin HFA] 1 - 2 puff INHALATION RT-Q6H PRN PRN Reason: Shortness Of Breath oxyCODONE HCL [OxyIR] 5 mg PO Q6H PRN PRN Reason: Severe Pain (Scale 7 To 10) Propranolol [Inderal] 40 mg PO BID tiZANidine [Zanaflex] 4 mg PO TID PRN PRN Reason: Muscle Spasm Discharge Medication List Aspirin EC [Ecotrin Low Dose] 81 mg PO DAILY 05/24/23 [History] Ergocalciferol [Vitamin D2 (1250 Mcg = 88166 Iu)] 1,250 mcg PO Q7D 05/24/23 [History] FLUoxetine HCL [PROzac] 40 mg PO DAILY 05/24/23 [History] Fluticasone/Umeclidin/Vilanter [Trelegy Ellipta 200-62.5-25] 1 puff INHALATION RT-DAILY 05/24/23 [History] Mirtazapine [Remeron] 15 mg PO HS 05/24/23 [History] Multivitamins, Thera [Multivitamin (formulary)] 1 tab PO DAILY 05/24/23 [History] Primidone [Mysoline] 100 mg PO TID 05/24/23 [History] Simvastatin [Zocor] 40 mg PO HS 05/24/23 [History] lisinopriL [Zestril] 2.5 mg PO DAILY 05/24/23 [History] ALPRAZolam [Xanax] 0.5 mg PO TID PRN #3 tab 06/02/23 [Rx] Ipratropium-Albuterol Nebulize [Duoneb 0.5 mg-3 mg/3 ml Soln] 3 ml INHALATION RT-Q2H PRN each 06/02/23 [Rx] Melatonin 3 mg PO HS tab 06/02/23 [Rx] Metoprolol Tartrate [Lopressor] 25 mg PO BID tab 06/02/23 [Rx] Sennosides [Senokot] 8.6 mg PO BID tab 06/02/23 [Rx] oxyCODONE HCL [OxyIR] 15 mg PO Q6HR PRN #36 tab 06/02/23 [Rx] polyethylene glycoL 3350 [Miralax] 17 gm PO HS PRN packet 06/02/23 [Rx] Follow up Appointment(s)/Referral(s): Kendrick Madrid [STAFF PHYSICIAN] - 1 Week Rick Navarro DO [Doctor of Osteopathic Medicine] - 1 Week None,Stated [REFERRING] - 1-2 days Activity/Diet/Wound Care/Special Instructions: Diet: Regular Follow up with PCP within 1-2 days of discharge. Follow up with Oncology Dr. Madrid for results of the biopsy that is pending within 1 week of discharge. Follow up with Pulmonology Dr. Navarro within 1 week of discharge. Discharge Disposition: TRANSFER TO [facility]/F
--- NOTE | 2023-06-02 15:54 | P.PN ---
Subjective Progress Note Date: 06/02/23 CHIEF COMPLAINT: Shortness of breath HISTORY OF PRESENT ILLNESS: Patient is sitting up at bedside chair. She reports her pain is controlled. She does report a decreased appetite but denies any nausea or vomiting. She is able to drink the Ensure. Afebrile. Patient scheduled for discharge to [facility] today. PHYSICAL EXAM: VITAL SIGNS: Reviewed. GENERAL: Well-developed in no acute distress ABDOMEN: Soft. Nondistended. nontender. right lower rib tenderness with palpation and mild RUQ pain NEUROLOGIC: Awake and alert ASSESSMENT: 1. Acute on chronic cholecystitis 2. Gallbladder distended with thickened gross noted on ultrasound 3. Lung mass with metastasis PLAN: -No surgical intervention planned at this time for the gallbladder. Recommending medical management -Patient can be discharge from surgical standpoint Physician [employer] note has been reviewed by physician. Signing provider agrees with the documented findings, assessment, and plan of care. Objective - Vital Signs Vital signs: Vital Signs Temp 97.9 F 06/02/23 07:30 Pulse 97 06/02/23 08:07 Resp 15 06/02/23 07:30 BP 166/84 06/02/23 07:30 Pulse Ox 95 06/02/23 07:59 FiO2 95 05/27/23 16:46 Intake & Output 06/01/23 06/02/23 06/02/23 18:59 06:59 18:59 Weight 60.3 kg Other: Voiding Method Bedside Commode Bedside Commode Bedside Commode Diaper Diaper Diaper # Voids 1 1 1 ABP, PAP, CO, CI - Last Documented Arterial Blood Pressure 152/72 - Labs CBC & Chem 7: 05/31/23 06:00 06/01/23 06:05 Labs: Abnormal Lab Results - Last 24 Hours (Table) 05/31/23 Range/Units 14:00 Fluid Appearance Bloody A (Clear) Fluid RBC [id number] H (0-2000) /uL Microbiology - Last 24 Hours (Table) 05/31/23 14:00 Acid Fast Bacilli Smear - Preliminary Bronchoalviolar Lavage - Left 05/31/23 14:00 Gram Stain - Preliminary Bronchoalviolar Lavage - Left 05/29/23 12:45 Gram Stain - Preliminary Pleural Fluid Body Fluid Culture - Preliminary
[2023-06-02] MEDS: KETOROLAC 15 MG/ML 1 ML VIAL IVP SCH ×2 (18:47→23:34)
--- NOTE | 2023-06-02 20:28 | P.PN ---
Subjective Progress Note Date: 06/02/23 At today's visit patient is sitting in bedside chair. Patient is reporting persistin neck and back pain. Reports improvement with IV diluadid and toradol, states oxycodone is not helping with pain. Objective - Vital Signs Vital signs: Vital Signs Temp 98.0 F 06/02/23 19:12 Pulse 120 H 06/02/23 20:13 Resp 18 06/02/23 19:12 BP 138/79 06/02/23 19:12 Pulse Ox 97 06/02/23 19:12 FiO2 95 05/27/23 16:46 Intake & Output 06/02/23 06/02/23 06/03/23 06:59 18:59 06:59 Weight 60.3 kg Other: Voiding Method Bedside Commode Bedside Commode Diaper Diaper # Voids 1 1 1 ABP, PAP, CO, CI - Last Documented Arterial Blood Pressure 152/72 - Constitutional General appearance: Present: no acute distress - EENT Eyes: Present: anicteric sclerae - Respiratory Details: breathing is even and unlabored - Cardiovascular Details: skin warm and dry - Integumentary Integumentary: Absent: cyanotic - Musculoskeletal Musculoskeletal Comment(s): left sided neck tenderness Musculoskeletal: Present: strength equal bilaterally - Psychiatric Psychiatric: Present: A&O x's 3 - Labs CBC & Chem 7: 05/31/23 06:00 06/01/23 06:05 Labs: Abnormal Lab Results - Last 24 Hours (Table) 05/31/23 Range/Units 14:00 Fluid RBC 880751 H (0-2000) /uL Microbiology - Last 24 Hours (Table) 05/25/23 09:20 Acid Fast Bacilli Smear - Preliminary Bronchoalviolar Lavage - Left Acid Fast Bacilli Culture - Preliminary 05/29/23 12:45 Gram Stain - Final Pleural Fluid Body Fluid Culture - Final 05/31/23 14:00 Gram Stain - Preliminary Bronchoalviolar Lavage - Left Bronchial Washings Culture - Preliminary 05/31/23 14:00 Acid Fast Bacilli Smear - Preliminary Bronchoalviolar Lavage - Left Assessment and Plan (1) Mass of left lung Current Visit: Yes Status: Acute Priority: High Code(s): R91.8 - OTHER NONSPECIFIC ABNORMAL FINDING OF LUNG FIELD SNOMED Code(s): 623913950 (2) Sepsis Current Visit: Yes Status: Acute Priority: High Code(s): A41.9 - SEPSIS, UNSPECIFIED ORGANISM SNOMED Code(s): 07673182 Plan: Left lung mass: This is strongly suspected to be lung malignancy with metastasis. However we do not yet have a pathologic diagnosis. Bronchoscopy was negative for any endobronchial lesions that could be targeted. Bronchial washing cytology negative for malignancy -S/p left sided thoracentesis, with 700cc removed. Pathology from left sided thoracentesis revealed rare metastatic non-small carcinoma cells, but subtyping was limited and primary site was unable to be identified. S/p repeat bronchoscopy, path pending -Bone scan and brain mri ordered to complete staging. Bone scan revealed abnormal uptake within the skull, right anterior rib and medial aspect of the right femur and scattered throughout the spine. Brain MRI revealed scattered osseous metastatic disease with at least 5 lesions noted. No intra-axial enhancing mass at this time. No evidence of acute/subacute infarct. Nonspecific white matter changes. Above findings have been discussed in detail with patient -Clinic f/u will be scheduled upon discharge from rehab, treatment will be on hold until d/c Intractable pain: -Neck and back pain persisting -Toradol helping with pain most. Will continue toradol QID, and make adjustments to oxycodone. Spoke with PharmD and converted to PO regimen, will increase oxycodone 15mg q6hrs -Will continue to monitor and make adjustments as needed
[2023-06-02] MEDS: ATORVASTATIN 20 MG TAB PO SCH (20:56)
[2023-06-02] MEDS: polyethylene glycoL 3350 17 GM POWD.PACK PO SCH (20:56)
[2023-06-02] MEDS: MELATONIN 3 MG TABLET PO SCH (20:57)
[2023-06-02] MEDS: MIRTAZAPINE 15 MG TAB PO SCH (20:58)
[2023-06-03] MEDS: ACETAMINOPHEN TAB 500 MG TAB PO SCH ×3 (01:55→17:21)
[2023-06-03] MEDS: KETOROLAC 15 MG/ML 1 ML VIAL IVP SCH ×4 (05:46→23:52)
[2023-06-03] MEDS: IPRATROPIUM-ALBUTEROL 3 ML NEB INHALATION SCH ×4 (07:55→20:30)
[2023-06-03] MEDS: SYMBICORT 160-4.5 MCG INHALER INHALATION SCH ×2 (07:56→20:30)
[2023-06-03] MEDS: SENNOSIDES 8.6 MG TAB PO SCH ×2 (08:14→20:59)
[2023-06-03] MEDS: METOPROLOL TARTRATE 25 MG TAB PO SCH ×2 (08:26→21:04)
[2023-06-03] MEDS: FLUoxetine HCL 20 MG CAP PO SCH (08:26)
[2023-06-03] MEDS: HEPARIN SODIUM,PORCINE 5,000 UNIT/ML 1 ML VIAL SQ SCH ×2 (08:27→21:04)
[2023-06-03] MEDS: PANTOPRAZOLE 40 MG/10 ML VIAL IVP SCH (08:27)
[2023-06-03] MEDS: PRIMIDONE 50 MG TAB PO SCH ×3 (08:27→21:04)
[2023-06-03] MEDS: HYDROmorphone 1 MG/ML 1 ML SYRINGE IVP PRN (08:33)
[2023-06-03] MEDS: METHYL SALICYLATE-MENTHOL OINT (3 OZ TUBE) TOPICAL PRN (10:37)
[2023-06-03] MEDS ORDERED: DEXAMETHASONE SOD PHOSPHATE 10 MG/ML 1 ML VIAL IVP STA (10:42)
--- NOTE | 2023-06-03 12:12 | P.PN ---
Subjective Progress Note Date: 06/03/23 CHIEF COMPLAINT: Shortness of breath HISTORY OF PRESENT ILLNESS: Patient is sitting up at bedside chair. Appetite is diminished but she is tolerating a small amount. She is able to drink her insurance. She denies any nausea or vomiting at this time. Her pain is tolerable at this time. Per patient and family they're working on pain management prior to discharge to [facility]. Tachycardic. Patient completed antibiotics. PHYSICAL EXAM: VITAL SIGNS: Reviewed. GENERAL: Well-developed in no acute distress ABDOMEN: Soft. Nondistended. right lower rib tenderness with palpation and mild RUQ pain NEUROLOGIC: Awake and alert ASSESSMENT: 1. Acute on chronic cholecystitis 2. Gallbladder distended with thickened gross noted on ultrasound 3. Lung mass with metastasis PLAN: -No surgical intervention planned at this time for the gallbladder. Recommending medical management -Patient can be discharge from surgical standpoint when medically cleared. Physician [employer] note has been reviewed by physician. Signing provider agrees with the documented findings, assessment, and plan of care. Objective - Vital Signs Vital signs: Vital Signs Temp 98.4 F 06/03/23 07:24 Pulse 120 H 06/03/23 08:10 Resp 18 06/03/23 07:24 BP 156/94 06/03/23 07:24 Pulse Ox 97 06/03/23 07:59 FiO2 95 05/27/23 16:46 Intake & Output 06/02/23 06/03/23 06/03/23 18:59 06:59 18:59 Intake Total 1000 Balance 1000 Weight 59.1 kg Intake: Intake, IV Titration 600 Amount Sodium Chloride 0.9% 1, 600 000 ml @ 50 mls/hr IV . Q20H [facility] Rx#:[id number] Oral 400 Other: Voiding Method Bedside Commode Bedside Commode Bedside Commode Diaper Diaper Diaper # Voids 1 1 1 # Bowel Movements 1 ABP, PAP, CO, CI - Last Documented Arterial Blood Pressure 152/72 - Labs CBC & Chem 7: 05/31/23 06:00 06/01/23 06:05 Labs: Microbiology - Last 24 Hours (Table) 05/31/23 14:00 Gram Stain - Final Bronchoalviolar Lavage - Left Bronchial Washings Culture - Final 05/25/23 09:20 Acid Fast Bacilli Smear - Preliminary Bronchoalviolar Lavage - Left Acid Fast Bacilli Culture - Preliminary 05/29/23 12:45 Gram Stain - Final Pleural Fluid Body Fluid Culture - Final 05/31/23 14:00 Acid Fast Bacilli Smear - Preliminary Bronchoalviolar Lavage - Left
[2023-06-03] MEDS: ALPRAZolam 0.5 MG TAB PO PRN ×2 (12:40→21:04)
[2023-06-03] MEDS: dexAMETHasone 4 MG TAB PO SCH ×3 (12:41→23:51)
--- NOTE | 2023-06-03 13:08 | P.PN ---
Subjective Progress Note Date: 06/03/23 62-year-old female with history of recently diagnosed lung cancer with metastatic disease, CAD status post CABG, multiple sclerosis, COPD, hypertension, his lipidemia, essential tremor presenting with acute/subacute dyspnea. In the ED, temperature was 94.6, pulse 102, respiratory rate 32, blood pressure 163/119, was saturating at 97% on nonrebreather at 15 L. Due to increased work of breathing, BiPAP was suggested. However her mental status was poor, and she was subsequently intubated. Patient then transferred to medical ICU. WBC was 12.8, platelet 780, potassium 5.4, bicarb 15, creatinine 0.78, lactate 11.1, pH 7.16, pCO2 44, troponin 0.056, total bilirubin 0.3, AST 43, ALT 33, ALP 192, proBNP 14,000, CRP 6.9, lipase 70, respiratory viral panel negative, urine positive for oxycodone, barbiturates, and marijuana. CT abdomen and pelvis, CT chest showed mild diffuse edema and infiltrates worse on the right, atelectasis the majority of left lower lobe, multiple thoracic spine with obstructive lesions consistent with metastatic disease, marked gallbladder wall edema, obstructive lesions in the iliac bone and lumbar spine. Head CT shows multiple distractive skull lesions. EKG independently interpreted, shows sinus tachycardia. Chest x-ray, interpreted shows Left basilar opacity. Patient admitted to the ICU for acute hypoxic respiratory failure. Had a bronch with BAL. Surgery following for acute on chronic cholecystitis, treating conservatively with medical management. Oncology also following, will likely need tissue biopsy. Patient will also likely need additional staging including bone scan and imaging of brain. Patient is doing better post extubation. Echocardiogram showed mild LV systolic dysfunction secondary to prior inferior wall myocardial infarction, moderate pulmonary hypertension. Now out of the ICU. He underwent left-sided thoracentesis, 800 mL fluid removed. Bone nuclear scan shows abnormal uptake within the skull, right anterior rib, medial aspect of right femur and scattered throughout the spine concerning for metastatic disease, left posterior rib fracture is seen on CT. Repeat bronchoscopy done 05/31 with biopsies pending. Brain MRI shows scattered osseous metastatic disease, no intracranial metastasis. Accepted to [facility] [place]. Patient seen and examined at bedside. Cleared by Pulmonology services for discharge. Initially planned for discharge on 06/02 but held due to uncontrolled pain. 06/03 Patient seen and examined. She reports continued pain in her cervical spine. She appears quite uncomofortable. Pain management consulted, she has been started on Fentanyl patch. I started Decadron as well. Continued on Toradol scheduled and Oxy IR PRN. We plan on discharge as soon as her pain is under better control. Plans to follow up with Pulmonology within 1 week of discharge. Plans to follow up with Dr. Madrid within 1 week of discharge for biopsy pathology results and further workup/management of her underlying malignancy. Pertinent studies: CXR, CT head, CT C-spine, CT chest/abdomen/pelvis, Abd US, Echo, bone scan, MRI brain Pertinent procedures: Bronchoscopy, intubation/extubation. General: Moderate distress Derm: warm, dry Head: atraumatic, normocephalic, symmetric Eyes: EOMI, anicteric sclera ENT: Nose and ears atraumatic Neck: No thyromegaly, supple Cardiovascular: S1S2 reg, no murmur, no edema Lungs: Bilateral rhonchi, L>R, supplemental oxygen Abdominal: soft, nontender to palpation, no guarding, no appreciable organomegaly Ext: no gross muscle atrophy, muscle strength muscle strength 5 out of 5 in all 4 extremities, no contractures Psych: Alert and cooperative Assessment and Plan Acute hypoxic respiratory failure: Supplemental O2 to maintain O2 saturation > 92%. Lung mass with metastatic disease: Pain management consulted. She has been started on Fentanyl patch. I started Decadron as well. Continued on Toradol scheduled and Oxy IR PRN. Follow up with Oncology. Left-sided pleural effusion: Follow up with Pulmonology. Acute on chronic cholecystitis: Status post antibiotics. Transaminitis NSTEMI, likely type II History of CAD status post CABG: ASA and Simvastatin. Metoprolol. Normocytic anemia Resolved: Lactic acidosis, Sepsis, High anion gap metabolic acidosis, Hyperkalemia, Hypercalcemia, Hypokalemia, Leukocytosis Chronic: Hypertension, Dyslipidemia, COPD, Depression Objective - Vital Signs Vital signs: Vital Signs Temp 98.1 F 06/03/23 12:22 Pulse 121 H 06/03/23 12:22 Resp 18 06/03/23 12:22 BP 149/85 06/03/23 12:22 Pulse Ox 96 06/03/23 12:22 FiO2 95 05/27/23 16:46 Intake & Output 06/02/23 06/03/23 06/03/23 18:59 06:59 18:59 Intake Total 1000 Balance 1000 Weight 59.1 kg Intake: Intake, IV Titration 600 Amount Sodium Chloride 0.9% 1, 600 000 ml @ 50 mls/hr IV . Q20H [facility] Rx#:[id number] Oral 400 Other: Voiding Method Bedside Commode Bedside Commode Bedside Commode Diaper Diaper Diaper # Voids 1 1 1 # Bowel Movements 1 ABP, PAP, CO, CI - Last Documented Arterial Blood Pressure 152/72 - Labs CBC & Chem 7: 05/31/23 06:00 06/01/23 06:05 Labs: Microbiology - Last 24 Hours (Table) 05/31/23 14:00 Gram Stain - Final Bronchoalviolar Lavage - Left Bronchial Washings Culture - Final 05/25/23 09:20 Acid Fast Bacilli Smear - Preliminary Bronchoalviolar Lavage - Left Acid Fast Bacilli Culture - Preliminary 05/29/23 12:45 Gram Stain - Final Pleural Fluid Body Fluid Culture - Final 05/31/23 14:00 Acid Fast Bacilli Smear - Preliminary Bronchoalviolar Lavage - Left
--- NOTE | 2023-06-03 13:23 | P.PAINCN ---
History of Present Illness - Reason for Consult Consult date: 06/03/23 - History of Present Illness 62 years old female , who was recently diagnosed with lung cancer , and she had also destructive lesions in the cervical and lumbar spine, patient complaining of severe neck pain up her back pain and low back pain is constant, aggravated with any movement, and is not controlled with the current pain medication patient currently on Toradol 15 mg every 6 hours and Dilaudid 1 mg IV every 4 hours and Tylenol thousand milligrams every 8 hours , and OxyIR 15 mg every 6 hours patient reported the current medication is not helping to control her pain, the pain is constant and exacerbated with any movement, and also complaining of some weakness in the lower extremity (she is diagnosed with mult iple sclerosis), patient had a history of COPD hypertension hyperlipidemia and essential tremor Past Medical History Past Medical History: Coronary Artery Disease (CAD), Chest Pain / Angina, Hypertension, Myocardial Infarction (ID) Additional Past Medical History / Comment(s): MS, Chiari malformation, lung mass with mets, anxiety, Depression Last Myocardial Infarction Date:: 2010 History of Any Multi-Drug Resistant Organisms: None Reported Past Surgical History: Coronary Bypass/CABG Past Anesthesia/Blood Transfusion Reactions: No Reported Reaction Past Psychological History: Anxiety, Depression Smoking Status: Former smoker Past Alcohol Use History: None Reported Past Drug Use History: None Reported Medications and Allergies Home Medications Medication Instructions Recorded Confirmed Type Aspirin EC [Ecotrin Low Dose] 81 mg PO DAILY 05/24/23 05/24/23 History Ergocalciferol [Vitamin D2 (1250 1,250 mcg PO Q7D 05/24/23 05/24/23 History Mcg = 88146 Iu)] FLUoxetine HCL [PROzac] 40 mg PO DAILY 05/24/23 05/24/23 History Fluticasone/Umeclidin/Vilanter 1 puff INHALATION RT-DAILY 05/24/23 05/24/23 History [Trelegy Ellipta 200-62.5-25] Mirtazapine [Remeron] 15 mg PO HS 05/24/23 05/24/23 History Multivitamins, Thera [Multivitamin 1 tab PO DAILY 05/24/23 05/24/23 History (formulary)] Primidone [Mysoline] 100 mg PO TID 05/24/23 05/24/23 History Simvastatin [Zocor] 40 mg PO HS 05/24/23 05/24/23 History lisinopriL [Zestril] 2.5 mg PO DAILY 05/24/23 05/24/23 History ALPRAZolam [Xanax] 0.5 mg PO TID PRN #3 tab 06/02/23 Rx Ipratropium-Albuterol Nebulize 3 ml INHALATION RT-Q2H PRN each 06/02/23 Rx [Duoneb 0.5 mg-3 mg/3 ml Soln] Melatonin 3 mg PO HS tab 06/02/23 Rx Metoprolol Tartrate [Lopressor] 25 mg PO BID tab 06/02/23 Rx Sennosides [Senokot] 8.6 mg PO BID tab 06/02/23 Rx oxyCODONE HCL [OxyIR] 15 mg PO Q6HR PRN #36 tab 06/02/23 Rx polyethylene glycoL 3350 [Miralax] 17 gm PO HS PRN packet 06/02/23 Rx Allergies Allergy/AdvReac Type Severity Reaction Status Date / Time Penicillins Allergy Rash/Hives Verified 05/24/23 09:27 Physical Exam Vitals: Vital Signs Temp Pulse Pulse Resp BP Pulse Ox 06/03/23 12:22 98.1 F 121 H 18 149/85 96 06/03/23 12:11 116 H 06/03/23 11:56 108 H 06/03/23 08:10 120 H 06/03/23 07:59 116 H 97 06/03/23 07:24 98.4 F 124 H 18 156/94 94 L 06/03/23 02:10 98.2 F 118 H 18 138/85 97 06/02/23 22:03 112 H 06/02/23 20:25 115 H 06/02/23 20:13 120 H 06/02/23 19:55 18 06/02/23 19:12 98.0 F 126 H 18 138/79 97 06/02/23 16:20 101 H 06/02/23 13:54 98 F 93 16 138/79 95 Intake and Output 06/02/23 06/03/23 06/03/23 22:59 06:59 14:59 Intake Total 1000 Balance 1000 Intake: Intake, IV Titration 600 Amount Sodium Chloride 0.9% 1, 600 000 ml @ 50 mls/hr IV . Q20H [facility] Rx#:[id number] Oral 400 Other: Voiding Method Bedside Commode Bedside Commode Diaper Diaper # Voids 1 1 1 # Bowel Movements 1 Weight 59.1 kg Physical Examinations : -Constitutiona : Cooperative , moderate distress . -HEENT : nech : supple , no Lymphadenopathy , normal thyroid size . : eyes : no ptosis , no icterus, no photophobia . - neurologic : Cranial nerve II to XII intact , no focal neurological deffecit . -psychatric : alert , oriented X 3 , appropriate affect , intact judgment and insight . -Lymphatic : no Lymphadenopathy . - musculoskeltal : Cervical Spine motor stregnth in the deltoid and biceps, normal right side , normal Left side Generalized tenderness over the cervical paraspinal muscles Lumber spine moter stegnth lower extremities ,thigh and legs 3-4/5 Right side , 3-4/5 Left side gereralized tenderness in the lumbar paraspinal muscles Results CBC & Chem 7: 05/31/23 06:00 06/01/23 06:05 Labs: Microbiology - Last 24 Hours (Table) 05/31/23 14:00 Gram Stain - Final Bronchoalviolar Lavage - Left Bronchial Washings Culture - Final 05/25/23 09:20 Acid Fast Bacilli Smear - Preliminary Bronchoalviolar Lavage - Left Acid Fast Bacilli Culture - Preliminary 05/29/23 12:45 Gram Stain - Final Pleural Fluid Body Fluid Culture - Final 05/31/23 14:00 Acid Fast Bacilli Smear - Preliminary Bronchoalviolar Lavage - Left Comments: Computed tomography scan of the cervical spine destructive lesion C1 to C5 and destructive lesion of the iliac bone and lumbar spine Assessment and Plan Plan: Assessment and Plan: Acute hypoxic respiratory failure: Supplemental O2 to maintain O2 saturation > 92%. Pain secondary to malignancy (Lung mass and destructive lesions in the cervical and lumbar spine ) Recommend start patient on Duragesic patch 25 g every 72 hours Continue oxycodone IR 30 mg every 4-6 hours when necessary Continue Tylenol IV and it can be discontinued once patient discharged home. We can change to go to Motrin 600 mg every 8 hours when necessary. Continue Prozac prescribed and if patient had no benefit from it ,then can change it to desipramine 10 mg daily at bedtime. Patient can follow up in the pain clinic in 1-2 weeks after discharge Time with Patient: Less than 30 PQRS Measure Charge Sheet - Pain Location None Non-Pharmacological Interventions: Darkened Room, Emotional/Spiritual Support, Inactivity, Reduce Environmental Stimuli Pharmacological Interventions: PRN Medication Lower Back Non-Pharmacological Interventions: Darkened Room, Distraction, Heat, Position/Reposition Pharmacological Interventions:  Left Head Pharmacological Interventions:  Neck Non-Pharmacological Interventions: Darkened Room, Distraction, Position/Reposition Pharmacological Interventions: PRN Medication Pain Comment: See MAR pain assessment. PQRS Narrative: Blood Pressure [Right Arm] 149/85 Blood Pressure [Left Arm 101/62 Sitting] Blood Pressure 117/76 Pain Intensity [Neck] 8 Pain Intensity [Left Head] 0 Pain Intensity [Lower Back] 4 Pain Intensity [None] 6 Pain Intensity 8 Pain Scale Used Numeric (1 - 10) Scale Used Numeric (1 - 10) Home Medications: Ambulatory Orders Aspirin EC [Ecotrin Low Dose] 81 mg PO DAILY 05/24/23 Ergocalciferol [Vitamin D2 (1250 Mcg = 18494 Iu)] 1,250 mcg PO Q7D 05/24/23 FLUoxetine HCL [PROzac] 40 mg PO DAILY 05/24/23 Fluticasone/Umeclidin/Vilanter [Trelegy Ellipta 200-62.5-25] 1 puff INHALATION RT-DAILY 05/24/23 Mirtazapine [Remeron] 15 mg PO HS 05/24/23 Multivitamins, Thera [Multivitamin (formulary)] 1 tab PO DAILY 05/24/23 Primidone [Mysoline] 100 mg PO TID 05/24/23 Simvastatin [Zocor] 40 mg PO HS 05/24/23 lisinopriL [Zestril] 2.5 mg PO DAILY 05/24/23 ALPRAZolam [Xanax] 0.5 mg PO TID PRN #3 tab 06/02/23 Ipratropium-Albuterol Nebulize [Duoneb 0.5 mg-3 mg/3 ml Soln] 3 ml INHALATION RT-Q2H PRN each 06/02/23 Melatonin 3 mg PO HS tab 06/02/23 Metoprolol Tartrate [Lopressor] 25 mg PO BID tab 06/02/23 Sennosides [Senokot] 8.6 mg PO BID tab 06/02/23 oxyCODONE HCL [OxyIR] 15 mg PO Q6HR PRN #36 tab 06/02/23 polyethylene glycoL 3350 [Miralax] 17 gm PO HS PRN packet 06/02/23
[2023-06-03] MEDS ORDERED: ZOLEDRONIC ACID 4 MG in SODIUM CHLORIDE 0.9% 100 ML IV ONE (13:30)
--- NOTE | 2023-06-03 13:40 | P.PN ---
Subjective Progress Note Date: 06/03/23 Patient was seen and examined on consultation today 05/24/2023, I saw the patient in the ICU, patient presented with acute hypoxic respiratory failure requiring intubation and mechanical ventilation while in the ER. Patient has a classic presentation of sepsis, the exact source of her sepsis is not clear at this point, most likely related to her gallbladder. She is now intubated and mechanically ventilated with assist control rate of 22 tidal volume 400 FiO2 60% and PEEP of 5 and ABG showed a pO2 of 175 pCO2 35 pH of 7.34. FiO2 was cut down to 40%. Patient is empirically on ceftriaxone. She received multiple fluid boluses, at this point in time she is not requiring norepinephrine, seems to be responding to fluid boluses. Apparently the patient was recently evaluated for potential lung cancer and metastasis, however no specific tissue diagnosis was made, she was supposed to have a PET scan and workup was still pending. Patient used to be a heavy smoker, she quit about 2 years ago, and I had a chance to discuss her condition with her daughter at bedside, recommended arterial line placement and central line placement, I also discussed the CODE STATUS, patient is DO NOT RESUSCITATE CODE STATUS, apparently the daughter is very well aware of the potential poor prognosis considering her underlying clinical condition. In the meantime the patient will remain in the ICU, will treat empirically with antibiotics, we'll consult general surgery for her abnormal findings on the gallbladder questionable cholecystitis, patient also has severe COPD, may consider bronchoscopic the patient while on mechanical ventilation to evaluate for possible endobronchial pathology since the left hilar abnormality seems to be compressing on the left mainstem bronchus. This will be addressed once the patient stabilizes more while in the ICU. Prognosis is extremely poor and guarded. Critical care time is over 55 minutes not including the time spent on procedures Patient was reevaluated today on 05/25/23, remains in the ICU intubated and mechanically ventilated. Chest x-ray is showing improvement in her overall chest x-ray appearance but she seems to have significant left lower lobe consoli dation. She is on assist control rate of 22 tidal volume 400 FiO2 14 PEEP of 8 ABG showed a pO2 of 119 pCO2 32 pH of 7.46. Patient is on propofol at 25 mcg/kg/m fentanyl 20 mcg/kg/h she is also receiving enteral feeding via orogastric tube. Considering the abnormality in the left lower lobe, and considering the patient had a previous CT of the chest showing left hilar and mediastinal adenopathy, bronchoscopy was done today, and lavage of the left lower lobe was done, but there was no evidence of endobronchial tumor. Patient was seen by surgery, and recommended mostly medical management for her presumptive acute cholecystitis. Patient remains on Rocephin and Flagyl. Patient is arousable, awake in spite of being on fairly good dose of fentanyl and propofol, WBC count is 7.6 hemoglobin 8.9, basic metabolic profile is normal, hence I plan to give the patient today a trial of weaning at least a pressure support and CPAP trial, and if tolerated may even extubate the patient today this afternoon. In the meantime the patient remains empirically on antibiotics sputum Gram stain is showing moderate gram-positive cocci. Patient was reevaluated today on 05/26/23, patient was extubated yesterday on 05/25 few hours after her bronchoscopy. She seems to have tolerated the extubation well, she is now on 4 L nasal cannula, remains on antibiotics in the form of Flagyl and ceftriaxone. Her bronchoscopy showed no evidence of endobronchial tumor however lavage of the left lung was performed, and cultures are pending. WBC count is 8.6 hemoglobin is 9.4. Platelets are 469, basic metabolic profile is normal renal profile is normal bicarb is normal Patient was reevaluated today on 05/27/23 patient remains in the ICU, she remains on 4 L nasal cannula sitting up in the chair, IV fluid is 0.9 normal saline at 50 mL/h, patient is not in any distress. Denies any shortness of breath, denies any pain, her cultures have remained negative all along. BAL cultures are nondiagnostic, had mostly normal Alejandra, blood cultures have been negative all along. Patient is hemodynamically stable, and I plan to transfer the patient out of the ICU to a medical surgical floor today. WBC count is 8.1 hemoglobin is 9.9 basic metabolic profile is normal and renal profile is normal The patient is seen today 05/28/2023 in follow-up on the regular medical floor. She is currently sitting up in a chair at the bedside. Awake and alert in no acute distress. Maintaining O2 saturation in the 90s on 4 L/m per nasal cannula. Bronchial alveolar lavage revealed no growth. Blood cultures revealed no growth. White count 8.1. Hemoglobin 10.0. Platelets 500. Sodium 134. Potassium 4.1. Bicarb 20. BUN 11. Creatinine 0.38. Glucose 112. She is continued on DuoNeb inhalations, Symbicort, Flagyl and ceftriaxone. Heparin for DVT prophylaxis. Normal saline at 50 MLS per hour. The patient is seen today 05/29/2023 in follow-up on the regular medical floor. She is currently sitting up in a chair. Awake and alert in no acute distress. Maintaining O2 saturations in the 90s on 4 L/m per nasal cannula. Follow-up chest x-rays now revealing a stable moderate left-sided pleural effusion. U ltrasound of the chest reveals a 9.8 cm pocket on the left. She did undergo a left-sided thoracentesis today with 800 mL of straw-colored fluid removed. Sent for fluid analysis and cytology. Follow-up chest x-ray revealed interval improvement in the left lung aeration. No pneumothorax. Bronchial lavage cultures revealed no growth. Cytology pending. White count 9.5. Hemoglobin 10.2. Sodium 133. Potassium 3.8. Bicarb 29. BUN 5. Creatinine 0.30. Glucose 95. She is continued on ceftriaxone and Flagyl. Remains on bronchodilators. Heparin for DVT prophylaxis. Normal saline at 50 ML's per hour. The patient is seen today 05/30/2023 in follow-up on the regular medical floor. She is awake and alert in no acute distress. Sitting up in a chair at the bedside. Denies any worsening shortness of breath, cough or congestion. Bronchial alveolar lavage is revealing no growth, blood cultures revealed no growth. White count 10.9. Hemoglobin 10.8. Platelets 538. Sodium 137. Pota ssium 3.6. Bicarb 26. BUN 5.3. Creatinine 0.4. Lipid analysis from yesterday's thoracentesis shows exudate with a protein of 2.8 and LDH of 516. Cytology pending. She is continued on DuoNeb inhalations, Symbicort, antibiotics in the form of ceftriaxone. Heparin for DVT prophylaxis. Normal sa line at 50 MLS per hour. The patient is seen today 05/31/2023 in follow-up on the regular medical floor. She is sitting up in a chair. Awake and alert in no acute distress. Denies any worsening shortness of breath, cough or congestion. No hemoptysis. Bone scan did reveal abnormal uptake within the skull, right anterior rib and medial aspect of the right femur and scattered throughout the spine concerning for metastatic disease. Left posterior rib fracture as seen on prior CT. Bronchial wash cultures revealed no malignancy. Pleural fluid cytology pending. The plan is for bronchoscopy with biopsies today. White count 8.7. Hemoglobin 10.1. Platelets 477. Sodium 135. Potassium 3.2. Bicarb 34. BUN 9. Creatinine 0.37. Glucose 94. The patient is seen today 06/01/2023 in follow-up on the regular medical floor. She is awake and alert in no acute distress. Sitting up in a chair. Denies any worsening shortness of breath, cough or congestion. She is maintaining O2 saturations in the 90s on 4 L/m per nasal cannula. She's been afebrile. Hemodynamically stable. Bronchial wash cultures from 05/25/2023 revealed no evidence of malignancy. Pleural fluid cultures from 05/29/2023 are pending. Bronchial biopsies from bronchoscopy on 05/31/2023 still pending. MRI of the br ain revealed scattered osseous metastatic disease. No intra-axial enhancing mass or lesions at this time. No evidence of acute/subacute infarct. Sodium 139. Potassium 3.5. BUN 10. Creatinine 0.4. Glucose 88. If she is continued on DuoNeb inhalations, Pulmicort. Heparin for DVT prophylaxis. Normal saline at 50 ML's per hour. The patient is seen today 06/02/2023 in follow-up on the regular medical floor. She is currently sitting up in a chair. Awake and alert in no acute distress. She remains quite weak. She is maintaining good O2 saturations in the 90s on 3 L/m per nasal cannula. She has normal saline at 50 ML's per hour. Her original pleural fluid cultures from 05/29/2023 are now showing positive for rare metastatic non-small cell carcinoma cells. Bronchoscopy biopsies from 05/31/2023 are pending. Ultrasound revealed no growth. She is continued on DuoNeb inhalations, Symbicort. Heparin for DVT prophylaxis. The patient is seen today 06/03/2023 in follow-up on the regular medical floor. She is awake and alert in no acute distress. She remains quite weak. She is teary-eyed today due to her cancer diagnosis. Her family is at the bedside. He is currently on 4 L nasal cannula with O2 saturations in the mid 90s. Afebrile. Hemodynamically stable. Continue to have ongoing issues with neck and back pain due to osseous metastasis. Pain management has been consulted. She is continued on DuoNeb inhalations, Symbicort. Heparin for DVT prophylaxis. Objective - Vital Signs Vital signs: Vital Signs Temp 98.1 F 06/03/23 12:22 Pulse 121 H 06/03/23 12:22 Resp 18 06/03/23 12:22 BP 149/85 06/03/23 12:22 Pulse Ox 96 06/03/23 12:22 FiO2 95 05/27/23 16:46 Intake & Output 06/02/23 06/03/23 06/03/23 18:59 06:59 18:59 Intake Total 1000 Balance 1000 Weight 59.1 kg Intake: Intake, IV Titration 600 Amount Sodium Chloride 0.9% 1, 600 000 ml @ 50 mls/hr IV . Q20H [facility] Rx#:[id number] Oral 400 Other: Voiding Method Bedside Commode Bedside Commode Bedside Commode Diaper Diaper Diaper # Voids 1 1 1 # Bowel Movements 1 ABP, PAP, CO, CI - Last Documented Arterial Blood Pressure 152/72 - Exam GENERAL EXAM: Alert, weak, teary-eyed 62-year-old female, up in a chair, on 4 L nasal cannula, in no apparent distress. HEAD: Normocephalic. EYES: Normal reaction of pupils, equal size. NOSE: Clear with pink turbinates. THROAT: No erythema or exudates. NECK: No masses, no JVD. CHEST: No chest wall deformity. LUNGS: Equal air entry with few crackles in the left base. CVS: S1 and S2 normal with no audible murmur, regular rhythm. ABDOMEN: No hepatosplenomegaly, normal bowel sounds, no guarding or rigidity. SPINE: No scoliosis or deformity SKIN: No rashes CENTRAL NERVOUS SYSTEM: No focal deficits, tone is normal in all 4 extremities. EXTREMITIES: There is no peripheral edema. No clubbing, no cyanosis. Peripheral pulses are intact. - Labs CBC & Chem 7: 05/31/23 06:00 06/01/23 06:05 Labs: Microbiology - Last 24 Hours (Table) 05/31/23 14:00 Gram Stain - Final Bronchoalviolar Lavage - Left Bronchial Washings Culture - Final 05/25/23 09:20 Acid Fast Bacilli Smear - Preliminary Bronchoalviolar Lavage - Left Acid Fast Bacilli Culture - Preliminary 05/29/23 12:45 Gram Stain - Final Pleural Fluid Body Fluid Culture - Final 05/31/23 14:00 Acid Fast Bacilli Smear - Preliminary Bronchoalviolar Lavage - Left Assessment and Plan Assessment: Acute hypoxemic respiratory failure, secondary to sepsis and possible left lower lobe pneumonia, community-acquired. Or could even be aspiration pneumonia. She developed a left-sided pleural effusion. Status post left-sided thoracentesis 05/29/2023 with 800 mL of straw-colored fluid removed. 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 Suspected acute cholecystitis and abdominal sepsis. Seen by surgery and the recommendation was to continue antibiotics, recommended no surgery. Leukocytosis, secondary to above, resolved Severe metabolic anion gap acidosis, resolved Left lung mass, recently measuring 4.2 x 3.9 cm with multiple lesions suspicious for mediastinal and diffuse osseous metastasis. This was been worked up outpatient. Bronchoscopy on 05/25/2023 showed no evidence of endobronchial tumor. Bronchiolar lavage revealed no evidence of malignancy. Bronchoscopy with biopsies performed on 05/31/2023. Pathology pending. Bone scan is showing multiple areas of metastasis. MRI of the brain reveals metastatic osseous lesions but no intracranial mass or lesions. Chronic obstructive pulmonary disease, with FEV1 38% predicted, recently placed on PRN albuterol and Trelegy inhalers. Elevated troponin, likely related to supply/demand mismatch Hypertension Hyperlipidemia Coronary artery disease, with previous CABG History of multiple sclerosis History of anxiety/depression Plan: The patient was seen and evaluated Medications reviewed Pain management consulted Continue bronchodilators Titrate the FiO2 as tolerated [facility] accepting the patient upon discharge We will continue to follow This patient was seen independently by the nurse practitioner I have personally seen and examined the patient, performed the documentation and the assessment and plan as written. Number of minutes spent on the visit: 22.
[2023-06-03] MEDS: SODIUM CHLORIDE 0.9% 1,000 ML IV SCH (14:23)
[2023-06-03] MEDS: polyethylene glycoL 3350 17 GM POWD.PACK PO SCH (20:59)
[2023-06-03] MEDS: ATORVASTATIN 20 MG TAB PO SCH (21:04)
[2023-06-03] MEDS: MIRTAZAPINE 15 MG TAB PO SCH (21:04)
[2023-06-03] MEDS: MELATONIN 3 MG TABLET PO SCH (21:04)
--- NOTE | 2023-06-03 21:46 | P.PN ---
Subjective Progress Note Date: 06/03/23 At today's visit patient is sitting in bedside chair. Patient is reporting improvement in neck and back pain today as medication regimen has been adjusted. Spoke with andrew RN and she thinks pt needs to have pain better controlled prior to going to rehab as she has been on IV diluadid up to today and has not had pain controlled up to now and is concerned pt will not be able to tolerate therapy Objective - Vital Signs Vital signs: Vital Signs Temp 98.1 F 06/03/23 12:22 Pulse 112 H 06/03/23 20:44 Resp 18 06/03/23 12:22 BP 149/85 06/03/23 12:22 Pulse Ox 96 06/03/23 12:22 FiO2 95 05/27/23 16:46 Intake & Output 06/03/23 06/03/23 06/04/23 06:59 18:59 06:59 Intake Total 1000 Balance 1000 Weight 59.1 kg 59.1 kg Intake: Intake, IV Titration 600 Amount Sodium Chloride 0.9% 1, 600 000 ml @ 50 mls/hr IV . Q20H [facility] Rx#:[id number] Oral 400 Other: Voiding Method Bedside Commode Bedside Commode Diaper Diaper # Voids 1 1 # Bowel Movements 1 ABP, PAP, CO, CI - Last Documented Arterial Blood Pressure 152/72 - Constitutional General appearance: Present: average body habitus, no acute distress - EENT Eyes: Present: anicteric sclerae, EOMI ENT: Present: hearing grossly normal - Respiratory Details: breathing is even and unlabored - Cardiovascular Details: skin warm and dry - Integumentary Integumentary: Absent: cyanotic - Neurologic Neurologic Comment(s): grossly intact - Musculoskeletal Musculoskeletal: Present: strength equal bilaterally - Psychiatric Psychiatric: Present: A&O x's 3 - Labs CBC & Chem 7: 05/31/23 06:00 06/01/23 06:05 Labs: Microbiology - Last 24 Hours (Table) 05/25/23 09:20 Fungal Culture - Preliminary Bronchoalviolar Lavage - Left 05/31/23 14:00 Gram Stain - Final Bronchoalviolar Lavage - Left Bronchial Washings Culture - Final 05/25/23 09:20 Acid Fast Bacilli Smear - Preliminary Bronchoalviolar Lavage - Left Acid Fast Bacilli Culture - Preliminary 05/29/23 12:45 Gram Stain - Final Pleural Fluid Body Fluid Culture - Final Assessment and Plan (1) Mass of left lung Current Visit: Yes Status: Acute Priority: High Code(s): R91.8 - OTHER NONSPECIFIC ABNORMAL FINDING OF LUNG FIELD SNOMED Code(s): 175510668 (2) Sepsis Current Visit: Yes Status: Acute Priority: High Code(s): A41.9 - SEPSIS, UNSPECIFIED ORGANISM SNOMED Code(s): 16175556 Plan: Left lung mass, bone mets: This is strongly suspected to be lung malignancy with metastasis. However we do not yet have a pathologic diagnosis. Bronchoscopy was negative for any endobronchial lesions that could be targeted. Bronchial washing cytology negative for malignancy -S/p left sided thoracentesis, with 700cc removed. Pathology from left sided thoracentesis revealed rare metastatic non-small carcinoma cells, but subtyping was limited and primary site was unable to be identified. S/p repeat bronchoscopy, path and cytology undiagnostic. Primary site thought to be lung primary. Will request PDL1 on cytology specimen and plan to obtain liquid biopsy outpt -Bone scan and brain mri ordered to complete staging. Bone scan revealed a bnormal uptake within the skull, right anterior rib and medial aspect of the right femur and scattered throughout the spine. Brain MRI revealed scattered osseous metastatic disease with at least 5 lesions noted. No intra-axial enhancing mass at this time. No evidence of acute/subacute infarct. No nspecific white matter changes. Above findings have been discussed in detail with patient and family -Rad onc consulted for eval for palliative RT, spoke with Dr. Kiran regarding case -Clinic f/u will be scheduled upon discharge from rehab, treatment will be on hold until d/c Intractable pain: -Neck and back pain persisting, but much improved as medication regimen has been adjusted. Will continue to monitor and make adjustments as needed. If pain is well controlled, will plan for d/c tuesday to rehab -Patient continues on Toradol QID. Fentanyl 25mcg patch added. Oxycodone increased to 15mg 6hrs prn. Decadron added. -4mg Zometa ordered -Will continue to monitor Attests: I have seen and examined pt, performed H&P, developed impression and plan of care. Discussed with dictator. Agree with documentation, dictated as a scribe.
[2023-06-04] MEDS: ACETAMINOPHEN TAB 500 MG TAB PO SCH ×3 (01:49→17:06)
[2023-06-04] MEDS: KETOROLAC 15 MG/ML 1 ML VIAL IVP SCH ×4 (05:38→23:44)
[2023-06-04] MEDS: dexAMETHasone 4 MG TAB PO SCH ×4 (05:38→23:44)
--- NOTE | 2023-06-04 07:26 | P.CONS ---
History of Present Illness - Reason for Consult Consult date: 06/03/23 pain, bone metastases Requesting physician: Kendrick Madrid - Chief Complaint neck pain / lower back pain - History of Present Illness The patient is a 62-year-old female with a [id number] smoking history. She was found earlier this month to have a likely metastatic non-small cell lung cancer with left-sided pleural involvement and positive pleural effusion. More significantly, the patient has numerous osseous metastasis, and is struggling with pain control. The patient reports that she has been feeling poorly for approximately 4 months. She states she developed some pain in the left neck and mid to low back. Initially this was not severe, but now has worsened. She underwent a CTA of the chest on May 10 which revealed no evidence of PE, but she was found to have abnormal adenopathy, as well as scattered pleural thickening and pleural deposits throughout the left lung field. Osseous metastasis were also seen. The patient was subsequently admitted to the hospital in May 24. A repeat CT of the chest, abdomen and pelvis revealed a moderate left effusion, as well as multiple destructive lesions in the thoracic spine, lumbar spine and iliac bones. She underwent bronchoscopy twice, which revealed irregular mucosa in the left upper lobe. However, bronchoscopic biopsies have been unremarkable. She did undergo a left thoracentesis on May 29, which showed scattered cells concerning for metastatic non-small cell lung cancer. Pathology was limited and unable to subtype. Additional imaging including an MRI of the brain revealed approximately 5 skull lesions, but no brain involvement. At the time of my consultation, the patient was initially planning for at least a 2 week [facility] stay. However, secondary to pain control issues, the patient has not yet been discharged. She continues to have pain in the left neck towards the skull. She also complains of pain in the mid to low back, eccentric to the right. The back pain can be 9 out of 10, and tends to be a bit more severe than the neck pain. She feels she gets some brief benefit from pain medications, but nothing lasting. She has been seen by pain management, and had a fentanyl patch added earlier today. Review of Systems Constitutional: Denies fever Eyes: denies blurred vision Ears, nose, mouth and throat: Denies dysphagia, Denies headache Cardiovascular: Reports dyspnea on exertion, Denies chest pain Respiratory: Reports cough, Reports dyspnea Gastrointestinal: Denies abdominal pain Musculoskeletal: Reports as per HPI Integumentary: Denies rash Neurological: Denies aphasia, Denies ataxia Psychiatric: Denies confusion Past Medical History Past Medical History: Coronary Artery Disease (CAD), Chest Pain / Angina, Hypertension, Myocardial Infarction (PA) Additional Past Medical History / Comment(s): MS, Chiari malformation, lung mass with mets, anxiety, Depression Last Myocardial Infarction Date:: 2010 History of Any Multi-Drug Resistant Organisms: None Reported Past Surgical History: Coronary Bypass/CABG Past Anesthesia/Blood Transfusion Reactions: No Reported Reaction Past Psychological History: Anxiety, Depression Smoking Status: Former smoker Past Alcohol Use History: None Reported Past Drug Use History: None Reported Medications and Allergies Home Medications Medication Instructions Recorded Confirmed Type Aspirin EC [Ecotrin Low Dose] 81 mg PO DAILY 05/24/23 05/24/23 History Ergocalciferol [Vitamin D2 (1250 1,250 mcg PO Q7D 05/24/23 05/24/23 History Mcg = [id number] Iu)] FLUoxetine HCL [PROzac] 40 mg PO DAILY 05/24/23 05/24/23 History Fluticasone/Umeclidin/Vilanter 1 puff INHALATION RT-DAILY 05/24/23 05/24/23 History [Trelegy Ellipta 200-62.5-25] Mirtazapine [Remeron] 15 mg PO HS 05/24/23 05/24/23 History Multivitamins, Thera [Multivitamin 1 tab PO DAILY 05/24/23 05/24/23 History (formulary)] Primidone [Mysoline] 100 mg PO TID 05/24/23 05/24/23 History Simvastatin [Zocor] 40 mg PO HS 05/24/23 05/24/23 History lisinopriL [Zestril] 2.5 mg PO DAILY 05/24/23 05/24/23 History ALPRAZolam [Xanax] 0.5 mg PO TID PRN #3 tab 06/02/23 Rx Ipratropium-Albuterol Nebulize 3 ml INHALATION RT-Q2H PRN each 06/02/23 Rx [Duoneb 0.5 mg-3 mg/3 ml Soln] Melatonin 3 mg PO HS tab 06/02/23 Rx Metoprolol Tartrate [Lopressor] 25 mg PO BID tab 06/02/23 Rx Sennosides [Senokot] 8.6 mg PO BID tab 06/02/23 Rx oxyCODONE HCL [OxyIR] 15 mg PO Q6HR PRN #36 tab 06/02/23 Rx polyethylene glycoL 3350 [Miralax] 17 gm PO HS PRN packet 06/02/23 Rx Allergies Allergy/AdvReac Type Severity Reaction Status Date / Time Penicillins Allergy Rash/Hives Verified 05/24/23 09:27 Physical Exam Vitals: Vital Signs Temp Pulse Pulse Resp BP Pulse Ox 06/04/23 01:52 98.2 F 89 20 111/65 95 06/03/23 20:44 112 H 06/03/23 20:30 112 H 06/03/23 20:00 97.3 F L 98 113/78 98 06/03/23 19:55 18 06/03/23 12:22 98.1 F 121 H 18 149/85 96 06/03/23 12:11 116 H 06/03/23 11:56 108 H 06/03/23 08:10 120 H 06/03/23 07:59 116 H 97 06/03/23 07:24 98.4 F 124 H 18 156/94 94 L Intake and Output 06/03/23 06/04/23 06/04/23 22:59 06:59 14:59 Intake Total 1200 Balance 1200 Intake: IV 600 Sodium Chloride 0.9% 1, 600 000 ml @ 50 mls/hr IV . Q20H [facility] Rx#:[id number] Oral 600 Other: Voiding Method Bedside Commode Diaper # Voids 1 2 Weight 58.967 kg - Constitutional General appearance: no acute distress - EENT Eyes: EOMI, PERRLA - Neck Neck: no lymphadenopathy - Respiratory Respiratory: bilateral: diminished - Cardiovascular Rhythm: regular - Gastrointestinal General gastrointestinal: no distended - Integumentary Integumentary: no rash - Neurologic Neurologic: CNII-XII intact - Musculoskeletal Musculoskeletal: generalized weakness - Psychiatric Psychiatric: A&O x's 3, appropriate affect Results CBC & Chem 7: 05/31/23 06:00 06/01/23 06:05 Labs: Microbiology - Last 24 Hours (Table) 05/25/23 09:20 Fungal Culture - Preliminary Bronchoalviolar Lavage - Left 05/31/23 14:00 Gram Stain - Final Bronchoalviolar Lavage - Left Bronchial Washings Culture - Final CT scan - abdomen: report reviewed, image reviewed CT scan - chest: report reviewed, image reviewed CT Scan - head: report reviewed, image reviewed CT scan - pelvis: report reviewed, image reviewed MRI - head: report reviewed, image reviewed Assessment and Plan Assessment: The patient is a 62-year-old female with a [id number] smoking history. She was found earlier this month to have a likely metastatic non-small cell lung cancer with left-sided pleural involvement and positive pleural effusion. More significantly, the patient has numerous osseous metastasis, and is struggling with pain control. Plan: 1. Back/Neck Pain: Patient understands the likely reason for her pain is her underlying metastatic disease. Within the left neck, she has destructive lesions involving the left aspect of both C1 and C5. Within the lower back, she has involvement of the L-spine and iliac bones. I discussed with the patient that we could consider a short course of palliative radiation to the sites. I explained that this could be done in 1 week or fewer of treatments. I discussed this typically has low toxicity, but that it often takes one week of time for the palliative benefit to be realized. The patient understands this would likely further delay discharged to rehab. She has just had adjustment of her pain medications earlier today by the pain management team. I will recheck on the patient this coming week. 2. Metastatic likely NSCLC: As detailed above, although lung biopsies have been negative the patient's left effusion does show metastatic involvement of likely non-small cell lung cancer. The plan is for the patient to proceed to rehab, and then follow-up as an outpatient with medical oncology. The patient did express to me however that she is not sure how aggressively she would like to pursue additional therapy. She is skeptical of her ability to tolerate rehab at this time. She did express some interest in [facility]. The patient understands she has incurable disease. I encouraged her to speak further with her family over this weekend and see how she does with the new pain regimen. We will see the patient this coming Tuesday
[2023-06-04] MEDS: IPRATROPIUM-ALBUTEROL 3 ML NEB INHALATION SCH ×4 (07:57→18:08)
[2023-06-04] MEDS: SYMBICORT 160-4.5 MCG INHALER INHALATION SCH ×2 (07:58→18:09)
[2023-06-04] MEDS: HEPARIN SODIUM,PORCINE 5,000 UNIT/ML 1 ML VIAL SQ SCH ×2 (09:37→20:31)
[2023-06-04] MEDS: PANTOPRAZOLE 40 MG/10 ML VIAL IVP SCH (09:37)
[2023-06-04] MEDS: FLUoxetine HCL 20 MG CAP PO SCH (09:39)
[2023-06-04] MEDS: PRIMIDONE 50 MG TAB PO SCH ×3 (09:40→21:39)
[2023-06-04] MEDS: SENNOSIDES 8.6 MG TAB PO SCH ×2 (09:41→20:25)
[2023-06-04] MEDS: METOPROLOL TARTRATE 25 MG TAB PO SCH ×2 (09:41→20:31)
--- NOTE | 2023-06-04 11:17 | P.PN ---
Subjective Progress Note Date: 06/04/23 Patient was seen and examined on consultation today 05/24/2023, I saw the patient in the ICU, patient presented with acute hypoxic respiratory failure requiring intubation and mechanical ventilation while in the ER. Patient has a classic presentation of sepsis, the exact source of her sepsis is not clear at this point, most likely related to her gallbladder. She is now intubated and mechanically ventilated with assist control rate of 22 tidal volume 400 FiO2 60% and PEEP of 5 and ABG showed a pO2 of 175 pCO2 35 pH of 7.34. FiO2 was cut down to 40%. Patient is empirically on ceftriaxone. She received multiple fluid boluses, at this point in time she is not requiring norepinephrine, seems to be responding to fluid boluses. Apparently the patient was recently evaluated for potential lung cancer and metastasis, however no specific tissue diagnosis was made, she was supposed to have a PET scan and workup was still pending. Patient used to be a heavy smoker, she quit about 2 years ago, and I had a chance to discuss her condition with her daughter at bedside, recommended arterial line placement and central line placement, I also discussed the CODE STATUS, patient is DO NOT RESUSCITATE CODE STATUS, apparently the daughter is very well aware of the potential poor prognosis considering her underlying clinical condition. In the meantime the patient will remain in the ICU, will treat empirically with antibiotics, we'll consult general surgery for her abnormal findings on the gallbladder questionable cholecystitis, patient also has severe COPD, may consider bronchoscopic the patient while on mechanical ventilation to evaluate for possible endobronchial pathology since the left hilar abnormality seems to be compressing on the left mainstem bronchus. This will be addressed once the patient stabilizes more while in the ICU. Prognosis is extremely poor and guarded. Critical care time is over 55 minutes not including the time spent on procedures Patient was reevaluated today on 05/25/23, remains in the ICU intubated and mechanically ventilated. Chest x-ray is showing improvement in her overall chest x-ray appearance but she seems to have significant left lower lobe consoli dation. She is on assist control rate of 22 tidal volume 400 FiO2 14 PEEP of 8 ABG showed a pO2 of 119 pCO2 32 pH of 7.46. Patient is on propofol at 25 mcg/kg/m fentanyl 20 mcg/kg/h she is also receiving enteral feeding via orogastric tube. Considering the abnormality in the left lower lobe, and considering the patient had a previous CT of the chest showing left hilar and mediastinal adenopathy, bronchoscopy was done today, and lavage of the left lower lobe was done, but there was no evidence of endobronchial tumor. Patient was seen by surgery, and recommended mostly medical management for her presumptive acute cholecystitis. Patient remains on Rocephin and Flagyl. Patient is arousable, awake in spite of being on fairly good dose of fentanyl and propofol, WBC count is 7.6 hemoglobin 8.9, basic metabolic profile is normal, hence I plan to give the patient today a trial of weaning at least a pressure support and CPAP trial, and if tolerated may even extubate the patient today this afternoon. In the meantime the patient remains empirically on antibiotics sputum Gram stain is showing moderate gram-positive cocci. Patient was reevaluated today on 05/26/23, patient was extubated yesterday on 05/25 few hours after her bronchoscopy. She seems to have tolerated the extubation well, she is now on 4 L nasal cannula, remains on antibiotics in the form of Flagyl and ceftriaxone. Her bronchoscopy showed no evidence of endobronchial tumor however lavage of the left lung was performed, and cultures are pending. WBC count is 8.6 hemoglobin is 9.4. Platelets are 469, basic metabolic profile is normal renal profile is normal bicarb is normal Patient was reevaluated today on 05/27/23 patient remains in the ICU, she remains on 4 L nasal cannula sitting up in the chair, IV fluid is 0.9 normal saline at 50 mL/h, patient is not in any distress. Denies any shortness of breath, denies any pain, her cultures have remained negative all along. BAL cultures are nondiagnostic, had mostly normal Alejandra, blood cultures have been negative all along. Patient is hemodynamically stable, and I plan to transfer the patient out of the ICU to a medical surgical floor today. WBC count is 8.1 hemoglobin is 9.9 basic metabolic profile is normal and renal profile is normal The patient is seen today 05/28/2023 in follow-up on the regular medical floor. She is currently sitting up in a chair at the bedside. Awake and alert in no acute distress. Maintaining O2 saturation in the 90s on 4 L/m per nasal cannula. Bronchial alveolar lavage revealed no growth. Blood cultures revealed no growth. White count 8.1. Hemoglobin 10.0. Platelets 500. Sodium 134. Potassium 4.1. Bicarb 20. BUN 11. Creatinine 0.38. Glucose 112. She is continued on DuoNeb inhalations, Symbicort, Flagyl and ceftriaxone. Heparin for DVT prophylaxis. Normal saline at 50 MLS per hour. The patient is seen today 05/29/2023 in follow-up on the regular medical floor. She is currently sitting up in a chair. Awake and alert in no acute distress. Maintaining O2 saturations in the 90s on 4 L/m per nasal cannula. Follow-up chest x-rays now revealing a stable moderate left-sided pleural effusion. U ltrasound of the chest reveals a 9.8 cm pocket on the left. She did undergo a left-sided thoracentesis today with 800 mL of straw-colored fluid removed. Sent for fluid analysis and cytology. Follow-up chest x-ray revealed interval improvement in the left lung aeration. No pneumothorax. Bronchial lavage cultures revealed no growth. Cytology pending. White count 9.5. Hemoglobin 10.2. Sodium 133. Potassium 3.8. Bicarb 29. BUN 5. Creatinine 0.30. Glucose 95. She is continued on ceftriaxone and Flagyl. Remains on bronchodilators. Heparin for DVT prophylaxis. Normal saline at 50 ML's per hour. The patient is seen today 05/30/2023 in follow-up on the regular medical floor. She is awake and alert in no acute distress. Sitting up in a chair at the bedside. Denies any worsening shortness of breath, cough or congestion. Bronchial alveolar lavage is revealing no growth, blood cultures revealed no growth. White count 10.9. Hemoglobin 10.8. Platelets 538. Sodium 137. Pota ssium 3.6. Bicarb 26. BUN 5.3. Creatinine 0.4. Lipid analysis from yesterday's thoracentesis shows exudate with a protein of 2.8 and LDH of 516. Cytology pending. She is continued on DuoNeb inhalations, Symbicort, antibiotics in the form of ceftriaxone. Heparin for DVT prophylaxis. Normal sa line at 50 MLS per hour. The patient is seen today 05/31/2023 in follow-up on the regular medical floor. She is sitting up in a chair. Awake and alert in no acute distress. Denies any worsening shortness of breath, cough or congestion. No hemoptysis. Bone scan did reveal abnormal uptake within the skull, right anterior rib and medial aspect of the right femur and scattered throughout the spine concerning for metastatic disease. Left posterior rib fracture as seen on prior CT. Bronchial wash cultures revealed no malignancy. Pleural fluid cytology pending. The plan is for bronchoscopy with biopsies today. White count 8.7. Hemoglobin 10.1. Platelets 477. Sodium 135. Potassium 3.2. Bicarb 34. BUN 9. Creatinine 0.37. Glucose 94. The patient is seen today 06/01/2023 in follow-up on the regular medical floor. She is awake and alert in no acute distress. Sitting up in a chair. Denies any worsening shortness of breath, cough or congestion. She is maintaining O2 saturations in the 90s on 4 L/m per nasal cannula. She's been afebrile. Hemodynamically stable. Bronchial wash cultures from 05/25/2023 revealed no evidence of malignancy. Pleural fluid cultures from 05/29/2023 are pending. Bronchial biopsies from bronchoscopy on 05/31/2023 still pending. MRI of the br ain revealed scattered osseous metastatic disease. No intra-axial enhancing mass or lesions at this time. No evidence of acute/subacute infarct. Sodium 139. Potassium 3.5. BUN 10. Creatinine 0.4. Glucose 88. If she is continued on DuoNeb inhalations, Pulmicort. Heparin for DVT prophylaxis. Normal saline at 50 ML's per hour. The patient is seen today 06/02/2023 in follow-up on the regular medical floor. She is currently sitting up in a chair. Awake and alert in no acute distress. She remains quite weak. She is maintaining good O2 saturations in the 90s on 3 L/m per nasal cannula. She has normal saline at 50 ML's per hour. Her original pleural fluid cultures from 05/29/2023 are now showing positive for rare metastatic non-small cell carcinoma cells. Bronchoscopy biopsies from 05/31/2023 are pending. Ultrasound revealed no growth. She is continued on DuoNeb inhalations, Symbicort. Heparin for DVT prophylaxis. The patient is seen today 06/03/2023 in follow-up on the regular medical floor. She is awake and alert in no acute distress. She remains quite weak. She is teary-eyed today due to her cancer diagnosis. Her family is at the bedside. He is currently on 4 L nasal cannula with O2 saturations in the mid 90s. Afebrile. Hemodynamically stable. Continue to have ongoing issues with neck and back pain due to osseous metastasis. Pain management has been consulted. She is continued on DuoNeb inhalations, Symbicort. Heparin for DVT prophylaxis. The patient is seen today 06/04/2023 in follow-up on the regular medical floor. She is currently resting comfortably in bed. Awake and alert in no acute distress. He continues to maintain O2 saturations in the mid 90s on 4 L/m per nasal cannula. She's been afebrile. Hemodynamically stable. She was seen and evaluated by radiation oncology for her osseous metastasis. She is continued on Symbicort and DuoNeb inhalations for now. Heparin for DVT prophylaxis. Continuing to trial different pain management medications. Objective - Vital Signs Vital signs: Vital Signs Temp 97.6 F 06/04/23 08:00 Pulse 108 H 06/04/23 08:14 Resp 18 06/04/23 08:00 BP 124/83 06/04/23 08:00 Pulse Ox 95 06/04/23 01:52 FiO2 95 05/27/23 16:46 Intake & Output 06/03/23 06/04/23 06/04/23 18:59 06:59 18:59 Intake Total 1200 Balance 1200 Weight 59.1 kg 58.967 kg Intake: IV 600 Sodium Chloride 0.9% 1, 600 000 ml @ 50 mls/hr IV . Q20H [facility] Rx#:[id number] Oral 600 Other: Voiding Method Bedside Commode Bedside Commode Diaper Diaper # Voids 1 2 # Bowel Movements 1 ABP, PAP, CO, CI - Last Documented Arterial Blood Pressure 152/72 - Exam GENERAL EXAM: Alert, 62-year-old female, on 4 L nasal cannula, in no apparent distress. HEAD: Normocephalic. EYES: Normal reaction of pupils, equal size. NOSE: Clear with pink turbinates. THROAT: No erythema or exudates. NECK: No masses, no JVD. CHEST: No chest wall deformity. LUNGS: Equal air entry with few crackles in the left base. CVS: S1 and S2 normal with no audible murmur, regular rhythm. ABDOMEN: No hepatosplenomegaly, normal bowel sounds, no guarding or rigidity. SPINE: No scoliosis or deformity SKIN: No rashes CENTRAL NERVOUS SYSTEM: No focal deficits, tone is normal in all 4 extremities. EXTREMITIES: There is no peripheral edema. No clubbing, no cyanosis. Peripheral pulses are intact. - Labs CBC & Chem 7: 05/31/23 06:00 06/01/23 06:05 Labs: Microbiology - Last 24 Hours (Table) 05/25/23 09:20 Fungal Culture - Preliminary Bronchoalviolar Lavage - Left 05/31/23 14:00 Gram Stain - Final Bronchoalviolar Lavage - Left Bronchial Washings Culture - Final Assessment and Plan Assessment: Acute hypoxemic respiratory failure, secondary to sepsis and possible left lower lobe pneumonia, community-acquired. Or could even be aspiration pneumonia. She developed a left-sided pleural effusion. Status post left-sided thoracentesis 05/29/2023 with 800 mL of straw-colored fluid removed. 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 Suspected acute cholecystitis and abdominal sepsis. Seen by surgery and the recommendation was to continue antibiotics, recommended no surgery. Leukocytosis, secondary to above, resolved Severe metabolic anion gap acidosis, resolved Left lung mass, recently measuring 4.2 x 3.9 cm with multiple lesions suspicious for mediastinal and diffuse osseous metastasis. This was been worked up outpatient. Bronchoscopy on 05/25/2023 showed no evidence of endobronchial tumor. Bronchiolar lavage revealed no evidence of malignancy. Bronchoscopy with biopsies performed on 05/31/2023. Pathology pending. Bone scan is showing multiple areas of metastasis. MRI of the brain reveals metastatic osseous lesions but no intracranial mass or lesions. Chronic obstructive pulmonary disease, with FEV1 38% predicted, recently placed on PRN albuterol and Trelegy inhalers. Elevated troponin, likely related to supply/demand mismatch Hypertension Hyperlipidemia Coronary artery disease, with previous CABG History of multiple sclerosis History of anxiety/depression Plan: The patient was seen and evaluated Medications reviewed Radiation oncology consulted Continue bronchodilators Titrate the FiO2 as tolerated [facility] accepting the patient upon discharge We will continue to follow This patient was seen independently by the nurse practitioner I have personally seen and examined the patient, performed the documentation and the assessment and plan as written. Number of minutes spent on the visit: 20.
[2023-06-04] MEDS: SODIUM CHLORIDE 0.9% 1,000 ML IV SCH ×2 (12:38→15:43)
--- NOTE | 2023-06-04 14:37 | P.PN ---
Subjective Progress Note Date: 06/04/23 62-year-old female with history of recently diagnosed lung cancer with metastatic disease, CAD status post CABG, multiple sclerosis, COPD, hypertension, his lipidemia, essential tremor presenting with acute/subacute dyspnea. In the ED, temperature was 94.6, pulse 102, respiratory rate 32, blood pressure 163/119, was saturating at 97% on nonrebreather at 15 L. Due to increased work of breathing, BiPAP was suggested. However her mental status was poor, and she was subsequently intubated. Patient then transferred to medical ICU. WBC was 12.8, platelet 780, potassium 5.4, bicarb 15, creatinine 0.78, lactate 11.1, pH 7.16, pCO2 44, troponin 0.056, total bilirubin 0.3, AST 43, ALT 33, ALP 192, proBNP 14,000, CRP 6.9, lipase 70, respiratory viral panel negative, urine positive for oxycodone, barbiturates, and marijuana. CT abdomen and pelvis, CT chest showed mild diffuse edema and infiltrates worse on the right, atelectasis the majority of left lower lobe, multiple thoracic spine with obstructive lesions consistent with metastatic disease, marked gallbladder wall edema, obstructive lesions in the iliac bone and lumbar spine. Head CT shows multiple distractive skull lesions. EKG independently interpreted, shows sinus tachycardia. Chest x-ray, interpreted shows Left basilar opacity. Patient admitted to the ICU for acute hypoxic respiratory failure. Had a bronch with BAL. Surgery following for acute on chronic cholecystitis, treating conservatively with medical management. Oncology also following, will likely need tissue biopsy. Patient will also likely need additional staging including bone scan and imaging of brain. Patient is doing better post extubation. Echocardiogram showed mild LV systolic dysfunction secondary to prior inferior wall myocardial infarction, moderate pulmonary hypertension. Now out of the ICU. He underwent left-sided thoracentesis, 800 mL fluid removed. Bone nuclear scan shows abnormal uptake within the skull, right anterior rib, medial aspect of right femur and scattered throughout the spine concerning for metastatic disease, left posterior rib fracture is seen on CT. Repeat bronchoscopy done 05/31 with biopsies pending. Brain MRI shows scattered osseous metastatic disease, no intracranial metastasis. Accepted to [facility] [place]. Patient seen and examined at bedside. Cleared by Pulmonology services for discharge. Initially planned for discharge on 06/02 but held due to uncontrolled pain. 06/03 Patient seen and examined. She reports continued pain in her cervical spine. She appears quite uncomofortable. Pain management consulted, she has been started on Fentanyl patch. I started Decadron as well. Continued on Toradol scheduled and Oxy IR PRN. We plan on discharge as soon as her pain is under better control. 06/04 Patient was seen and examined. She reports improved pain in he cervical and lumbar spine but still 8/[address] Salazar, continue current dose of Fentanyl patch and re-assess for pain control tomorrow. She will also benefit from radiation therapy to the spine for pain control. Plans to follow up with Pulmonology within 1 week of discharge. Plans to follow up with Dr. Madrid within 1 week of discharge for biopsy pathology results and further workup/management of her underlying malignancy. Pertinent studies: CXR, CT head, CT C-spine, CT chest/abdomen/pelvis, Abd US, Echo, bone scan, MRI brain Pertinent procedures: Bronchoscopy, intubation/extubation. General: Moderate distress Derm: warm, dry Head: atraumatic, normocephalic, symmetric Eyes: EOMI, anicteric sclera ENT: Nose and ears atraumatic Neck: No thyromegaly, supple Cardiovascular: S1S2 reg, no murmur, no edema Lungs: Bilateral rhonchi, L>R, supplemental oxygen Abdominal: soft, nontender to palpation, no guarding, no appreciable organomegaly Ext: no gross muscle atrophy, muscle strength muscle strength 5 out of 5 in all 4 extremities, no contractures Psych: Alert and cooperative Assessment and Plan Acute hypoxic respiratory failure: Supplemental O2 to maintain O2 saturation > 92%. Lung mass with metastatic disease: Pain management consulted. Continue Fentanyl patch. Continue Decadron. Continued on Toradol scheduled and Oxy IR PRN. Follow up with Oncology. Left-sided pleural effusion: Follow up with Pulmonology. Acute on chronic cholecystitis: Status post antibiotics. Transaminitis NSTEMI, likely type II History of CAD status post CABG: ASA and Simvastatin. Metoprolol. Normocytic anemia Resolved: Lactic acidosis, Sepsis, High anion gap metabolic acidosis, Hyperkalemia, Hypercalcemia, Hypokalemia, Leukocytosis Chronic: Hypertension, Dyslipidemia, COPD, Depression Objective - Vital Signs Vital signs: Vital Signs Temp 97.8 F 06/04/23 12:46 Pulse 89 06/04/23 12:46 Resp 19 06/04/23 12:46 BP 112/73 06/04/23 12:46 Pulse Ox 97 06/04/23 12:46 FiO2 95 05/27/23 16:46 Intake & Output 06/03/23 06/04/23 06/04/23 18:59 06:59 18:59 Intake Total 1200 Balance 1200 Weight 59.1 kg 58.967 kg Intake: IV 600 Sodium Chloride 0.9% 1, 600 000 ml @ 50 mls/hr IV . Q20H [facility] Rx#:[id number] Oral 600 Other: Voiding Method Bedside Commode Bedside Commode Bedside Commode Diaper Diaper Diaper # Voids 1 2 # Bowel Movements 1 ABP, PAP, CO, CI - Last Documented Arterial Blood Pressure 152/72 - Labs CBC & Chem 7: 05/31/23 06:00 06/01/23 06:05 Labs: Microbiology - Last 24 Hours (Table) 05/25/23 09:20 Fungal Culture - Preliminary Bronchoalviolar Lavage - Left
--- NOTE | 2023-06-04 14:45 | P.PN ---
Subjective Progress Note Date: 06/04/23 Principal diagnosis: Left pleural effusion and bone lesions -Fentanyl patch in addition to scheduled dexamethasone added yesterday for persistent pain secondary to suspected malignancy -No acute events overnight -Elise notes significantly improved pain in the left neck with persistent, but improved pain in the mid and lower back. She otherwise denies any new signs or symptoms Objective - Vital Signs Vital signs: Vital Signs Temp 97.8 F 06/04/23 12:46 Pulse 89 06/04/23 12:46 Resp 19 06/04/23 12:46 BP 112/73 06/04/23 12:46 Pulse Ox 97 06/04/23 12:46 FiO2 95 05/27/23 16:46 Intake & Output 06/03/23 06/04/23 06/04/23 18:59 06:59 18:59 Intake Total 1200 Balance 1200 Weight 59.1 kg 58.967 kg Intake: IV 600 Sodium Chloride 0.9% 1, 600 000 ml @ 50 mls/hr IV . Q20H [facility] Rx#:[id number] Oral 600 Other: Voiding Method Bedside Commode Bedside Commode Bedside Commode Diaper Diaper Diaper # Voids 1 2 # Bowel Movements 1 ABP, PAP, CO, CI - Last Documented Arterial Blood Pressure 152/72 - Constitutional General appearance: Present: cooperative, no acute distress - EENT Eyes: Present: EOMI - Respiratory Respiratory: left: diminished (Diminished breath sounds in the left lower lung field compared to the right) - Cardiovascular Rhythm: regular - Gastrointestinal General gastrointestinal: Present: soft. Absent: distended, tenderness - Integumentary Integumentary: Absent: rash - Neurologic Neurologic: Present: CNII-XII intact. Absent: focal deficits - Labs CBC & Chem 7: 05/31/23 06:00 06/01/23 06:05 Labs: Microbiology - Last 24 Hours (Table) 05/25/23 09:20 Fungal Culture - Preliminary Bronchoalviolar Lavage - Left Assessment and Plan (1) Bone lesion Current Visit: Yes Status: Acute Code(s): M89.9 - DISORDER OF BONE, UNSPECIFIED SNOMED Code(s): 708757459 (2) Mass of left lung Current Visit: Yes Status: Acute Priority: High Code(s): R91.8 - OTHER NONSPECIFIC ABNORMAL FINDING OF LUNG FIELD SNOMED Code(s): 846094021 Plan: Left lung mass, bone mets: This is strongly suspected to be lung malignancy with metastasis. However we do not yet have a pathologic diagnosis. Bronchoscopy was negative for any endobronchial lesions that could be targeted. Bronchial washing cytology negative for malignancy -S/p left sided thoracentesis, with 700cc removed. Pathology from left sided thoracentesis revealed rare metastatic non-small carcinoma cells, but subtyping was limited and primary site was unable to be identified. S/p repeat bronchosc opy, path and cytology undiagnostic. Primary site thought to be lung primary. -Bone scan and brain mri ordered to complete staging. Bone scan revealed abnormal uptake within the skull, right anterior rib and medial aspect of the right femur and scattered throughout the spine. Brain MRI revealed scattered osseous metastatic disease with at least 5 lesions noted. No intra-axial enhancing mass at this time. No evidence of acute/subacute infarct. Nonspecific white matter changes. Above findings have been previously discussed in detail with patient and family -Rad onc consulted for eval for palliative RT, who discussed role of radiation on 06/03/2023. She noted at that time that she was considering comfort care -On today's encounter, we had a prolonged discussion regarding treatment options . She was under the impression that the only treatment would be chemotherapy -We discussed that there could be other options available besides chemotherapy depending on results of circulating tumor DNA analysis from a biopsy sample and peripheral blood as well as tumor PD-L1 levels. Potential treatments discussed include oral tyrosine kinase inhibitor targeting specific mutations, immunotherapy alone, or immunotherapy combined with chemotherapy -She notes she would not want chemotherapy under any circumstances -She will think about whether she would want to examine what her treatment options are versus comfort care, which was also discussed on today's encounter -If she decides she would want to examine treatment options, repeat biopsy would be ideal to have pathological confirmation along with sending tissue sample for additional testing. Alternatively, bone biopsy can be considered to confirm histological diagnosis and circulating tumor DNA from the peripheral blood can be obtained outpatient -Clinic f/u will be scheduled upon discharge from rehab, treatment will be on hold until d/c Intractable pain: -Neck and back pain persisting, but much improved as medication regimen has been adjusted. Will continue to monitor and make adjustments as needed. If pain is well controlled, will plan for d/c tuesday to rehab -Patient continues on Toradol QID. Fentanyl 25mcg patch and scheduled Junadron added on 06/03/2023 in addition to increased Oxycodone to 15mg 6hrs prn -Zometa 4 mg IV given on 06/03/2023 -Noted improvement in pain on today's encounter -I anticipate her pain to continue to improve over the next 24 hours as there is further release of fentanyl from the transdermal patch -Will continue to monitor on current regimen Erin Salaazr MD
[2023-06-04] MEDS: polyethylene glycoL 3350 17 GM POWD.PACK PO SCH (20:24)
[2023-06-04] MEDS: ALPRAZolam 0.5 MG TAB PO PRN (20:31)
[2023-06-04] MEDS: MELATONIN 3 MG TABLET PO SCH (20:31)
[2023-06-04] MEDS: ATORVASTATIN 20 MG TAB PO SCH (20:31)
[2023-06-04] MEDS: MIRTAZAPINE 15 MG TAB PO SCH (21:39)
[2023-06-05] MEDS: ACETAMINOPHEN TAB 500 MG TAB PO SCH ×3 (02:09→17:18)
[2023-06-05] MEDS: ALPRAZolam 0.5 MG TAB PO PRN ×3 (05:30→20:49)
[2023-06-05] MEDS: dexAMETHasone 4 MG TAB PO SCH ×4 (05:30→23:33)
[2023-06-05] MEDS: KETOROLAC 15 MG/ML 1 ML VIAL IVP SCH ×4 (05:30→23:32)
[2023-06-05] MEDS: IPRATROPIUM-ALBUTEROL 3 ML NEB INHALATION SCH ×4 (07:54→20:16)
[2023-06-05] MEDS: SYMBICORT 160-4.5 MCG INHALER INHALATION SCH ×2 (07:54→20:16)
[2023-06-05] MEDS: FLUoxetine HCL 20 MG CAP PO SCH (08:53)
[2023-06-05] MEDS: HEPARIN SODIUM,PORCINE 5,000 UNIT/ML 1 ML VIAL SQ SCH ×2 (08:53→20:50)
[2023-06-05] MEDS: SENNOSIDES 8.6 MG TAB PO SCH ×2 (08:54→20:05)
[2023-06-05] MEDS: PRIMIDONE 50 MG TAB PO SCH ×3 (08:54→20:58)
[2023-06-05] MEDS: PANTOPRAZOLE 40 MG/10 ML VIAL IVP SCH (08:54)
[2023-06-05] MEDS: METOPROLOL TARTRATE 25 MG TAB PO SCH ×2 (08:54→20:49)
[2023-06-05] MEDS: IPRATROPIUM-ALBUTEROL 3 ML NEB INHALATION PRN (09:48)
--- NOTE | 2023-06-05 10:54 | XR ---
EXAMINATION TYPE: XR chest 2V DATE OF EXAM: 06/05/2023 COMPARISON: 05/29/2023 INDICATION: Short of breath, coughing TECHNIQUE: Single frontal view of the chest is obtained. FINDINGS: The heart size is normal. The pulmonary vasculature is normal. There is a moderate left pleural effusion. IMPRESSION: 1. Large left pleural effusion, stable from comparison.
--- NOTE | 2023-06-05 11:25 | P.PN ---
Subjective Progress Note Date: 06/05/23 Patient was seen and examined on consultation today 05/24/2023, I saw the patient in the ICU, patient presented with acute hypoxic respiratory failure requiring intubation and mechanical ventilation while in the ER. Patient has a classic presentation of sepsis, the exact source of her sepsis is not clear at this point, most likely related to her gallbladder. She is now intubated and mechanically ventilated with assist control rate of 22 tidal volume 400 FiO2 60% and PEEP of 5 and ABG showed a pO2 of 175 pCO2 35 pH of 7.34. FiO2 was cut down to 40%. Patient is empirically on ceftriaxone. She received multiple fluid boluses, at this point in time she is not requiring norepinephrine, seems to be responding to fluid boluses. Apparently the patient was recently evaluated for potential lung cancer and metastasis, however no specific tissue diagnosis was made, she was supposed to have a PET scan and workup was still pending. Patient used to be a heavy smoker, she quit about 2 years ago, and I had a chance to discuss her condition with her daughter at bedside, recommended arterial line placement and central line placement, I also discussed the CODE STATUS, patient is DO NOT RESUSCITATE CODE STATUS, apparently the daughter is very well aware of the potential poor prognosis considering her underlying clinical condition. In the meantime the patient will remain in the ICU, will treat empirically with antibiotics, we'll consult general surgery for her abnormal findings on the gallbladder questionable cholecystitis, patient also has severe COPD, may consider bronchoscopic the patient while on mechanical ventilation to evaluate for possible endobronchial pathology since the left hilar abnormality seems to be compressing on the left mainstem bronchus. This will be addressed once the patient stabilizes more while in the ICU. Prognosis is extremely poor and guarded. Critical care time is over 55 minutes not including the time spent on procedures Patient was reevaluated today on 05/25/23, remains in the ICU intubated and mechanically ventilated. Chest x-ray is showing improvement in her overall chest x-ray appearance but she seems to have significant left lower lobe consoli dation. She is on assist control rate of 22 tidal volume 400 FiO2 14 PEEP of 8 ABG showed a pO2 of 119 pCO2 32 pH of 7.46. Patient is on propofol at 25 mcg/kg/m fentanyl 20 mcg/kg/h she is also receiving enteral feeding via orogastric tube. Considering the abnormality in the left lower lobe, and considering the patient had a previous CT of the chest showing left hilar and mediastinal adenopathy, bronchoscopy was done today, and lavage of the left lower lobe was done, but there was no evidence of endobronchial tumor. Patient was seen by surgery, and recommended mostly medical management for her presumptive acute cholecystitis. Patient remains on Rocephin and Flagyl. Patient is arousable, awake in spite of being on fairly good dose of fentanyl and propofol, WBC count is 7.6 hemoglobin 8.9, basic metabolic profile is normal, hence I plan to give the patient today a trial of weaning at least a pressure support and CPAP trial, and if tolerated may even extubate the patient today this afternoon. In the meantime the patient remains empirically on antibiotics sputum Gram stain is showing moderate gram-positive cocci. Patient was reevaluated today on 05/26/23, patient was extubated yesterday on 05/25 few hours after her bronchoscopy. She seems to have tolerated the extubation well, she is now on 4 L nasal cannula, remains on antibiotics in the form of Flagyl and ceftriaxone. Her bronchoscopy showed no evidence of endobronchial tumor however lavage of the left lung was performed, and cultures are pending. WBC count is 8.6 hemoglobin is 9.4. Platelets are 469, basic metabolic profile is normal renal profile is normal bicarb is normal Patient was reevaluated today on 05/27/23 patient remains in the ICU, she remains on 4 L nasal cannula sitting up in the chair, IV fluid is 0.9 normal saline at 50 mL/h, patient is not in any distress. Denies any shortness of breath, denies any pain, her cultures have remained negative all along. BAL cultures are nondiagnostic, had mostly normal Alejandra, blood cultures have been negative all along. Patient is hemodynamically stable, and I plan to transfer the patient out of the ICU to a medical surgical floor today. WBC count is 8.1 hemoglobin is 9.9 basic metabolic profile is normal and renal profile is normal The patient is seen today 05/28/2023 in follow-up on the regular medical floor. She is currently sitting up in a chair at the bedside. Awake and alert in no acute distress. Maintaining O2 saturation in the 90s on 4 L/m per nasal cannula. Bronchial alveolar lavage revealed no growth. Blood cultures revealed no growth. White count 8.1. Hemoglobin 10.0. Platelets 500. Sodium 134. Potassium 4.1. Bicarb 20. BUN 11. Creatinine 0.38. Glucose 112. She is continued on DuoNeb inhalations, Symbicort, Flagyl and ceftriaxone. Heparin for DVT prophylaxis. Normal saline at 50 MLS per hour. The patient is seen today 05/29/2023 in follow-up on the regular medical floor. She is currently sitting up in a chair. Awake and alert in no acute distress. Maintaining O2 saturations in the 90s on 4 L/m per nasal cannula. Follow-up chest x-rays now revealing a stable moderate left-sided pleural effusion. U ltrasound of the chest reveals a 9.8 cm pocket on the left. She did undergo a left-sided thoracentesis today with 800 mL of straw-colored fluid removed. Sent for fluid analysis and cytology. Follow-up chest x-ray revealed interval improvement in the left lung aeration. No pneumothorax. Bronchial lavage cultures revealed no growth. Cytology pending. White count 9.5. Hemoglobin 10.2. Sodium 133. Potassium 3.8. Bicarb 29. BUN 5. Creatinine 0.30. Glucose 95. She is continued on ceftriaxone and Flagyl. Remains on bronchodilators. Heparin for DVT prophylaxis. Normal saline at 50 ML's per hour. The patient is seen today 05/30/2023 in follow-up on the regular medical floor. She is awake and alert in no acute distress. Sitting up in a chair at the bedside. Denies any worsening shortness of breath, cough or congestion. Bronchial alveolar lavage is revealing no growth, blood cultures revealed no growth. White count 10.9. Hemoglobin 10.8. Platelets 538. Sodium 137. Pota ssium 3.6. Bicarb 26. BUN 5.3. Creatinine 0.4. Lipid analysis from yesterday's thoracentesis shows exudate with a protein of 2.8 and LDH of 516. Cytology pending. She is continued on DuoNeb inhalations, Symbicort, antibiotics in the form of ceftriaxone. Heparin for DVT prophylaxis. Normal sa line at 50 MLS per hour. The patient is seen today 05/31/2023 in follow-up on the regular medical floor. She is sitting up in a chair. Awake and alert in no acute distress. Denies any worsening shortness of breath, cough or congestion. No hemoptysis. Bone scan did reveal abnormal uptake within the skull, right anterior rib and medial aspect of the right femur and scattered throughout the spine concerning for metastatic disease. Left posterior rib fracture as seen on prior CT. Bronchial wash cultures revealed no malignancy. Pleural fluid cytology pending. The plan is for bronchoscopy with biopsies today. White count 8.7. Hemoglobin 10.1. Platelets 477. Sodium 135. Potassium 3.2. Bicarb 34. BUN 9. Creatinine 0.37. Glucose 94. The patient is seen today 06/01/2023 in follow-up on the regular medical floor. She is awake and alert in no acute distress. Sitting up in a chair. Denies any worsening shortness of breath, cough or congestion. She is maintaining O2 saturations in the 90s on 4 L/m per nasal cannula. She's been afebrile. Hemodynamically stable. Bronchial wash cultures from 05/25/2023 revealed no evidence of malignancy. Pleural fluid cultures from 05/29/2023 are pending. Bronchial biopsies from bronchoscopy on 05/31/2023 still pending. MRI of the br ain revealed scattered osseous metastatic disease. No intra-axial enhancing mass or lesions at this time. No evidence of acute/subacute infarct. Sodium 139. Potassium 3.5. BUN 10. Creatinine 0.4. Glucose 88. If she is continued on DuoNeb inhalations, Pulmicort. Heparin for DVT prophylaxis. Normal saline at 50 ML's per hour. The patient is seen today 06/02/2023 in follow-up on the regular medical floor. She is currently sitting up in a chair. Awake and alert in no acute distress. She remains quite weak. She is maintaining good O2 saturations in the 90s on 3 L/m per nasal cannula. She has normal saline at 50 ML's per hour. Her original pleural fluid cultures from 05/29/2023 are now showing positive for rare metastatic non-small cell carcinoma cells. Bronchoscopy biopsies from 05/31/2023 are pending. Ultrasound revealed no growth. She is continued on DuoNeb inhalations, Symbicort. Heparin for DVT prophylaxis. The patient is seen today 06/03/2023 in follow-up on the regular medical floor. She is awake and alert in no acute distress. She remains quite weak. She is teary-eyed today due to her cancer diagnosis. Her family is at the bedside. He is currently on 4 L nasal cannula with O2 saturations in the mid 90s. Afebrile. Hemodynamically stable. Continue to have ongoing issues with neck and back pain due to osseous metastasis. Pain management has been consulted. She is continued on DuoNeb inhalations, Symbicort. Heparin for DVT prophylaxis. The patient is seen today 06/04/2023 in follow-up on the regular medical floor. She is currently resting comfortably in bed. Awake and alert in no acute distress. He continues to maintain O2 saturations in the mid 90s on 4 L/m per nasal cannula. She's been afebrile. Hemodynamically stable. She was seen and evaluated by radiation oncology for her osseous metastasis. She is continued on Symbicort and DuoNeb inhalations for now. Heparin for DVT prophylaxis. Continuing to trial different pain management medications. The patient is seen today 06/05/2023 in follow-up on the regular medical floor. She is currently sitting up in a chair at the bedside. Awake and alert in no acute distress. Her son is in the room as well. She is maintaining good O2 saturations in the 90s on 4 L/m per nasal cannula. Chest x-ray continues to show similar left pleural effusion. She had undergone a thoracentesis on 05/29/2023 that was positive for rare metastatic non-small cell carcinoma. She is still undecided whether or not to proceed with any treatment versus home hospice. She is continued on DuoNeb inhalations, Symbicort. She remains on Decadron due to the osseous metastatic disease on MRI of the brain and bone scan. Pain management has been an issue. She is currently on a fentanyl patch with Toradol, oxycodone also as needed. Objective - Vital Signs Vital signs: Vital Signs Temp 97.8 F 06/05/23 07:27 Pulse 108 H 06/05/23 10:03 Resp 18 06/05/23 08:40 BP 156/77 06/05/23 07:27 Pulse Ox 99 06/05/23 07:27 FiO2 95 05/27/23 16:46 Intake & Output 06/04/23 06/05/23 06/05/23 18:59 06:59 18:59 Intake Total 480 590 Output Total 100 Balance 480 490 Intake: Oral 480 590 Output: Urine 100 Other: Voiding Method Bedside Commode Toilet Toilet Diaper Bedside Commode Bedside Commode Diaper Diaper # Voids 3 2 ABP, PAP, CO, CI - Last Documented Arterial Blood Pressure 152/72 - Exam GENERAL EXAM: Alert, pleasant weak 62-year-old female, in a chair, on 4 L nasal cannula, in no apparent distress. HEAD: Normocephalic. EYES: Normal reaction of pupils, equal size. NOSE: Clear with pink turbinates. THROAT: No erythema or exudates. NECK: No masses, no JVD. CHEST: No chest wall deformity. LUNGS: Equal air entry with few crackles in the left base. CVS: S1 and S2 normal with no audible murmur, regular rhythm. ABDOMEN: No hepatosplenomegaly, normal bowel sounds, no guarding or rigidity. SPINE: No scoliosis or deformity SKIN: No rashes CENTRAL NERVOUS SYSTEM: No focal deficits, tone is normal in all 4 extremities. EXTREMITIES: There is no peripheral edema. No clubbing, no cyanosis. Peripheral pulses are intact. - Labs CBC & Chem 7: 05/31/23 06:00 06/01/23 06:05 Assessment and Plan Assessment: Acute hypoxemic respiratory failure, secondary to sepsis and possible left lower lobe pneumonia, community-acquired. Or could even be aspiration pneumonia. She developed a left-sided pleural effusion. Status post left-sided thoracentesis 05/29/2023 with 800 mL of straw-colored fluid removed. 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 Suspected acute cholecystitis and abdominal sepsis. Seen by surgery and the recommendation was to continue antibiotics, recommended no surgery. Leukocytosis, secondary to above, resolved Severe metabolic anion gap acidosis, resolved Left lung mass, recently measuring 4.2 x 3.9 cm with multiple lesions suspicious for mediastinal and diffuse osseous metastasis. This was been worked up outpatient. Bronchoscopy on 05/25/2023 showed no evidence of endobronchial tumor. Bronchiolar lavage revealed no evidence of malignancy. Bronchoscopy with biopsies performed on 05/31/2023. Pathology revealed no malignant. Bone scan is showing multiple areas of metastasis. MRI of the brain reveals metastatic osseous lesions but no intracranial mass or lesions. Chronic obstructive pulmonary disease, with FEV1 38% predicted, recently placed on PRN albuterol and Trelegy inhalers. Elevated troponin, likely related to supply/demand mismatch Hypertension Hyperlipidemia Coronary artery disease, with previous CABG History of multiple sclerosis History of anxiety/depression Plan: The patient was seen and evaluated Medications reviewed Continue bronchodilators Continue with pain management Patient undecided whether to go to rehab or start treatment or comfort care Her son is currently at the bedside, planning more discussion today We will continue to follow This patient was seen independently by the nurse practitioner I have personally seen and examined the patient, performed the documentation and the assessment and plan as written. Number of minutes spent on the visit: 22.
--- NOTE | 2023-06-05 13:40 | P.PN ---
Subjective Progress Note Date: 06/05/23 Principal diagnosis: Left pleural effusion and bone lesions -No acute events overnight -Tearful on today's encounter due to concern for disposition upon discharge -Noted to have subjective increase in dyspnea, which improves with Xanax -Denies any worsening pain on today's encounter Objective - Vital Signs Vital signs: Vital Signs Temp 97.9 F 06/05/23 12:25 Pulse 92 06/05/23 12:25 Resp 18 06/05/23 12:25 BP 136/76 06/05/23 12:25 Pulse Ox 96 06/05/23 12:25 FiO2 95 05/27/23 16:46 Intake & Output 06/04/23 06/05/23 06/05/23 18:59 06:59 18:59 Intake Total 480 590 Output Total 100 Balance 480 490 Intake: Oral 480 590 Output: Urine 100 Other: Voiding Method Bedside Commode Toilet Toilet Diaper Bedside Commode Bedside Commode Diaper Diaper # Voids 3 2 2 ABP, PAP, CO, CI - Last Documented Arterial Blood Pressure 152/72 - Constitutional Constitutional Comment(s): Mild to moderate emotional distress - EENT Eyes: Present: EOMI - Respiratory Respiratory: left: diminished (Diminished breath sounds in the left lower and mid lung uriarte) - Cardiovascular Rhythm: regular - Gastrointestinal General gastrointestinal: Present: soft. Absent: distended - Integumentary Integumentary: Present: pale. Absent: rash - Neurologic Neurologic: Present: CNII-XII intact. Absent: focal deficits - Psychiatric Psychiatric Comment(s): Tremors noted in the hands due to emotional distress Psychiatric: Present: A&O x's 3 - Labs CBC & Chem 7: 05/31/23 06:00 06/01/23 06:05 Assessment and Plan (1) Bone lesion Current Visit: Yes Status: Acute Code(s): M89.9 - DISORDER OF BONE, UNSPECIFIED SNOMED Code(s): 285981756 (2) Mass of left lung Current Visit: Yes Status: Acute Priority: High Code(s): R91.8 - OTHER NONSPECIFIC ABNORMAL FINDING OF LUNG FIELD SNOMED Code(s): 156374731 Plan: Left lung mass, bone mets: This is strongly suspected to be lung malignancy with metastasis. However we do not yet have a pathologic diagnosis. Bronchoscopy was negative for any endobronchial lesions that could be targeted. Bronchial washing cytology negative for malignancy -S/p left sided thoracentesis, with 700cc removed. Pathology from left sided thoracentesis revealed rare metastatic non-small carcinoma cells, but subtyping was limited and primary site was unable to be identified. S/p repeat bronchoscopy, path and cytology undiagnostic. Primary site thought to be lung primary. -Bone scan and brain mri ordered to complete staging. Bone scan revealed abnor mal uptake within the skull, right anterior rib and medial aspect of the right femur and scattered throughout the spine. Brain MRI revealed scattered osseous metastatic disease with at least 5 lesions noted. No intra-axial enhancing mass at this time. No evidence of acute/subacute infarct. Nonspecific white matter changes. Above findings have been previously discussed in detail with patient and family -Rad onc consulted for eval for palliative RT, who discussed role of radiation on 06/03/2023. She noted at that time that she was considering comfort care -We had a prolonged discussion yesterday regarding treatment options. She was under the impression that the only treatment would be chemotherapy -We discussed that there could be other options available besides chemotherapy depending on results of circulating tumor DNA analysis from a biopsy sample and peripheral blood as well as tumor PD-L1 levels. Potential treatments discussed include oral tyrosine kinase inhibitor targeting specific mutations, immunotherapy alone, or immunotherapy combined with chemotherapy -She notes she would not want chemotherapy under any circumstances -On today's encounter, she was concerned about disposition and whether this could be a barrier with regards to pursuing treatment if she was at subacute rehab -She is currently in the process of seeing whether her sister from [place] will be able to move back to [place] to assist her so she could live at home. She states this is the cause of her emotional distress -Will continue to work with case management with regards to disposition -She is still weighing her options between pursuing additional treatment versus hospice -If she decides she would want to examine treatment options, repeat biopsy would be ideal to have pathological confirmation along with sending tissue sample for additional testing. Alternatively, bone biopsy can be considered to confirm histological diagnosis and circulating tumor DNA from the peripheral blood can be obtained outpatient -Clinic f/u will be scheduled upon discharge Intractable pain: -Neck and back pain persisting, but is controlled on current regimen -Patient continues on Toradol QID. Fentanyl 25mcg patch and scheduled Decadron added on 06/03/2023 in addition to increased Oxycodone to 15mg 6hrs prn -Zometa 4 mg IV given on 06/03/2023 -Continue fentanyl patch 25 mcg in addition to oxycodone 15 mg every 6 hours as needed. Decadron and Toradol should be weaned starting tomorrow to allow for full 48 hours of fentanyl -Will continue to monitor on current regimen Emotional distress with subjective dyspnea: -Tearful on today's encounter -Noted improvement with Xanax 0.5 mg -We will increase Xanax to 0.5 mg every 6 hours as needed for emotional distress along with subjective dyspnea, which could also be related to her suspected lung cancer Erin Salazar MD
[2023-06-05] MEDS ORDERED: HYDROmorphone 1 MG/ML 1 ML SYRINGE IVP STA (13:57)
--- NOTE | 2023-06-05 14:02 | P.PN ---
Subjective Progress Note Date: 06/05/23 62-year-old female with history of recently diagnosed lung cancer with metastatic disease, CAD status post CABG, multiple sclerosis, COPD, hypertension, dyslipidemia, essential tremor presenting with dyspnea. In the ED, vital signs showed T 94.6, HR 102, RR 32, BP 163/119, 97% on nonrebreather at 15 L. Due to increased work of breathing, BiPAP was suggested. However her mental status was poor, and she was subsequently intubated. Transferred to medical ICU. WBC was 12.8, platelet 780, K 5.4, bicarb 15, Cr 0.78, lactate 11.1. ABG showed pH 7.16, pCO2 44. Troponin 0.056, T. Bili 0.3, AST 43, ALT 33, ALP 192, proBNP 14,000, CRP 6.9, lipase 70, respiratory viral panel negative, UDS positive for oxycodone, barbiturates, and marijuana. CT abdomen and pelvis, CT chest showed mild diffuse edema and infiltrates worse on the right, atelectasis in the majority of left lower lobe, multiple thoracic spine with obstructive lesions consistent with metastatic disease, marked gallbladder wall edema, obst ructive lesions in the iliac bone and lumbar spine. Head CT shows multiple skull lesions. Patient admitted to the ICU for acute hypoxic respiratory failure. Had a bronch with BAL 05/25. Surgery following for acute on chronic cholecystitis, treating conservatively with medical management. Oncology also following, will likely need tissue biopsy. Patient will also likely need additional staging including bone scan and imaging of brain. Extubated 05/25. Echocardiogram showed mild LV systolic dysfunction secondary to prior inferior wall myocardial infarction, moderate pulmonary hypertension. Now out of the ICU. Underwent left-sided thoracentesis, 800 mL fluid removed, cytology showed non small cell carcinoma. Bone nuclear scan shows abnormal uptake within the skull, right anterior rib, medial aspect of right femur and scattered throughout the spine concerning for metastatic disease, left posterior rib fracture is seen on CT. Repeat bronchoscopy done 05/31 with pathology non diagnostic for CA. Brain MRI shows scattered osseous metastatic disease, no intracranial metastasis. Accepted to [facility] [place]. Cleared by Pulmonology services for discharge. Initially planned for discharge on 06/02 but held due to uncontrolled pain. 06/03 She reports continued pain in her cervical spine. She appears quite uncomfortable. Pain management consulted, she has been started on Fentanyl patch. Started Decadron as well. Continued on Toradol scheduled and Oxy IR PRN. We plan on discharge as soon as her pain is under better control. 06/04 She reports improved pain in he cervical and lumbar spine but still 8/[address] Salazar, continue current dose of Fentanyl patch and re-assess for pain control tomorrow. She will also benefit from radiation therapy to the spine for pain control. 06/05 Patient was seen and examined. Currently on 4L NC. She continues to report moderate pain and headache. CXR shows persistent large left pleural effusion. Currently on Fentanyl patch, Toradol PRN, Icy Hot PRN, Oxy IR PRN for pain. She still has insurance auth for [facility] but will need to check for bed availability tomorrow. Family is also considering going home to avoid a delay in her cancer treatment. It may be beneficial to set up timed thoracentesis in the outpatient setting to avoid repeat hospitalization. Consider increasing Fentanyl dose tomorrow for better pain control. Plans to follow up with Pulmonology within 1 week of discharge. Plans to follow up with Dr. Madrid and Dr. Kiran within 1 week of discharge for further workup/management of her underlying malignancy. Pertinent studies: CXR, CT head, CT C-spine, CT chest/abdomen/pelvis, Abd US, Echo, bone scan, MRI brain Pertinent procedures: Bronchoscopy, intubation/extubation. General: Mild distress Derm: warm, dry Head: atraumatic, normocephalic, symmetric Eyes: EOMI, anicteric sclera ENT: Nose and ears atraumatic Neck: No thyromegaly, supple Cardiovascular: S1S2 tachy, no murmur, no edema Lungs: Bilateral rhonchi, L>R, supplemental oxygen Ext: no gross muscle atrophy, muscle strength muscle strength 5 out of 5 in all 4 extremities, no contractures Psych: Alert and cooperative Assessment and Plan Acute hypoxic respiratory failure: Supplemental O2 to maintain O2 saturation > 92%. Lung mass with metastatic disease: Pain management consulted. Continue Fentanyl patch. Continue Decadron. Continued on Toradol scheduled and Oxy IR PRN. Follow up with Oncology and Rad-Onc. Left-sided pleural effusion: Follow up with Pulmonology. Acute on chronic cholecystitis: Status post antibiotics. Transaminitis NSTEMI, likely type II History of CAD status post CABG: ASA and Simvastatin. Metoprolol. Normocytic anemia Resolved: Lactic acidosis, Sepsis, High anion gap metabolic acidosis, Hyperkalemia, Hypercalcemia, Hypokalemia, Leukocytosis Chronic: Hypertension, Dyslipidemia, COPD, Depression Objective - Vital Signs Vital signs: Vital Signs Temp 97.8 F 06/05/23 07:27 Pulse 96 06/05/23 08:08 Resp 18 06/05/23 07:27 BP 156/77 06/05/23 07:27 Pulse Ox 99 06/05/23 07:27 FiO2 95 05/27/23 16:46 Intake & Output 06/04/23 06/05/23 06/05/23 18:59 06:59 18:59 Intake Total 480 590 Output Total 100 Balance 480 490 Intake: Oral 480 590 Output: Urine 100 Other: Voiding Method Bedside Commode Toilet Diaper Bedside Commode Diaper # Voids 3 2 ABP, PAP, CO, CI - Last Documented Arterial Blood Pressure 152/72 - Labs CBC & Chem 7: 05/31/23 06:00 06/01/23 06:05
[2023-06-05 16:54] LABS: HCT 29.6 % (34.0-46.0); HGB 9.4 gm/dL (11.4-16.0); Hypochromasia Moderate; MCH 29.5 pg (25.0-35.0); MCHC 31.6 g/dL (31.0-37.0); MCV 93.4 fL (80.0-100.0); Mean Platelet Volume 8.4; Platelet Count 598 k/uL (150-450); RBC 3.17 m/uL (3.80-5.40); RDW 15.5 % (11.5-15.5)
[2023-06-05 17:00] LABS: Potassium 3.7 mmol/L (3.5-5.1)
[2023-06-05 17:03] LABS: African American GFR (CKD) >90 (>60 ml/min/1.73 sqM); Anion Gap 12 mmol/L; Blood Urea Nitrogen 8 mg/dL (7-17); Calcium 8.3 mg/dL (8.4-10.2); Carbon Dioxide 29 mmol/L (22-30); Chloride 96 mmol/L (98-107); Glucose 117 mg/dL (74-99); Non-African American GFR(CKD) >90 (>60 ml/min/1.73 sqM); Sodium 137 mmol/L (137-145)
[2023-06-05] MEDS: polyethylene glycoL 3350 17 GM POWD.PACK PO SCH (20:05)
[2023-06-05] MEDS: MIRTAZAPINE 15 MG TAB PO SCH (20:49)
[2023-06-05] MEDS: MELATONIN 3 MG TABLET PO SCH (20:49)
[2023-06-05] MEDS: ATORVASTATIN 20 MG TAB PO SCH (20:49)
[2023-06-06] MEDS: ACETAMINOPHEN TAB 500 MG TAB PO SCH ×3 (02:25→17:15)
[2023-06-06] MEDS: SODIUM CHLORIDE 0.9% 1,000 ML IV SCH ×2 (04:00→23:28)
[2023-06-06] MEDS: KETOROLAC 15 MG/ML 1 ML VIAL IVP SCH ×4 (05:34→23:25)
[2023-06-06] MEDS: dexAMETHasone 4 MG TAB PO SCH ×4 (05:35→23:25)
[2023-06-06] MEDS: ALPRAZolam 0.5 MG TAB PO PRN ×3 (05:35→20:44)
[2023-06-06] MEDS: IPRATROPIUM-ALBUTEROL 3 ML NEB INHALATION SCH ×4 (07:51→20:03)
[2023-06-06] MEDS: SYMBICORT 160-4.5 MCG INHALER INHALATION SCH ×2 (07:51→20:03)
[2023-06-06] MEDS: PANTOPRAZOLE 40 MG/10 ML VIAL IVP SCH (08:32)
[2023-06-06] MEDS: HEPARIN SODIUM,PORCINE 5,000 UNIT/ML 1 ML VIAL SQ SCH ×2 (10:38→20:45)
[2023-06-06] MEDS: PRIMIDONE 50 MG TAB PO SCH ×3 (10:39→20:46)
[2023-06-06] MEDS: METOPROLOL TARTRATE 25 MG TAB PO SCH ×2 (10:40→20:44)
[2023-06-06] MEDS: FLUoxetine HCL 20 MG CAP PO SCH (10:40)
[2023-06-06] MEDS: SENNOSIDES 8.6 MG TAB PO SCH ×2 (10:40→20:28)
--- NOTE | 2023-06-06 14:47 | P.PN ---
Subjective Progress Note Date: 06/06/23 CHIEF COMPLAINT: Shortness of breath HISTORY OF PRESENT ILLNESS: Patient ambulating from bathroom to chair. Patient had bowel movement. Denies any nausea or vomiting. Denies any abdominal pain at this time. Patient seen by cardiothoracic service and have plans for a left- sided Pleurx catheter placement tomorrow. Afebrile. PHYSICAL EXAM: VITAL SIGNS: Reviewed. GENERAL: Well-developed in no acute distress ABDOMEN: Soft. Nondistended. right lower rib tenderness with palpation and mild RUQ pain NEUROLOGIC: Awake and alert ASSESSMENT: 1. Acute on chronic cholecystitis 2. Gallbladder distended with thickened gross noted on ultrasound 3. Lung mass with metastasis PLAN: -No surgical intervention planned at this time for the gallbladder. Recommending medical management -Patient can be discharge from surgical standpoint when medically cleared. Physician Marble Polisher note has been reviewed by physician. Signing provider agrees with the documented findings, assessment, and plan of care. Objective - Vital Signs Vital signs: Vital Signs Temp 98.2 F 06/06/23 07:20 Pulse 88 06/06/23 08:04 Resp 18 06/06/23 07:20 BP 143/91 06/06/23 07:20 Pulse Ox 100 06/06/23 07:20 FiO2 95 05/27/23 16:46 Intake & Output 06/05/23 06/06/23 06/06/23 18:59 06:59 18:59 Intake Total 1100 Balance 1100 Weight 61 kg Intake: Intake, IV Titration 600 Amount Sodium Chloride 0.9% 1, 600 000 ml @ 50 mls/hr IV . Q20H [facility] Rx#:[id number] Oral 500 Other: Voiding Method Toilet Toilet Toilet Bedside Commode Bedside Commode Bedside Commode Diaper Diaper Diaper # Voids 2 2 1 # Bowel Movements 1 ABP, PAP, CO, CI - Last Documented Arterial Blood Pressure 152/72 - Labs CBC & Chem 7: 06/05/23 16:10 06/05/23 16:10 Labs: Abnormal Lab Results - Last 24 Hours (Table) 06/05/23 06/05/23 Range/Units 16:10 16:10 WBC 11.0 H (3.8-10.6) k/uL RBC 3.17 L (3.80-5.40) m/uL Hgb 9.4 L (11.4-16.0) gm/dL Hct 29.6 L (34.0-46.0) % Plt Count 598 H (150-450) k/uL Chloride 96 L (98-107) mmol/L Creatinine 0.35 L (0.52-1.04) mg/dL Glucose 117 H (74-99) mg/dL Calcium 8.3 L (8.4-10.2) mg/dL
--- NOTE | 2023-06-06 15:16 | P.GSCN ---
History of Present Illness Consult date: 06/06/23 Reason for Consult: Recurrent left sided pleural effusion, need for pleurx cath placement Requesting physician: Audelia Loomis History of present illness: This is a 62 -year-old female patient who follows with Dr. Ni Curry outpatient for internal medicine. She has a previous medical history of left lung mass with multiple lesions suspicious for mediastinal and diffuse osseous metastasis, COPD, previous tobacco dependence, hypertension, hyperlipidemia, coronary artery disease with previous CABG, multiple sclerosis, anxiety and depression. She presented to [facility] on [facility]2023 with complaints of shortness of breath. She was admitted for evaluation and treatment with multiple diagnostic images demonstrating left-sided pleural effusion. She underwent bronchoscopy on May 25 demonstrating no evidence of endobronchial tumor, BAL demonstrated no evidence of malignancy. Pulmonology performed a left sided thoracentesis 05/29/2023 with removal of 800 mL straw-colored fluid, cytology was positive for metastatic non-small cell carcinoma. She also had bronchoscopy with biopsies performed 05/31/2023 with pathology negative. Bone scan was completed showing multiple areas of metastasis, MRI of the brain also revealed metastatic osseous lesions. Unfortunately she has already had r ecurrence of her left-sided pleural effusion and consultation was placed to cardiothoracic surgery for placement of left-sided Pleurx catheter. Review of Systems Review of systems was completed it was negative except as noted - Cardiovascular Reports as per HPI, Reports shortness of breath Past Medical History Past Medical History: Coronary Artery Disease (CAD), Cancer, Chest Pain / Angina, Hypertension, Myocardial Infarction ([place]) Additional Past Medical History / Comment(s): MS, Chiari malformation, lung mass with mets, anxiety, Depression Last Myocardial Infarction Date:: 2010 History of Any Multi-Drug Resistant Organisms: None Reported Past Surgical History: Coronary Bypass/CABG Past Anesthesia/Blood Transfusion Reactions: No Reported Reaction Past Psychological History: Anxiety, Depression Smoking Status: Former smoker Past Alcohol Use History: None Reported Past Drug Use History: None Reported Medications and Allergies Home Medications Medication Instructions Recorded Confirmed Type Aspirin EC [Ecotrin Low Dose] 81 mg PO DAILY 05/24/23 05/24/23 History Ergocalciferol [Vitamin D2 (1250 1,250 mcg PO Q7D 05/24/23 05/24/23 History Mcg = 50309 Iu)] FLUoxetine HCL [PROzac] 40 mg PO DAILY 05/24/23 05/24/23 History Fluticasone/Umeclidin/Vilanter 1 puff INHALATION RT-DAILY 05/24/23 05/24/23 History [Trelegy Ellipta 200-62.5-25] Mirtazapine [Remeron] 15 mg PO HS 05/24/23 05/24/23 History Multivitamins, Thera [Multivitamin 1 tab PO DAILY 05/24/23 05/24/23 History (formulary)] Primidone [Mysoline] 100 mg PO TID 05/24/23 05/24/23 History Simvastatin [Zocor] 40 mg PO HS 05/24/23 05/24/23 History lisinopriL [Zestril] 2.5 mg PO DAILY 05/24/23 05/24/23 History ALPRAZolam [Xanax] 0.5 mg PO TID PRN #3 tab 06/02/23 Rx Ipratropium-Albuterol Nebulize 3 ml INHALATION RT-Q2H PRN each 06/02/23 Rx [Duoneb 0.5 mg-3 mg/3 ml Soln] Melatonin 3 mg PO HS tab 06/02/23 Rx Metoprolol Tartrate [Lopressor] 25 mg PO BID tab 06/02/23 Rx Sennosides [Senokot] 8.6 mg PO BID tab 06/02/23 Rx oxyCODONE HCL [OxyIR] 15 mg PO Q6HR PRN #36 tab 06/02/23 Rx polyethylene glycoL 3350 [Miralax] 17 gm PO HS PRN packet 06/02/23 Rx Allergies Allergy/AdvReac Type Severity Reaction Status Date / Time Penicillins Allergy Rash/Hives Verified 05/24/23 09:27 Surgical - Exam Vital Signs Temp Pulse Resp BP Pulse Ox 94.6 F L 102 H 32 H 163/119 97 05/24/23 03:11 05/24/23 03:11 05/24/23 03:11 05/24/23 03:11 05/24/23 03:11 CONSTITUTIONAL: Awake and alert, appears comfortable, cooperative, well- developed, well-nourished, no pain, no acute distress EYES: Pupils equal, round, reactive to light, normal ocular movement ENT: Moist mucous membranes without oral lesions present NECK: No masses, no bruits, trachea midline RESPIRATORY: Lungs sounds diminished on the left. Respirations even, nonlabored. Currently on 4 L nasal cannula with oxygen saturation 96% CARDIOVASCULAR: S1, S2 present. Regular rate and rhythm. Palpable peripheral pulses bilaterally. No edema present GASTROINTESTINAL: Abdomen soft, nontender, nondistended GENITOURINARY: Deferred INTEGUMENTARY: Skin is warm and dry NEUROLOGIC: Cranial nerves II through XII intact MUSKULOSKELETAL: Able to move all extremities, strength equal bilaterally, normal posture PSYCHIATRIC: Alert and oriented to person place and time, appropriate affect, intact judgment and insight Results - Labs 06/05/23 16:10 06/05/23 16:10 Abnormal Lab Results - Last 24 Hours (Table) 06/05/23 06/05/23 Range/Units 16:10 16:10 WBC 11.0 H (3.8-10.6) k/uL RBC 3.17 L (3.80-5.40) m/uL Hgb 9.4 L (11.4-16.0) gm/dL Hct 29.6 L (34.0-46.0) % Plt Count 598 H (150-450) k/uL Chloride 96 L (98-107) mmol/L Creatinine 0.35 L (0.52-1.04) mg/dL Glucose 117 H (74-99) mg/dL Calcium 8.3 L (8.4-10.2) mg/dL Diabetes panel 06/05/23 Range/Units 16:10 Sodium 137 (137-145) mmol/L Potassium 3.7 (3.5-5.1) mmol/L Chloride 96 L (98-107) mmol/L Carbon Dioxide 29 (22-30) mmol/L BUN 8 (7-17) mg/dL Creatinine 0.35 L (0.52-1.04) mg/dL Glucose 117 H (74-99) mg/dL Calcium 8.3 L (8.4-10.2) mg/dL Calcium panel 06/05/23 Range/Units 16:10 Calcium 8.3 L (8.4-10.2) mg/dL Pituitary panel 06/05/23 Range/Units 16:10 Sodium 137 (137-145) mmol/L Potassium 3.7 (3.5-5.1) mmol/L Chloride 96 L (98-107) mmol/L Carbon Dioxide 29 (22-30) mmol/L BUN 8 (7-17) mg/dL Creatinine 0.35 L (0.52-1.04) mg/dL Glucose 117 H (74-99) mg/dL Calcium 8.3 L (8.4-10.2) mg/dL Adrenal panel 06/05/23 Range/Units 16:10 Sodium 137 (137-145) mmol/L Potassium 3.7 (3.5-5.1) mmol/L Chloride 96 L (98-107) mmol/L Carbon Dioxide 29 (22-30) mmol/L BUN 8 (7-17) mg/dL Creatinine 0.35 L (0.52-1.04) mg/dL Glucose 117 H (74-99) mg/dL Calcium 8.3 L (8.4-10.2) mg/dL - Imaging Chest x-ray: report reviewed, image reviewed CT scan - chest: report reviewed, image reviewed Assessment and Plan Assessment: Left lung mass with multiple lesions suspicious for mediastinal and diffuse osseous metastasis Recurrent left-sided pleural effusion, status post left sided thoracentesis on 05/29/2023 with cytology positive for metastatic non-small cell carcinoma Acute hypoxemic respiratory failure COPD Previous tobacco dependence Hypertension Hyperlipidemia Coronary artery disease with previous CABG Multiple sclerosis Anxiety and depression Plan: The patient was seen and examined sitting up in bed on the medical oncology unit with Dr. Wilson. Chart/diagnostics were reviewed. We do recommend left-sided Pleurx catheter placement to be completed tomorrow afternoon by Dr. Sanders. Once placed patient is cleared for discharge from our standpoint when okay with other services. Pleurx discharge instructions will be placed on the patient's discharge plan. Patient may be drained every other day, every day, twice a week, or however often is necessary for palliative relief of shortness of breath. Medical management of other comorbidities per internal medicine and multiple consultants. Thank you Dr. Loomis for this consult. Please call us with any further questions. I have personally seen and examined the patient, performed the documentation and the assessment and plan as written. Number of minutes spent on the visit: 20. JULIET Dorman
--- NOTE | 2023-06-06 15:42 | P.PN ---
Subjective Progress Note Date: 06/06/23 At today's visit patient is sitting in bedside chair. Patient is reporting improvement in neck and back pain on current pain med regimen. Persisting generalized weakness. Patient and family spoke with hospice team today Objective - Vital Signs Vital signs: Vital Signs Temp 98.1 F 06/06/23 12:12 Pulse 88 06/06/23 15:12 Resp 18 06/06/23 12:12 BP 123/73 06/06/23 12:12 Pulse Ox 96 06/06/23 12:12 FiO2 95 05/27/23 16:46 Intake & Output 06/05/23 06/06/23 06/06/23 18:59 06:59 18:59 Intake Total 1100 Balance 1100 Weight 61 kg Intake: Intake, IV Titration 600 Amount Sodium Chloride 0.9% 1, 600 000 ml @ 50 mls/hr IV . Q20H [facility] Rx#:[id number] Oral 500 Other: Voiding Method Toilet Toilet Toilet Bedside Commode Bedside Commode Bedside Commode Diaper Diaper Diaper # Voids 2 2 1 # Bowel Movements 1 ABP, PAP, CO, CI - Last Documented Arterial Blood Pressure 152/72 - Constitutional General appearance: Present: no acute distress - EENT Eyes: Present: anicteric sclerae, EOMI ENT: Present: hearing grossly normal - Respiratory Details: conversational dyspnea noted - Cardiovascular Details: skin warm and dry - Integumentary Integumentary: Absent: cyanotic - Musculoskeletal Musculoskeletal: Present: generalized weakness - Psychiatric Psychiatric: Present: A&O x's 3, appropriate affect, intact judgment & insight - Labs CBC & Chem 7: 06/05/23 16:10 06/05/23 16:10 Labs: Abnormal Lab Results - Last 24 Hours (Table) 06/05/23 06/05/23 Range/Units 16:10 16:10 WBC 11.0 H (3.8-10.6) k/uL RBC 3.17 L (3.80-5.40) m/uL Hgb 9.4 L (11.4-16.0) gm/dL Hct 29.6 L (34.0-46.0) % Plt Count 598 H (150-450) k/uL Chloride 96 L (98-107) mmol/L Creatinine 0.35 L (0.52-1.04) mg/dL Glucose 117 H (74-99) mg/dL Calcium 8.3 L (8.4-10.2) mg/dL Assessment and Plan (1) Mass of left lung Current Visit: Yes Status: Acute Priority: High Code(s): R91.8 - OTHER NONSPECIFIC ABNORMAL FINDING OF LUNG FIELD SNOMED Code(s): 819548634 (2) Sepsis Current Visit: Yes Status: Acute Priority: High Code(s): A41.9 - SEPSIS, UNSPECIFIED ORGANISM SNOMED Code(s): 90434611 Plan: Left lung mass, bone mets: This is strongly suspected to be lung malignancy with metastasis. However we do not yet have a pathologic diagnosis. Bronchoscopy was negative for any endobronchial lesions that could be targeted. Bronchial washing cytology negative for malignancy -S/p left sided thoracentesis, with 700cc removed. Pathology from left sided thoracentesis revealed rare metastatic non-small carcinoma cells, but subtyping was limited and primary site was unable to be identified. S/p [facility] hoscopy, path and cytology undiagnostic. Primary site thought to be lung primary. -Bone scan and brain mri ordered to complete staging. Bone scan revealed abnormal uptake within the skull, right anterior rib and medial aspect of the right femur and scattered throughout the spine. Brain MRI revealed scattered osseous metastatic disease with at least 5 lesions noted. No intra-axial enhancing mass at this time. No evidence of acute/subacute infarct. Nonspecific white matter changes. Above findings have been previously discussed in detail with patient and family -Rad onc consulted for eval for palliative RT, who discussed role of radiation on 06/03/2023. She noted at that time that she was considering comfort care -We had a prolonged discussion yesterday regarding treatment options. She was under the impression that the only treatment would be chemotherapy -We discussed that there could be other options available besides chemotherapy depending on results of circulating tumor DNA analysis from a biopsy sample and peripheral blood as well as tumor PD-L1 levels. Potential treatments discussed include oral tyrosine kinase inhibitor targeting specific mutations, immunotherapy alone, or immunotherapy combined with chemotherapy -She notes she would not want chemotherapy under any circumstances -Patient spoke to the hospice team today. Further discussed hospice/comfort care with patient and sister and she states that she does not wish to pursue any systemic treatment and wants to go home on hospice. She is amendable for palliative RT. Spoke to Dr. Kiran, he plans to reevaluate the patient to consider inpatient RT prior to discharge. -Spoke with IM team who discussed case with cardiothoracic surgery. Plan to place Pleurx drain prior to discharge All patient's and family's questions were answered to the best my ability. Instructed patient that if she has any further questions or changes her mind in regards to treatment to feel free to reach out to our service so we're able to provide any further assistance that she may need. Intractable pain: -Neck and back pain persisting, but is controlled on current regimen -Patient continues on Toradol QID. Fentanyl 25mcg patch and scheduled Decadron added on 06/03/2023 in addition to increased Oxycodone to 15mg 6hrs prn -Zometa 4 mg IV given on 06/03/2023 -Continue fentanyl patch 25 mcg in addition to oxycodone 15 mg every 6 hours as needed. Pt requested to have dilaudid added back to regimen for breakthrough pain, as it helped with pain control. Will add 1mg dilaudid q4hrs prn Emotional distress with subjective dyspnea: -Noted improvement with Xanax 0.5 mg -We will increase Xanax to 0.5 mg every 6 hours as needed for emotional distress along with subjective dyspnea, which could also be related to her suspected lung cancer
--- NOTE | 2023-06-06 15:47 | P.PN ---
Subjective Progress Note Date: 06/06/23 Patient was seen and examined on consultation today 05/24/2023, I saw the patient in the ICU, patient presented with acute hypoxic respiratory failure requiring intubation and mechanical ventilation while in the ER. Patient has a classic presentation of sepsis, the exact source of her sepsis is not clear at this point, most likely related to her gallbladder. She is now intubated and mechanically ventilated with assist control rate of 22 tidal volume 400 FiO2 60% and PEEP of 5 and ABG showed a pO2 of 175 pCO2 35 pH of 7.34. FiO2 was cut down to 40%. Patient is empirically on ceftriaxone. She received multiple fluid boluses, at this point in time she is not requiring norepinephrine, seems to be responding to fluid boluses. Apparently the patient was recently evaluated for potential lung cancer and metastasis, however no specific tissue diagnosis was made, she was supposed to have a PET scan and workup was still pending. Patient used to be a heavy smoker, she quit about 2 years ago, and I had a chance to discuss her condition with her daughter at bedside, recommended arterial line pl acement and central line placement, I also discussed the CODE STATUS, patient is DO NOT RESUSCITATE CODE STATUS, apparently the daughter is very well aware of the potential poor prognosis considering her underlying clinical condition. In the meantime the patient will remain in the ICU, will treat empirically with antibiotics, we'll consult general surgery for her abnormal findings on the gallbladder questionable cholecystitis, patient also has severe COPD, may consider bronchoscopic the patient while on mechanical ventilation to evaluate for possible endobronchial pathology since the left hilar abnormality seems to be compressing on the left mainstem bronchus. This will be addressed once the patient stabilizes more while in the ICU. Prognosis is extremely poor and guarded. Critical care time is over 55 minutes not including the time spent on procedures Patient was reevaluated today on 05/25/23, remains in the ICU intubated and mechanically ventilated. Chest x-ray is showing improvement in her overall chest x-ray appearance but she seems to have significant left lower lobe conso lidation. She is on assist control rate of 22 tidal volume 400 FiO2 14 PEEP of 8 ABG showed a pO2 of 119 pCO2 32 pH of 7.46. Patient is on propofol at 25 mcg/kg/m fentanyl 20 mcg/kg/h she is also receiving enteral feeding via orogastric tube. Considering the abnormality in the left lower lobe, and considering the patient had a previous CT of the chest showing left hilar and mediastinal adenopathy, bronchoscopy was done today, and lavage of the left lower lobe was done, but there was no evidence of endobronchial tumor. Patient was seen by surgery, and recommended mostly medical management for her presumptive acute cholecystitis. Patient remains on Rocephin and Flagyl. Patient is arousable, awake in spite of being on fairly good dose of fentanyl and propofol, WBC count is 7.6 hemoglobin 8.9, basic metabolic profile is normal, hence I plan to give the patient today a trial of weaning at least a pressure support and CPAP trial, and if tolerated may even extubate the patient today this afternoon. In the meantime the patient remains empirically on antibiotics sputum Gram stain is showing moderate gram-positive cocci. Patient was reevaluated today on 05/26/23, patient was extubated yesterday on 05/25 few hours after her bronchoscopy. She seems to have tolerated the extubation well, she is now on 4 L nasal cannula, remains on antibiotics in the form of Flagyl and ceftriaxone. Her bronchoscopy showed no evidence of endobronchial tumor however lavage of the left lung was performed, and cultures are pending. WBC count is 8.6 hemoglobin is 9.4. Platelets are 469, basic meta bolic profile is normal renal profile is normal bicarb is normal Patient was reevaluated today on 05/27/23 patient remains in the ICU, she remains on 4 L nasal cannula sitting up in the chair, IV fluid is 0.9 normal saline at 50 mL/h, patient is not in any distress. Denies any shortness of breath, denies any pain, her cultures have remained negative all along. BAL cultures are nondiagnostic, had mostly normal Alejandra, blood cultures have been negative all along. Patient is hemodynamically stable, and I plan to transfer the patient out of the ICU to a medical surgical floor today. WBC count is 8.1 hemoglobin is 9.9 basic metabolic profile is normal and renal profile is normal The patient is seen today 05/28/2023 in follow-up on the regular medical floor. She is currently sitting up in a chair at the bedside. Awake and alert in no acute distress. Maintaining O2 saturation in the 90s on 4 L/m per nasal cannula. Bronchial alveolar lavage revealed no growth. Blood cultures revealed no growth. White count 8.1. Hemoglobin 10.0. Platelets 500. Sodium 134. Potassium 4.1. Bicarb 20. BUN 11. Creatinine 0.38. Glucose 112. She is continued on DuoNeb inhalations, Symbicort, Flagyl and ceftriaxone. Heparin for DVT prophylaxis. Normal saline at 50 MLS per hour. The patient is seen today 05/29/2023 in follow-up on the regular medical floor. She is currently sitting up in a chair. Awake and alert in no acute distress. Maintaining O2 saturations in the 90s on 4 L/m per nasal cannula. Follow-up chest x-rays now revealing a stable moderate left-sided pleural effusion. Ultrasound of the chest reveals a 9.8 cm pocket on the left. She did undergo a left-sided thoracentesis today with 800 mL of straw-colored fluid removed. Sent for fluid analysis and cytology. Follow-up chest x-ray revealed interval improvement in the left lung aeration. No pneumothorax. Bronchial lavage cultures revealed no growth. Cytology pending. White count 9.5. Hemoglobin 10.2. Sodium 133. Potassium 3.8. Bicarb 29. BUN 5. Creatinine 0.30. Glucose 95. She is continued on ceftriaxone and Flagyl. Remains on bronchodilators. Heparin for DVT prophylaxis. Normal saline at 50 ML's per hour. The patient is seen today 05/30/2023 in follow-up on the regular medical floor. She is awake and alert in no acute distress. Sitting up in a chair at the bedside. Denies any worsening shortness of breath, cough or congestion. Bronchial alveolar lavage is revealing no growth, blood cultures revealed no growth. White count 10.9. Hemoglobin 10.8. Platelets 538. Sodium 137. Po tassium 3.6. Bicarb 26. BUN 5.3. Creatinine 0.4. Lipid analysis from yesterday's thoracentesis shows exudate with a protein of 2.8 and LDH of 516. Cytology pending. She is continued on DuoNeb inhalations, Symbicort, antibiotics in the form of ceftriaxone. Heparin for DVT prophylaxis. Normal saline at 50 MLS per hour. The patient is seen today 05/31/2023 in follow-up on the regular medical floor. She is sitting up in a chair. Awake and alert in no acute distress. Denies any worsening shortness of breath, cough or congestion. No hemoptysis. Bone scan did reveal abnormal uptake within the skull, right anterior rib and medial aspect of the right femur and scattered throughout the spine concerning for metastatic disease. Left posterior rib fracture as seen on prior CT. Bronchial wash cultures revealed no malignancy. Pleural fluid cytology pending. The plan is for bronchoscopy with biopsies today. White count 8.7. Hemoglobin 10.1. Platelets 477. Sodium 135. Potassium 3.2. Bicarb 34. BUN 9. Creatinine 0.37. Glucose 94. The patient is seen today 06/01/2023 in follow-up on the regular medical floor. She is awake and alert in no acute distress. Sitting up in a chair. Denies any worsening shortness of breath, cough or congestion. She is maintaining O2 saturations in the 90s on 4 L/m per nasal cannula. She's been afebrile. Hemodynamically stable. Bronchial wash cultures from 05/25/2023 revealed no evidence of malignancy. Pleural fluid cultures from 05/29/2023 are pending. Bronchial biopsies from bronchoscopy on 05/31/2023 still pending. MRI of the brain revealed scattered osseous metastatic disease. No intra-axial enhancing mass or lesions at this time. No evidence of acute/subacute infarct. Sodium 139. Potassium 3.5. BUN 10. Creatinine 0.4. Glucose 88. If she is continued on DuoNeb inhalations, Pulmicort. Heparin for DVT prophylaxis. Normal saline at 50 ML's per hour. The patient is seen today 06/02/2023 in follow-up on the regular medical floor. She is currently sitting up in a chair. Awake and alert in no acute distress. She remains quite weak. She is maintaining good O2 saturations in the 90s on 3 L/m per nasal cannula. She has normal saline at 50 ML's per hour. Her original pleural fluid cultures from 05/29/2023 are now showing positive for rare metastatic non-small cell carcinoma cells. Bronchoscopy biopsies from 05/31/2023 are pending. Ultrasound revealed no growth. She is continued on DuoNeb inhalations, Symbicort. Heparin for DVT prophylaxis. The patient is seen today 06/03/2023 in follow-up on the regular medical floor. She is awake and alert in no acute distress. She remains quite weak. She is teary-eyed today due to her cancer diagnosis. Her family is at the bedside. He is currently on 4 L nasal cannula with O2 saturations in the mid 90s. Afebrile. Hemodynamically stable. Continue to have ongoing issues with neck and back pain due to osseous metastasis. Pain management has been consulted. She is continued on DuoNeb inhalations, Symbicort. Heparin for DVT prophylaxis. The patient is seen today 06/04/2023 in follow-up on the regular medical floor. She is currently resting comfortably in bed. Awake and alert in no acute distress. He continues to maintain O2 saturations in the mid 90s on 4 L/m per nasal cannula. She's been afebrile. Hemodynamically stable. She was seen and evaluated by radiation oncology for her osseous metastasis. She is continued on Symbicort and DuoNeb inhalations for now. Heparin for DVT prophylaxis. Continuing to trial different pain management medications. The patient is seen today 06/05/2023 in follow-up on the regular medical floor. She is currently sitting up in a chair at the bedside. Awake and alert in no acute distress. Her son is in the room as well. She is maintaining good O2 saturations in the 90s on 4 L/m per nasal cannula. Chest x-ray continues to show similar left pleural effusion. She had undergone a thoracentesis on 05/29/2023 that was positive for rare metastatic non-small cell carcinoma. She is still undecided whether or not to proceed with any treatment versus home hospice. She is continued on DuoNeb inhalations, Symbicort. She remains on Decadron due to the osseous metastatic disease on MRI of the brain and bone scan. Pain management has been an issue. She is currently on a fentanyl patch with Toradol, oxycodone also On today's evaluation of 06/06/2023, the patient is being seen for a follow-up. The patient has lung mass/left lung mass in addition to large left-sided pleural effusion, and a small right-sided pleural effusion. The patient had multiple dissected lesions in the iliac bones in the lumbar spine consistent with metastatic disease. The patient also had a marked gallbladder wall edema consistent with possible cholecystitis. The patient is known to have COPD. The patient has hypertension hyperlipidemia and coronary artery disease with previous bypass surgery. The patient has multiple sclerosis. Patient was urgently admitted for shortness of breath. The patient has undergone multiple diagnostic attempts among which was a left-sided thoracentesis that showed non- small cell lung cancer and this was done on 05/29/2023 with a total of 800 mL of fluid was aspirated. Patient also had a bronchoscopy that was done on 05/23/2023 and biopsy of the lung and the pathology was negative for malignancy. Bone scan is showing multiple areas of metastases. The patient is currently being considered for hospice. In same time, the patient is being considered for a Pleurx catheter insertion. This will be essentially for palliative reasons. Objective - Vital Signs Vital signs: Vital Signs Temp 98.1 F 06/06/23 12:12 Pulse 86 06/06/23 12:12 Resp 18 06/06/23 12:12 BP 123/73 06/06/23 12:12 Pulse Ox 96 06/06/23 12:12 FiO2 95 05/27/23 16:46 Intake & Output 06/05/23 06/06/23 06/06/23 18:59 06:59 18:59 Intake Total 1100 Balance 1100 Weight 61 kg Intake: Intake, IV Titration 600 Amount Sodium Chloride 0.9% 1, 600 000 ml @ 50 mls/hr IV . Q20H [facility] Rx#:[id number] Oral 500 Other: Voiding Method Toilet Toilet Toilet Bedside Commode Bedside Commode Bedside Commode Diaper Diaper Diaper # Voids 2 2 1 # Bowel Movements 1 ABP, PAP, CO, CI - Last Documented Arterial Blood Pressure 152/72 - Exam GENERAL EXAM: Alert, pleasant weak 62-year-old female, in a chair, on 4 L nasal cannula, in no apparent distress. HEAD: Normocephalic. EYES: Normal reaction of pupils, equal size. NOSE: Clear with pink turbinates. THROAT: No erythema or exudates. NECK: No masses, no JVD. CHEST: No chest wall deformity. LUNGS: Equal air entry with few crackles in the left base. CVS: S1 and S2 normal with no audible murmur, regular rhythm. ABDOMEN: No hepatosplenomegaly, normal bowel sounds, no guarding or rigidity. SPINE: No scoliosis or deformity SKIN: No rashes CENTRAL NERVOUS SYSTEM: No focal deficits, tone is normal in all 4 extremities. EXTREMITIES: There is no peripheral edema. No clubbing, no cyanosis. Peripheral pulses are intact. - Labs CBC & Chem 7: 06/05/23 16:10 06/05/23 16:10 Labs: Abnormal Lab Results - Last 24 Hours (Table) 06/05/23 06/05/23 Range/Units 16:10 16:10 WBC 11.0 H (3.8-10.6) k/uL RBC 3.17 L (3.80-5.40) m/uL Hgb 9.4 L (11.4-16.0) gm/dL Hct 29.6 L (34.0-46.0) % Plt Count 598 H (150-450) k/uL Chloride 96 L (98-107) mmol/L Creatinine 0.35 L (0.52-1.04) mg/dL Glucose 117 H (74-99) mg/dL Calcium 8.3 L (8.4-10.2) mg/dL Assessment and Plan Plan: Metastatic non-small cell lung cancer with a malignant left-sided pleural effusion Chronic shortness of breath secondary to above Acute hypoxemic respiratory failure, currently on 4 L of oxygen by nasal cannula and the patient is Status post left-sided thoracentesis 05/29/2023 with 800 mL of straw-colored fluid removed. 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 Suspected acute cholecystitis and abdominal sepsis. Seen by surgery and the recommendation was to continue antibiotics, recommended no surgery. Leukocytosis, secondary to above, resolved Severe metabolic anion gap acidosis, resolved Left lung mass, recently measuring 4.2 x 3.9 cm with multiple lesions suspicious for mediastinal and diffuse osseous metastasis. This was been worked up outpatient. Bronchoscopy on 05/25/2023 showed no evidence of endobronchial tumor. Bronchiolar lavage revealed no evidence of malignancy. Bronchoscopy with biopsies performed on 05/31/2023. Pathology revealed no malignant. Bone scan is showing multiple areas of metastasis. MRI of the brain reveals metastatic osseous lesions but no intracranial mass or lesions. Chronic obstructive pulmonary disease, with FEV1 38% predicted, recently placed on PRN albuterol and Trelegy inhalers. Elevated troponin, likely related to supply/demand mismatch Hypertension Hyperlipidemia Coronary artery disease, with previous CABG History of multiple sclerosis History of anxiety/depression Plan: Pleurx catheter insertion for palliative reasons Hospice care Continue bronchodilators Continue with pain management we will continue to follow
--- NOTE | 2023-06-06 15:50 | P.PN ---
Subjective Progress Note Date: 06/06/23 -Prolonged discussion with patient and friend today at bedside. Patient would like to transition to hospice care. I discussed the case with cardiothoracic surgery in order to place a consult for Pleurx catheter which will be done tomorrow. I also discussed the case with oncology who is in agreement with this plan. Hospice was consulted. Radiation oncology will do palliative radiation treatments during this week for neck pain. Gen: awake, alert HEENT: normocephalic, atraumatic, good hearing acuity, moist mucous membranes Resp: good air exchange, breathing comfortably with no accessory muscle use CVS: good distal perfusion x 4, GI: soft, NTTP, ND : no SPT, no CVAT, vivas catheter not present MSK: no pitting edema, no clubbing Neuro: non-focal, moving all extremities Psych: cooperative, euthymic mood Hospital course: 62-year-old female with history of recently diagnosed lung cancer with metastatic disease, CAD status post CABG, multiple sclerosis, COPD, hypertension, dyslipidemia, essential tremor presenting with dyspnea. In the ED, vital signs showed T 94.6, HR 102, RR 32, BP 163/119, 97% on nonrebreather at 15 L. Due to increased work of breathing, BiPAP was suggested. However her mental status was poor, and she was subsequently intubated. Transferred to medical ICU. WBC was 12.8, platelet 780, K 5.4, bicarb 15, Cr 0.78, lactate 11.1. ABG showed pH 7.16, pCO2 44. Troponin 0.056, T. Bili 0.3, AST 43, ALT 33, ALP 192, proBNP 14,000, CRP 6.9, lipase 70, respiratory viral panel negative, UDS positive for oxycodone, barbiturates, and marijuana. CT abdomen and pelvis, CT chest showed mild diffuse edema and infiltrates worse on the right, atelectasis in the majority of left lower lobe, multiple thoracic spine with obstructive lesions consistent with metastatic disease, marked gallbladder wall edema, obstructive lesions in the iliac bone and lumbar spine. Head CT shows multiple skull lesions. Patient admitted to the ICU for acute hypoxic respiratory failure. Had a bronch with BAL 05/25. Surgery following for acute on chronic cholecystitis, treating conservatively with medical management. Oncology also following, will likely need tissue biopsy. Patient will also likely need additional staging including bone scan and imaging of brain. Extubated 05/25. Echocardiogram showed mild LV systolic dysfunction secondary to prior inferior wall myocardial infarction, moderate pulmonary hypertension. Now out of the ICU. Underwent left-sided thoracentesis, 800 mL fluid removed, cytology showed non small cell carcinoma. Bone nuclear scan shows abnormal uptake within the skull, right anterior rib, medial aspect of right femur and scattered throughout the spine concerning for metastatic disease, left posterior rib fracture is seen on CT. Repeat bronchoscopy done 05/31 with pathology non diagnostic for CA. Brain MRI shows scattered osseous metastatic disease, no intracranial metastasis. Accepted to [facility]. Cleared by Pulmonology services for discharge. Initially planned for discharge on 06/02 but held due to uncontrolled pain. 06/03 She reports continued pain in her cervical spine. She appears quite uncomfortable. Pain management consulted, she has been started on Fentanyl patch. Started Decadron as well. Continued on Toradol scheduled and Oxy IR PRN. We plan on discharge as soon as her pain is under better control. 06/04 She reports improved pain in he cervical and lumbar spine but still 8/[address] Salazar, continue current dose of Fentanyl patch and re-assess for pain control tomorrow. She will also benefit from radiation therapy to the spine for pain control. 06/05 Patient was seen and examined. Currently on 4L NC. She continues to report moderate pain and headache. CXR shows persistent large left pleural effusion. Currently on Fentanyl patch, Toradol PRN, Icy Hot PRN, Oxy IR PRN for pain. She still has insurance auth for [facility] but will need to check for bed availability tomorrow. Family is also considering going home to avoid a delay in her cancer treatment. It may be beneficial to set up timed thoracentesis in the outpatient setting to avoid repeat hospitalization. Consider increasing Fentanyl dose tomorrow for better pain control. Plans to follow up with Pulmonology within 1 week of discharge. Pt will be discharged with hospice Pleur X placement planned with CT surgery on 06/06 Radiation treatments planned with rad onc prior to discharge. Pertinent studies: CXR, CT head, CT C-spine, CT chest/abdomen/pelvis, Abd US, Echo, bone scan, MRI brain Pertinent procedures: Bronchoscopy, intubation/extubation. Assessment and Plan Acute hypoxic respiratory failure Lung mass with metastatic disease Left-sided pleural effusion -oxygen PRN -pain management consult pending -continue fentanyl, decadron, toradol, oxy IR PRN -Oncology and radiaton oncology recs appreciated -CT surgery consulted and will place Pleur X tomorrow (06/07) -Hospice consulted, pending Acute on chronic cholecystitis: Status post antibiotics. Transaminitis NSTEMI, likely type II History of CAD status post CABG: ASA and Simvastatin. Metoprolol. Normocytic anemia Resolved: Lactic acidosis, Sepsis, High anion gap metabolic acidosis, Hyperkalemia, Hypercalcemia, Hypokalemia, Leukocytosis Chronic: Hypertension, Dyslipidemia, COPD, Depression Objective - Vital Signs Vital signs: Vital Signs Temp 98.1 F 06/06/23 12:12 Pulse 88 06/06/23 15:12 Resp 18 06/06/23 12:12 BP 123/73 06/06/23 12:12 Pulse Ox 96 06/06/23 12:12 FiO2 95 05/27/23 16:46 Intake & Output 06/05/23 06/06/23 06/06/23 18:59 06:59 18:59 Intake Total 1100 Balance 1100 Weight 61 kg Intake: Intake, IV Titration 600 Amount Sodium Chloride 0.9% 1, 600 000 ml @ 50 mls/hr IV . Q20H [facility] Rx#:[id number] Oral 500 Other: Voiding Method Toilet Toilet Toilet Bedside Commode Bedside Commode Bedside Commode Diaper Diaper Diaper # Voids 2 2 1 # Bowel Movements 1 ABP, PAP, CO, CI - Last Documented Arterial Blood Pressure 152/72 - Labs CBC & Chem 7: 06/05/23 16:10 06/05/23 16:10 Labs: Abnormal Lab Results - Last 24 Hours (Table) 06/05/23 06/05/23 Range/Units 16:10 16:10 WBC 11.0 H (3.8-10.6) k/uL RBC 3.17 L (3.80-5.40) m/uL Hgb 9.4 L (11.4-16.0) gm/dL Hct 29.6 L (34.0-46.0) % Plt Count 598 H (150-450) k/uL Chloride 96 L (98-107) mmol/L Creatinine 0.35 L (0.52-1.04) mg/dL Glucose 117 H (74-99) mg/dL Calcium 8.3 L (8.4-10.2) mg/dL
[2023-06-06] MEDS: polyethylene glycoL 3350 17 GM POWD.PACK PO SCH (20:28)
[2023-06-06] MEDS: MELATONIN 3 MG TABLET PO SCH (20:44)
[2023-06-06] MEDS: MIRTAZAPINE 15 MG TAB PO SCH (20:45)
[2023-06-06] MEDS: ATORVASTATIN 20 MG TAB PO SCH (20:45)
[2023-06-06] MEDS: HYDROmorphone 1 MG/ML 1 ML SYRINGE IVP PRN (22:04)
[2023-06-07] MEDS: ACETAMINOPHEN TAB 500 MG TAB PO SCH ×3 (02:11→17:41)
[2023-06-07] MEDS: KETOROLAC 15 MG/ML 1 ML VIAL IVP SCH ×2 (05:51→15:15)
[2023-06-07] MEDS: dexAMETHasone 4 MG TAB PO SCH ×4 (05:52→23:39)
[2023-06-07] MEDS: SYMBICORT 160-4.5 MCG INHALER INHALATION SCH ×2 (08:03→20:07)
[2023-06-07] MEDS: IPRATROPIUM-ALBUTEROL 3 ML NEB INHALATION SCH ×4 (08:03→20:07)
[2023-06-07] MEDS: HEPARIN SODIUM,PORCINE 5,000 UNIT/ML 1 ML VIAL SQ SCH ×2 (09:12→21:00)
[2023-06-07] MEDS: FLUoxetine HCL 20 MG CAP PO SCH (09:48)
[2023-06-07] MEDS: METOPROLOL TARTRATE 25 MG TAB PO SCH ×2 (09:49→20:59)
[2023-06-07] MEDS: PANTOPRAZOLE 40 MG/10 ML VIAL IVP SCH (09:49)
[2023-06-07] MEDS: PRIMIDONE 50 MG TAB PO SCH ×3 (09:50→21:00)
[2023-06-07] MEDS: SENNOSIDES 8.6 MG TAB PO SCH ×3 (09:56→21:12)
--- NOTE | 2023-06-07 11:47 | P.PN ---
Subjective Progress Note Date: 06/07/23 CHIEF COMPLAINT: Shortness of breath HISTORY OF PRESENT ILLNESS: Patient sitting at bedside chair. Her pain is controlled. No abdominal pain. She denies any vomiting. They had hospice informational meeting yesterday. Awaiting their decision regarding hospice. Patient is scheduled for a Pleurx catheter placement today and to be evaluated for radiation treatment. Afebrile. PHYSICAL EXAM: VITAL SIGNS: Reviewed. GENERAL: no acute distress ABDOMEN: Soft. Nondistended. NEUROLOGIC: Awake and alert ASSESSMENT: 1. Acute on chronic cholecystitis 2. Gallbladder distended with thickened gross noted on ultrasound 3. Lung mass with metastasis PLAN: -No surgical intervention planned at this time for the gallbladder. Recommending medical management -Patient can be discharge from surgical standpoint when medically cleared. [facility] note has been reviewed by physician. Signing provider agrees with the documented findings, assessment, and plan of care. Objective - Vital Signs Vital signs: Vital Signs Temp 97.8 F 06/07/23 07:28 Pulse 96 06/07/23 08:17 Resp 16 06/07/23 07:28 BP 120/81 06/07/23 07:28 Pulse Ox 98 06/07/23 07:28 FiO2 95 05/27/23 16:46 Intake & Output 06/06/23 06/07/23 06/07/23 18:59 06:59 18:59 Intake Total 600 Balance 600 Intake: Oral 600 Other: Voiding Method Toilet Toilet Toilet Bedside Commode Bedside Commode Bedside Commode Diaper Diaper Diaper # Voids 1 3 ABP, PAP, CO, CI - Last Documented Arterial Blood Pressure 152/72 - Labs CBC & Chem 7: 06/05/23 16:10 06/05/23 16:10 Labs: Microbiology - Last 24 Hours (Table) 05/29/23 12:45 Fungal Culture - Preliminary Pleural Fluid 05/29/23 12:45 Acid Fast Bacilli Smear - Preliminary Pleural Fluid Acid Fast Bacilli Culture - Preliminary
[2023-06-07] MEDS ORDERED: LACTATED RINGERS 1,000 ML IV ONE (12:41)
--- NOTE | 2023-06-07 13:15 | P.PN ---
Subjective Progress Note Date: 06/07/23 Patient was seen and examined on consultation today 05/24/2023, I saw the patient in the ICU, patient presented with acute hypoxic respiratory failure requiring intubation and mechanical ventilation while in the ER. Patient has a classic presentation of sepsis, the exact source of her sepsis is not clear at this point, most likely related to her gallbladder. She is now intubated and mechanically ventilated with assist control rate of 22 tidal volume 400 FiO2 60% and PEEP of 5 and ABG showed a pO2 of 175 pCO2 35 pH of 7.34. FiO2 was cut down to 40%. Patient is empirically on ceftriaxone. She received multiple fluid boluses, at this point in time she is not requiring norepinephrine, seems to be responding to fluid boluses. Apparently the patient was recently evaluated for potential lung cancer and metastasis, however no specific tissue diagnosis was made, she was supposed to have a PET scan and workup was still pending. Patient used to be a heavy smoker, she quit about 2 years ago, and I had a chance to discuss her condition with her daughter at bedside, recommended arterial line pl acement and central line placement, I also discussed the CODE STATUS, patient is DO NOT RESUSCITATE CODE STATUS, apparently the daughter is very well aware of the potential poor prognosis considering her underlying clinical condition. In the meantime the patient will remain in the ICU, will treat empirically with antibiotics, we'll consult general surgery for her abnormal findings on the gallbladder questionable cholecystitis, patient also has severe COPD, may consider bronchoscopic the patient while on mechanical ventilation to evaluate for possible endobronchial pathology since the left hilar abnormality seems to be compressing on the left mainstem bronchus. This will be addressed once the patient stabilizes more while in the ICU. Prognosis is extremely poor and guarded. Critical care time is over 55 minutes not including the time spent on procedures Patient was reevaluated today on 05/25/23, remains in the ICU intubated and mechanically ventilated. Chest x-ray is showing improvement in her overall chest x-ray appearance but she seems to have significant left lower lobe conso lidation. She is on assist control rate of 22 tidal volume 400 FiO2 14 PEEP of 8 ABG showed a pO2 of 119 pCO2 32 pH of 7.46. Patient is on propofol at 25 mcg/kg/m fentanyl 20 mcg/kg/h she is also receiving enteral feeding via orogastric tube. Considering the abnormality in the left lower lobe, and considering the patient had a previous CT of the chest showing left hilar and mediastinal adenopathy, bronchoscopy was done today, and lavage of the left lower lobe was done, but there was no evidence of endobronchial tumor. Patient was seen by surgery, and recommended mostly medical management for her presumptive acute cholecystitis. Patient remains on Rocephin and Flagyl. Patient is arousable, awake in spite of being on fairly good dose of fentanyl and propofol, WBC count is 7.6 hemoglobin 8.9, basic metabolic profile is normal, hence I plan to give the patient today a trial of weaning at least a pressure support and CPAP trial, and if tolerated may even extubate the patient today this afternoon. In the meantime the patient remains empirically on antibiotics sputum Gram stain is showing moderate gram-positive cocci. Patient was reevaluated today on 05/26/23, patient was extubated yesterday on 05/25 few hours after her bronchoscopy. She seems to have tolerated the extubation well, she is now on 4 L nasal cannula, remains on antibiotics in the form of Flagyl and ceftriaxone. Her bronchoscopy showed no evidence of endobronchial tumor however lavage of the left lung was performed, and cultures are pending. WBC count is 8.6 hemoglobin is 9.4. Platelets are 469, basic meta bolic profile is normal renal profile is normal bicarb is normal Patient was reevaluated today on 05/27/23 patient remains in the ICU, she remains on 4 L nasal cannula sitting up in the chair, IV fluid is 0.9 normal saline at 50 mL/h, patient is not in any distress. Denies any shortness of breath, denies any pain, her cultures have remained negative all along. BAL cultures are nondiagnostic, had mostly normal Alejandra, blood cultures have been negative all along. Patient is hemodynamically stable, and I plan to transfer the patient out of the ICU to a medical surgical floor today. WBC count is 8.1 hemoglobin is 9.9 basic metabolic profile is normal and renal profile is normal The patient is seen today 05/28/2023 in follow-up on the regular medical floor. She is currently sitting up in a chair at the bedside. Awake and alert in no acute distress. Maintaining O2 saturation in the 90s on 4 L/m per nasal cannula. Bronchial alveolar lavage revealed no growth. Blood cultures revealed no growth. White count 8.1. Hemoglobin 10.0. Platelets 500. Sodium 134. Potassium 4.1. Bicarb 20. BUN 11. Creatinine 0.38. Glucose 112. She is continued on DuoNeb inhalations, Symbicort, Flagyl and ceftriaxone. Heparin for DVT prophylaxis. Normal saline at 50 MLS per hour. The patient is seen today 05/29/2023 in follow-up on the regular medical floor. She is currently sitting up in a chair. Awake and alert in no acute distress. Maintaining O2 saturations in the 90s on 4 L/m per nasal cannula. Follow-up chest x-rays now revealing a stable moderate left-sided pleural effusion. Ultrasound of the chest reveals a 9.8 cm pocket on the left. She did undergo a left-sided thoracentesis today with 800 mL of straw-colored fluid removed. Sent for fluid analysis and cytology. Follow-up chest x-ray revealed interval improvement in the left lung aeration. No pneumothorax. Bronchial lavage cultures revealed no growth. Cytology pending. White count 9.5. Hemoglobin 10.2. Sodium 133. Potassium 3.8. Bicarb 29. BUN 5. Creatinine 0.30. Glucose 95. She is continued on ceftriaxone and Flagyl. Remains on bronchodilators. Heparin for DVT prophylaxis. Normal saline at 50 ML's per hour. The patient is seen today 05/30/2023 in follow-up on the regular medical floor. She is awake and alert in no acute distress. Sitting up in a chair at the bedside. Denies any worsening shortness of breath, cough or congestion. Bronchial alveolar lavage is revealing no growth, blood cultures revealed no growth. White count 10.9. Hemoglobin 10.8. Platelets 538. Sodium 137. Po tassium 3.6. Bicarb 26. BUN 5.3. Creatinine 0.4. Lipid analysis from yesterday's thoracentesis shows exudate with a protein of 2.8 and LDH of 516. Cytology pending. She is continued on DuoNeb inhalations, Symbicort, antibiotics in the form of ceftriaxone. Heparin for DVT prophylaxis. Normal saline at 50 MLS per hour. The patient is seen today 05/31/2023 in follow-up on the regular medical floor. She is sitting up in a chair. Awake and alert in no acute distress. Denies any worsening shortness of breath, cough or congestion. No hemoptysis. Bone scan did reveal abnormal uptake within the skull, right anterior rib and medial aspect of the right femur and scattered throughout the spine concerning for metastatic disease. Left posterior rib fracture as seen on prior CT. Bronchial wash cultures revealed no malignancy. Pleural fluid cytology pending. The plan is for bronchoscopy with biopsies today. White count 8.7. Hemoglobin 10.1. Platelets 477. Sodium 135. Potassium 3.2. Bicarb 34. BUN 9. Creatinine 0.37. Glucose 94. The patient is seen today 06/01/2023 in follow-up on the regular medical floor. She is awake and alert in no acute distress. Sitting up in a chair. Denies any worsening shortness of breath, cough or congestion. She is maintaining O2 saturations in the 90s on 4 L/m per nasal cannula. She's been afebrile. Hemodynamically stable. Bronchial wash cultures from 05/25/2023 revealed no evidence of malignancy. Pleural fluid cultures from 05/29/2023 are pending. Bronchial biopsies from bronchoscopy on 05/31/2023 still pending. MRI of the brain revealed scattered osseous metastatic disease. No intra-axial enhancing mass or lesions at this time. No evidence of acute/subacute infarct. Sodium 139. Potassium 3.5. BUN 10. Creatinine 0.4. Glucose 88. If she is continued on DuoNeb inhalations, Pulmicort. Heparin for DVT prophylaxis. Normal saline at 50 ML's per hour. The patient is seen today 06/02/2023 in follow-up on the regular medical floor. She is currently sitting up in a chair. Awake and alert in no acute distress. She remains quite weak. She is maintaining good O2 saturations in the 90s on 3 L/m per nasal cannula. She has normal saline at 50 ML's per hour. Her original pleural fluid cultures from 05/29/2023 are now showing positive for rare metastatic non-small cell carcinoma cells. Bronchoscopy biopsies from 05/31/2023 are pending. Ultrasound revealed no growth. She is continued on DuoNeb inhalations, Symbicort. Heparin for DVT prophylaxis. The patient is seen today 06/03/2023 in follow-up on the regular medical floor. She is awake and alert in no acute distress. She remains quite weak. She is teary-eyed today due to her cancer diagnosis. Her family is at the bedside. He is currently on 4 L nasal cannula with O2 saturations in the mid 90s. Afebrile. Hemodynamically stable. Continue to have ongoing issues with neck and back pain due to osseous metastasis. Pain management has been consulted. She is continued on DuoNeb inhalations, Symbicort. Heparin for DVT prophylaxis. The patient is seen today 06/04/2023 in follow-up on the regular medical floor. She is currently resting comfortably in bed. Awake and alert in no acute distress. He continues to maintain O2 saturations in the mid 90s on 4 L/m per nasal cannula. She's been afebrile. Hemodynamically stable. She was seen and evaluated by radiation oncology for her osseous metastasis. She is continued on Symbicort and DuoNeb inhalations for now. Heparin for DVT prophylaxis. Continuing to trial different pain management medications. The patient is seen today 06/05/2023 in follow-up on the regular medical floor. She is currently sitting up in a chair at the bedside. Awake and alert in no acute distress. Her son is in the room as well. She is maintaining good O2 saturations in the 90s on 4 L/m per nasal cannula. Chest x-ray continues to show similar left pleural effusion. She had undergone a thoracentesis on 05/29/2023 that was positive for rare metastatic non-small cell carcinoma. She is still undecided whether or not to proceed with any treatment versus home hospice. She is continued on DuoNeb inhalations, Symbicort. She remains on Decadron due to the osseous metastatic disease on MRI of the brain and bone scan. Pain management has been an issue. She is currently on a fentanyl patch with Toradol, oxycodone also On today's evaluation of 06/06/2023, the patient is being seen for a follow-up. The patient has lung mass/left lung mass in addition to large left-sided pleural effusion, and a small right-sided pleural effusion. The patient had multiple dissected lesions in the iliac bones in the lumbar spine consistent with metastatic disease. The patient also had a marked gallbladder wall edema consistent with possible cholecystitis. The patient is known to have COPD. The patient has hypertension hyperlipidemia and coronary artery disease with previous bypass surgery. The patient has multiple sclerosis. Patient was urgently admitted for shortness of breath. The patient has undergone multiple diagnostic attempts among which was a left-sided thoracentesis that showed non- small cell lung cancer and this was done on 05/29/2023 with a total of 800 mL of fluid was aspirated. Patient also had a bronchoscopy that was done on 05/23/2023 and biopsy of the lung and the pathology was negative for malignancy. Bone scan is showing multiple areas of metastases. The patient is currently being considered for hospice. In same time, the patient is being considered for a Pleurx catheter insertion. This will be essentially for palliative reasons. On today's evaluation of 06/07/2023, the patient is stable, no nausea vomiting or abdominal pain. Hospice consultation has been initiated. The patient is scheduled to undergo a Pleurx catheter insertion today. She is afebrile. She is hemodynamically stable. No new labs are available from today and the patient is currently on room air oxygen with a pulse ox of 97%. Objective - Vital Signs Vital signs: Vital Signs Temp 97.2 F L 06/07/23 12:47 Pulse 86 06/07/23 12:47 Resp 16 06/07/23 12:47 BP 110/64 06/07/23 12:47 Pulse Ox 97 06/07/23 12:47 FiO2 95 05/27/23 16:46 Intake & Output 06/06/23 06/07/23 06/07/23 18:59 06:59 18:59 Intake Total 600 Balance 600 Intake: Oral 600 Other: Voiding Method Toilet Toilet Toilet Bedside Commode Bedside Commode Bedside Commode Diaper Diaper Diaper # Voids 1 3 ABP, PAP, CO, CI - Last Documented Arterial Blood Pressure 152/72 - Exam GENERAL EXAM: Alert, pleasant weak 62-year-old female, in a chair, on 4 L nasal cannula, in no apparent distress. HEAD: Normocephalic. EYES: Normal reaction of pupils, equal size. NOSE: Clear with pink turbinates. THROAT: No erythema or exudates. NECK: No masses, no JVD. CHEST: No chest wall deformity. LUNGS: Equal air entry with few crackles in the left base. CVS: S1 and S2 normal with no audible murmur, regular rhythm. ABDOMEN: No hepatosplenomegaly, normal bowel sounds, no guarding or rigidity. SPINE: No scoliosis or deformity SKIN: No rashes CENTRAL NERVOUS SYSTEM: No focal deficits, tone is normal in all 4 extremities. EXTREMITIES: There is no peripheral edema. No clubbing, no cyanosis. Peripheral pulses are intact. - Labs CBC & Chem 7: 06/05/23 16:10 06/05/23 16:10 Labs: Microbiology - Last 24 Hours (Table) 05/29/23 12:45 Fungal Culture - Preliminary Pleural Fluid 05/29/23 12:45 Acid Fast Bacilli Smear - Preliminary Pleural Fluid Acid Fast Bacilli Culture - Preliminary Assessment and Plan Plan: Metastatic non-small cell lung cancer with a malignant left-sided pleural effusion Chronic shortness of breath secondary to above Acute hypoxemic respiratory failure, currently on 4 L of oxygen by nasal cannula and the patient is Status post left-sided thoracentesis 05/29/2023 with 800 mL of straw-colored fluid removed. 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 Suspected acute cholecystitis and abdominal sepsis. Seen by surgery and the recommendation was to continue antibiotics, recommended no surgery. Leukocytosis, secondary to above, resolved Severe metabolic anion gap acidosis, resolved Left lung mass, recently measuring 4.2 x 3.9 cm with multiple lesions suspicious for mediastinal and diffuse osseous metastasis. This was been worked up outpatient. Bronchoscopy on 05/25/2023 showed no evidence of endobronchial tumor. Bronchiolar lavage revealed no evidence of malignancy. Bronchoscopy with biopsies performed on 05/31/2023. Pathology revealed no malignant. Bone scan is showing multiple areas of metastasis. MRI of the brain reveals metastatic osseous lesions but no intracranial mass or lesions. Chronic obstructive pulmonary disease, with FEV1 38% predicted, recently placed on PRN albuterol and Trelegy inhalers. Elevated troponin, likely related to supply/demand mismatch Hypertension Hyperlipidemia Coronary artery disease, with previous CABG History of multiple sclerosis History of anxiety/depression Plan: Pleurx catheter insertion for palliative reasons will be inserted today. Overall respiratory status is stable and the patient is being weaned off the FiO2 Hospice care has been initiated Continue bronchodilators Continue with pain management we will continue to follow
[2023-06-07] MEDS ORDERED: ceFAZolin 1,000 MG VIAL ONE (13:19)
[2023-06-07] MEDS ORDERED: PROPOFOL 10 MG/ML 20 ML VIAL IV ONE (13:19)
[2023-06-07] MEDS ORDERED: fentaNYL (PF) 50 MCG/ML 2 ML AMP ONE (13:19)
[2023-06-07] MEDS ORDERED: KETAMINE HCL IN 0.9 % NACL 50 MG/5 ML SYRINGE ONE (13:19)
[2023-06-07] MEDS ORDERED: MIDAZOLAM 2 MG/2 ML VIAL ONE (13:19)
[2023-06-07] MEDS ORDERED: SODIUM CHLORIDE 0.9% 100 ML BAG ONE (13:19)
[2023-06-07] MEDS ORDERED: SODIUM CHLORIDE 0.9% 50 ML with ceFAZolin 1,000 MG IV ONE ×2 (13:36)
[2023-06-07] MEDS ORDERED: LIDOCAINE 1% INJ 10MG/ML (30 ML VIAL-PF) SQ ONE (13:40)
--- NOTE | 2023-06-07 14:05 | P.OP ---
Date of Procedure: 06/07/23 Preoperative Diagnosis: Metastatic Lung CA Recurrent L pleural effusion Postoperative Diagnosis: Same Procedure(s) Performed: Insertion of left sided pleurX catheter Anesthesia: JAMES Surgeon: Rick Sanders Estimated Blood Loss (ml): 5 Pathology: none sent Condition: stable Disposition: PACU Indications for Procedure: This patient is a 62 year-old female with a hx of metastatic L sided NSCLC who presented with SOB. She underwent thoracentesis for 800cc and then re- accumulated her effusion. She now requires a pleurx Operative Findings: 900cc of serous fluid removed Description of Procedure: The patient was brought back to the operating room and placed supine. She was sedated and her left chest was prepped and draped in the usual sterile fashion. She was given antibiotics and two areas of the skin were anesthetized using 1% lidocaine. One near the costal margin and one posteriorly. The need was introduced into the chest with good return of serous fluid. The guidewire was inserted and checked under flouroscopy. The catheter was tunneled from anterior to posterior and introduced into the chest via the pull away sheath under flouroscopic vision. 900cc of serous fluid was evacuated. The cathter was anchored to the skin using a silk suture and the posterior incision closed with monocryl and glue. A sterile dressing was applied.
--- NOTE | 2023-06-07 14:16 | P.PN ---
Subjective Progress Note Date: 06/07/23 Hospital Course: 62-year-old female with history of recently diagnosed lung cancer with metastatic disease, CAD status post CABG, multiple sclerosis, COPD, hypertension, dyslipidemia, essential tremor presenting with dyspnea. In the ED, vital signs showed T 94.6, HR 102, RR 32, BP 163/119, 97% on nonrebreather at 15 L. Due to increased work of breathing, BiPAP was suggested. However her mental status was poor, and she was subsequently intubated. Transferred to medical ICU. WBC was 12.8, platelet 780, K 5.4, bicarb 15, Cr 0.78, lactate 11.1. ABG showed pH 7.16, pCO2 44. Troponin 0.056, T. Bili 0.3, AST 43, ALT 33, ALP 192, proBNP 14,000, CRP 6.9, lipase 70, respiratory viral panel negative, UDS positive for oxycodone, barbiturates, and marijuana. CT abdomen and pelvis, CT chest showed mild diffuse edema and infiltrates worse on the right, atelectasis in the majority of left lower lobe, multiple thoracic spine with obstructive lesions consistent with metastatic disease, marked gallbladder wall edema, obstructive lesions in the iliac bone and lumbar spine. Head CT shows multiple skull lesions. Patient admitted to the ICU for acute hypoxic respiratory failure. Had a bronch with BAL 05/25. Surgery following for acute on chronic cholecystitis, treating conservatively with medical management. Oncology also following, will likely need tissue biopsy. Patient will also likely need additional staging including bone scan and imaging of brain. Extubated 05/25. Echocardiogram showed mild LV systolic dysfunction secondary to prior inferior wall myocardial infarction, moderate pulmonary hypertension. Now out of the ICU. Underwent left-sided thoracentesis, 800 mL fluid removed, cytology showed non small cell carcinoma. Bone nuclear scan shows abnormal uptake within the skull, right anterior rib, medial aspect of right femur and scattered throughout the spine concerning for metastatic disease, left posterior rib fracture is seen on CT. Repeat bronchoscopy done 05/31 with pathology non diagnostic for CA. Brain MRI shows scattered osseous metastatic disease, no intracranial metastasis. [facility] [place]. Initially planned for discharge on 06/02 but held due to uncontrolled pain.06/03 She reports continued pain in her cervical spine. Pain management consulted. Patient not on home with hospice. Status post left-sided Pleurx catheter and will likely get palliative radiation therapy prior to going home. Subjective: Seen and examined at bedside. No acute events overnight. Continues to have left-sided neck pain. Pertinent positives and negatives as discussed above, a complete review of systems was performed and all other systems are negative. Vitals Signs Reviewed. General: Not in acute distress, chronically ill-appearing Derm: warm, dry Head: atraumatic, normocephalic, symmetric Eyes: EOMI, anicteric sclera, pupils equal round reactive to light ENT: Nose and ears atraumatic Neck: No thyromegaly, supple Mouth: no lip lesion, mucus membranes moist Cardiovascular: S1S2 reg, no murmur, no edema Lungs: Bilateral rhonchi, worse on the left side, supplemental oxygen Abdominal: soft, nontender to palpation, no guarding, no appreciable organomegaly Ext: no gross muscle atrophy, muscle strength muscle strength 5 out of 5 in all 4 extremities, no contractures Neuro: CN II-12 grossly normal Psych: Alert and cooperative Data Reviewed Today: Pertinent Labs: No new labs Imaging: No new imaging Assessment and Plan: Acute hypoxic respiratory failure Lung mass with metastatic disease Left-sided pleural effusion -oxygen PRN -continue fentanyl, decadron, oxy IR PRN, Tylenol 1 g every 8 hours, Dilaudid 1 mg IV every 4 hours needed -Oncology and radiaton oncology following -CT surgery note reviewed, status post left-sided parascapular -Discussed management with hospice, patient will be getting hospice care once discharged Acute on chronic cholecystitis: Status post antibiotics. Transaminitis NSTEMI, likely type II History of CAD status post CABG: ASA and Simvastatin discontinued. Lisinopril discontinued Continue Metoprolol. Normocytic anemia Resolved: Lactic acidosis, Sepsis, High anion gap metabolic acidosis, Hyperkalemia, Hypercalcemia, Hypokalemia, Leukocytosis Chronic: Hypertension, Dyslipidemia, COPD, Depression DVT ppx: Subcu heparin Code status: DNR/DNI Anticipated discharge place: Home with hospice Anticipated discharge time: Pending clinical course Objective - Vital Signs Vital signs: Vital Signs Temp 96.9 F L 06/07/23 14:00 Pulse 87 06/07/23 14:00 Resp 16 06/07/23 14:00 BP 120/69 06/07/23 14:00 Pulse Ox 91 L 06/07/23 14:00 FiO2 95 05/27/23 16:46 Intake & Output 06/06/23 06/07/23 06/07/23 18:59 06:59 18:59 Intake Total 600 150 Output Total 902 Balance 600 -752 Weight 61 kg Intake: IV 150 Oral 600 Output: Pleural Fluid 900 Estimated Blood Loss 2 Other: Voiding Method Toilet Toilet Toilet Bedside Commode Bedside Commode Bedside Commode Diaper Diaper Diaper # Voids 1 3 ABP, PAP, CO, CI - Last Documented Arterial Blood Pressure 152/72 - Labs CBC & Chem 7: 06/05/23 16:10 06/05/23 16:10 Labs: Microbiology - Last 24 Hours (Table) 05/29/23 12:45 Fungal Culture - Preliminary Pleural Fluid 05/29/23 12:45 Acid Fast Bacilli Smear - Preliminary Pleural Fluid Acid Fast Bacilli Culture - Preliminary
[2023-06-07] MEDS: HYDROmorphone 1 MG/ML 1 ML SYRINGE IVP PRN ×2 (15:13→20:57)
[2023-06-07] MEDS: ALPRAZolam 0.5 MG TAB PO PRN (17:41)
--- NOTE | 2023-06-07 18:22 | FL ---
Intraoperative/procedural fluoroscopic services were provided. Total fluoroscopy time is 44 seconds w ith a total of 1 submitted images to PACS. Please see the operative/procedural note for further detai ls. DAP: 0.2709 Gycm2
[2023-06-07] MEDS: MIRTAZAPINE 15 MG TAB PO SCH (21:00)
[2023-06-07] MEDS: polyethylene glycoL 3350 17 GM POWD.PACK PO SCH (21:00)
[2023-06-07] MEDS: MELATONIN 3 MG TABLET PO SCH (21:00)
[2023-06-08] MEDS: ACETAMINOPHEN TAB 500 MG TAB PO SCH ×3 (01:51→17:53)
[2023-06-08] MEDS: dexAMETHasone 4 MG TAB PO SCH ×3 (05:59→17:54)
[2023-06-08] MEDS: IPRATROPIUM-ALBUTEROL 3 ML NEB INHALATION SCH ×4 (07:44→20:02)
[2023-06-08] MEDS: SYMBICORT 160-4.5 MCG INHALER INHALATION SCH ×2 (07:44→20:02)
[2023-06-08] MEDS: HYDROmorphone 1 MG/ML 1 ML SYRINGE IVP PRN ×3 (08:29→21:27)
[2023-06-08] MEDS: METOPROLOL TARTRATE 25 MG TAB PO SCH ×2 (08:32→21:27)
[2023-06-08] MEDS: FLUoxetine HCL 20 MG CAP PO SCH (08:32)
[2023-06-08] MEDS: HEPARIN SODIUM,PORCINE 5,000 UNIT/ML 1 ML VIAL SQ SCH ×2 (08:32→21:27)
[2023-06-08] MEDS: PANTOPRAZOLE 40 MG/10 ML VIAL IVP SCH (08:32)
[2023-06-08] MEDS: SENNOSIDES 8.6 MG TAB PO SCH ×2 (08:33→21:27)
[2023-06-08] MEDS: PRIMIDONE 50 MG TAB PO SCH ×3 (08:33→21:27)
--- NOTE | 2023-06-08 09:37 | P.PN ---
Subjective Progress Note Date: 06/08/23 CHIEF COMPLAINT: Shortness of breath HISTORY OF PRESENT ILLNESS: Patient sitting at bedside chair. Her pain is controlled. No abdominal pain. She denies any vomiting. Patient status post Pleurx catheter placement. Patient reports she possible have radiation treatment today. She is to be discharged home with hospice. Afebrile. PHYSICAL EXAM: VITAL SIGNS: Reviewed. GENERAL: no acute distress ABDOMEN: Soft. Nondistended. NEUROLOGIC: Awake and alert ASSESSMENT: 1. Acute on chronic cholecystitis 2. Gallbladder distended with thickened gross noted on ultrasound 3. Lung mass with metastasis PLAN: -No surgical intervention planned for the gallbladder. Recommending medical management -Agree with discharge plan for home with hospice Physician Gis Application Developer note has been reviewed by physician. Signing provider agrees with the documented findings, assessment, and plan of care. Objective - Vital Signs Vital signs: Vital Signs Temp 98 F 06/08/23 07:51 Pulse 92 06/08/23 07:57 Resp 19 06/08/23 07:51 BP 148/83 06/08/23 07:51 Pulse Ox 98 06/08/23 07:51 FiO2 95 05/27/23 16:46 Intake & Output 06/07/23 06/08/23 06/08/23 18:59 06:59 18:59 Intake Total 350 480 Output Total 902 Balance -552 480 Weight 61 kg 57.4 kg Intake: IV 350 Oral 480 Output: Pleural Fluid 900 Estimated Blood Loss 2 Other: Voiding Method Toilet Toilet Bedside Commode Bedside Commode Diaper Diaper # Voids 1 2 ABP, PAP, CO, CI - Last Documented Arterial Blood Pressure 152/72 - Labs CBC & Chem 7: 06/05/23 16:10 06/05/23 16:10
--- NOTE | 2023-06-08 13:35 | P.PN ---
Subjective Progress Note Date: 06/08/23 Hospital Course: 62-year-old female with history of recently diagnosed lung cancer with metasta tic disease, CAD status post CABG, multiple sclerosis, COPD, hypertension, dyslipidemia, essential tremor presenting with dyspnea. In the ED, vital signs showed T 94.6, HR 102, RR 32, BP 163/119, 97% on nonrebreather at 15 L. Due to increased work of breathing, BiPAP was suggested. However her mental status was poor, and she was subsequently intubated. Transferred to medical ICU. WBC was 12.8, platelet 780, K 5.4, bicarb 15, Cr 0.78, lactate 11.1. ABG showed pH 7.16, pCO2 44. Troponin 0.056, T. Bili 0.3, AST 43, ALT 33, ALP 192, proBNP 14,000, CRP 6.9, lipase 70, respiratory viral panel negative, UDS positive for oxycodone, barbiturates, and marijuana. CT abdomen and pelvis, CT chest showed mild diffuse edema and infiltrates worse on the right, atelectasis in the majority of left lower lobe, multiple thoracic spine with obstructive lesions consistent with metastatic disease, marked gallbladder wall edema, obstructive lesions in the iliac bone and lumbar spine. Head CT shows multiple skull lesions. Patient admitted to the ICU for acute hypoxic respiratory failure. Had a bronch with BAL 05/25. Surgery following for acute on chronic cholecystitis, treating conservatively with medical management. Oncology also following, will likely need tissue biopsy. Patient will also likely need additional staging including bone scan and imaging of brain. Extubated 05/25. Echocardiogram showed mild LV systolic dysfunction secondary to prior inferior wall myocardial infarction, moderate pulmonary hypertension. Now out of the ICU. Underwent left-sided thoracentesis, 800 mL fluid removed, cytology showed non small cell carcinoma. Bone nuclear scan shows abnormal uptake within the skull, right anterior rib, medial aspect of right femur and scattered throughout the spine concerning for metastatic disease, left posterior rib fracture is seen on CT. Repeat bronchoscopy done 05/31 with pathology non diagnostic for CA. Brain MRI shows scattered osseous metastatic disease, no intracranial metastasis. Was Accepted to [facility] at [place]. Initially planned for discharge on 06/02 but held due to uncontrolled pain.06/03 She reports continued pain in her cervical spine. Pain management consulted. Patient not on home with hospice. Status post left-sided Pleurx catheter and will likely get palliative radiation therapy prior to going home. Subjective: Seen and examined at bedside. No acute events overnight. Continues to have neck pain and upper back pain. Pertinent positives and negatives as discussed above, a complete review of systems was performed and all other systems are negative. Vitals Signs Reviewed. General: Not in acute distress, chronically ill-appearing Derm: warm, dry Head: atraumatic, normocephalic, symmetric Eyes: EOMI, anicteric sclera, pupils equal round reactive to light ENT: Nose and ears atraumatic Neck: No thyromegaly, supple Mouth: no lip lesion, mucus membranes moist Cardiovascular: S1S2 reg, no murmur, no edema Lungs: Bilateral rhonchi, worse on the left side, supplemental oxygen Abdominal: soft, nontender to palpation, no guarding, no appreciable organomegaly Ext: no gross muscle atrophy, muscle strength muscle strength 5 out of 5 in all 4 extremities, no contractures Neuro: CN II-12 grossly normal Psych: Alert and cooperative Data Reviewed Today: Pertinent Labs: No new labs Imaging: No new imaging Assessment and Plan: Critically ill, poor prognosis. Acute hypoxic respiratory failure Lung mass with metastatic disease Left-sided pleural effusion -oxygen PRN -continue fentanyl 1 patch q72h, decadron 4 mg q6h, oxy IR PRN, Tylenol 1 g every 8 hours, Dilaudid 1 mg IV every 4 hours needed -Oncology and radiaton oncology following -Patient to likely get palliative radiation prior to discharge -CT surgery following, status post left-sided Pleurx catheter placement -We'll arrange for hospice care at home at the time of discharge Acute on chronic cholecystitis: Status post antibiotics, no further surgical intervention needed as patient is hospice Transaminitis NSTEMI, likely type II History of CAD status post CABG: ASA and Simvastatin discontinued. Lisinopril discontinued Continue Metoprolol. Normocytic anemia Resolved: Lactic acidosis, Sepsis, High anion gap metabolic acidosis, Hyperkalemia, Hypercalcemia, Hypokalemia, Leukocytosis Chronic: Hypertension, Dyslipidemia, COPD, Depression DVT ppx: Subcu heparin Code status: DNR/DNI Anticipated discharge place: Home with hospice Anticipated discharge time: Pending clinical course Objective - Vital Signs Vital signs: Vital Signs Temp 98 F 06/08/23 07:51 Pulse 96 06/08/23 11:00 Resp 19 06/08/23 07:51 BP 148/83 06/08/23 07:51 Pulse Ox 98 06/08/23 07:51 FiO2 95 05/27/23 16:46 Intake & Output 06/07/23 06/08/23 06/08/23 18:59 06:59 18:59 Intake Total 350 480 Output Total 902 Balance -552 480 Weight 61 kg 57.4 kg Intake: IV 350 Oral 480 Output: Pleural Fluid 900 Estimated Blood Loss 2 Other: Voiding Method Toilet Toilet Toilet Bedside Commode Bedside Commode Bedside Commode Diaper Diaper Diaper # Voids 1 2 ABP, PAP, CO, CI - Last Documented Arterial Blood Pressure 152/72 - Labs CBC & Chem 7: 06/05/23 16:10 06/05/23 16:10
--- NOTE | 2023-06-08 16:29 | P.PN ---
Subjective Progress Note Date: 06/08/23 Principal diagnosis: metastatic lung cancer Patient doing a bit better today. Still reporting 7/10 pain in the lower back and left neck. Working on pain control. Objective - Vital Signs Vital signs: Vital Signs Temp 97.8 F 06/08/23 13:00 Pulse 100 06/08/23 15:18 Resp 19 06/08/23 13:00 BP 115/71 06/08/23 13:00 Pulse Ox 97 06/08/23 13:00 FiO2 95 05/27/23 16:46 Intake & Output 06/07/23 06/08/23 06/08/23 18:59 06:59 18:59 Intake Total 350 480 Output Total 902 Balance -552 480 Weight 61 kg 57.4 kg Intake: IV 350 Oral 480 Output: Pleural Fluid 900 Estimated Blood Loss 2 Other: Voiding Method Toilet Toilet Toilet Bedside Commode Bedside Commode Bedside Commode Diaper Diaper Diaper # Voids 1 2 ABP, PAP, CO, CI - Last Documented Arterial Blood Pressure 152/72 - Constitutional General appearance: Present: no acute distress - EENT Eyes: Present: EOMI, PERRLA ENT: Present: hearing grossly normal - Neck Neck: Absent: lymphadenopathy - Cardiovascular Rhythm: regular - Integumentary Integumentary: Absent: rash - Neurologic Neurologic: Present: CNII-XII intact - Psychiatric Psychiatric: Present: A&O x's 3, appropriate affect - Labs CBC & Chem 7: 06/05/23 16:10 06/05/23 16:10 Assessment and Plan Assessment: 62 year old female with newly diagnosed metastatic carcinoma (likely lung primary) with significant bone metastases. She has decided to forgo aggressive therapy. She is still interested in RT for palliative purposes. Plan: 1. Palliative RT - Discussed again with patient the plan for RT to the C-spine and L-spine. She underwent CT simulation earlier today. Will plan for single fraction RT since she is hopeful for a discharge soon for hospice. Will try to complete RT tomorrow (06/09). Stressed importance of pain control as it can take some time for the effect of RT to be maximal. Time with Patient: Less than 30
[2023-06-08] MEDS: KETOROLAC 15 MG/ML 1 ML VIAL IVP PRN (17:54)
--- NOTE | 2023-06-08 18:16 | P.PN ---
Subjective Progress Note Date: 06/08/23 Patient was seen and examined on consultation today 05/24/2023, I saw the patient in the ICU, patient presented with acute hypoxic respiratory failure requiring intubation and mechanical ventilation while in the ER. Patient has a classic presentation of sepsis, the exact source of her sepsis is not clear at this point, most likely related to her gallbladder. She is now intubated and mechanically ventilated with assist control rate of 22 tidal volume 400 FiO2 60% and PEEP of 5 and ABG showed a pO2 of 175 pCO2 35 pH of 7.34. FiO2 was cut down to 40%. Patient is empirically on ceftriaxone. She received multiple fluid boluses, at this point in time she is not requiring norepinephrine, seems to be responding to fluid boluses. Apparently the patient was recently evaluated for potential lung cancer and metastasis, however no specific tissue diagnosis was made, she was supposed to have a PET scan and workup was still pending. Patient used to be a heavy smoker, she quit about 2 years ago, and I had a chance to discuss her condition with her daughter at bedside, recommended arterial line pl acement and central line placement, I also discussed the CODE STATUS, patient is DO NOT RESUSCITATE CODE STATUS, apparently the daughter is very well aware of the potential poor prognosis considering her underlying clinical condition. In the meantime the patient will remain in the ICU, will treat empirically with antibiotics, we'll consult general surgery for her abnormal findings on the gallbladder questionable cholecystitis, patient also has severe COPD, may consider bronchoscopic the patient while on mechanical ventilation to evaluate for possible endobronchial pathology since the left hilar abnormality seems to be compressing on the left mainstem bronchus. This will be addressed once the patient stabilizes more while in the ICU. Prognosis is extremely poor and guarded. Critical care time is over 55 minutes not including the time spent on procedures Patient was reevaluated today on 05/25/23, remains in the ICU intubated and mechanically ventilated. Chest x-ray is showing improvement in her overall chest x-ray appearance but she seems to have significant left lower lobe conso lidation. She is on assist control rate of 22 tidal volume 400 FiO2 14 PEEP of 8 ABG showed a pO2 of 119 pCO2 32 pH of 7.46. Patient is on propofol at 25 mcg/kg/m fentanyl 20 mcg/kg/h she is also receiving enteral feeding via orogastric tube. Considering the abnormality in the left lower lobe, and considering the patient had a previous CT of the chest showing left hilar and mediastinal adenopathy, bronchoscopy was done today, and lavage of the left lower lobe was done, but there was no evidence of endobronchial tumor. Patient was seen by surgery, and recommended mostly medical management for her presumptive acute cholecystitis. Patient remains on Rocephin and Flagyl. Patient is arousable, awake in spite of being on fairly good dose of fentanyl and propofol, WBC count is 7.6 hemoglobin 8.9, basic metabolic profile is normal, hence I plan to give the patient today a trial of weaning at least a pressure support and CPAP trial, and if tolerated may even extubate the patient today this afternoon. In the meantime the patient remains empirically on antibiotics sputum Gram stain is showing moderate gram-positive cocci. Patient was reevaluated today on 05/26/23, patient was extubated yesterday on 05/25 few hours after her bronchoscopy. She seems to have tolerated the extubation well, she is now on 4 L nasal cannula, remains on antibiotics in the form of Flagyl and ceftriaxone. Her bronchoscopy showed no evidence of endobronchial tumor however lavage of the left lung was performed, and cultures are pending. WBC count is 8.6 hemoglobin is 9.4. Platelets are 469, basic meta bolic profile is normal renal profile is normal bicarb is normal Patient was reevaluated today on 05/27/23 patient remains in the ICU, she remains on 4 L nasal cannula sitting up in the chair, IV fluid is 0.9 normal saline at 50 mL/h, patient is not in any distress. Denies any shortness of breath, denies any pain, her cultures have remained negative all along. BAL cultures are nondiagnostic, had mostly normal Alejandra, blood cultures have been negative all along. Patient is hemodynamically stable, and I plan to transfer the patient out of the ICU to a medical surgical floor today. WBC count is 8.1 hemoglobin is 9.9 basic metabolic profile is normal and renal profile is normal The patient is seen today 05/28/2023 in follow-up on the regular medical floor. She is currently sitting up in a chair at the bedside. Awake and alert in no acute distress. Maintaining O2 saturation in the 90s on 4 L/m per nasal cannula. Bronchial alveolar lavage revealed no growth. Blood cultures revealed no growth. White count 8.1. Hemoglobin 10.0. Platelets 500. Sodium 134. Potassium 4.1. Bicarb 20. BUN 11. Creatinine 0.38. Glucose 112. She is continued on DuoNeb inhalations, Symbicort, Flagyl and ceftriaxone. Heparin for DVT prophylaxis. Normal saline at 50 MLS per hour. The patient is seen today 05/29/2023 in follow-up on the regular medical floor. She is currently sitting up in a chair. Awake and alert in no acute distress. Maintaining O2 saturations in the 90s on 4 L/m per nasal cannula. Follow-up chest x-rays now revealing a stable moderate left-sided pleural effusion. Ultrasound of the chest reveals a 9.8 cm pocket on the left. She did undergo a left-sided thoracentesis today with 800 mL of straw-colored fluid removed. Sent for fluid analysis and cytology. Follow-up chest x-ray revealed interval improvement in the left lung aeration. No pneumothorax. Bronchial lavage cultures revealed no growth. Cytology pending. White count 9.5. Hemoglobin 10.2. Sodium 133. Potassium 3.8. Bicarb 29. BUN 5. Creatinine 0.30. Glucose 95. She is continued on ceftriaxone and Flagyl. Remains on bronchodilators. Heparin for DVT prophylaxis. Normal saline at 50 ML's per hour. The patient is seen today 05/30/2023 in follow-up on the regular medical floor. She is awake and alert in no acute distress. Sitting up in a chair at the bedside. Denies any worsening shortness of breath, cough or congestion. Bronchial alveolar lavage is revealing no growth, blood cultures revealed no growth. White count 10.9. Hemoglobin 10.8. Platelets 538. Sodium 137. Po tassium 3.6. Bicarb 26. BUN 5.3. Creatinine 0.4. Lipid analysis from yesterday's thoracentesis shows exudate with a protein of 2.8 and LDH of 516. Cytology pending. She is continued on DuoNeb inhalations, Symbicort, antibiotics in the form of ceftriaxone. Heparin for DVT prophylaxis. Normal saline at 50 MLS per hour. The patient is seen today 05/31/2023 in follow-up on the regular medical floor. She is sitting up in a chair. Awake and alert in no acute distress. Denies any worsening shortness of breath, cough or congestion. No hemoptysis. Bone scan did reveal abnormal uptake within the skull, right anterior rib and medial aspect of the right femur and scattered throughout the spine concerning for metastatic disease. Left posterior rib fracture as seen on prior CT. Bronchial wash cultures revealed no malignancy. Pleural fluid cytology pending. The plan is for bronchoscopy with biopsies today. White count 8.7. Hemoglobin 10.1. Platelets 477. Sodium 135. Potassium 3.2. Bicarb 34. BUN 9. Creatinine 0.37. Glucose 94. The patient is seen today 06/01/2023 in follow-up on the regular medical floor. She is awake and alert in no acute distress. Sitting up in a chair. Denies any worsening shortness of breath, cough or congestion. She is maintaining O2 saturations in the 90s on 4 L/m per nasal cannula. She's been afebrile. Hemodynamically stable. Bronchial wash cultures from 05/25/2023 revealed no evidence of malignancy. Pleural fluid cultures from 05/29/2023 are pending. Bronchial biopsies from bronchoscopy on 05/31/2023 still pending. MRI of the brain revealed scattered osseous metastatic disease. No intra-axial enhancing mass or lesions at this time. No evidence of acute/subacute infarct. Sodium 139. Potassium 3.5. BUN 10. Creatinine 0.4. Glucose 88. If she is continued on DuoNeb inhalations, Pulmicort. Heparin for DVT prophylaxis. Normal saline at 50 ML's per hour. The patient is seen today 06/02/2023 in follow-up on the regular medical floor. She is currently sitting up in a chair. Awake and alert in no acute distress. She remains quite weak. She is maintaining good O2 saturations in the 90s on 3 L/m per nasal cannula. She has normal saline at 50 ML's per hour. Her original pleural fluid cultures from 05/29/2023 are now showing positive for rare metastatic non-small cell carcinoma cells. Bronchoscopy biopsies from 05/31/2023 are pending. Ultrasound revealed no growth. She is continued on DuoNeb inhalations, Symbicort. Heparin for DVT prophylaxis. The patient is seen today 06/03/2023 in follow-up on the regular medical floor. She is awake and alert in no acute distress. She remains quite weak. She is teary-eyed today due to her cancer diagnosis. Her family is at the bedside. He is currently on 4 L nasal cannula with O2 saturations in the mid 90s. Afebrile. Hemodynamically stable. Continue to have ongoing issues with neck and back pain due to osseous metastasis. Pain management has been consulted. She is continued on DuoNeb inhalations, Symbicort. Heparin for DVT prophylaxis. The patient is seen today 06/04/2023 in follow-up on the regular medical floor. She is currently resting comfortably in bed. Awake and alert in no acute distress. He continues to maintain O2 saturations in the mid 90s on 4 L/m per nasal cannula. She's been afebrile. Hemodynamically stable. She was seen and evaluated by radiation oncology for her osseous metastasis. She is continued on Symbicort and DuoNeb inhalations for now. Heparin for DVT prophylaxis. Continuing to trial different pain management medications. The patient is seen today 06/05/2023 in follow-up on the regular medical floor. She is currently sitting up in a chair at the bedside. Awake and alert in no acute distress. Her son is in the room as well. She is maintaining good O2 saturations in the 90s on 4 L/m per nasal cannula. Chest x-ray continues to show similar left pleural effusion. She had undergone a thoracentesis on 05/29/2023 that was positive for rare metastatic non-small cell carcinoma. She is still undecided whether or not to proceed with any treatment versus home hospice. She is continued on DuoNeb inhalations, Symbicort. She remains on Decadron due to the osseous metastatic disease on MRI of the brain and bone scan. Pain management has been an issue. She is currently on a fentanyl patch with Toradol, oxycodone also On today's evaluation of 06/06/2023, the patient is being seen for a follow-up. The patient has lung mass/left lung mass in addition to large left-sided pleural effusion, and a small right-sided pleural effusion. The patient had multiple dissected lesions in the iliac bones in the lumbar spine consistent with metastatic disease. The patient also had a marked gallbladder wall edema consistent with possible cholecystitis. The patient is known to have COPD. The patient has hypertension hyperlipidemia and coronary artery disease with previous bypass surgery. The patient has multiple sclerosis. Patient was urgently admitted for shortness of breath. The patient has undergone multiple diagnostic attempts among which was a left-sided thoracentesis that showed non- small cell lung cancer and this was done on 05/29/2023 with a total of 800 mL of fluid was aspirated. Patient also had a bronchoscopy that was done on 05/23/2023 and biopsy of the lung and the pathology was negative for malignancy. Bone scan is showing multiple areas of metastases. The patient is currently being considered for hospice. In same time, the patient is being considered for a Pleurx catheter insertion. This will be essentially for palliative reasons. On today's evaluation of 06/07/2023, the patient is stable, no nausea vomiting or abdominal pain. Hospice consultation has been initiated. The patient is scheduled to undergo a Pleurx catheter insertion today. She is afebrile. She is hemodynamically stable. No new labs are available from today and the patient is currently on room air oxygen with a pulse ox of 97%. On today's evaluation of 06/08/2023, the patient is stable. She has a Pleurx catheter in the right lung. The procedure was done yesterday and a total of 900 mL was aspirated from the left lung. The patient remains on oxygen at 3 L per minute nasal cannula with a pulse ox of 97%. The patient is interested in hospice care. The patient met with radiation oncology and the patient decided to forego radiation therapy and she is interested in palliative radiation therapy. She met with radiation oncology. She has had CT simulation and she is going to start palliative radiation therapy to her spine Objective - Vital Signs Vital signs: Vital Signs Temp 97.8 F 06/08/23 13:00 Pulse 100 06/08/23 15:18 Resp 19 06/08/23 13:00 BP 115/71 06/08/23 13:00 Pulse Ox 97 06/08/23 13:00 FiO2 95 05/27/23 16:46 Intake & Output 06/07/23 06/08/23 06/08/23 18:59 06:59 18:59 Intake Total 350 480 Output Total 902 Balance -552 480 Weight 61 kg 57.4 kg Intake: IV 350 Oral 480 Output: Pleural Fluid 900 Estimated Blood Loss 2 Other: Voiding Method Toilet Toilet Toilet Bedside Commode Bedside Commode Bedside Commode Diaper Diaper Diaper # Voids 1 2 ABP, PAP, CO, CI - Last Documented Arterial Blood Pressure 152/72 - Exam GENERAL EXAM: Alert, pleasant weak 62-year-old female, in a chair, on 4 L nasal cannula, in no apparent distress. HEAD: Normocephalic. EYES: Normal reaction of pupils, equal size. NOSE: Clear with pink turbinates. THROAT: No erythema or exudates. NECK: No masses, no JVD. CHEST: No chest wall deformity. LUNGS: Equal air entry with few crackles in the left base., The patient is a Pleurx catheter in the left chest and the exit site is clean CVS: S1 and S2 normal with no audible murmur, regular rhythm. ABDOMEN: No hepatosplenomegaly, normal bowel sounds, no guarding or rigidity. SPINE: No scoliosis or deformity SKIN: No rashes CENTRAL NERVOUS SYSTEM: No focal deficits, tone is normal in all 4 extremities. EXTREMITIES: There is no peripheral edema. No clubbing, no cyanosis. Peripheral pulses are intact. - Labs CBC & Chem 7: 06/05/23 16:10 06/05/23 16:10 Assessment and Plan Plan: Metastatic non-small cell lung cancer with a malignant left-sided pleural effusion, post Pleurx catheter insertion for palliative reasons Chronic shortness of breath secondary to above, currently stable Acute hypoxemic respiratory failure, currently on 3 L of oxygen by nasal cannula and the patient is Status post left-sided thoracentesis 05/29/2023 with 800 mL of straw-colored fluid removed. 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 Suspected acute cholecystitis and abdominal sepsis. Seen by surgery and the recommendation was to continue antibiotics, recommended no surgery. Leukocytosis, secondary to above, resolved Severe metabolic anion gap acidosis, resolved Left lung mass, recently measuring 4.2 x 3.9 cm with multiple lesions suspicious for mediastinal and diffuse osseous metastasis. This was been worked up outpatient. Bronchoscopy on 05/25/2023 showed no evidence of endobronchial tumor. Bronchiolar lavage revealed no evidence of malignancy. Bronchoscopy with biopsies performed on 05/31/2023. Pathology revealed no malignant. Bone scan is showing multiple areas of metastasis. MRI of the brain reveals metastatic osseous lesions but no intracranial mass or lesions. Chronic obstructive pulmonary disease, with FEV1 38% predicted, recently placed on PRN albuterol and Trelegy inhalers. Elevated troponin, likely related to supply/demand mismatch Hypertension Hyperlipidemia Coronary artery disease, with previous CABG History of multiple sclerosis History of anxiety/depression Plan: Pleurx catheter inserted and palliative drainage to be done on outpatient basis Palliative radiation therapy Overall respiratory status is stable and the patient is being weaned off the FiO2 on 3 L Hospice care has been initiated Continue bronchodilators Continue with pain management we will continue to follow
[2023-06-08] MEDS: MIRTAZAPINE 15 MG TAB PO SCH (21:27)
[2023-06-08] MEDS: MELATONIN 3 MG TABLET PO SCH (21:27)
[2023-06-08] MEDS: polyethylene glycoL 3350 17 GM POWD.PACK PO SCH (21:33)
[2023-06-09] MEDS: ACETAMINOPHEN TAB 500 MG TAB PO SCH ×3 (01:03→18:07)
[2023-06-09] MEDS: dexAMETHasone 4 MG TAB PO SCH ×5 (01:03→23:03)
[2023-06-09] MEDS: HYDROmorphone 1 MG/ML 1 ML SYRINGE IVP PRN ×2 (06:12→11:58)
[2023-06-09] MEDS: IPRATROPIUM-ALBUTEROL 3 ML NEB INHALATION SCH ×4 (08:08→18:18)
[2023-06-09] MEDS: SYMBICORT 160-4.5 MCG INHALER INHALATION SCH ×2 (08:08→18:18)
[2023-06-09] MEDS: HEPARIN SODIUM,PORCINE 5,000 UNIT/ML 1 ML VIAL SQ SCH ×2 (09:27→20:48)
[2023-06-09] MEDS: PANTOPRAZOLE 40 MG/10 ML VIAL IVP SCH (09:27)
[2023-06-09] MEDS: FLUoxetine HCL 20 MG CAP PO SCH (09:27)
[2023-06-09] MEDS: METOPROLOL TARTRATE 25 MG TAB PO SCH ×2 (09:27→20:48)
[2023-06-09] MEDS: SENNOSIDES 8.6 MG TAB PO SCH ×2 (09:28→20:41)
[2023-06-09] MEDS: PRIMIDONE 50 MG TAB PO SCH ×3 (09:28→20:48)
[2023-06-09] MEDS: KETOROLAC 15 MG/ML 1 ML VIAL IVP PRN (09:53)
[2023-06-09] MEDS ORDERED: HYDROmorphone 1 MG/ML 1 ML SYRINGE IVP PRN (12:56)
--- NOTE | 2023-06-09 13:00 | P.PN ---
Subjective Progress Note Date: 06/09/23 Hospital Course: 62-year-old female with history of recently diagnosed lung cancer with metasta tic disease, CAD status post CABG, multiple sclerosis, COPD, hypertension, dyslipidemia, essential tremor presenting with dyspnea. In the ED, vital signs showed T 94.6, HR 102, RR 32, BP 163/119, 97% on nonrebreather at 15 L. Due to increased work of breathing, BiPAP was suggested. However her mental status was poor, and she was subsequently intubated. Transferred to medical ICU. WBC was 12.8, platelet 780, K 5.4, bicarb 15, Cr 0.78, lactate 11.1. ABG showed pH 7.16, pCO2 44. Troponin 0.056, T. Bili 0.3, AST 43, ALT 33, ALP 192, proBNP 14,000, CRP 6.9, lipase 70, respiratory viral panel negative, UDS positive for oxycodone, barbiturates, and marijuana. CT abdomen and pelvis, CT chest showed mild diffuse edema and infiltrates worse on the right, atelectasis in the majority of left lower lobe, multiple thoracic spine with obstructive lesions consistent with metastatic disease, marked gallbladder wall edema, obstructive lesions in the iliac bone and lumbar spine. Head CT shows multiple skull lesions. Patient admitted to the ICU for acute hypoxic respiratory failure. Had a bronch with BAL 05/25. Surgery following for acute on chronic cholecystitis, treating conservatively with medical management. Oncology also following, will likely need tissue biopsy. Patient will also likely need additional staging including bone scan and imaging of brain. Extubated 05/25. Echocardiogram showed mild LV systolic dysfunction secondary to prior inferior wall myocardial infarction, moderate pulmonary hypertension. Now out of the ICU. Underwent left-sided thoracentesis, 800 mL fluid removed, cytology showed non small cell carcinoma. Bone nuclear scan shows abnormal uptake within the skull, right anterior rib, medial aspect of right femur and scattered throughout the spine concerning for metastatic disease, left posterior rib fracture is seen on CT. Repeat bronchoscopy done 05/31 with pathology non diagnostic for CA. Brain MRI shows scattered osseous metastatic disease, no intracranial metastasis. [facility] [place] Initially planned for discharge on 06/02 but held due to uncontrolled pain.06/03 She reports continued pain in her cervical spine. Pain management consulted. Patient not on home with hospice. Status post left-sided Pleurx catheter. Palliative radiation today. Subjective: Seen and examined at bedside. No acute events overnight. Continues to have neck pain and upper back pain. Pertinent positives and negatives as discussed above, a complete review of systems was performed and all other systems are negative. Vitals Signs Reviewed. General: Not in acute distress, chronically ill-appearing Derm: warm, dry Head: atraumatic, normocephalic, symmetric Eyes: EOMI, anicteric sclera, pupils equal round reactive to light ENT: Nose and ears atraumatic Neck: No thyromegaly, supple Mouth: no lip lesion, mucus membranes moist Cardiovascular: S1S2 reg, no murmur, no edema Lungs: Bilateral rhonchi, worse on the left side, supplemental oxygen Abdominal: soft, nontender to palpation, no guarding, no appreciable organome gopal Ext: no gross muscle atrophy, muscle strength muscle strength 5 out of 5 in all 4 extremities, no contractures Neuro: CN II-12 grossly normal Psych: Alert and cooperative Data Reviewed Today: Pertinent Labs: No new labs Imaging: No new imaging Assessment and Plan: Critically ill, poor prognosis. Acute hypoxic respiratory failure Lung mass with metastatic disease Left-sided pleural effusion -oxygen PRN -continue fentanyl 1 patch q72h, decadron 4 mg q6h, oxy IR PRN, Tylenol 1 g every 8 hours, Dilaudid 1 mg IV changed to every 3 hours as needed, continue on Toradol -Oncology and radiaton oncology following -Palliative radiation today -CT surgery following, status post left-sided Pleurx catheter placement -We'll arrange for hospice care at home at the time of discharge Acute on chronic cholecystitis: Status post antibiotics, no further surgical intervention needed as patient is hospice Transaminitis NSTEMI, likely type II History of CAD status post CABG: ASA and Simvastatin discontinued. Lisinopril discontinued Continue Metoprolol. Normocytic anemia Resolved: Lactic acidosis, Sepsis, High anion gap metabolic acidosis, Hyperkalemia, Hypercalcemia, Hypokalemia, Leukocytosis Chronic: Hypertension, Dyslipidemia, COPD, Depression DVT ppx: Subcu heparin Code status: DNR/DNI Anticipated discharge place: Home with hospice Anticipated discharge time: Pending clinical course Objective - Vital Signs Vital signs: Vital Signs Temp 98 F 06/09/23 07:46 Pulse 96 06/09/23 11:44 Resp 16 06/09/23 07:46 BP 126/78 06/09/23 07:46 Pulse Ox 98 06/09/23 07:46 FiO2 95 05/27/23 16:46 Intake & Output 06/08/23 06/09/23 06/09/23 18:59 06:59 18:59 Intake Total 240 Balance 240 Weight 55.3 kg Intake: Oral 240 Other: Voiding Method Toilet Bedside Commode Bedside Commode Bedside Commode Diaper # Voids 1 2 # Bowel Movements 1 ABP, PAP, CO, CI - Last Documented Arterial Blood Pressure 152/72 - Labs CBC & Chem 7: 06/05/23 16:10 06/05/23 16:10
[2023-06-09] MEDS ORDERED: MORPHINE CONC SOLN 10mg/0.5mL ORAL SYRG PO PRN (13:13)
[2023-06-09] MEDS: MORPHINE SULFATE ER 30 MG TABLET PO SCH ×2 (14:32→23:03)
[2023-06-09] MEDS: ALPRAZolam 0.5 MG TAB PO PRN ×2 (14:33→20:48)
[2023-06-09] MEDS: MORPHINE ORAL SOLN 10 MG/5 ML CUP PO PRN ×2 (16:47→20:49)
--- NOTE | 2023-06-09 16:48 | P.PN ---
Subjective Progress Note Date: 06/09/23 Patient was seen and examined on consultation today 05/24/2023, I saw the patient in the ICU, patient presented with acute hypoxic respiratory failure requiring intubation and mechanical ventilation while in the ER. Patient has a classic presentation of sepsis, the exact source of her sepsis is not clear at this point, most likely related to her gallbladder. She is now intubated and mechanically ventilated with assist control rate of 22 tidal volume 400 FiO2 60% and PEEP of 5 and ABG showed a pO2 of 175 pCO2 35 pH of 7.34. FiO2 was cut down to 40%. Patient is empirically on ceftriaxone. She received multiple fluid boluses, at this point in time she is not requiring norepinephrine, seems to be responding to fluid boluses. Apparently the patient was recently evaluated for potential lung cancer and metastasis, however no specific tissue diagnosis was made, she was supposed to have a PET scan and workup was still pending. Patient used to be a heavy smoker, she quit about 2 years ago, and I had a chance to discuss her condition with her daughter at bedside, recommended arterial line pl acement and central line placement, I also discussed the CODE STATUS, patient is DO NOT RESUSCITATE CODE STATUS, apparently the daughter is very well aware of the potential poor prognosis considering her underlying clinical condition. In the meantime the patient will remain in the ICU, will treat empirically with antibiotics, we'll consult general surgery for her abnormal findings on the gallbladder questionable cholecystitis, patient also has severe COPD, may consider bronchoscopic the patient while on mechanical ventilation to evaluate for possible endobronchial pathology since the left hilar abnormality seems to be compressing on the left mainstem bronchus. This will be addressed once the patient stabilizes more while in the ICU. Prognosis is extremely poor and guarded. Critical care time is over 55 minutes not including the time spent on procedures Patient was reevaluated today on 05/25/23, remains in the ICU intubated and mechanically ventilated. Chest x-ray is showing improvement in her overall chest x-ray appearance but she seems to have significant left lower lobe conso lidation. She is on assist control rate of 22 tidal volume 400 FiO2 14 PEEP of 8 ABG showed a pO2 of 119 pCO2 32 pH of 7.46. Patient is on propofol at 25 mcg/kg/m fentanyl 20 mcg/kg/h she is also receiving enteral feeding via orogastric tube. Considering the abnormality in the left lower lobe, and considering the patient had a previous CT of the chest showing left hilar and mediastinal adenopathy, bronchoscopy was done today, and lavage of the left lower lobe was done, but there was no evidence of endobronchial tumor. Patient was seen by surgery, and recommended mostly medical management for her presumptive acute cholecystitis. Patient remains on Rocephin and Flagyl. Patient is arousable, awake in spite of being on fairly good dose of fentanyl and propofol, WBC count is 7.6 hemoglobin 8.9, basic metabolic profile is normal, hence I plan to give the patient today a trial of weaning at least a pressure support and CPAP trial, and if tolerated may even extubate the patient today this afternoon. In the meantime the patient remains empirically on antibiotics sputum Gram stain is showing moderate gram-positive cocci. Patient was reevaluated today on 05/26/23, patient was extubated yesterday on 05/25 few hours after her bronchoscopy. She seems to have tolerated the extubation well, she is now on 4 L nasal cannula, remains on antibiotics in the form of Flagyl and ceftriaxone. Her bronchoscopy showed no evidence of endobronchial tumor however lavage of the left lung was performed, and cultures are pending. WBC count is 8.6 hemoglobin is 9.4. Platelets are 469, basic meta bolic profile is normal renal profile is normal bicarb is normal Patient was reevaluated today on 05/27/23 patient remains in the ICU, she remains on 4 L nasal cannula sitting up in the chair, IV fluid is 0.9 normal saline at 50 mL/h, patient is not in any distress. Denies any shortness of breath, denies any pain, her cultures have remained negative all along. BAL cultures are nondiagnostic, had mostly normal Alejandra, blood cultures have been negative all along. Patient is hemodynamically stable, and I plan to transfer the patient out of the ICU to a medical surgical floor today. WBC count is 8.1 hemoglobin is 9.9 basic metabolic profile is normal and renal profile is normal The patient is seen today 05/28/2023 in follow-up on the regular medical floor. She is currently sitting up in a chair at the bedside. Awake and alert in no acute distress. Maintaining O2 saturation in the 90s on 4 L/m per nasal cannula. Bronchial alveolar lavage revealed no growth. Blood cultures revealed no growth. White count 8.1. Hemoglobin 10.0. Platelets 500. Sodium 134. Potassium 4.1. Bicarb 20. BUN 11. Creatinine 0.38. Glucose 112. She is continued on DuoNeb inhalations, Symbicort, Flagyl and ceftriaxone. Heparin for DVT prophylaxis. Normal saline at 50 MLS per hour. The patient is seen today 05/29/2023 in follow-up on the regular medical floor. She is currently sitting up in a chair. Awake and alert in no acute distress. Maintaining O2 saturations in the 90s on 4 L/m per nasal cannula. Follow-up chest x-rays now revealing a stable moderate left-sided pleural effusion. Ultrasound of the chest reveals a 9.8 cm pocket on the left. She did undergo a left-sided thoracentesis today with 800 mL of straw-colored fluid removed. Sent for fluid analysis and cytology. Follow-up chest x-ray revealed interval improvement in the left lung aeration. No pneumothorax. Bronchial lavage cultures revealed no growth. Cytology pending. White count 9.5. Hemoglobin 10.2. Sodium 133. Potassium 3.8. Bicarb 29. BUN 5. Creatinine 0.30. Glucose 95. She is continued on ceftriaxone and Flagyl. Remains on bronchodilators. Heparin for DVT prophylaxis. Normal saline at 50 ML's per hour. The patient is seen today 05/30/2023 in follow-up on the regular medical floor. She is awake and alert in no acute distress. Sitting up in a chair at the bedside. Denies any worsening shortness of breath, cough or congestion. Bronchial alveolar lavage is revealing no growth, blood cultures revealed no growth. White count 10.9. Hemoglobin 10.8. Platelets 538. Sodium 137. Po tassium 3.6. Bicarb 26. BUN 5.3. Creatinine 0.4. Lipid analysis from yesterday's thoracentesis shows exudate with a protein of 2.8 and LDH of 516. Cytology pending. She is continued on DuoNeb inhalations, Symbicort, antibiotics in the form of ceftriaxone. Heparin for DVT prophylaxis. Normal saline at 50 MLS per hour. The patient is seen today 05/31/2023 in follow-up on the regular medical floor. She is sitting up in a chair. Awake and alert in no acute distress. Denies any worsening shortness of breath, cough or congestion. No hemoptysis. Bone scan did reveal abnormal uptake within the skull, right anterior rib and medial aspect of the right femur and scattered throughout the spine concerning for metastatic disease. Left posterior rib fracture as seen on prior CT. Bronchial wash cultures revealed no malignancy. Pleural fluid cytology pending. The plan is for bronchoscopy with biopsies today. White count 8.7. Hemoglobin 10.1. Platelets 477. Sodium 135. Potassium 3.2. Bicarb 34. BUN 9. Creatinine 0.37. Glucose 94. The patient is seen today 06/01/2023 in follow-up on the regular medical floor. She is awake and alert in no acute distress. Sitting up in a chair. Denies any worsening shortness of breath, cough or congestion. She is maintaining O2 saturations in the 90s on 4 L/m per nasal cannula. She's been afebrile. Hemodynamically stable. Bronchial wash cultures from 05/25/2023 revealed no evidence of malignancy. Pleural fluid cultures from 05/29/2023 are pending. Bronchial biopsies from bronchoscopy on 05/31/2023 still pending. MRI of the brain revealed scattered osseous metastatic disease. No intra-axial enhancing mass or lesions at this time. No evidence of acute/subacute infarct. Sodium 139. Potassium 3.5. BUN 10. Creatinine 0.4. Glucose 88. If she is continued on DuoNeb inhalations, Pulmicort. Heparin for DVT prophylaxis. Normal saline at 50 ML's per hour. The patient is seen today 06/02/2023 in follow-up on the regular medical floor. She is currently sitting up in a chair. Awake and alert in no acute distress. She remains quite weak. She is maintaining good O2 saturations in the 90s on 3 L/m per nasal cannula. She has normal saline at 50 ML's per hour. Her original pleural fluid cultures from 05/29/2023 are now showing positive for rare metastatic non-small cell carcinoma cells. Bronchoscopy biopsies from 05/31/2023 are pending. Ultrasound revealed no growth. She is continued on DuoNeb inhalations, Symbicort. Heparin for DVT prophylaxis. The patient is seen today 06/03/2023 in follow-up on the regular medical floor. She is awake and alert in no acute distress. She remains quite weak. She is teary-eyed today due to her cancer diagnosis. Her family is at the bedside. He is currently on 4 L nasal cannula with O2 saturations in the mid 90s. Afebrile. Hemodynamically stable. Continue to have ongoing issues with neck and back pain due to osseous metastasis. Pain management has been consulted. She is continued on DuoNeb inhalations, Symbicort. Heparin for DVT prophylaxis. The patient is seen today 06/04/2023 in follow-up on the regular medical floor. She is currently resting comfortably in bed. Awake and alert in no acute distress. He continues to maintain O2 saturations in the mid 90s on 4 L/m per nasal cannula. She's been afebrile. Hemodynamically stable. She was seen and evaluated by radiation oncology for her osseous metastasis. She is continued on Symbicort and DuoNeb inhalations for now. Heparin for DVT prophylaxis. Continuing to trial different pain management medications. The patient is seen today 06/05/2023 in follow-up on the regular medical floor. She is currently sitting up in a chair at the bedside. Awake and alert in no acute distress. Her son is in the room as well. She is maintaining good O2 saturations in the 90s on 4 L/m per nasal cannula. Chest x-ray continues to show similar left pleural effusion. She had undergone a thoracentesis on 05/29/2023 that was positive for rare metastatic non-small cell carcinoma. She is still undecided whether or not to proceed with any treatment versus home hospice. She is continued on DuoNeb inhalations, Symbicort. She remains on Decadron due to the osseous metastatic disease on MRI of the brain and bone scan. Pain management has been an issue. She is currently on a fentanyl patch with Toradol, oxycodone also On today's evaluation of 06/06/2023, the patient is being seen for a follow-up. The patient has lung mass/left lung mass in addition to large left-sided pleural effusion, and a small right-sided pleural effusion. The patient had multiple dissected lesions in the iliac bones in the lumbar spine consistent with metastatic disease. The patient also had a marked gallbladder wall edema consistent with possible cholecystitis. The patient is known to have COPD. The patient has hypertension hyperlipidemia and coronary artery disease with previous bypass surgery. The patient has multiple sclerosis. Patient was urgently admitted for shortness of breath. The patient has undergone multiple diagnostic attempts among which was a left-sided thoracentesis that showed non- small cell lung cancer and this was done on 05/29/2023 with a total of 800 mL of fluid was aspirated. Patient also had a bronchoscopy that was done on 05/23/2023 and biopsy of the lung and the pathology was negative for malignancy. Bone scan is showing multiple areas of metastases. The patient is currently being considered for hospice. In same time, the patient is being considered for a Pleurx catheter insertion. This will be essentially for palliative reasons. On today's evaluation of 06/07/2023, the patient is stable, no nausea vomiting or abdominal pain. Hospice consultation has been initiated. The patient is scheduled to undergo a Pleurx catheter insertion today. She is afebrile. She is hemodynamically stable. No new labs are available from today and the patient is currently on room air oxygen with a pulse ox of 97%. On today's evaluation of 06/08/2023, the patient is stable. She has a Pleurx catheter in the right lung. The procedure was done yesterday and a total of 900 mL was aspirated from the left lung. The patient remains on oxygen at 3 L per minute nasal cannula with a pulse ox of 97%. The patient is interested in hospice care. The patient met with radiation oncology and the patient decided to forego radiation therapy and she is interested in palliative radiation therapy. She met with radiation oncology. She has had CT simulation and she is going to start palliative radiation therapy to her spine On 06/09/2023, the patient is being seen for a follow-up. The patient's had it Pleurx catheter inserted and the patient is interested in hospice care at the time of discharge. No other active issues for now. The patient is taking Decadron for Covid 19 infection and she was going to complete a ten-day course. She is also on fentanyl patch. She is also going to receive palliative radiation therapy to her back for pain. No labs. Objective - Vital Signs Vital signs: Vital Signs Temp 98 F 06/09/23 13:29 Pulse 108 H 06/09/23 15:44 Resp 21 06/09/23 13:29 BP 115/65 06/09/23 13:29 Pulse Ox 99 06/09/23 13:29 FiO2 95 05/27/23 16:46 Intake & Output 06/08/23 06/09/23 06/09/23 18:59 06:59 18:59 Intake Total 240 Balance 240 Weight 55.3 kg Intake: Oral 240 Other: Voiding Method Toilet Bedside Commode Bedside Commode Bedside Commode Diaper # Voids 1 2 # Bowel Movements 1 ABP, PAP, CO, CI - Last Documented Arterial Blood Pressure 152/72 - Exam GENERAL EXAM: Alert, pleasant weak 62-year-old female, in a chair, on 4 L nasal cannula, in no apparent distress. HEAD: Normocephalic. EYES: Normal reaction of pupils, equal size. NOSE: Clear with pink turbinates. THROAT: No erythema or exudates. NECK: No masses, no JVD. CHEST: No chest wall deformity. LUNGS: Equal air entry with few crackles in the left base., The patient is a Pleurx catheter in the left chest and the exit site is clean CVS: S1 and S2 normal with no audible murmur, regular rhythm. ABDOMEN: No hepatosplenomegaly, normal bowel sounds, no guarding or rigidity. SPINE: No scoliosis or deformity SKIN: No rashes CENTRAL NERVOUS SYSTEM: No focal deficits, tone is normal in all 4 extremities. EXTREMITIES: There is no peripheral edema. No clubbing, no cyanosis. Peripheral pulses are intact. - Labs CBC & Chem 7: 06/05/23 16:10 06/05/23 16:10 Assessment and Plan Plan: Metastatic non-small cell lung cancer with a malignant left-sided pleural effusion, post Pleurx catheter insertion for palliative reasons, no changes in her condition Chronic shortness of breath secondary to above, currently stable Acute hypoxemic respiratory failure, currently on 4 L of oxygen by nasal cannula and the patient is Status post left-sided thoracentesis 05/29/2023 with 800 mL of straw-colored fluid removed. 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 Suspected acute cholecystitis and abdominal sepsis. Seen by surgery and the recommendation was to continue antibiotics, recommended no surgery. Leukocytosis, secondary to above, resolved Severe metabolic anion gap acidosis, resolved Left lung mass, recently measuring 4.2 x 3.9 cm with multiple lesions suspicious for mediastinal and diffuse osseous metastasis. This was been worked up outpatient. Bronchoscopy on 05/25/2023 showed no evidence of endobronchial tumor. Bronchiolar lavage revealed no evidence of malignancy. Bronchoscopy with biopsies performed on 05/31/2023. Pathology revealed no malignant. Bone scan is showing multiple areas of metastasis. MRI of the brain reveals metastatic osseous lesions but no intracranial mass or lesions. Chronic obstructive pulmonary disease, with FEV1 38% predicted, recently placed on PRN albuterol and Trelegy inhalers. Elevated troponin, likely related to supply/demand mismatch Hypertension Hyperlipidemia Coronary artery disease, with previous CABG History of multiple sclerosis History of anxiety/depression Plan: Remains on oxygen 4 L with a pulse ox of 99% Pleurx catheter inserted and palliative drainage to be done on outpatient basis Palliative radiation therapy Overall respiratory status is stable and the patient is being weaned off the FiO2 on 4 Hospice care has been initiated Continue bronchodilators Continue with pain management we will continue to follow
[2023-06-09] MEDS: IBUPROFEN 600 MG TAB PO SCH ×2 (18:09→23:03)
[2023-06-09] MEDS: polyethylene glycoL 3350 17 GM POWD.PACK PO SCH (20:41)
[2023-06-09] MEDS: MELATONIN 3 MG TABLET PO SCH (20:48)
[2023-06-09] MEDS: MIRTAZAPINE 15 MG TAB PO SCH (21:13)
[2023-06-10] MEDS: ALPRAZolam 0.5 MG TAB PO PRN ×2 (02:09→09:08)
[2023-06-10] MEDS: ACETAMINOPHEN TAB 500 MG TAB PO SCH ×2 (02:09→09:09)
[2023-06-10] MEDS: MORPHINE ORAL SOLN 10 MG/5 ML CUP PO PRN ×3 (02:10→11:48)
[2023-06-10] MEDS: dexAMETHasone 4 MG TAB PO SCH ×2 (05:36→11:48)
[2023-06-10 08:04] VITALS: BP 118/70; RESP 17; TEMP 97.8
[2023-06-10] MEDS: IPRATROPIUM-ALBUTEROL 3 ML NEB INHALATION SCH ×2 (08:07→11:56)
[2023-06-10] MEDS: SYMBICORT 160-4.5 MCG INHALER INHALATION SCH (08:08)
[2023-06-10 08:56] VITALS: PULSE 104
[2023-06-10] MEDS: HEPARIN SODIUM,PORCINE 5,000 UNIT/ML 1 ML VIAL SQ SCH (09:08)
[2023-06-10] MEDS: PANTOPRAZOLE 40 MG/10 ML VIAL IVP SCH (09:08)
[2023-06-10] MEDS: IBUPROFEN 600 MG TAB PO SCH (09:08)
[2023-06-10] MEDS: MORPHINE SULFATE ER 30 MG TABLET PO SCH (09:09)
[2023-06-10] MEDS: METOPROLOL TARTRATE 25 MG TAB PO SCH (09:10)
[2023-06-10] MEDS: SENNOSIDES 8.6 MG TAB PO SCH (09:10)
[2023-06-10] MEDS: FLUoxetine HCL 20 MG CAP PO SCH (09:10)
[2023-06-10] MEDS: PRIMIDONE 50 MG TAB PO SCH (09:11)
[2023-06-10 11:26] VITALS: BMI 20.1
--- NOTE | 2023-06-10 11:40 | P.DS ---
Providers Date of admission: 05/24/23 06:41 Expected date of discharge: 06/10/23 Attending physician: Edwina Bronson MD Consults: 05/24/23 06:43 Consult Physician Stat Consulting Provider: Kianna Cortez Consult Reason/Comments: ICU Do you want consulting provider notified?: Already Contacted 05/25/23 07:50 Consult Physician Urgent Consulting Provider: Kendrick Madrid Consult Reason/Comments: lung mass with mets Do you want consulting provider notified?: Yes 06/03/23 16:00 Consult Physician Routine Consulting Provider: Reji Kiran Consult Reason/Comments: lung mass, osseous mets, intractable pain Do you want consulting provider notified?: Already Contacted 06/06/23 13:29 Consult Physician Routine Consulting Provider: Vee Griffin Consult Reason/Comments: pleur-X catheter Do you want consulting provider notified?: Yes Primary care physician: Ni German MD Hospital Course: Discharge Diagnosis: Acute hypoxic respiratory failure Non-small cell lung cancer Lung mass with metastatic disease Left-sided pleural effusion Acute on chronic cholecystitis Transaminitis NSTEMI, likely type II Lactic acidosis Sepsis High anion gap metabolic acidosis Hyperkalemia Hypercalcemia Hypokalemia Leukocytosis Hospital Course: 62-year-old female with history of recently diagnosed lung cancer with metastatic disease, CAD status post CABG, multiple sclerosis, COPD, hypertension, dyslipidemia, essential tremor presenting with dyspnea. In the ED, vital signs showed T 94.6, HR 102, RR 32, BP 163/119, 97% on nonrebreather at 15 L. Due to increased work of breathing, BiPAP was suggested. However her mental status was poor, and she was subsequently intubated. Transferred to medical ICU. WBC was 12.8, platelet 780, K 5.4, bicarb 15, Cr 0.78, lactate 11.1. ABG showed pH 7.16, pCO2 44. Troponin 0.056, T. Bili 0.3, AST 43, ALT 33, ALP 192, proBNP 14,000, CRP 6.9, lipase 70, respiratory viral panel negative, UDS positive for oxycodone, barbiturates, and marijuana. CT abdomen and pelvis, CT chest showed mild diffuse edema and infiltrates worse on the right, atelectasis in the majority of left lower lobe, multiple thoracic spine with obstructive le sions consistent with metastatic disease, marked gallbladder wall edema, obstructive lesions in the iliac bone and lumbar spine. Head CT shows multiple skull lesions. Had a bronch with BAL 05/25. Surgery following for acute on chronic cholecystitis, treating conservatively with medical management. Oncology also following. Extubated 05/25. Echocardiogram showed mild LV systolic dysfunction secondary to prior inferior wall myocardial infarction, moderate pulmonary hypertension. Underwent left-sided thoracentesis, 800 mL fluid removed, cytology showed non small cell carcinoma. Bone nuclear scan shows abnormal uptake within the skull, right anterior rib, medial aspect of right femur and scattered throughout the spine concerning for metastatic disease, left posterior rib fracture is seen on CT. Repeat bronchoscopy done 05/31 with pathology non diagnostic for CA. Brain MRI shows scattered osseous metastatic disease, no intracranial metastasis. Was Accepted to [facility] at [place]. Initially planned for discharge on 06/02 but held due to uncontrolled pain.06/03 She reported continued pain in her cervical spine. Pain management consulted. Patient now going home with hospice. Status post left-sided Pleurx catheter. Palliative radiation completed. Patient seen and examined at bedside. Vital signs reviewed and stable. General: Not in acute distress, chronically ill-appearing Derm: warm, dry Head: atraumatic, normocephalic, symmetric Eyes: EOMI, anicteric sclera, pupils equal round reactive to light ENT: Nose and ears atraumatic Neck: No thyromegaly, supple Mouth: no lip lesion, mucus membranes moist Cardiovascular: S1S2 reg, no murmur, no edema Lungs: Bilateral rhonchi, worse on the left side, supplemental oxygen Abdominal: soft, nontender to palpation, no guarding, no appreciable organomegaly Ext: no gross muscle atrophy, muscle strength muscle strength 5 out of 5 in all 4 extremities, no contractures Neuro: CN II-12 grossly normal Psych: Alert and cooperative A total of 33 minutes of time were spent preparing this complex discharge summary. Patient was discharged on 06/10/23 at 0951. Patient Condition at Discharge: Stable Plan - Discharge Summary Discharge Rx Participant: Yes New Discharge Prescriptions: New oxyCODONE HCL [OxyIR] 15 mg PO Q6HR PRN #36 tab PRN Reason: Pain Sennosides [Senokot] 8.6 mg PO BID tab dexAMETHasone ORAL [Hexadrol] 4 mg PO Q6HR tab MORPHINE ORAL TOMASZ 2mg/mL [Morphine Oral Soln 2 MG/ML] 20 mg PO Q4H PRN ml PRN Reason: Severe Breakthrough Pain Ibuprofen [Motrin] 600 mg PO TID tab Morphine Sulfate ER [Ms Contin] 30 mg PO Q12HR tab Acetaminophen Tab [Tylenol] 1,000 mg PO Q8H tab Ipratropium-Albuterol Nebulize [Duoneb 0.5 mg-3 mg/3 ml Soln] 3 ml INHALATION RT-Q2H PRN each PRN Reason: Shortness Of Breath Or Wheezing Metoprolol Tartrate [Lopressor] 25 mg PO BID tab Melatonin 3 mg PO HS tab polyethylene glycoL 3350 [Miralax] 17 gm PO HS PRN packet PRN Reason: Constipation ALPRAZolam [Xanax] 0.5 mg PO TID PRN #3 tab PRN Reason: Anxiety fentaNYL 25MCG/HR PATCH [Duragesic 25MCG/HR] 1 patch TRANSDERM Q72H patch Continue FLUoxetine HCL [PROzac] 40 mg PO DAILY Fluticasone/Umeclidin/Vilanter [Trelegy Ellipta 200-62.5-25] 1 puff INHALATION RT-DAILY Mirtazapine [Remeron] 15 mg PO HS Primidone [Mysoline] 100 mg PO TID Discontinued Albuterol Sulfate [Ventolin HFA] 1 - 2 puff INHALATION RT-Q6H PRN PRN Reason: Shortness Of Breath Aspirin EC [Ecotrin Low Dose] 81 mg PO DAILY Ergocalciferol [Vitamin D2 (1250 Mcg = 27893 Iu)] 1,250 mcg PO Q7D lisinopriL [Zestril] 2.5 mg PO DAILY Multivitamins, Thera [Multivitamin (formulary)] 1 tab PO DAILY oxyCODONE HCL [OxyIR] 5 mg PO Q6H PRN PRN Reason: Severe Pain (Scale 7 To 10) Propranolol [Inderal] 40 mg PO BID tiZANidine [Zanaflex] 4 mg PO TID PRN PRN Reason: Muscle Spasm Simvastatin [Zocor] 40 mg PO HS Discharge Medication List FLUoxetine HCL [PROzac] 40 mg PO DAILY 05/24/23 [History] Fluticasone/Umeclidin/Vilanter [Trelegy Ellipta 200-62.5-25] 1 puff INHALATION RT-DAILY 05/24/23 [History] Mirtazapine [Remeron] 15 mg PO HS 05/24/23 [History] Primidone [Mysoline] 100 mg PO TID 05/24/23 [History] ALPRAZolam [Xanax] 0.5 mg PO TID PRN #3 tab 06/02/23 [Rx] Ipratropium-Albuterol Nebulize [Duoneb 0.5 mg-3 mg/3 ml Soln] 3 ml INHALATION RT-Q2H PRN each 06/02/23 [Rx] Melatonin 3 mg PO HS tab 06/02/23 [Rx] Metoprolol Tartrate [Lopressor] 25 mg PO BID tab 06/02/23 [Rx] Sennosides [Senokot] 8.6 mg PO BID tab 06/02/23 [Rx] oxyCODONE HCL [OxyIR] 15 mg PO Q6HR PRN #36 tab 06/02/23 [Rx] polyethylene glycoL 3350 [Miralax] 17 gm PO HS PRN packet 06/02/23 [Rx] Acetaminophen Tab [Tylenol] 1,000 mg PO Q8H tab 06/10/23 [Rx] Ibuprofen [Motrin] 600 mg PO TID tab 06/10/23 [Rx] MORPHINE ORAL TOMASZ 2mg/mL [Morphine Oral Soln 2 MG/ML] 20 mg PO Q4H PRN ml 06/10/23 [Rx] Morphine Sulfate ER [Ms Contin] 30 mg PO Q12HR tab 06/10/23 [Rx] dexAMETHasone ORAL [Hexadrol] 4 mg PO Q6HR tab 06/10/23 [Rx] fentaNYL 25MCG/HR PATCH [Duragesic 25MCG/HR] 1 patch TRANSDERM Q72H patch 06/10/23 [Rx] Activity/Diet/Wound Care/Special Instructions: Pleurx cath discharge instructions: 1. Home Care is ordered, they will obtain new bottles. 2. May shower after 24 hours, no tub baths/hot tubs. 3. Do not drain more than 1 liter or 1000 mL in 24 hours. 4. New drainage bottle needed with each drainage. 5. Drainage frequency dictated by patient symptoms, may be every day, every other day, weekly, or however often the patient is symptomatic. 6. Please notify INSURANCE COLLECTOR or office if temperature >101F, excessive pain at insertion site, drainage consistency changes to cloudy or smells bad, catheter falls out, or anything else that concerns you. 7. Contact surgery office with weekly drainage amounts. May fax the amounts. 8. Once drainage is less than 50 mL three times in a row, notify the surgery office for possible removal. Surgery office: , fax Diet: Regular Follow up with PCP within 1-2 days of discharge. Follow up with Oncology Dr. Madrid for results of the biopsy that is pending within 1 week of discharge. Follow up with Pulmonology Dr. Navarro within 1 week of discharge. Discharge Disposition: HOME WITH HOSPICE
--- NOTE | 2023-06-13 12:03 | CDI ---
Documentation Clarification Form Date: 06/13/2023 11:42:02 AM From: Marissa Alcantara Phone: Admit Date: 05/24/2023 06:41:00 AM Patient Name: Elise Lehman Visit Number: [id number] Discharge Date: 06/10/2023 01:50:00 PM ATTENTION: The Clinical Documentation Specialists (CDI) and [facility] Coding Staff appreciate your assistance in clarifying documentation. Please respond to the clarification below the line at the bottom and electronically sign. The CDI & [facility] Coding staff will review the response and follow-up if needed. Please note: Queries are made part of the Legal Health Record. If you have any questions, please contact the author of this message via ITS. Dr. Erin Moore Lt posterior rib fractureis seen onCT ordered by Hilario CHUNG. Additional clarification regarding the etiology of the fracture is requested. Patient history/risk factors: 62yo F, AHRF w COPD, PNA, VITOR non-small cell lung cancer w bonesmets w acute pain, Lt pleural effusion, acute on chronic cholecystitis, transaminitis, NSTEMI II, metabolic acidosis /lactic acidosis, severe sepsis, hyperkalemia, hypercalcemia, hypokalemia Clinical Indicators: Bone nuclear scan showsabnormaluptake within the skull, right anterior rib, medial aspect of right femur and scattered throughout the spine concerning formetastatic disease,left posterior rib fractureis seen onCT. Treatment: Was Accepted to [facility] at [place]. Initially planned for discharge on 06/02 but held due to uncontrolled pain.06/03 she reported continuedpainin her cervical spine. Painmanagement consulted. Patient now going home with hospice. Status postleft-sided Pleurx catheter. Palliativeradiationcompleted. Please clarify the etiology of the left posterior rib fracture, if known: [X ] Neoplastic disease [ ] Traumatic [ ] Stress [ ] Other (please specify): [ ] Unable to determine (Template Last Revised: September 2020) MTDD
== END 2023-06-10 13:50 | disposition hospice, home (50) | DRG 720 ==
LOC: EC 03:10 → 2SICU 06:41 → 5NMEDONC 05-27 21:37
PROVIDERS: ADMIT Internal Medicine; ATTEND Internal Medicine
PROC: 5A1945Z Respiratory Ventilation, 24-96 Consecutive Hours (ICD-10-PCS; principal; 2023-05-24)
PROC: 0BH18EZ Insertion of Endotracheal Airway into Trachea, Via Natural or Artificial Opening Endoscopic (ICD-10-PCS; 2023-05-24)
PROC: 06HM33Z Insertion of Infusion Device into Right Femoral Vein, Percutaneous Approach (ICD-10-PCS; 2023-05-24)
PROC: 03HY32Z Insertion of Monitoring Device into Upper Artery, Percutaneous Approach (ICD-10-PCS; 2023-05-24)
PROC: 4A133B1 Monitoring of Arterial Pressure, Peripheral, Percutaneous Approach (ICD-10-PCS; 2023-05-24)
PROC: 4A133J1 Monitoring of Arterial Pulse, Peripheral, Percutaneous Approach (ICD-10-PCS; 2023-05-24)
PROC: 0B9J8ZX Drainage of Left Lower Lung Lobe, Via Natural or Artificial Opening Endoscopic, Diagnostic (ICD-10-PCS; 2023-05-25)
PROC: 0B9H8ZX Drainage of Lung Lingula, Via Natural or Artificial Opening Endoscopic, Diagnostic (ICD-10-PCS; 2023-05-25)
PROC: 0W9B3ZZ Drainage of Left Pleural Cavity, Percutaneous Approach (ICD-10-PCS; 2023-05-29)
PROC: 0BBG8ZX Excision of Left Upper Lung Lobe, Via Natural or Artificial Opening Endoscopic, Diagnostic (ICD-10-PCS; 2023-05-31)
PROC: 0BDG8ZX Extraction of Left Upper Lung Lobe, Via Natural or Artificial Opening Endoscopic, Diagnostic (ICD-10-PCS; 2023-05-31)
PROC: 0W9B30Z Drainage of Left Pleural Cavity with Drainage Device, Percutaneous Approach (ICD-10-PCS; 2023-06-07)
PROC: DP0C1ZZ Beam Radiation of Other Bone using Photons 1 - 10 MeV (ICD-10-PCS; 2023-06-10)
DX: A41.9 Sepsis, unspecified organism (principal); J96.01 Acute respiratory failure with hypoxia; J69.0 Pneumonitis due to inhalation of food and vomit; J91.8 Pleural effusion in other conditions classified elsewhere; J44.0 Chronic obstructive pulmonary disease with (acute) lower respiratory infection; I21.A1 Myocardial infarction type 2; E87.20 Acidosis, unspecified; C79.51 Secondary malignant neoplasm of bone; I27.20 Pulmonary hypertension, unspecified; M84.58XA Pathological fracture in neoplastic disease, other specified site, initial encounter for fracture; K81.2 Acute cholecystitis with chronic cholecystitis; G35 Multiple sclerosis; R65.20 Severe sepsis without septic shock; C34.12 Malignant neoplasm of upper lobe, left bronchus or lung; I11.9 Hypertensive heart disease without heart failure; Q07.00 Arnold-Chiari syndrome without spina bifida or hydrocephalus; Z66 Do not resuscitate; Z51.5 Encounter for palliative care; F32.A Depression, unspecified; D63.0 Anemia in neoplastic disease; G89.3 Neoplasm related pain (acute) (chronic); D75.838 Other thrombocytosis; E87.5 Hyperkalemia; R74.01 Elevation of levels of liver transaminase levels; I25.10 Atherosclerotic heart disease of native coronary artery without angina pectoris; E83.52 Hypercalcemia; E78.5 Hyperlipidemia, unspecified; F41.1 Generalized anxiety disorder; G25.0 Essential tremor; E87.6 Hypokalemia; J98.11 Atelectasis; Z20.822 Contact with and (suspected) exposure to COVID-19; Z95.1 Presence of aortocoronary bypass graft; I25.2 Old myocardial infarction; Z87.891 Personal history of nicotine dependence; Z79.82 Long term (current) use of aspirin; Z79.899 Other long term (current) drug therapy; Z79.51 Long term (current) use of inhaled steroids; Z88.0 Allergy status to penicillin
CPT/HCPCS: 31623; 31624; 31625; 36415; 36600; 70450; 70553; 71045; 71046; 71260; 72125; 74177; 76604; 76700; 77280; 77290; 77307; 77334; 77412; 78306; 80048; 80053; 80143; 80179; 80306; 80320; 81001; 82150; 82805; 82945; 83605; 83615; 83690; 83735; 83880; 84132; 84145; 84155; 84157; 84484; 85025; 85027; 85610; 85730; 86140; 87040; 87070; 87102; 87116; 87205; 87206; 87496; 87498; 87502; 87529; 87634; 87636; 87798; 88104; 88108; 88305; 88341; 88342; 89050; 93005; 93306; 94002; 94003; 94640; 94667; 94760; 96361; 96374; 96375; 99291